=== PATIENT | female | born 1950 | race Two or more races ===

== ENCOUNTER → 2020-11-02 11:56 | Outpatient (BNVA) | payer MEDICARE, SELFPAY | PROVIDERS: PCP Internal Medicine; Referring Provider Internal Medicine; Visit Provider Internal Medicine Gastroenterology | DX: K59.09 Other constipation (principal); R10.12 Left upper quadrant pain; K57.90 Diverticulosis of intestine, part unspecified, without perforation or abscess without bleeding; Z86.010 Personal history of colon polyps | CPT/HCPCS: Q3014 ==

== ENCOUNTER 2021-03-12 09:57 | Outpatient (REF) | payer MEDICARE, SELFPAY ==
--- NOTE | ~2021-03-12 | MM_ITS ---
EXAMINATION: MM SCREENING DIGITAL BREAST TOMOSYNTHESIS, BILATERAL CLINICAL INFORMATION: Screening. Asymptomatic. The lifetime risk of breast cancer based on the Tyrer-Cuzick Model is 2%. COMPARISON: Mammography: 11/25/2019, 10/09/2018, 06/21/2016 TECHNIQUE: Digital breast tomosynthesis is performed in both the craniocaudal and mediolateral oblique views along with computer-aided detection (CAD). Synthesized 2D images are generated from the tomosynthesis. FINDINGS: There are scattered areas of fibroglandular density (ACR BI-RADS breast composition Category b). There are no significant masses, abnormal calcifications, or other abnormalities. There is an intramammary node again seen upper outer quadrant right breast similar to prior studies. Low left axillary tail nodes stable. Skin contours are smooth. No significant changes. MM/MM tomosynthesis screening BI IMPRESSION: No mammographic evidence of malignancy. ASSESSMENT: BI-RADS 2: Benign RECOMMENDATION: Routine annual mammography screening. This patient's information was entered into a reminder system with a target due date for their next mammogram.
== END 2021-03-12 09:58 | disposition home or self-care (01) ==
LOC: HO.MAMMO 09:57
PROVIDERS: Visit Provider Internal Medicine
DX: Z12.31 Encounter for screening mammogram for malignant neoplasm of breast (principal)
CPT/HCPCS: 77063; 77067

== ENCOUNTER 2021-04-04 11:33 | Outpatient (REF) | payer MEDICARE, SELFPAY ==
[2021-04-04 12:27] LABS: Estimated Average Glucose 117 mg/dL; Hemoglobin A1c % 5.7 %
[2021-04-04 12:45] LABS: Alanine Aminotransferase 27 U/L (0-31); Albumin Level 4.1 g/dL (3.5-5.0); Alkaline Phosphatase 135 U/L (39-117); Anion Gap 11 (12-20); Aspartate Amino Transferase 23 U/L (5-31); Bilirubin Total 0.4 mg/dL (0.0-1.0); Blood Urea Nitrogen 13 mg/dL (9-16); Calcium 9.8 mg/dL (8.4-10.2); Carbon Dioxide 30 mmol/L (22-29); Chloride 103 mmol/L (96-108); Estimated Glomerular Filt Rate > 60; Glucose Fasting 98 mg/dL (60-99); Potassium 4.4 mmol/L (3.3-5.1); Sodium 140 mmol/L (135-145); Total Protein 7.3 g/dL (6.5-8.0)
[2021-04-04 12:53] LABS: Free T4 (Free Thyroxine) 0.95 ng/dL (0.71-1.85); Thyroid Stimulating Hormone 1.19 uIU/mL (0.32-4.0)
[2021-04-08 11:12] LABS: Vitamin D 25-OH, D2 <4 ng/mL; Vitamin D 25-OH, D3 24 ng/mL; Vitamin D 25-OH, Total 24 ng/mL (30-100)
== END 2021-04-04 11:34 | disposition home or self-care (01) ==
LOC: HO.LAB 11:33
PROVIDERS: Internal Medicine; PCP Internal Medicine; Visit Provider Internal Medicine
DX: E78.00 Pure hypercholesterolemia, unspecified (principal); I10 Essential (primary) hypertension; E55.9 Vitamin D deficiency, unspecified
CPT/HCPCS: 36415; 80053; 82306; 83036; 84439; 84443

== ENCOUNTER → 2021-05-10 11:17 | Outpatient (BNVA) | payer MEDICARE, SELFPAY | PROVIDERS: PCP Internal Medicine; Visit Provider Internal Medicine Gastroenterology | DX: R10.12 Left upper quadrant pain (principal); K59.09 Other constipation; K57.90 Diverticulosis of intestine, part unspecified, without perforation or abscess without bleeding; Z86.010 Personal history of colon polyps | CPT/HCPCS: 99212 ==

== ENCOUNTER 2021-05-21 14:27 | Outpatient (REF) | payer MEDICARE, SELFPAY ==
[2021-05-21 15:28] LABS: MANUAL DIFF FLAG NO
[2021-05-21 15:35] LABS: Basophils Absolute Auto 0.1 X10*3/uL (0.0-0.2); Basophils Percent Auto 0.6 % (0-2); Eosinophils Absolute Auto 0.3 X10*3/uL (0.0-0.4); Eosinophils Percent Auto 3.3 % (0-4); Hematocrit 37.4 % (37-47); Hemoglobin 12.2 g/dl (12.0-16.0); Imm Gran Abs Auto 0.03 X10*3/uL (0.00-0.03); Imm Gran Pct Auto 0.4 % (0.0-0.4); Lymphocytes Absolute Auto 2.4 X10*3/uL (1.2-4.9); Lymphocytes Percent Auto 29.5 % (20-40); Mean Corpuscular HGB Conc 32.6 g/dl (31.0-35.0); Mean Corpuscular Hemoglobin 30.7 pg (27.0-33.0); Mean Corpuscular Volume 94.2 fL (80-98); Mean Platelet Volume 12.1 fL (9.4-12.3); Monocytes Absolute Auto 0.6 X10*3/uL (0.1-1.2); Monocytes Percent Auto 7.6 % (2-11); Neutrophils Absolute Auto 4.8 X10*3/uL (2.0-8.3); Neutrophils Percent Auto 58.6 % (45-73); Platelet Count 274 X10*3/uL (160-400); Red Blood Count 3.97 X10*6/uL (4.20-5.50); Red Cell Distribution Width 13.2 % (11.0-16.0); White Blood Count 8.1 X10*3/uL (4.8-10.8)
[2021-05-21 16:00] LABS: Alanine Aminotransferase 12 U/L (0-31); Albumin Level 4.1 g/dL (3.5-5.0); Alkaline Phosphatase 137 U/L (39-117); Aspartate Amino Transferase 15 U/L (5-31); Bilirubin Direct < 0.2 mg/dL (0.0-0.5); Bilirubin Total < 0.2 mg/dL (0.0-1.0); C Reactive Protein 1.24 mg/dL (< or = 0.50); Lipase 20 U/L (8-78); Total Protein 7.2 g/dL (6.5-8.0)
[2021-05-21 16:15] LABS: TSH reflex Free T4 0.78 uIU/mL (0.32-4.0)
[2021-05-21 16:22] LABS: Folate 9.6 ng/mL (> or = 4.0); Vitamin B12 266 pg/mL (200-900)
[2021-05-21 16:25] LABS: Erythrocyte Sedimentation Rate 33 MM/HR (0-20)
== END 2021-05-21 14:28 | disposition home or self-care (01) ==
LOC: HO.LAB 14:27
PROVIDERS: PCP Internal Medicine; Visit Provider Internal Medicine Gastroenterology
DX: R10.12 Left upper quadrant pain (principal)
CPT/HCPCS: 36415; 80076; 82607; 82746; 83690; 84443; 85025; 85652; 86140

== ENCOUNTER 2021-06-04 08:53 | Outpatient (REF) | payer MEDICARE, SELFPAY ==
--- NOTE | ~2021-06-04 | US_ITS ---
EXAMINATION: US ABDOMEN COMPLETE CLINICAL INFORMATION: Left upper quadrant pain. COMPARISON: CT abdomen and pelvis 04/28/2020. Ultrasound abdomen 11/20/2016. TECHNIQUE: Real-time imaging of the abdominal viscera. FINDINGS: PANCREAS: Head and body the pancreas are normal. The tail is not well visualized due to bowel gas. ABDOMINAL AORTA: The proximal, mid, and distal segments are normal in caliber. INFERIOR VENA CAVA: Visualized portions are normal. LIVER: Liver echotexture is increased probably representing fatty infiltration. There is a hypoechoic area adjacent to the gallbladder, characteristic location of focal fatty sparing.. The liver is normal in size. The liver contour is normal. No other focal hepatic lesion. There is no intrahepatic biliary duct dilatation seen. GALLBLADDER: Normal. The gallbladder is physiologically distended without evidence of stones, sludge, polyps, wall thickening or pericholecystic fluid. COMMON BILE DUCT: Normal in caliber measuring 0.7 cm in diameter. RIGHT KIDNEY: There is a 7 x 6 mm cyst in the lower pole. No hydronephrosis or renal calculi. The kidney measures 9.7 cm in maximum dimension. LEFT KIDNEY: There is a 3 x 4 mm cyst in the lower pole. No hydronephrosis or renal calculi. The kidney measures 9.1 cm in maximum dimension. SPLEEN: Normal. The spleen measures 8.2 cm in maximum dimension. FREE FLUID: None. US/US abdomen complete IMPRESSION: Echogenic liver probably representing fatty infiltration. Small bilateral renal cysts. Limited visualization of the tail the pancreas.
== END 2021-06-04 08:54 | disposition home or self-care (01) ==
LOC: HO.US 08:53
PROVIDERS: Visit Provider Internal Medicine Gastroenterology
DX: R10.12 Left upper quadrant pain (principal)
CPT/HCPCS: 76700

== ENCOUNTER 2021-07-01 13:11 | Emergency (ER) | payer MEDICARE, SELFPAY ==
[2021-07-01 14:37] VITALS: BP 150/62; PULSE 55; RESP 16; TEMP 36; O2SAT 98; BMI 32.8
--- NOTE | 2021-07-01 16:17 | ED_ITS ---
HPI - Ear Problem General Chief complaint: Ear Problems Stated complaint: ear pain Time Seen by Provider: 07/01/21 13:46 Source: patient Mode of arrival: ambulatory Limitations: no limitations History of Present Illness HPI Narrative: 71-year-old female presents with left-sided ear pain and pain swallowing. Stated that the pain on the left ear started 2 days ago. She does not describe any fevers but has had some subjective chills. She has had tonsillar problems since she was a child. She is allergic to penicillin and does not recall any of the antibiotics that she took prior. She did not describe any fevers, chest pain or pressure, palpitations, shortness of breath, abdominal pain, abdominal distention, dysuria, hematuria, nausea, vomiting, diarrhea, constipation, difficulty swallowing, change in voice, or edema. MD Complaint: ear pain Location: left ear Duration: constant Severity: moderate Relieving factors: nothing Exacerbating factors: chewing and palpation Discharge from ear: no Treatment prior to arrival: none Related Data Previous Rx's Medication Instructions Recorded irbesartan 300 mg tablet 300 mg PO DAILY 90 Days #90 tab 09/14/20 sennosides 8.6 mg-docusate sodium 1 tab-cap PO BID PRN 30 Days #60 11/02/20 50 mg capsule (Senna Plus) cap cholecalciferol (vitamin D3) 25 25 mcg PO DAILY #90 tab 12/07/20 mcg (1,000 unit) tablet CPAP 6 cm humidified AIR MASKAIR #1 ea 04/20/21 FIT N20 small amlodipine 5 mg tablet 5 mg PO BID #180 tab 05/26/21 cefuroxime axetil 500 mg tablet 500 mg PO Q12H 7 Days #14 tab 07/01/21 Allergies Allergy/AdvReac Type Severity Reaction Status Date / Time atorvastatin Allergy Unknown myalgia Verified 05/10/21 11:43 codeine Allergy Unknown SWELLING Verified 05/10/21 11:43 penicillin V Allergy Unknown rash Verified 05/10/21 11:43 Penicillins Allergy Unknown RASH Verified 05/10/21 11:43 metoprolol AdvReac leg Verified 05/10/21 11:43 swelling Review of Systems Review of Systems: Constitutional: No Fever, No Chills ENT/Mouth: Positive Ear Pain, No Hoarseness, positive sore throat Eyes: No Eye Pain, No Swelling, No Redness, No Foreign Body Cardiovascular: No Chest Pain, No SOB Respiratory: No Cough, No Dyspnea Gastrointestinal: No Nausea, No Vomiting, No Diarrhea, No abdominal Pain Genitourinary: No Dysuria, No Hematuria Musculoskeletal: No joint pain, No Myalgias, No Joint Swelling Skin: No Skin lacerations, No rash Neuro: No Weakness, No Numbness, No Paresthesias, No Loss of Consciousness, No Dizziness, No Headache Psych: No Anxiety/Panic, No Depression Heme/Lymph: no easy bruising, no Lymphadenopathy Endocrine: No Polyuria, No Polydipsia Yes all other systems are reviewed and are negative [facility] Past Medical History Attestation statement: The following information was validated with the patient. Source: old records reviewed Medical History Coreas's cyst of knee Diverticulosis Essential hypertension Hypovitaminosis D IgA nephropathy Obesity (BMI 30-39.9) Obstructive sleep apnea Pure hypercholesterolemia Venous (peripheral) insufficiency Vitamin D deficiency Surgical History H/O tubal ligation History of colonoscopy History of dilatation and curettage History of loop electrical excision procedure (LEEP) Family History Family History Father No problems noted. Mother No problems noted. Social History Social History Alcohol intake: never Patient Tobacco Use Status: Never used Tobacco Second Hand Smoke Exposure: No Use of substances other than those prescribed or required for medical reasons: No Advance Directives: No Advance Directives Information Provided: Yes Physical Exam Vital Signs: Vital Signs: Last Vital Signs Temp 98.3 F 07/01/21 16:24 Pulse 55 07/01/21 14:37 Resp 16 07/01/21 14:37 BP 136/62 07/01/21 16:24 Pulse Ox 98 07/01/21 14:37 Body Mass Index 32.8 Appearance: Alert. Oriented X3. No acute distress. Eyes: Pupils equal, round and reactive to light. ENT: Pharynx normal. Left tympanic membrane bulging and erythematous consistent with otitis media, left tonsil erythema with exudate, right tonsillar erythema. Centor scale 3. No mastoid tenderness noted Neck: Normal inspection. Neck supple. No cervical lymphadenopathy noted. CVS: Normal heart rate and rhythm. Pulses normal. No chest wall tenderness to palpation. Respiratory: No respiratory distress. Breath sounds normal. Abdomen: Soft and nontender. No paddle splenomegaly noted. Skin: Skin warm and dry. Normal skin color. Normal skin turgor. Extremities: No lower extremity edema. Neuro: No motor deficit. No sensory deficit. Cranial nerves 2-12 intact. Course Course Course Narrative: 71-year-old female presents with left-sided ear pain and pain swallowing. Stated that the pain on the left ear started 2 days ago. She does not describe any fevers but has had some subjective chills. She has had tonsillar problems since she was a child. She is allergic to penicillin and does not recall any of the antibiotics that she took prior. Physical exam indicative of otitis media with suspected tonsillitis. Will treat with cefuroxime. Patient verbalized understanding of and agrees to plan of care to discharge home. buckle coverer utilized for all correspondence. Google translate utilized for discharge instructions. MDM - Ear Differential Diagnosis Differential diagnosis: Likely otitis externa, otitis media, ruptured TM and cerumen impaction Medical Records Attestation: I reviewed the patient's medical records. Discharge Plan Discharge Clinical Impression: Otitis media Qualifiers: Otitis media type: suppurative Chronicity: acute Laterality: left Recurrence: recurrent Spontaneous tympanic membrane rupture: without spontaneous rupture Qualified Code(s): H66.005 - Acute suppurative otitis media without spontaneous rupture of ear drum, recurrent, left ear Acute tonsillitis Qualifiers: Pharyngitis/tonsillitis etiology: unspecified etiology Qualified Code(s): J03.90 - Acute tonsillitis, unspecified Patient Disposition: Home, Self-Care Instructions: Ear Infection (ED), Tonsillitis (ED) Additional Instructions: Fue evaluado por dolor de o?do sheeba. El examen indica otitis media, que es adry infecci?n del o?do interno. Byron un seguimiento con edwards m?dico de atenci?n primaria seg?n sea necesario. Use Tylenol y Motrin seg?n sea necesario para controlar el dolor. Anote la hora a la que cristal Tylenol y Motrin para evitar adry sobredosis accidental. [place] cefuroxima dos veces al d?a stephanie los pr?ximos 7 d?as. Asaf por elegir darek departamento de emergencias para edwards evaluaci?n. Byron un seguimiento con edwards m?dico de atenci?n primaria seg?n sea necesario. Regrese al departamento de emergencias por cualquier s?ntoma nuevo, preocupante o que empeore. You were evaluated for left-sided ear pain. Exam indicates otitis media, which is an inner ear infection. Please follow-up with primary care physician as needed. Use Tylenol and Motrin as needed for pain management. Please write d own what time you take Tylenol and Motrin to prevent accidental overdose. Take cefuroxime twice a day for next 7 days. Thank you for choosing this emergency department for evaluation. Please follo w-up with primary care physician as needed. Return to the emergency department for any new, concerning, or worsening symptoms. Prescriptions: New cefuroxime axetil 500 mg tablet 500 mg PO Q12H 7 Days Qty: 14 RF: 0 No Action irbesartan 300 mg tablet 300 mg PO DAILY 90 Days Qty: 90 RF: 3 cholecalciferol (vitamin D3) 25 mcg (1,000 unit) tablet 25 mcg PO DAILY Qty: 90 RF: 1 amlodipine 5 mg tablet 5 mg PO BID Qty: 180 RF: 2 (DME) CPAP 6 cm humidified AIR MASKAIR FIT N20 small See Rx Instructions .Route .MEDSUPPLY Qty: 1 RF: 0 Senna Plus 8.6-50 mg capsule 1 tab-cap PO BID PRN (Reason: constipation) 30 Days Qty: 60 RF: 3 Interventions: ED Discharge Assessment Last Done: 07/01/21 17:19 Discharge Date/Time: 07/01/21 17:20
[2021-07-01 16:24] VITALS: BP 136/62; TEMP 36.8
== END 2021-07-01 17:20 | disposition home or self-care (01) ==
PROVIDERS: Emergency Provider Internal Medicine; PCP Internal Medicine
DX: H66.005 Acute suppurative otitis media without spontaneous rupture of ear drum, recurrent, left ear (principal); J03.90 Acute tonsillitis, unspecified; I10 Essential (primary) hypertension
CPT/HCPCS: 99283; 99284

== ENCOUNTER 2021-11-13 12:18 | Outpatient (REF) | payer MEDICARE, SELFPAY ==
--- NOTE | ~2021-11-13 | XR_ITS ---
EXAMINATION: XR LUMBAR SPINE and sacrum CLINICAL INFORMATION: Low back pain COMPARISON: None TECHNIQUE: Frontal lateral and coned-down L5-S1 frontal lateral FINDINGS: Five [id number] lumbar vertebrae were identified maintaining normal height and alignments. Narrowing of intervertebral disc spaces suggest underlying degenerative disc disease. There are heavy vascular calcifications. There are degenerative osteoarthritic changes of SI joints. No radiographic evidence of sacral lesion or fracture, Paravertebral soft tissues are unremarkable. There are radiolucencies, most likely superimposed bowel gas.. No radiographic evidence of osteolytic or osteoblastic lesions. XR/XR sacrum coccyx min 2V IMPRESSION: No fracture. No radiographic evidence of pathologic lesion. Mild bilateral degenerative sacroiliitis. Narrowing of intervertebral disc spaces suggest underlying degenerative disc disease.
--- NOTE | ~2021-11-13 | XR_ITS ---
EXAMINATION: XR LUMBAR SPINE and sacrum CLINICAL INFORMATION: Low back pain COMPARISON: None TECHNIQUE: Frontal lateral and coned-down L5-S1 frontal lateral FINDINGS: Five [id number] lumbar vertebrae were identified maintaining normal height and alignments. Narrowing of intervertebral disc spaces suggest underlying degenerative disc disease. There are heavy vascular calcifications. There are degenerative osteoarthritic changes of SI joints. No radiographic evidence of sacral lesion or fracture, Paravertebral soft tissues are unremarkable. There are radiolucencies, most likely superimposed bowel gas.. No radiographic evidence of osteolytic or osteoblastic lesions. XR/XR lumbar spine 2-3V IMPRESSION: No fracture. No radiographic evidence of pathologic lesion. Mild bilateral degenerative sacroiliitis. Narrowing of intervertebral disc spaces suggest underlying degenerative disc disease.
== END 2021-11-13 12:19 | disposition home or self-care (01) ==
LOC: HO.XRAY 12:18
PROVIDERS: PCP Internal Medicine; Visit Provider Nurse Practitioner Acute Care
DX: M54.50 Low back pain, unspecified (principal); M54.10 Radiculopathy, site unspecified
CPT/HCPCS: 72100; 72220

== ENCOUNTER 2021-12-19 11:08 | Outpatient (REF) | payer MEDICARE, SELFPAY ==
[2021-12-19 11:21] LABS: MANUAL DIFF FLAG NO
[2021-12-19 11:39] LABS: Basophils Absolute Auto 0.1 X10*3/uL (0.0-0.2); Basophils Percent Auto 0.9 % (0-2); Eosinophils Absolute Auto 0.3 X10*3/uL (0.0-0.4); Eosinophils Percent Auto 4.6 % (0-4); Hematocrit 38.2 % (37.0-47.0); Hemoglobin 12.3 g/dl (12.0-16.0); Imm Gran Abs Auto 0.02 X10*3/uL (0.00-0.03); Imm Gran Pct Auto 0.3 % (0.0-0.4); Lymphocytes Absolute Auto 2.3 X10*3/uL (1.2-4.9); Lymphocytes Percent Auto 30.6 % (20-40); Mean Corpuscular HGB Conc 32.2 g/dl (31.0-35.0); Mean Corpuscular Hemoglobin 30.2 pg (27.0-33.0); Mean Corpuscular Volume 93.9 fL (80.0-98.0); Mean Platelet Volume 11.6 fL (9.4-12.3); Monocytes Absolute Auto 0.7 X10*3/uL (0.1-1.2); Monocytes Percent Auto 9.1 % (2-11); Neutrophils Percent Auto 54.5 % (45-73); Platelet Count 288 X10*3/uL (160-400); Red Blood Count 4.07 X10*6/uL (4.20-5.50); White Blood Count 7.4 X10*3/uL (4.8-10.8)
[2021-12-19 11:51] LABS: Estimated Average Glucose 120 mg/dL; Hemoglobin A1c % 5.8 %
[2021-12-19 12:25] LABS: Alanine Aminotransferase 14 U/L (0-31); Alkaline Phosphatase 141 U/L (39-117); Anion Gap 13 (12-20); Aspartate Amino Transferase 16 U/L (5-31); Bilirubin Total 0.4 mg/dL (0.0-1.0); Blood Urea Nitrogen 24 mg/dL (9-16); Calcium 10.1 mg/dL (8.4-10.2); Carbon Dioxide 28 mmol/L (22-29); Chloride 104 mmol/L (96-108); Cholesterol 211 mg/dL; Estimated Glomerular Filt Rate 54; Glucose Fasting 103 mg/dL (60-99); HDL Cholesterol 46 mg/dL; LDL Cholesterol Calculated 141 mg/dl; Potassium 5.2 mmol/L (3.3-5.1); Sodium 140 mmol/L (135-145); Total Protein 7.2 g/dL (6.5-8.0); Triglycerides 121 mg/dL
== END 2021-12-19 11:09 | disposition home or self-care (01) ==
LOC: HO.LAB 11:08
PROVIDERS: PCP Internal Medicine; Visit Provider Nurse Practitioner Acute Care
DX: E78.00 Pure hypercholesterolemia, unspecified (principal); R73.01 Impaired fasting glucose
CPT/HCPCS: 36415; 80053; 80061; 83036; 85025

== ENCOUNTER 2021-12-21 16:14 | Outpatient (REF) | payer MEDICARE, SELFPAY ==
--- NOTE | ~2021-12-21 | US_ITS ---
EXAMINATION: US VENOUS ULTRASOUND WITH DOPPLER LOWER EXTREMITY, LEFT CLINICAL INFORMATION: Left leg swelling. COMPARISON: Left lower extremity venous Doppler dated 05/10/2020. TECHNIQUE: Ultrasound of the deep veins is performed from the hip to the calf with compression sonography and color and pulse Doppler assessment. Spectral analysis with color-flow imaging is performed. FINDINGS: There is normal venous compression and respiratory variation and augmented flow. The visualized common femoral vein, superficial femoral vein, profunda femoral vein, popliteal vein, and the trifurcation region shows no evidence of deep venous thrombosis. No left popliteal cyst. The subcutaneous soft tissues are unremarkable. If the patient's symptoms persist, followup ultrasound in 5 days 7 days might be of value to exclude proximal propagation from a non-visualized calf vein. US/US venous duplex LE LT IMPRESSION: 1. No evidence for deep venous thrombosis in the visualized veins of the left lower extremity. 2. The previously seen left popliteal cyst is no longer visualized.
== END 2021-12-21 16:15 | disposition home or self-care (01) ==
LOC: HO.US 16:14
PROVIDERS: PCP Internal Medicine; Visit Provider Internal Medicine
DX: R60.0 Localized edema (principal); M79.89 Other specified soft tissue disorders
CPT/HCPCS: 93971

== ENCOUNTER 2022-03-28 08:56 | Outpatient (REF) | payer OTHER, SELFPAY ==
[2022-03-28 10:13] LABS: MANUAL DIFF FLAG NO
[2022-03-28 10:26] LABS: Basophils Absolute Auto 0.1 X10*3/uL (0.0-0.2); Basophils Percent Auto 0.9 % (0-2); Eosinophils Absolute Auto 0.2 X10*3/uL (0.0-0.4); Eosinophils Percent Auto 2.2 % (0-4); Hematocrit 39.2 % (37.0-47.0); Hemoglobin 12.6 g/dl (12.0-16.0); Imm Gran Abs Auto 0.03 X10*3/uL (0.00-0.03); Imm Gran Pct Auto 0.4 % (0.0-0.4); Lymphocytes Absolute Auto 1.8 X10*3/uL (1.2-4.9); Lymphocytes Percent Auto 24.4 % (20-40); Mean Corpuscular HGB Conc 32.1 g/dl (31.0-35.0); Mean Corpuscular Hemoglobin 29.8 pg (27.0-33.0); Mean Corpuscular Volume 92.7 fL (80.0-98.0); Mean Platelet Volume 11.3 fL (9.4-12.3); Monocytes Absolute Auto 0.7 X10*3/uL (0.1-1.2); Monocytes Percent Auto 9.2 % (2-11); Neutrophils Absolute Auto 4.6 x10*3/uL (2.0-8.3); Neutrophils Percent Auto 62.9 % (45-73); Platelet Count 282 X10*3/uL (160-400); Red Blood Count 4.23 X10*6/uL (4.20-5.50); Red Cell Distribution Width 13.4 % (11.0-16.0); White Blood Count 7.4 X10*3/uL (4.8-10.8)
[2022-03-28 11:03] LABS: Cholesterol 217 mg/dL; HDL Cholesterol 47 mg/dL; LDL Cholesterol Calculated 151 mg/dl; Triglycerides 95 mg/dL
[2022-03-30 17:31] LABS: Immunoglobulin A 361 mg/dL (70-320)
[2022-03-31 13:41] LABS: Anti Nuclear Antibody Screen NEGATIVE (NEGATIVE)
[2022-04-01 14:56] LABS: Immunoglobulin G Subclass 1 606 mg/dL (382-929); Immunoglobulin G Subclass 2 501 mg/dL (241-700); Immunoglobulin G Subclass 3 78 mg/dL (22-178); Immunoglobulin G Subclass 4 31.2 mg/dL (4-86); Immunoglobulin G Total 1279 mg/dL (600-1540)
[2022-04-01 22:07] LABS: Prot Elec - Albumin 3.8 g/dL (3.8-4.8); Prot Elec - Alpha1 0.3 g/dL (0.2-0.3); Prot Elec - Alpha2 0.8 g/dL (0.5-0.9); Prot Elec - Beta 1 0.5 g/dL (0.4-0.6); Prot Elec - Beta 2 0.5 g/dL (0.2-0.5); Prot Elec - Gamma 1.2 g/dL (0.8-1.7); Prot Elec - Total Protein 7.1 g/dL (6.1-8.1)
[2022-04-01 22:36] LABS: Transglutaminase IgA <1.0 U/mL
[2022-04-02 13:56] LABS: Mitochondrial Antibodies NEGATIVE (NEGATIVE)
[2022-04-03 22:51] LABS: Smooth Muscle Antibody <20 U (<20)
[2022-04-05 13:36] LABS: Alk.Phos Iso. Macrohepatic 0 % (<=0); Alk.Phos Isoenzymes Bone 38 % (28-66); Alk.Phos Isoenzymes Intest 0 % (1-24); Alk.Phos Isoenzymes Liver 62 % (25-69); Alk.Phos Isoenzymes Placental 0 % (<=0); Alk.Phos Isoenzymes Total 124 U/L (37-153)
== END 2022-03-28 08:57 | disposition home or self-care (01) ==
LOC: HO.LAB 08:56
PROVIDERS: PCP Internal Medicine; Referring Provider Internal Medicine; Visit Provider Internal Medicine Gastroenterology
DX: R74.8 Abnormal levels of other serum enzymes (principal); R19.5 Other fecal abnormalities; E78.00 Pure hypercholesterolemia, unspecified; K57.90 Diverticulosis of intestine, part unspecified, without perforation or abscess without bleeding; R10.12 Left upper quadrant pain; K59.09 Other constipation; Z86.010 Personal history of colon polyps; Z79.899 Other long term (current) drug therapy
CPT/HCPCS: 36415; 80061; 82784; 84080; 84165; 85025; 86015; 86038; 86039; 86255; 86256; 86364; 99212

== ENCOUNTER 2022-04-08 12:04 | Outpatient (REF) | payer OTHER, SELFPAY ==
[2022-04-13 13:41] LABS: Pancreatic Elastase-1 >500 mcg/g
== END 2022-04-08 12:05 | disposition home or self-care (01) ==
LOC: HO.LNP 12:04
PROVIDERS: Visit Provider Internal Medicine Gastroenterology
DX: R74.8 Abnormal levels of other serum enzymes (principal)
CPT/HCPCS: 82656

== ENCOUNTER 2022-05-23 14:14 | Outpatient (REF) | payer OTHER, SELFPAY ==
--- NOTE | ~2022-05-23 | MM_ITS ---
EXAMINATION: MM SCREENING DIGITAL BREAST TOMOSYNTHESIS, BILATERAL CLINICAL INFORMATION: Screening. Asymptomatic. The lifetime risk of breast cancer based on the Tyrer-Cuzick Model is 2%. COMPARISON: Mammography: 03/12/2021, 11/25/2019, 10/09/2018 TECHNIQUE: Digital breast tomosynthesis is performed in both the craniocaudal and mediolateral oblique views along with computer-aided detection (CAD). Synthesized 2D images are generated from the tomosynthesis. FINDINGS: There are scattered areas of fibroglandular density (ACR BI-RADS breast composition Category b). There are no significant masses, abnormal calcifications, or other abnormalities. Intramammary node mid upper outer right breast again noted. No developing density. The implant contours are smooth. No significant changes. MM/MM tomosynthesis screening BI IMPRESSION: No mammographic evidence of malignancy. ASSESSMENT: BI-RADS 2: Benign RECOMMENDATION: Routine annual mammography screening. This patient's information was entered into a reminder system with a target due date for their next mammogram.
--- NOTE | ~2022-05-23 | MM_ITS ---
EXAMINATION: BONE DENSITOMETRY CLINICAL INDICATION: Age-related osteoporosis without current pathological fracture. COMPARISON: None (current study represents initial baseline exam). TECHNIQUE: Using a [employer] DXA System (software version: 13.1) manufactured by [employer], dual-energy x-ray absorptiometry was performed of the lumbar spine and left hip. The images are of good technical quality. Summary results are attached. FINDINGS: AP SPINE L1-L4: BMD 0.949 g/cm2, Z-score -0.7, T-score -1.9, osteopenia. LEFT FEMUR, NECK: BMD 0.733 g/cm2, Z-score -0.7, T-score -2.2, osteopenia. LEFT FEMUR, TOTAL: BMD 0.883 g/cm2, Z-score 0.3, T-score -1.0, normal. IDENTIFIED RISK FACTORS: Early menopause, secondary osteoporosis, history of fracture (adult), renal. HISTORY OF FRACTURE: Other. No insufficiency fracture reported. MEDICATIONS: Vitamin D. MM/XR DEXA axial skeleton IMPRESSION: 1. DIAGNOSIS: Osteopenia based on the lowest T-score value of -2.2 in the femoral neck applying World Health Organization criteria. 2. 10-YEAR FRACTURE RISK PREDICTION, FRAX: Major osteoporotic fracture (clinical spine, forearm, hip or shoulder) 11.6%. Hip fracture 2.6%. 3. Treatment Recommendations: NOF guidelines recommend consideration for treatment in postmenopausal women and men age 50 and older presenting with the following: -A hip or vertebral (clinical or morphometric) fracture. -T-score less than or equal to -2.5 at the femoral neck or spine after appropriate evaluation to exclude secondary causes. -Low bone mass at the hip or spine and a 10-year fracture probability by FRAX of greater than or equal to 3% for hip fracture or greater than or equal to 20% for major osteoporotic fracture based on the [place] adapted WHO algorithm. 4. Other Recommendations: All treatment decisions require clinical judgment and consideration of individual patient factors, including patient preferences, comorbidities, previous drug use, risk factors not captured in the FRAX model (e.g. frailty, falls, vitamin D deficiency, increased bone turnover, interval significant decline in bone density) and possible under or overestimation of fracture risk by FRAX. Additional medical evaluation for secondary cause of low bone mineral density may be appropriate. FUTURE SCAN RECOMMENDATION: People with diagnosed cases of osteoporosis or at high risk for fracture should have regular bone mineral density tests. For patients eligible for Medicare, routine testing is allowed once every 2 years. The testing frequency can be increased to one year for patients who have rapidly progressing disease, those who are receiving or discontinuing medical therapy to restore bone mass, or have additional risk factors.
== END 2022-05-23 14:15 | disposition home or self-care (01) ==
LOC: HO.MAMMO 14:14
PROVIDERS: PCP Internal Medicine; Visit Provider Internal Medicine
DX: Z12.31 Encounter for screening mammogram for malignant neoplasm of breast (principal); Z13.820 Encounter for screening for osteoporosis; M81.0 Age-related osteoporosis without current pathological fracture; Z78.0 Asymptomatic menopausal state
CPT/HCPCS: 77063; 77067; 77080

== ENCOUNTER → 2022-06-11 09:00 | Outpatient (BNVA) | payer OTHER, SELFPAY | PROVIDERS: PCP Internal Medicine; Visit Provider Nurse Practitioner Family | DX: G47.33 Obstructive sleep apnea (adult) (pediatric) (principal); Z99.89 Dependence on other enabling machines and devices | CPT/HCPCS: 99202 ==

== ENCOUNTER → 2022-07-04 15:42 | Outpatient (REF) | payer OTHER, SELFPAY | LOC: HO.SL 15:42 | PROVIDERS: PCP Internal Medicine; Visit Provider Internal Medicine | DX: G47.33 Obstructive sleep apnea (adult) (pediatric) (principal) | CPT/HCPCS: 95806 ==

== ENCOUNTER 2022-07-15 11:23 | Day surgery (SDC) | payer OTHER, SELFPAY ==
[2022-07-10 10:09] VITALS: BMI 32.6
--- NOTE | 2022-07-12 10:08 | P.CONAN_ITS ---
Documented by User: Rachana Stephens NP 07/12/22 10:09 HPI - Anesthesia Eval Consult details Narrative: 72yo F for Upper Endoscopy PMFSH Active Problems Active Problems: All Active Problems (Updated 06/11/22 @ 10:15 by Coco Gil CNP) JANN on CPAP (Acute) Chalazion of right eye (Acute) Elevated alkaline phosphatase level (Acute) Guaiac positive stools (Acute) Breast cancer screening (Acute) Age-related osteoporosis without current pathological fracture (Acute) Annual physical exam (Acute) Left leg swelling (Acute) Conjunctivitis (Acute) Radicular pain (Acute) Low back pain (Acute) Benign essential hypertension (Acute) Otitis media of left ear (Acute) Diverticulosis (Acute) LUQ abdominal pain (Acute) Impaired fasting blood sugar (Acute) Obesity (BMI 30-39.9) (Acute) Obstructive sleep apnea (Acute) History of colon polyps (Acute) Chronic constipation (Acute) Venous (peripheral) insufficiency (Acute) Coreas's cyst of knee (Acute) Pure hypercholesterolemia (Acute) Hypovitaminosis D (Acute) Past Medical History Medical History Coreas's cyst of knee Benign essential hypertension Diverticulosis Hypovitaminosis D IgA nephropathy Obesity (BMI 30-39.9) Obstructive sleep apnea Pure hypercholesterolemia Venous (peripheral) insufficiency Vitamin D deficiency Family History Family History Father Alzheimers disease Mother Kidney failure Surgical History Surgical History H/O tubal ligation History of colonoscopy History of dilatation and curettage History of loop electrical excision procedure (LEEP) Social History Social History Housing: Apartment Alcohol intake: never Patient Tobacco Use Status: Never used Tobacco e-Cigarette/Vaping Use: Never Used Second Hand Smoke Exposure: No Advance Directives: No Advance Directives Information Provided: Yes service: No Current occupational status: disabled Cognitive needs: No Hearing needs: No Vision needs: No Meds Allergies Allergy/AdvReac Type Severity Reaction Status Date / Time atorvastatin Allergy Unknown myalgia Verified 06/11/22 09:08 codeine Allergy Unknown SWELLING Verified 06/11/22 09:08 penicillin V Allergy Unknown rash Verified 06/11/22 09:08 metoprolol AdvReac leg Verified 06/11/22 09:08 swelling Exam Exam Date and Time: July 12, 2022 1008 Height,Weight and Vital Signs: Height 5 ft 1 in Weight 78.471 kg Pertinent Lab Results Pertinent Lab Results: Laboratory Tests 12/19/21 03/28/22 11:19 10:06 WBC 7.4 Hgb 12.6 Hct 39.2 Plt Count 282 Sodium 140 Potassium 5.2 H Chloride 104 Carbon Dioxide 28 BUN 24 H Creatinine 1.01 Assessment and Plan Assessment Anesthesia Assessment: Chart Reviewed Documented by User: Olamide Parisi MD 07/15/22 12:32 [facility] Past Medical History Medical History Coreas's cyst of knee Benign essential hypertension Diverticulosis Hypovitaminosis D IgA nephropathy Obesity (BMI 30-39.9) Obstructive sleep apnea Pure hypercholesterolemia Venous (peripheral) insufficiency Vitamin D deficiency Family History Family History Father Alzheimers disease Mother Kidney failure Surgical History Surgical History H/O tubal ligation History of colonoscopy History of dilatation and curettage History of loop electrical excision procedure (LEEP) History of Problems with Anesthesia: No Social History Social History Housing: Apartment Alcohol intake: never Patient Tobacco Use Status: Never used Tobacco e-Cigarette/Vaping Use: Never Used Second Hand Smoke Exposure: No Advance Directives: No Advance Directives Information Provided: Yes service: No Current occupational status: disabled Cognitive needs: No Hearing needs: No Vision needs: No Meds Allergies Allergy/AdvReac Type Severity Reaction Status Date / Time atorvastatin Allergy Unknown myalgia Verified 06/11/22 09:08 codeine Allergy Unknown SWELLING Verified 06/11/22 09:08 penicillin V Allergy Unknown rash Verified 06/11/22 09:08 metoprolol AdvReac leg Verified 06/11/22 09:08 swelling Exam Airway Mallampati Class: II TM Dist: >3cm Neck ROM: Full Partial: Upper Loose/Missing/Broken Teeth: Yes and Upper Heart: RRR Lungs: CTA Assessment and Plan Assessment Anesthesia Assessment: Anesthesia Plan Discussed Final Anesthetic Review History of Problems with Anesthesia: No NPO: Yes ASA Class: III Final Preanesthetic Review: Meds/Allgs Chart Reviewed, Consent Obtained/Reviewed and Anes Risks/Benef Reviewed Patient Risk: Intermediate Procedure Risk: Intermediate Anesthetic Plan Anesthetic Plan: MAC: Disposition: Standard PACU
[2022-07-15 12:26] VITALS: BP 126/58; PULSE 48; RESP 18; O2SAT 99; BMI 32.6
--- NOTE | 2022-07-15 12:45 | P.HPSUR_ITS ---
Pre-Procedural Eval Section A Date of Service: 07/15/22 The patient is an INPATIENT: No The History & Physical has been completed within 30 days and I have reviewed it.: No Section B Chief Complaint: Left upper quadrant pain Details of Present Illness: nausea, bloating LUQ pain (with radiation to the back) and dizziness. Unintentional weight loss of 6 lbs in 2 weeks. Present Medications: see Short Stay Collaborative assessment Medical History: Significant History (Coreas's cyst of knee Benign essential hypertension Diverticulosis Hypovitaminosis D IgA nephropathy Obesity (BMI 30- 39.9) Obstructive sleep apnea Pure hypercholesterolemia Venous (peripheral) insufficiency Vitamin D deficiency) History of Previous Operations: Relevant previous surgery/procedure and date(s) (H/O tubal ligation History of colonoscopy History of dilatation and curettage History of loop electrical excision procedure (LEEP)) Allergies: Allergies Allergy/AdvReac Type Severity Reaction Status Date / Time atorvastatin Allergy Unknown myalgia Verified 07/15/22 12:35 codeine Allergy Unknown SWELLING Verified 07/15/22 12:35 penicillin V Allergy Unknown rash Verified 07/15/22 12:35 metoprolol AdvReac leg Verified 07/15/22 12:35 swelling Review of Systems Sugical H&P ROS: Negative: Constitution, Cardiovascular and Respiratory and Yes, Specify: Gastrointestinal (abd pain) Exam Surgical H&P Exam: Normal: Heart, Normal: Lungs, Normal: Extremities and Normal: Abdomen Plan Diagnosis/Plan: Unchanged I have reviewed the history and physical and performed a pertinent physical examination on my patient. No changes have occurred unless specified.
--- NOTE | 2022-07-15 12:48 | P.BOP_ITS ---
Brief Operative Note Date of Service: 07/15/22 Pre-op diagnosis: LUQ pain, wt loss Post-op diagnosis: other ( gastritis) Procedure: FLEXIBLE TRANSORAL UPPER GASTROINTESTINAL ENDOSCOPY WITH BIOPSIES Consent: Indications for the procedure and potential complications of bleeding, perforation, reaction to medications and missed diagnosis were discussed with the patient and informed consent was obtained. Instrument: Olympus GIF H 190 mid size upper endoscope Monitoring: Vital signs and clinical assessment, continuous EKG monitoring, Pulse oximetry, Carbon Dioxide monitoring and blood pressure monitoring were done throughout the procedure. Procedure: The patient was placed in the left lateral decubitis position and pre-procedure medications were administered and a bite block was placed. The endoscope was inserted into the mouth and advanced under direct vision to the third part of duodenum. A careful inspection was made as the upper endoscope was withdrawn including a retroflexed examination of the proximal stomach; Findings and interventions are described below. Findings: Larynx: Normal Esophagus: Tortuous esophagus with increased tertiary contractions without stricture or ring. GE junction at 36 cms. No esophagitis or Gore's. Stomach: Moderate patchy gastric erythema. Biopsies were obtained from the remberto rayo antrum and body. Grade 2 flap valve on retroflexed examination of the cardia. Duodenum: Normal bulb and descending duodenum. Biopsies were obtained from 3rd part of the duodenum to check for celiac sprue Intervention: Biopsies as noted above Impression and Post Procedure Diagnosis: Endoscopy Findings: ESOPHAGUS: Tortuous esophagus with increased tertiary contractions without stricture or ring. GE junction at 36 cms. No esophagitis or Gore's. STOMACH: gastritis DUODENUM: normal - biopsies were obtained to check for celiac sprue No etiology found for abdominal pain Plan: Await pathology results Patient has an appointment on 08/15/22 in the GI Clinic with Marlon Caballero M.D. Above findings were reviewed with the patient and Gastritis handout was given in the discharge area Surgeon: Marlon Caballero MD Anesthesia: MAC Was an Lead Sql Developer used for this Procedure?: Yes Lead Sql Developer: Rissa Cortes Estimated blood loss (mL): 0 Pathology: other ( A. small bowel bxs, R/O celiac B. gastric antrum bxs, R/O H. pylori C. gastric body bxs) Condition: stable Disposition: PACU
--- NOTE | 2022-07-15 12:49 | P.OP_ITS ---
Operative Note Operative Note Date of Service: 07/15/22 Narrative: Pre-op diagnosis: LUQ pain, wt loss Post-op diagnosis:?other ( gastritis) Procedure: FLEXIBLE TRANSORAL UPPER GASTROINTESTINAL ENDOSCOPY WITH BIOPSIES Consent:?Indications for the procedure and potential complications of bleeding, perforation, reaction to medications and missed diagnosis were discussed with the patient and informed consent was obtained. Instrument:?Olympus GIF H 190 mid size upper endoscope Monitoring: Vital signs and clinical assessment, continuous EKG monitoring, Pulse oximetry, Carbon Dioxide monitoring and blood pressure monitoring were done throughout the procedure. Procedure:?The patient was placed in the left lateral decubitis position and pre-procedure medications were administered and a bite block was placed. The endoscope was inserted into the mouth and advanced under direct vision to the third part of duodenum. A careful inspection was made as the upper endoscope was withdrawn including a retroflexed examination of the proximal stomach; Findings and interventions are described below. Findings: Larynx:? Normal Esophagus: Tortuous esophagus with increased tertiary contractions without? stricture or ring.? GE junction at 36 cms.? No esophagitis or Gore's. Stomach: Moderate patchy gastric erythema. Biopsies were obtained from the gastric antrum and body. Grade 2 flap valve on retroflexed examination of the cardia. Duodenum: Normal bulb and descending duodenum.? Biopsies were obtained from 3rd part of the duodenum to check for celiac sprue Intervention: Biopsies as noted above Impression and Post Procedure Diagnosis: Endoscopy Findings: ESOPHAGUS: Tortuous esophagus with increased tertiary contractions without? stricture or ring.? GE junction at 36 cms.? No esophagitis or Gore's. STOMACH:? gastritis DUODENUM:? normal - ? biopsies were obtained to check for celiac sprue No etiology found for abdominal pain Plan: Await pathology results Patient has an appointment on 08/15/22 in the GI Clinic with Marlon Caballero M.D. Above findings were reviewed with the patient and Gastritis handout was given in the discharge area Surgeon: Marlon Caballero MD Anesthesia:?MAC Was an Dynamics Ax Solution Architect used for this Procedure?:?Yes Dynamics Ax Solution Architect:?Rissa Cortes Estimated blood loss (mL):?0 Pathology:?other ( A. small bowel bxs, R/O celiac? B. gastric antrum bxs, R/O H. pylori? C. gastric body bxs) Condition:?stable Disposition:?PACU
[2022-07-15 13:17] VITALS: BP 112/60; PULSE 61; RESP 16; TEMP 36.6; O2SAT 97
[2022-07-15 13:32] VITALS: BP 131/73; PULSE 65; RESP 16; O2SAT 96
[2022-07-15 13:47] VITALS: BP 147/70; PULSE 58; RESP 16; TEMP 36.6; O2SAT 97
== END 2022-07-15 14:24 | disposition home or self-care (01) ==
PROVIDERS: PCP Internal Medicine; Visit Provider Internal Medicine Gastroenterology
PROC: 0DJ08ZZ Inspection of Upper Intestinal Tract, Via Natural or Artificial Opening Endoscopic (ICD-10-PCS; CPT 43235; principal; 2022-07-15 13:10)
DX: K29.50 Unspecified chronic gastritis without bleeding (principal); K21.9 Gastro-esophageal reflux disease without esophagitis; R63.4 Abnormal weight loss; K57.30 Diverticulosis of large intestine without perforation or abscess without bleeding; E55.9 Vitamin D deficiency, unspecified; E78.00 Pure hypercholesterolemia, unspecified; G47.33 Obstructive sleep apnea (adult) (pediatric); I10 Essential (primary) hypertension; I87.2 Venous insufficiency (chronic) (peripheral); Z79.899 Other long term (current) drug therapy; Z88.0 Allergy status to penicillin; Z88.8 Allergy status to other drugs, medicaments and biological substances
CPT/HCPCS: 43239; 88305; 88342

== ENCOUNTER → 2022-08-15 09:14 | Outpatient (BNVA) | payer OTHER, SELFPAY | PROVIDERS: PCP Internal Medicine; Visit Provider Internal Medicine Gastroenterology | DX: R74.8 Abnormal levels of other serum enzymes (principal); R19.5 Other fecal abnormalities; R10.12 Left upper quadrant pain; Z86.010 Personal history of colon polyps | CPT/HCPCS: 99212 ==

== ENCOUNTER 2022-08-15 10:00 | Outpatient (REF) | payer OTHER, SELFPAY ==
[2022-08-15 10:17] LABS: MANUAL DIFF FLAG NO
[2022-08-15 10:31] LABS: Basophils Absolute Auto 0.1 X10*3/uL (0.0-0.2); Basophils Percent Auto 1.1 % (0-2); Eosinophils Absolute Auto 0.2 X10*3/uL (0.0-0.4); Eosinophils Percent Auto 2.7 % (0-4); Hematocrit 38.4 % (37.0-47.0); Hemoglobin 12.4 g/dl (12.0-16.0); Imm Gran Abs Auto 0.01 X10*3/uL (0.00-0.03); Imm Gran Pct Auto 0.2 % (0.0-0.4); Lymphocytes Absolute Auto 2.1 X10*3/uL (1.2-4.9); Lymphocytes Percent Auto 37.1 % (20-40); Mean Corpuscular HGB Conc 32.3 g/dl (31.0-35.0); Mean Corpuscular Hemoglobin 29.8 pg (27.0-33.0); Mean Corpuscular Volume 92.3 fL (80.0-98.0); Mean Platelet Volume 10.7 fL (9.4-12.3); Monocytes Absolute Auto 0.6 X10*3/uL (0.1-1.2); Monocytes Percent Auto 11.2 % (2-11); Neutrophils Absolute Auto 2.7 x10*3/uL (2.0-8.3); Neutrophils Percent Auto 47.7 % (45-73); Platelet Count 356 X10*3/uL (160-400); Red Blood Count 4.16 X10*6/uL (4.20-5.50); White Blood Count 5.6 X10*3/uL (4.8-10.8)
[2022-08-15 10:59] LABS: Alanine Aminotransferase 16 U/L (0-31); Albumin Level 4.1 g/dL (3.5-5.0); Alkaline Phosphatase 125 U/L (39-117); Anion Gap 13 (12-20); Aspartate Amino Transferase 16 U/L (5-31); Bilirubin Total 0.5 mg/dL (0.0-1.0); Blood Urea Nitrogen 18 mg/dL (9-16); Calcium 9.8 mg/dL (8.4-10.2); Carbon Dioxide 28 mmol/L (22-29); Chloride 104 mmol/L (96-108); Cholesterol 165 mg/dL; Estimated Glomerular Filt Rate > 60; Glucose Random 99 mg/dL (60-115); HDL Cholesterol 40 mg/dL; LDL Cholesterol Calculated 99 mg/dl; Potassium 5.3 mmol/L (3.3-5.1); Sodium 140 mmol/L (135-145); Total Protein 7.3 g/dL (6.5-8.0); Triglycerides 131 mg/dL
[2022-08-15 11:01] LABS: Estimated Average Glucose 123 mg/dL; Hemoglobin A1c % 5.9 %
[2022-08-15 11:21] LABS: Thyroid Stimulating Hormone 1.22 uIU/mL (0.32-4.0); Vitamin D 25-OH Total 32.8 ng/mL (>30)
[2022-08-15 11:42] LABS: Appearance Urine Clear; Color Urine Yellow; Glucose Urine UA Negative (Negative); Leukocyte Esterase Urine Negative (Negative); Nitrite Urine Negative (Negative); PH 7.5 (5.0-9.0); Specific Gravity - Urine 1.015 (1.005-1.025); Urine Blood Negative (Negative); Urine Ketones Negative (Negative); Urine Protein Trace mg/dL (Neg-Trace)
[2022-08-15 11:54] LABS: Folate 7.2 ng/mL (> or = 4.0); Vitamin B12 284 pg/mL (200-900)
== END 2022-08-15 10:01 | disposition home or self-care (01) ==
LOC: HO.LAB 10:00
PROVIDERS: PCP Internal Medicine; Visit Provider Internal Medicine Gastroenterology
DX: R10.12 Left upper quadrant pain (principal); E78.00 Pure hypercholesterolemia, unspecified
CPT/HCPCS: 36415; 80053; 80061; 81003; 82306; 82607; 82746; 83036; 84439; 84443; 85025

== ENCOUNTER → 2022-09-11 11:08 | Outpatient (REF) | payer OTHER, SELFPAY ==
--- NOTE | 2022-09-11 11:11 | CA_ITS ---
Acquisition Time: 2022-09-11 11:30:25 Total Exercise Time: 00:07:51 Test Indications: CP Medications: SE CHART Protocol: EAGLE Max HR: 137 BPM 93% of Pred: 147 BPM Max BP: 158/076 mmHG Max Work Load: 8.2 METS Exercise stress test with exercise 7 min 51 sec of Eagle protocol ( stage 2 was held then incline increased to 14 % and for last 51 sec speed increased to 2.8 MPH), achieving 86% MPHR, with fatigue and request to stop, without anginal symptoms, with isolated PAC and one atrial cuplet, with normotensive response to exercise, with borderline EKG changes suggesting possible ischemia. Echo images obtained by tech at rest and immediately post peak exercise. Definity contrast used. Test reviewed with Dr العراقي Referred By: Spenser Romero Overread By: SAHRA VALLADARES
== END ==
LOC: HO.CARD 11:08
PROVIDERS: PCP Internal Medicine; Visit Provider Internal Medicine
DX: R07.9 Chest pain, unspecified (principal)
CPT/HCPCS: 93350; Q9957

== ENCOUNTER 2023-01-14 12:29 | Emergency (ER) | payer OTHER, SELFPAY ==
--- NOTE | ~2023-01-14 | XR_ITS ---
EXAMINATION: XR SOFT TISSUE NECK CLINICAL INDICATION: Rule out foreign body COMPARISON: None TECHNIQUE: 2 views of the soft tissue neck were obtained. FINDINGS: Soft tissue films of the neck demonstrate a normal larynx, pharynx and upper trachea. No soft tissue swelling or opaque foreign body is demonstrated. Calcifications of the aortic knob. Normal alignment of the visualized cervical spine. No subluxation or fracture. No prevertebral soft tissue swelling. Visualized lung apices grossly clear. XR/XR soft tissue neck IMPRESSION: No radiopaque foreign body identified.
--- NOTE | 2023-01-14 12:34 | ED.URI ---
HPI - URI/Sore Throat General Chief Complaint: General Medical Stated Complaint: Sore throat for many months/SOB Time Seen by Provider: 01/14/23 13:14 Related Data Previous Rx's Medication Instructions Recorded sennosides 8.6 mg-docusate sodium 1 tab-cap PO BID PRN constipation 11/02/20 50 mg capsule (Senna Plus) 30 days #60 caps cholecalciferol (vitamin D3) 25 25 mcg PO DAILY #90 tabs 12/07/20 mcg (1,000 unit) tablet CPAP 6 cm humidified AIR MASKAIR #1 ea 04/20/21 FIT N20 small hydrocortisone 2.5 % topical cream 1 appl SC BID-QID PRN hemorrhoids 03/26/22 with perineal applicator #30 grams (Proctosol HC) amlodipine 5 mg tablet 5 mg PO BID #180 tabs 05/30/22 rosuvastatin 5 mg tablet 5 mg PO DAILY #30 tabs 08/07/22 irbesartan 300 mg tablet 300 mg PO DAILY 90 days #90 tabs 01/20/23 Allergies Allergy/AdvReac Type Severity Reaction Status Date / Time atorvastatin Allergy Unknown myalgia Verified 01/24/23 14:33 codeine Allergy Unknown SWELLING Verified 01/24/23 14:33 penicillin V Allergy Unknown rash Verified 01/24/23 14:33 pravastatin AdvReac Intermediate joint pain Verified 01/24/23 14:33 metoprolol AdvReac leg Verified 01/24/23 14:33 swelling PMFSH Past Medical History Medical History Coreas's cyst of knee Benign essential hypertension Chronic constipation Diverticulosis Hypovitaminosis D IgA nephropathy Obesity (BMI 30-39.9) Obstructive sleep apnea JANN on CPAP Pure hypercholesterolemia Venous (peripheral) insufficiency Vitamin D deficiency Surgical History H/O tubal ligation History of colonoscopy History of dilatation and curettage History of esophagogastroduodenoscopy (EGD) History of loop electrical excision procedure (LEEP) Family History Family History Father Alzheimers disease Mother Kidney failure Social History Social History Housing: Apartment Are you a primary laboratory animal care veterinarian to a significant other at home: No Alcohol intake: never Patient Tobacco Use Status: Never used Tobacco e-Cigarette/Vaping Use: Never Used Second Hand Smoke Exposure: No service: No Current occupational status: disabled Cognitive needs: No Hearing needs: No Vision needs: Yes Physical Exam Vital Signs: Vital Signs: Last Vital Signs Temp 98.0 F 01/14/23 12:35 Pulse 67 01/14/23 12:35 Resp 18 01/14/23 12:35 BP 157/63 H 01/14/23 12:35 Pulse Ox 96 01/14/23 12:35 O2 Del Method 01/14/23 12:35 BMI result Body Mass Index 31.5 Course Course Course Narrative: RME--72yo female with a past medical history of diverticulosis, JANN, PVD, HLD, presenting to the ED complaining of acute on chronic sore throat, swelling, and SOB x months. Reports has seen PCP and been on antibiotics a few times for similar symptoms without relief. Has not followed up with specialist. Mild tonsillar swelling noted. COVID 19/influenza and rapid strep ordered Medical Decision Making Lab Data Labs: Lab Results 01/14/23 01/14/23 01/14/23 Range/Units 12:44 12:45 12:45 COVID-19 ([facility]) Negative (Negative) COVID-19 Clin Com See Note Influenza Type A ([facility]) Negative (Negative) Influenza Type B ([facility]) Negative (Negative) Influenza A & B Note See Note S. pyogenes GrpA [facility] Negative (Negative) Discharge Plan Discharge Clinical Impression: Chronic throat pain Patient Disposition: Home, Self-Care Additional Instructions: Strep test, COVID test both negative X-ray of the soft tissue of your neck was negative but x-ray is not a very good test As you have had these symptoms for many many months without relief you need to see an ENT specialist for more advanced examination of her throat to make sure there is no mass or growth that is causing this discomfort It is very important that you follow with primary doctor and make sure he knows that this is been going on for many months, you can show him this discharge paper is to understand my concern that this may need specialist evaluation Return to the ER any time any worse condition or any concerns Prescriptions: No Action cholecalciferol (vitamin D3) 25 mcg (1,000 unit) tablet 25 mcg PO DAILY Qty: 90 1RF hydrocortisone [Proctosol HC] 2.5 % cream with perineal applicator 1 appl SC BID-QID PRN (Reason: hemorrhoids) Qty: 30 0RF amlodipine 5 mg tablet 5 mg PO BID Qty: 180 2RF irbesartan 300 mg tablet 300 mg PO DAILY 90 Days Qty: 90 2RF (DME) CPAP 6 cm humidified AIR MASKAIR FIT N20 small See Rx Instructions .Route .MEDSUPPLY Qty: 1 0RF Rx Instructions: As directed rosuvastatin 5 mg tablet 5 mg PO DAILY Qty: 30 3RF Senna Plus 8.6-50 mg capsule 1 tab-cap PO BID PRN (Reason: constipation) 30 Days Qty: 60 3RF Interventions: ED Discharge Assessment Last Done: 01/14/23 16:37 Discharge Date/Time: 01/14/23 16:38
[2023-01-14 12:35] VITALS: BP 157/63; PULSE 67; RESP 18; TEMP 36.7; O2SAT 96; BMI 31.5
[2023-01-14 12:58] LABS: IDNOW Serial# 6674DD1D; Strep A Nucleic Acid Negative (Negative)
[2023-01-14 13:12] LABS: COVID-19 Test Negative (Negative); IDNOW Serial# 16C4AD1C; IDNOW Serial# BCCEAD1C; Influenza A Negative (Negative); Influenza B2 Negative (Negative)
--- NOTE | 2023-01-14 16:18 | ED_ITS ---
HPI - General Adult General Chief complaint: General Medical Stated complaint: Sore throat for many months/SOB Time Seen by Provider: 01/14/23 13:14 History of Present Illness HPI narrative: Patient complains of throat pain and irritation for many months, she has had multiple courses of antibiotics Use she denies any difficulty breathing or swallowing but it does hurt to swallow, pain has been continuous for several months, she does not feel like food is blocked on swallowing, denies any fever no shortness of breath no chest pain no cough, her voice is normal Related Data Previous Rx's Medication Instructions Recorded sennosides 8.6 mg-docusate sodium 1 tab-cap PO BID PRN constipation 11/02/20 50 mg capsule (Senna Plus) 30 days #60 caps cholecalciferol (vitamin D3) 25 25 mcg PO DAILY #90 tabs 12/07/20 mcg (1,000 unit) tablet CPAP 6 cm humidified AIR MASKAIR #1 ea 04/20/21 FIT N20 small hydrocortisone 2.5 % topical cream 1 appl SC BID-QID PRN hemorrhoids 03/26/22 with perineal applicator #30 grams (Proctosol HC) amlodipine 5 mg tablet 5 mg PO BID #180 tabs 05/30/22 rosuvastatin 5 mg tablet 5 mg PO DAILY #30 tabs 08/07/22 irbesartan 300 mg tablet 300 mg PO DAILY 90 days #90 tabs 01/20/23 Allergies Allergy/AdvReac Type Severity Reaction Status Date / Time atorvastatin Allergy Unknown myalgia Verified 01/24/23 14:33 codeine Allergy Unknown SWELLING Verified 01/24/23 14:33 penicillin V Allergy Unknown rash Verified 01/24/23 14:33 pravastatin AdvReac Intermediate joint pain Verified 01/24/23 14:33 metoprolol AdvReac leg Verified 01/24/23 14:33 swelling PMFSH Past Medical History Source: nursing notes reviewed Medical History Coreas's cyst of knee Benign essential hypertension Chronic constipation Diverticulosis Hypovitaminosis D IgA nephropathy Obesity (BMI 30-39.9) Obstructive sleep apnea JANN on CPAP Pure hypercholesterolemia Venous (peripheral) insufficiency Vitamin D deficiency Surgical History H/O tubal ligation History of colonoscopy History of dilatation and curettage History of esophagogastroduodenoscopy (EGD) History of loop electrical excision procedure (LEEP) Family History Family History Father Alzheimers disease Mother Kidney failure Social History Social History Housing: Apartment Are you a primary caregiver services home to a significant other at home: No Alcohol intake: never Patient Tobacco Use Status: Never used Tobacco e-Cigarette/Vaping Use: Never Used Second Hand Smoke Exposure: No service: No Current occupational status: disabled Cognitive needs: No Hearing needs: No Vision needs: Yes Physical Exam ED Vital Signs: Vital Signs - 24 hr 01/14/23 12:35 Temperature 98.0 F Pulse Rate 67 Respiratory Rate 18 Blood Pressure 157/63 H Pulse Oximetry 96 Oxygen Delivery Method Room Air BMI result Body Mass Index 31.5 General appearance no distress Eyes no redness or discharge The sinuses are not tender or congested Dental exam no swelling in the mouth no mass palpated The pharynx is clear without redness swelling or exudate, voice is normal there is no drooling, uvula is midline The neck is supple no stridor no mass palpated Chest is clear with full symmetrical equal breath sounds Heart no murmur Abdomen soft nontender Extremities range of motion x4 Course Course Course Narrative: COVID flu and strep tests were negative, soft tissue neck x-ray was negative Patient is swallowing easily, she is given a 1 time dose of steroid Decadron to see if it helps with throat discomfort Through interpreter for the deaf she is informed that because of her age and the fact that symptoms have gone on for many months she probably needs to see an ENT specialist and may need to be examined with a scope to make sure there are no growths or tumors in her throat that might be causing this long lasting throat pain She is advised to follow with primary doctor and seek a referral to ENT At this time she has not had any distress and patient is discharged Medical Decision Making Lab Data Labs: Lab Results 01/14/23 01/14/23 01/14/23 Range/Units 12:44 12:45 12:45 COVID-19 ([facility]) Negative (Negative) COVID-19 Clin Com See Note Influenza Type A ([facility]) Negative (Negative) Influenza Type B ([facility]) Negative (Negative) Influenza A & B Note See Note S. pyogenes GrpA [facility] Negative (Negative) Discharge Plan Discharge Clinical Impression: Chronic throat pain Patient Disposition: Home, Self-Care Additional Instructions: Strep test, COVID test both negative X-ray of the soft tissue of your neck was negative but x-ray is not a very good test As you have had these symptoms for many many months without relief you need to see an ENT specialist for more advanced examination of her throat to make sure there is no mass or growth that is causing this discomfort It is very important that you follow with primary doctor and make sure he knows that this is been going on for many months, you can show him this discharge paper is to understand my concern that this may need specialist evaluation Return to the ER any time any worse condition or any concerns Prescriptions: No Action cholecalciferol (vitamin D3) 25 mcg (1,000 unit) tablet 25 mcg PO DAILY Qty: 90 1RF hydrocortisone [Proctosol HC] 2.5 % cream with perineal applicator 1 appl SC BID-QID PRN (Reason: hemorrhoids) Qty: 30 0RF amlodipine 5 mg tablet 5 mg PO BID Qty: 180 2RF irbesartan 300 mg tablet 300 mg PO DAILY 90 Days Qty: 90 2RF (DME) CPAP 6 cm humidified AIR MASKAIR FIT N20 small See Rx Instructions .Route .MEDSUPPLY Qty: 1 0RF Rx Instructions: As directed rosuvastatin 5 mg tablet 5 mg PO DAILY Qty: 30 3RF Senna Plus 8.6-50 mg capsule 1 tab-cap PO BID PRN (Reason: constipation) 30 Days Qty: 60 3RF Interventions: ED Discharge Assessment Last Done: 01/14/23 16:37 Discharge Date/Time: 01/14/23 16:38
== END 2023-01-14 16:38 | disposition home or self-care (01) ==
PROVIDERS: Physician Assistant; Emergency Provider Emergency Medicine; PCP Internal Medicine
DX: J31.2 Chronic pharyngitis (principal); Z20.822 Contact with and (suspected) exposure to COVID-19; I10 Essential (primary) hypertension; E78.00 Pure hypercholesterolemia, unspecified; Z79.02 Long term (current) use of antithrombotics/antiplatelets; Z79.899 Other long term (current) drug therapy
CPT/HCPCS: 70360; 87502; 87635; 87651; 99282; 99283

== ENCOUNTER 2023-03-11 08:33 | Emergency (ER) | payer OTHER, SELFPAY ==
--- NOTE | ~2023-03-11 | XR_ITS ---
EXAMINATION: XR HIP, RIGHT CLINICAL INFORMATION: Right hip pain COMPARISON: None available. TECHNIQUE: Two views of the right hip and one view of the pelvis. FINDINGS: No fracture or dislocation. There is mild bilateral hip arthritis with joint space narrowing and small osteophytes. Bones of the pelvis are normal. Soft tissues are normal. There are degenerative changes of the visualized lower lumbar spine. XR/XR hip RT w PEL1V IMPRESSION: Mild right hip arthritis.
--- NOTE | ~2023-03-11 | XR_ITS ---
EXAMINATION: XR LUMBOSACRAL SPINE CLINICAL INFORMATION: Low back and buttock pain. COMPARISON: None available. TECHNIQUE: Three views of the lumbosacral spine. FINDINGS: There is normal lumbar lordosis. The vertebral heights and alignment is normal. There is loss of L5-S1 disc height. Rest of the disc heights are normal. No visible acute fracture, dislocation or lytic process seen. The paravertebral soft tissues are normal. SI joints are symmetric and normal. XR/XR lumbar spine 2-3V IMPRESSION: Mild degenerative disc changes L5-S1 disc level. No visible acute fracture, dislocation or lytic process seen.
[2023-03-11 08:48] VITALS: BP 136/62; BP 160/90; PULSE 69; PULSE 74; RESP 18; TEMP 36.5; O2SAT 97; O2SAT 98; BMI 33.0
--- NOTE | 2023-03-11 08:50 | ED.LOWEXIN ---
HPI - Extremity Injury (Lower) General Chief Complaint: General Medical Stated Complaint: R LEG PAIN SINCE YESTERDAY,NON TRAUMATIC PER EMS Time Seen by Provider: 03/11/23 08:41 Source: patient, EMS, RN notes reviewed and old records reviewed Mode of arrival: EMS History of Present Illness HPI Narrative: 72-year-old female with a past medical history of HTN, diverticulosis, obesity, JANN on CPAP, HLD, PVD, presenting to the ED complaining of right-sided low back/buttock pain radiating down RLE since yesterday. Denies known injury/trauma or fall. Denies numbness, tingling, weakness, urinary incontinence/retention, fever. Tried Tylenol without relief MD complaint: leg injury Onset (ago): day(s) Related Data Previous Rx's Medication Instructions Recorded sennosides 8.6 mg-docusate sodium 1 tab-cap PO BID PRN constipation 11/02/20 50 mg capsule (Senna Plus) 30 days #60 caps cholecalciferol (vitamin D3) 25 25 mcg PO DAILY #90 tabs 12/07/20 mcg (1,000 unit) tablet CPAP 6 cm humidified AIR MASKAIR #1 ea 04/20/21 FIT N20 small hydrocortisone 2.5 % topical cream 1 appl NE BID-QID PRN hemorrhoids 03/26/22 with perineal applicator #30 grams (Proctosol HC) rosuvastatin 5 mg tablet 5 mg PO DAILY #30 tabs 08/07/22 irbesartan 300 mg tablet 300 mg PO DAILY 90 days #90 tabs 01/20/23 amlodipine 5 mg tablet 5 mg PO BID #180 tabs 03/05/23 acetaminophen 500 mg tablet 500 mg PO Q6H PRN fever or pain 03/11/23 (Tylenol Extra Strength) #14 tabs cyclobenzaprine 5 mg tablet 5 mg PO Q8H PRN pain (scale score 03/11/23 7-10) 5 days #14 tabs lidocaine 5 % topical patch 1 patch topical DAILY PRN pain #30 03/11/23 (Lidoderm) ea naproxen 500 mg tablet 500 mg PO BID PRN pain 10 days #20 03/11/23 tabs Allergies Allergy/AdvReac Type Severity Reaction Status Date / Time atorvastatin Allergy Unknown myalgia Verified 01/24/23 14:33 codeine Allergy Unknown SWELLING Verified 01/24/23 14:33 penicillin V Allergy Unknown rash Verified 01/24/23 14:33 pravastatin AdvReac Intermediate joint pain Verified 01/24/23 14:33 metoprolol AdvReac leg Verified 01/24/23 14:33 swelling Review of Systems Review of Systems: Constitutional: No Fever, No Chills ENT/Mouth: No Ear Pain, No Nasal Congestion, No Sinus Pain, No Hoarseness, No sore throat, No Rhinorrhea, No Swallowing Difficulty Cardiovascular: No Chest Pain, No SOB Respiratory: No Cough, No Sputum, No Wheezing Gastrointestinal: No Nausea, No Vomiting, No Diarrhea, No Constipation, No Abdominal pain Genitourinary: No Dysuria, No Urinary Frequency, No Hematuria, No Urinary Incontinence/retention, No Urgency, No Flank Pain Musculoskeletal: + joint pain, No Myalgias, No Joint Swelling Skin: No Skin Lesions, No rash Neuro: No Weakness, No Numbness, No Paresthesias Yes all other systems are reviewed and are negative Constitutional: Constitutional: Reports as per [facility] Past Medical History Attestation statement: The following information was validated with the patient. Medical History Coreas's cyst of knee Benign essential hypertension Chronic constipation Diverticulosis Hypovitaminosis D IgA nephropathy Obesity (BMI 30-39.9) Obstructive sleep apnea JANN on CPAP Pure hypercholesterolemia Venous (peripheral) insufficiency Vitamin D deficiency Surgical History H/O tubal ligation History of colonoscopy History of dilatation and curettage History of esophagogastroduodenoscopy (EGD) History of loop electrical excision procedure (LEEP) Family History Family History Father Alzheimers disease Mother Kidney failure Social History Social History Housing: Apartment Are you a primary ambulatory care coordinator to a significant other at home: No Alcohol intake: never Patient Tobacco Use Status: Never used Tobacco e-Cigarette/Vaping Use: Never Used Second Hand Smoke Exposure: No service: No Current occupational status: disabled Cognitive needs: No Hearing needs: No Vision needs: Yes Physical Exam Vital Signs: Vital Signs: Last Vital Signs Temp 97.5 F 03/11/23 12:00 Pulse 52 03/11/23 14:00 Resp 18 03/11/23 14:00 BP 119/45 L 03/11/23 14:00 Pulse Ox 98 03/11/23 14:00 O2 Del Method Room Air 03/11/23 14:00 BMI result Body Mass Index 33.0 Const: General: cooperative, healthy appearing and no acute distress Orientation/consciousness: patient oriented x3 Limitations: no limitations HEENT: Head: Yes normal to inspection and Yes atraumatic Ears: hearing grossly normal bilaterally General nose exam: Normal external nose present Face and sinus: Yes normal facial exam Eyes: General: appearance normal, both eyes and all related structures EOM: EOMs intact bilaterally Neck: Neck: Yes normal visual inspection and Yes no meningeal signs Resp: Effort & Inspection: normal respiratory effort and no respiratory distress Cardio: Rate: regular rate Heart sounds: S1 normal heart sound present and S2 normal heart sound present GI: Inspection: Yes normal to inspection Palpation (GI): Soft to palpation, nontender, no guarding and not rigid : General: Yes no CVA tenderness Back/Spine/Pelvis: Other: No midline cervical/thoracic/lumbar spinous tenderness/step-off or deformity. + right buttock tenderness to palpation. No rash chest erythema or ecchymosis. Mild right groin tenderness. Active hip ROM with discomfort, passive ROM intact. NV intact distally Back: no CVA tenderness Skin: Rashes: no rashes Wounds: no wounds Neuro: Other: Strength intact throughout. No saddle anesthesia. Sensation intact to light touch. Neurovascular intact distally General: patient oriented x3, tone normal, moves all extremities, no meningeal signs and no focal motor deficits Gait exam (Neuro): Normal gait present Extrem: General: Yes normal to inspection Course Course Course Narrative: -1400--have called Radiology multiple times to get x-rays read, this is the delay. -On re-evaluation patient reports mild symptomatic improvement, ambulated in the ED steady with walker. Does not typically use walker at home will try additional pain control, pending x-rays -1502--still no read on x-ray's, no answer at Rad organizational effectiveness director line. Calling [place] directly [phone]--XR lumbar spine 2-3V IMPRESSION: Mild degenerative disc changes L5-S1 disc level. No visible acute fracture, dislocation or lytic process seen.? > official read of hip/pelvic x-ray still not read. On wet read appears unremarkable. 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 Reports symptomatic improvement, ambulated in the ED with steady gait without assistive devices. Feels safe for discharge home at this time Results discussed with patient including worrisome signs and symptoms and strict return precautions, and when to return to the emergency department. They verbalized understanding and feel safe for discharge at this time. Medications Administered Discontinued Medications Generic Name Dose Route Start Last Admin Trade Name Jose PRN Reason Stop Dose Admin Cyclobenzaprine HCl 10 mg 03/11/23 09:06 03/11/23 09:58 Cyclobenzaprine Hcl 10 Mg Tablet PO 03/11/23 09:07 10 mg ONCE ONE Administration Ketorolac Tromethamine 30 mg 03/11/23 09:06 03/11/23 10:00 Ketorolac Tromethamine 30 Mg/Ml Vial IM 03/11/23 09:07 30 mg ONCE ONE Administration Tramadol HCl 50 mg 03/11/23 14:08 03/11/23 14:22 Tramadol Hcl 50 Mg Tablet PO 03/11/23 14:09 50 mg ONCE ONE Administration Medical Decision Making Medical Decision Making MDM Narrative: 72-year-old female with a past medical history of HTN, diverticulosis, obesity, JANN on CPAP, HLD, PVD, presenting to the ED complaining of right-sided low back/buttock pain radiating down RLE since yesterday. On exam vital signs stable, NAD, nontoxic appearing, no midline spinous tenderness throughout. Right buttock pain reproducible. Passive ROM of right hip intact with mild discomfort, active ROM induces pain with external rotation. Abdomen soft/nontender. No red flag symptoms. Concern for sciatica/radiculopathy vs MSK pain/spasming. Lower suspicion for hernia, renal stone/pyelo or inguinal hernia. Unlikely appendicitis/diverticulitis or UTI. A suspicion for cauda equina/cord compression Plan: X-rays, pain control, ambulation trial Please refer to course for remaining clinical decision making, interpretation of labs/imaging results, and discussions with consultants and/or family members. Differential Diagnosis Differential Diagnoses: The differential diagnosis associated with the presentation includes As above Admission/Observation Consideration of admission/observation: Escalation of care including admission/observation considered Lab Data MDM Lab Attestation statement: I reviewed the patient's lab results. Radiology Impression Discussion of test interpretation with radiology: I have reviewed the radiologist's reading. External Record Review External record reviewed: Inpatient record, Office record, Outpatient record, Prior outpatient labs, Prior outpatient radiology, Primary care record and Outside ED record Discharge Plan Discharge Clinical Impression: Sciatica, Degenerative arthritis Patient Disposition: Home, Self-Care Instructions: Osteoarthritis (DC), Sciatica (ED) Additional Instructions: Your x-ray shows some arthritic changes. Your pain is likely related to sciatica Flexeril is a muscle relaxer, take at night as it makes you drowsy, do not drive, drink alcohol, or operate machinery while taking it Naproxen as an anti-inflammatory / pain medication, take with food Lidoderm patches are numbing patches, apply to painful area In addition take Tylenol at home If symptoms persist or worsen, pain becomes unbearable, you developed urinary retention or incontinence, or weakness return to the ED Davis radiograf?a muestra algunos cambios artr?ticos. Es probable que davis dolor est? relacionado con la ci?marion Flexeril es un relajante muscular, t?rene por la noche ya que te adormece, no conduzcas, bebas alcohol ni operes maquinaria mientras lo roselyn. Naproxeno willie medicamento antiinflamatorio/analg?sico, t?blevins con alimentos Los parches de Lidoderm son parches anest?sicos, se aplican en el ?tobias dolorida Adem?s cristal Tylenol en casa Si los s?ntomas persisten o empeoran, el dolor se vuelve insoportable, desarroll? retenci?n urinaria o incontinencia, o debilidad, regrese al servicio de urgencias. Prescriptions: New acetaminophen [Tylenol Extra Strength] 500 mg tablet 500 mg PO Q6H PRN (Reason: fever or pain) Qty: 14 0RF lidocaine [Lidoderm] 5 % adhesive patch,medicated 1 patch topical DAILY MDD remove after 12 hours PRN (Reason: pain) Qty: 30 0RF Rx Instructions: leave on most painful area for up to 12 hrs naproxen 500 mg tablet 500 mg PO BID PRN (Reason: pain) 10 Days Qty: 20 0RF cyclobenzaprine 5 mg tablet 5 mg PO Q8H PRN (Reason: pain (scale score 7-10)) 5 Days Qty: 14 0RF No Action cholecalciferol (vitamin D3) 25 mcg (1,000 unit) tablet 25 mcg PO DAILY Qty: 90 1RF hydrocortisone [Proctosol HC] 2.5 % cream with perineal applicator 1 appl NE BID-QID PRN (Reason: hemorrhoids) Qty: 30 0RF irbesartan 300 mg tablet 300 mg PO DAILY 90 Days Qty: 90 2RF amlodipine 5 mg tablet 5 mg PO BID Qty: 180 2RF (DME) CPAP 6 cm humidified AIR MASKAIR FIT N20 small See Rx Instructions .Route .MEDSUPPLY Qty: 1 0RF Rx Instructions: As directed rosuvastatin 5 mg tablet 5 mg PO DAILY Qty: 30 3RF Senna Plus 8.6-50 mg capsule 1 tab-cap PO BID PRN (Reason: constipation) 30 Days Qty: 60 3RF Referrals: Po,Spenser Hoang MD [Primary Care Provider] - 3 days Interventions: ED Discharge Assessment Last Done: 03/11/23 15:56 Discharge Date/Time: 03/11/23 15:57 Print Language: Maltese
[2023-03-11] MEDS: Cyclobenzaprine HCl 10 MG TABLET PO (09:58)
[2023-03-11] MEDS: Ketorolac Tromethamine 30 MG/ML VIAL IM (10:00)
[2023-03-11 12:00] VITALS: BP 112/49; PULSE 59; RESP 18; TEMP 36.4; O2SAT 95
[2023-03-11 14:00] VITALS: BP 119/45; PULSE 52; RESP 18; O2SAT 98
[2023-03-11] MEDS: traMADoL HCL 50 MG TABLET PO (14:22)
--- NOTE | 2023-03-11 14:25 | PC.NURSE ---
pt medicated for pain per MAr. vitals stable. call rodarte within reach
== END 2023-03-11 15:57 | disposition home or self-care (01) ==
PROVIDERS: Emergency Provider Emergency Medicine; PCP Internal Medicine
DX: M54.41 Lumbago with sciatica, right side (principal); M47.896 Other spondylosis, lumbar region; I10 Essential (primary) hypertension; E78.5 Hyperlipidemia, unspecified; Z79.02 Long term (current) use of antithrombotics/antiplatelets
CPT/HCPCS: 72100; 73502; 96372; 99284; J1885

== ENCOUNTER 2023-03-12 08:23 | Outpatient (REF) | payer OTHER, SELFPAY ==
--- NOTE | ~2023-03-12 | FL_ITS ---
EXAMINATION: FLUOROSCOPIC ESOPHAGRAM, BARIUM SWALLOW FLUOROSCOPY UPPER GI WITH AIR CLINICAL INFORMATION: Dysphagia COMPARISON: None. TECHNIQUE: An upper GI examination is performed under fluoroscopic observation with digital image acquisition. The patient drank effervescent granules, thick and thin barium consistencies without difficulty. The patient was observed during swallowing in the lateral projection using a cine loop sequence. The patient also swallowed a 13 mm barium tablet with water under fluoroscopic observation. FINDINGS: Normal control of the liquid bolus with normal inversion of the epiglottis. No laryngeal penetration or aspiration. Small sliding-type hiatal hernia with mild spontaneous gastroesophageal reflux. There is esophageal dysmotility with delayed emptying and tertiary contractions distally. The stomach demonstrates normal motility with normal rugal folds. The duodenal bulb and proximal duodenum demonstrate no evidence of ulcer, mass lesion, or displacement. Prompt transit of the barium tablet into the stomach. No stricture. Total dose 63.143 mGy DAP 12.716 Gycm/2 Time 1.2 min FL/FL upper GI w Ba Swallow IMPRESSION: Small sliding-type hiatal hernia with mild spontaneous gastroesophageal reflux. Esophageal dysmotility with delayed emptying and tertiary contractions distally.
== END 2023-03-12 08:24 | disposition home or self-care (01) ==
LOC: HO.XRAY 08:23
PROVIDERS: PCP Internal Medicine; Visit Provider Nurse Practitioner Family
DX: R13.10 Dysphagia, unspecified (principal)
CPT/HCPCS: 74240

== ENCOUNTER 2023-03-21 11:12 | Outpatient (REF) | payer OTHER, SELFPAY ==
[2023-03-21 13:00] LABS: Blood Urea Nitrogen 22 mg/dL (9-16); Estimated Glomerular Filt Rate 58
== END 2023-03-21 11:13 | disposition home or self-care (01) ==
LOC: HO.LAB 11:12
PROVIDERS: Visit Provider Otolaryngology
DX: J35.9 Chronic disease of tonsils and adenoids, unspecified (principal)
CPT/HCPCS: 36415; 82565; 84520

== ENCOUNTER 2023-04-09 09:15 | Outpatient (REF) | payer OTHER, SELFPAY ==
--- NOTE | ~2023-04-09 | CT_ITS ---
CT SOFT TISSUE NECK WITH CONTRAST CLINICAL INFORMATION: Left tonsillar lesion. COMPARISON: Neck radiographs 11/13/2023. TECHNIQUE: Following the intravenous administration of 100 mL of Omnipaque 350 intravenous contrast, helical imaging was performed in the axial plane with generation of coronal and sagittal reformatted images. This CT examination was performed using dose optimization techniques as appropriate, variously including the following: *Automated exposure control *Adjustment of mA and/or kV according to patient size (this includes techniques or standardized protocols for targeted exams where dose is matched to indication/reason for exam; i.e. extremities or head) *Use of iterative reconstruction technique FINDINGS: There is a possible ulcerative lesion along the anterior margin of the left palatine tonsil measuring up to 1 cm in size that can be further assessed with PET as clinically indicated. There are nonpathologic size criteria lymph nodes throughout the suprahyoid and infrahyoid neck bilaterally without pathologic size criteria lymphadenopathy that can also be further assessed with PET. No additional superficial mucosal space lesions. The laryngeal structures are symmetric and unremarkable. There is atherosclerotic calcification involving the carotid bifurcations bilaterally without significant stenosis. The parotid glands, the submandibular glands, and the thyroid gland are unremarkable. There is accessory parotid tissue superficial to the masseter muscles bilaterally. The imaged upper lungs are clear. Imaged upper mediastinum is unremarkable with the exception of atherosclerotic calcification involving the thoracic aorta. There is multilevel cervical spondylosis. Mild mucosal thickening within the maxillary sinuses and ethmoid air cells bilaterally. Mastoid air cells and middle ear cavities are clear. CT/CT soft tissue neck w IV con IMPRESSION: There is a possible ulcerative lesion along the anterior margin of the left palatine tonsil measuring up to 1 cm in size that can be further assessed with PET as clinically indicated. An underlying squamous cell carcinoma is not excluded. There are nonpathologic size criteria lymph nodes throughout the suprahyoid and infrahyoid neck bilaterally without pathologic size criteria lymphadenopathy that can also be further assessed with PET.
[2023-04-09] MEDS: iohexoL 350 MG/ML 100 ML INFUS..BTL 60 ML IV (10:30)
== END 2023-04-09 09:16 | disposition home or self-care (01) ==
LOC: HO.CT 09:15
PROVIDERS: Visit Provider Otolaryngology
DX: D10.5 Benign neoplasm of other parts of oropharynx (principal)
CPT/HCPCS: 70491; Q9967

== ENCOUNTER 2023-07-08 13:15 | Outpatient (AMB) | payer OTHER, SELFPAY ==
[2023-07-08 13:22] VITALS: BP 142/82; PULSE 78; O2SAT 98; BMI 31.0
--- NOTE | 2023-07-08 13:22 | MHC.PC.OV ---
Vital Signs 07/08/23 13:22 Height 5 ft 1 in Weight 164 lb BMI 31.0 BP 142/82 H Blood Pressure Location Lt brachial Position Sitting Pulse 78 Pulse Source Pulse Oximeter Pulse Oximetry (%) 98 Oxygen Delivery Method Room Air Intake Visit Reasons: 3 month f/u, left heel pain, Sciatic pain Allergies atorvastatin Allergy (Unknown, Verified 07/08/23 13:24) myalgia codeine Allergy (Unknown, Verified 07/08/23 13:24) SWELLING penicillin V Allergy (Unknown, Verified 07/08/23 13:24) rash amlodipine Adverse Reaction (Intermediate, Unverified 07/08/23 14:16) stomach pain pravastatin Adverse Reaction (Intermediate, Verified 07/08/23 13:24) joint pain metoprolol Adverse Reaction (Verified 07/08/23 13:24) leg swelling Tobacco use date assessed: 01/24/23 Fall risk assessment: No Falls in past year Last assessed Fall Risk: 07/08/23 Dental Screening Dental Screen Date: 07/08/23 Did you have a dental visit in the last 12 months?: No Did you have a dental problem in the last 6 months where you did not have access to dental care?: No Was dental information given to patient?: No HPI 3 month f/u HPI Details 73-year-old obese female with hypertension impaired glucose tolerance hypercholesterolemia GERD obstructive sleep apnea coming in for follow-up. Way patient was last seen in March 2023 for physical. Blood work was requested. Patient was started also on omeprazole. Colonoscopy is up-to-date, mammogram is due. Review of the notes was seen by the ear nose and throat for a left tonsillar lesion 1 cm was advised PET scan. Patient has followed up with the ENT. Daughter Chrissy rosario patient was referred to ENT in [facility] and was told irritation only and was prescribe omeprazole. reminded about blood work. wants amlodipine change due to abd. pain [facility] Medical History (Updated 07/08/23 @ 14:24 by Spenser Romero MD) Coreas's cyst of knee Benign essential hypertension Chronic constipation Conjunctivitis Diverticulosis History of colon polyps Hypovitaminosis D IgA nephropathy Left leg swelling Low back pain LUQ abdominal pain Obesity (BMI 30-39.9) Obstructive sleep apnea JANN on CPAP Otitis media of left ear Pure hypercholesterolemia Radicular pain Venous (peripheral) insufficiency Vitamin D deficiency Surgical History H/O tubal ligation History of colonoscopy History of dilatation and curettage History of esophagogastroduodenoscopy (EGD) History of loop electrical excision procedure (LEEP) Family History Father Alzheimers disease Mother Kidney failure Social History Housing: Apartment Are you a primary field care advocate to a significant other at home: No Alcohol intake: never Patient Tobacco Use Status: Never used Tobacco e-Cigarette/Vaping Use: Never Used Second Hand Smoke Exposure: No service: No Current occupational status: disabled Cognitive needs: No Hearing needs: No Vision needs: Yes Questionnaire PHQ-9 Over the last 2 weeks, how often have you been bothered by any of the following problems? 1. Little interest or pleasure in doing things: not at all 2. Feeling down, depressed, or hopeless: not at all 3. Trouble falling or staying asleep, or sleeping too much: not at all 4. Feeling tired or having little energy: not at all 5. Poor appetite or overeating: not at all 6. Feeling bad about yourself - or that you are a failure or have let yourself or your family down: not at all 7. Trouble concentrating on things, such as reading the newspaper or watching television: not at all 8. Moving or speaking so slowly that other people could have noticed. Or the opposite - being so fidgety or restless that you have been moving around a lot more than usual: not at all 9. Thoughts that you would be better off or of hurting yourself in some way: not at all Total score: 0 Depression Screening Interpretation: Negative 54344 - PHQ-9 Billing: Yes Source: Developed by Drs. Bon Garcia, Mimi Nicholson, Rick Bruno and colleagues, with an educational abbey from [email or web address]. Thrive Questionnaire Date Thrive assessed: 01/24/23 AUDIT C Alcohol Use Questionnaire (AUDIT-C) 1. How often do you have a drink containing alcohol?: Never 3. How often do you have six or more drinks on one occasion?: Never Total Score: 0 Score Reviewed/Action Taken: No SANDRA-7 AMB Questionnaire SANDRA-7 Date SANDRA - 7 assessed: 01/24/23 Source: Developed by Drs. Bon Garcia, Mimi Nicholson, Rick Bruno and colleagues, with an educational abbey from [email or web address]. Physical exam (Primary Care) Vital Signs: Last Vital Signs Pulse 78 07/08/23 13:22 BP 142/82 H 07/08/23 13:22 Pulse Ox 98 07/08/23 13:22 Oxygen Delivery Method Room Air 07/08/23 13:22 BMI result Body Mass Index 31.0 Tobacco/Smoking Status: Tobacco use Status Tobacco use date assessed 01/24/23 07/08/23 13:30 Patient Tobacco Use Status Never used Tobacco 07/08/23 13:30 e-Cigarette/Vaping Use Never Used 07/08/23 13:30 PHQ-9: PHQ-9 Score PHQ-9: Total score 0 07/08/23 19:18 Depression Screening Interpretation: Negative Thrive Assessment: Date of Thrive Assessment Date Thrive assessed 01/24/23 07/08/23 13:30 Const General: alert; No acute distress Eyes Conjunctivae: conjunctivae normal Resp Auscultation: clear to auscultation bilaterally Cardio Rate: regular rate Rhythm: regular rhythm GI Inspection: Yes normal to inspection Extrem General: Yes normal to inspection and No edema Assessment and Plan Assessment & Plan (1) Sciatic nerve pain: Code(s): M54.30 - Sciatica, unspecified side (2) Lesion of tonsil: Comment: March 2023There is a possible ulcerative lesion along the anterior margin of the left palatine tonsil measuring up to 1 cm in size that can be further assessed with PET as clinically indicated. An underlying squamous cell carcinoma is not excluded. There are nonpathologic size criteria lymph nodes throughout the suprahyoid and infrahyoid neck bilaterally without pathologic size criteria lymphadenopathy that can also be further assessed with PET. Code(s): J35.9 - Chronic disease of tonsils and adenoids, unspecified Plan: Patient had a CT scan under ear nose and throat and results advising PET scan. seen ENT in [place] and was rx omeprazole. not better and advised to ff up with ENT- notes will be obtained (3) Benign essential hypertension: Code(s): I10 - Essential (primary) hypertension Plan: Continue with blood pressure medication. Decrease salt intake and exercise patient is taking amlodipine 5 mg twice a day irbesartan 300 mg once a day (4) Impaired fasting blood sugar: Code(s): R73.01 - Impaired fasting glucose Plan: Decrease the amount of carbohydrate intake, pasta, bread, rice and potatoes are all sugar and that is aside from all the sweet stuff, remember that fruits are good but they are Sweet also. (5) Obesity (BMI 30-39.9): Code(s): E66.9 - Obesity, unspecified Plan: Diet and exercise (6) Obstructive sleep apnea: Comment: cannot tolerate CPAP Code(s): G47.33 - Obstructive sleep apnea (adult) (pediatric) Plan: Advised to use the CPAP regularly more than 4 hours a night (7) Pure hypercholesterolemia: Code(s): E78.00 - Pure hypercholesterolemia, unspecified Plan: Avoid fried foods, chicken skin, eggs, butter margarine, pastries and meat. Be it pork or beef they have a lot of cholesterol patient takes rosuvastatin 5 mg once a day (8) Low back pain with sciatica: Code(s): M54.40 - Lumbago with sciatica, unspecified side (9) Achilles tendinitis of left lower extremity: Code(s): M76.62 - Achilles tendinitis, left leg Orders: Orders PT Evaluation and Treatment Today M54.40 - Lumbago with sciatica, unspecified side Referrals Podiatry Referral M76.62 - Achilles tendinitis, left leg Medications: New hydrochlorothiazide 25 mg PO DAILY 30 tabs 4RF I10 - Essential (primary) hypertension meloxicam 15 mg PO DAILY 30 tabs 0RF M54.40 - Lumbago with sciatica, unspecified side Discontinued amlodipine Discontinued Reason: Patient Refused 5 mg PO BID 180 tabs 2RF I10 - Essential (primary) hypertension Coding Level of Care Code Est Pt Level 4 (19495) Diagnoses Sciatic nerve pain M54.30 Lesion of tonsil J35.9 Benign essential hypertension I10 Impaired fasting blood sugar R73.01 Obesity (BMI 30-39.9) E66.9 Obstructive sleep apnea G47.33 Pure hypercholesterolemia E78.00 Low back pain with sciatica M54.40 Achilles tendinitis of left lower extremity M76.62
== END 2023-07-08 14:30 | disposition home or self-care (01) ==
PROVIDERS: PCP Internal Medicine; Visit Provider Internal Medicine
DX: I10 Essential (primary) hypertension (principal); M54.30 Sciatica, unspecified side; J35.9 Chronic disease of tonsils and adenoids, unspecified; Z68.31 Body mass index [BMI] 31.0-31.9, adult; R73.01 Impaired fasting glucose; E66.9 Obesity, unspecified; G47.33 Obstructive sleep apnea (adult) (pediatric); E78.00 Pure hypercholesterolemia, unspecified; M54.40 Lumbago with sciatica, unspecified side; M76.62 Achilles tendinitis, left leg
CPT/HCPCS: 99214

== ENCOUNTER 2023-07-10 09:14 | Outpatient (AMB) | payer OTHER, SELFPAY ==
--- NOTE | 2023-07-10 09:24 | A.OFFVIS_ITS ---
Intake Vital Signs 07/10/23 09:44 Height 5 ft 1 in Weight 164 lb BMI 31.0 BP 134/69 Blood Pressure Location Lt brachial Position Sitting Pulse 57 Intake Visit Reasons: gerd Intake Note: Patient follow up for GERD. Patient cc: GERD with throat burning sensation and pain with some difficulty to swallow. Also she said that her throat feeling irritated it, also some constipation. Molded Goods Operator Required: Yes Molded Goods Operator Name: Jadyn [facility] [place]peter Accompanied by: Self / Same As Patient Allergies atorvastatin Allergy (Unknown, Verified 07/10/23 09:24) myalgia codeine Allergy (Unknown, Verified 07/10/23 09:24) SWELLING penicillin V Allergy (Unknown, Verified 07/10/23 09:24) rash amlodipine Adverse Reaction (Intermediate, Verified 07/10/23 09:24) stomach pain pravastatin Adverse Reaction (Intermediate, Verified 07/10/23 09:24) joint pain metoprolol Adverse Reaction (Verified 07/10/23 09:24) leg swelling Medication List - Last Reconciled 07/10/23 by Marlon Caballero MD acetaminophen (Tylenol Extra Strength) 500 mg PO Q6H PRN cholecalciferol (vitamin D3) 25 mcg PO DAILY [CPAP 6 cm humidified AIR MASKAIR FIT N20 small As directed] hydrochlorothiazide 25 mg PO DAILY hydrocortisone 2.5% (Proctosol HC) 1 appl NE BID-QID PRN irbesartan 300 mg PO DAILY 90 days lidocaine 5% (Lidoderm) 1 patch topical DAILY PRN MDD remove after 12 hours meloxicam 15 mg PO DAILY omeprazole 20 mg PO DAILY rosuvastatin 5 mg PO DAILY sennosides-docusate sodium 8.6-50 mg (Senna Plus) 1 tab-cap PO BID PRN 30 days [SHOWER CHAIR As directed] [WALKER WITH SEAT As directed] HPI gerd HPI Details GI CLINIC VISIT FOR THIS 73-YEAR-OLD GREEK-SPEAKING FEMALE FOR FU OF LEFT UPPER QUADRANT PAIN IMAGING STUDIES: 05/20/[address] [place] [facility] [place]; Moderate FDG uptake at bilateral palatine tonsils with slightly asymmetric left- sided hypertrophy. No focal concerning lesion no cervical lymphadenopathy. No definite evidence of malignancy. 02/2023 UGI SHOWED: Small sliding-type hiatal hernia with mild spontaneous gastroesophageal reflux. Esophageal dysmotility with delayed emptying and tertiary contractions distally. 05/2021 ABD US SHOWED: Echogenic liver probably representing fatty infiltration. Small bilateral renal cysts. Limited visualization of the tail the pancreas. 04/28/[address] SCAN SHOWED: ? Diverticulosis of the colon. No evidence of diverticulitis. ? Fatty infiltration of the head of the pancreas. ? Probable small right renal cysts. Question small uterine fibroid. ?ENDOSCOPIC STUDIES: 06/2022 EGD SHOWED: ESOPHAGUS: Tortuous esophagus with increased tertiary contractions without? stricture or ring.? GE junction at 36 cms.? No esophagitis or Gore's. STOMACH:? gastritis DUODENUM:? normal - ? biopsies were obtained to check for celiac sprue No etiology found for abdominal pain BIOPSIES SHOWED: A.? Small bowel, biopsy:? Small bowel mucosa within normal limits; preserved villous architecture no increased intraepithelial lymphocytes seen. B.? Stomach, antrum, biopsy:? Gastric antral mucosa with mild chronic inactive gastritis; negative for Helicobacter pylori, intestinal metaplasia and dysplasia. C.? Stomach, body, biopsy:? Gastric body mucosa within normal limits; negative for Helicobacter pylori, intestinal metaplasia and dysplasia. 06/20/20 COLONOSCOPY SHOWED: ? One 7-8 mm adenomatous polyp was removed, two diminutive hyperplastic rectal polyps were biopsied. ? Moderate diverticulosis seen in the entire colon ? Moderate hemorrhoids on retroflexed exam. ? Plan: Patient has an appointment on 07/03/20 in the GI Clinic with Marlon Caballero M.D.-. ? Repeat Colonoscopy interval based on path results in 5 years if ? polyps are adenomatous - needs GA with intubation and an adult colonoscope for future colonoscopies. ?BIOPSIES SHOWED: ? A. Colon, transverse polyp, polypectomy: Fragments of tubular adenoma. ? B. Rectum, polyp, polypectomy: Fragments of hyperplastic polyp. ? 12/07/09 SCREENING COLONOSCOPY WAS PERFORMED BY DR. VERAS AND SHOWED EXTERNAL HEMORRHOIDS AND NO POLYPS. TODAY'S VISIT: Continues to have intermittent upper abd pain - two times a week Feels like pressure and not related to eating. Abdominal pain improves if she has a BM. Has a BM 2-3 times a day - rarely has hard stools or straining. Noted abd pain after taking the amlodipine and was changed yesterday Tonsils are enlarged and has seen [address] scan and examination of the throat. Dose of Omeprazole was increased to 40 mg daily for the past 3 weeks. Has a FU appt in 2 weeks with ENT in [place]. [place] [facility] [place] of the test - found something in the throat PAST VISITS: EGD and bx results were reviewed. Got over a COVID infection 3 weeks ago Continues to have intermittent pain in her side and none today. Constipation is way better. Denies urinary symptoms ? PAST VISIT: Pt's Hannah FREIRE translated for the patient. Continues to have LUQ pain. Has 3-4 soft BMs a day. Has noted foul smelling stools since the past few weeks. Her PCP called to let her know she had blood in stool on stool tests (Of note - pt had a colonoscopy 2 yrs ago). ?? ? Complains of nausea, bloating LUQ pain (with radiation to the back) and dizziness. ?? ? Unintentional weight loss of 6 lbs in 2 weeks. ? ? Denies any change in her diet. ? ? Abdominal pain is constant and no change in pain after eating. ?? Has a BM 1-2 times a day with intermittent straining without blood in the stools. ?? Stools are sometimes stinky ? ? Denies change in pain with BM. ? ? Takes Senna prn 2-3 times a week ? ? Has been taking more fruits and fibre. Patient denies symptoms of dysphagia, nausea, vomiting, change in appetite or weight. ? Patient denies major cardiac or pulmonary problems, loud snoring or sleep apnea ? Pt has sleep apnea and has not started using the CPAP machine yet since it has not been delivered yet. ? Denies problems with anesthesia in the past. ? Denies being on chronic anticoagulation, aspirin or NSAIDs. ? Patient denies known family history of colon polyps, colon cancer or other GI malignancies.? Abd pain is better - gets it occasionally - rare. ? Constipation is better - has a BM twice a day. ? Colonoscopy results were reviewed with the patient - repeat colon advised in 5 yrs. ? Denies any problems after the procedure. ? Abd CT scan results were discussed - showed diverticulosis. ? Sometimes the pain paralyzes me and I do not have it today. ? Abd pain comes and goes - can last for a few days. ? Notes intermittent constipation. ? Intermittent LUQ pain for the past few months ? It just hurts - sometimes hurts to touch ? Feels worse after taking medications for her kidneys. ? Denies radiation of pain to the back. ? Denies recent change in bowel habits, constipation, diarrhea, black stools or rectal bleeding. ? Denies association of fever, chills or sweating with the?pain [facility] Medical History (Updated 07/10/23 @ 09:33 by Marlon Caballero MD) Coreas's cyst of knee Benign essential hypertension Chronic constipation Conjunctivitis Diverticulosis History of colon polyps Hypovitaminosis D IgA nephropathy Left leg swelling Low back pain LUQ abdominal pain Obesity (BMI 30-39.9) Obstructive sleep apnea JANN on CPAP Otitis media of left ear Pure hypercholesterolemia Radicular pain Venous (peripheral) insufficiency Vitamin D deficiency Surgical History H/O tubal ligation History of colonoscopy History of dilatation and curettage History of esophagogastroduodenoscopy (EGD) History of loop electrical excision procedure (LEEP) Family History Father Alzheimers disease Mother Kidney failure Social History Housing: Apartment Are you a primary child adolescent care to a significant other at home: No Alcohol intake: never Patient Tobacco Use Status: Never used Tobacco e-Cigarette/Vaping Use: Never Used Second Hand Smoke Exposure: No service: No Current occupational status: disabled Cognitive needs: No Hearing needs: No Vision needs: Yes Review of Systems Const All systems reviewed & are unremarkable except as noted in HPI and below Physical Exam Vital Signs: Last Vital Signs Pulse 57 07/10/23 09:44 BP 134/69 07/10/23 09:44 BMI result Body Mass Index 31.0 Const General: healthy appearing and no acute distress Nutritional Appearance: obese Orientation/consciousness: patient oriented x3 Limitations: language barrier HEENT Head: Yes normal to inspection Ears: hearing grossly normal bilaterally Mouth: Normal oral and palatal mucosa present Throat: Yes abnormal tonsil (both tonsils appeared enlarged without obvious mass) Eyes Sclerae: sclerae normal Pupils: Equal, round and reactive pupils present Neck Neck: Yes normal visual inspection Chest Chest palpation & inspection: normal inspection of the chest Resp Effort & Inspection: normal respiratory effort Auscultation: clear to auscultation bilaterally Cardio Palpation: normal PMI Rate: regular rate Rhythm: regular rhythm Heart sounds: S1 normal heart sound present, S2 normal heart sound present and no murmurs GI Palpation (GI): Soft to palpation, Tenderness to palpation present (GI) (mild epigastric tenderness) and No hepatosplenomegaly present Auscultation: normal bowel sounds Rectal Exam - Female: deferred Skin General skin exam: no rashes or lesions noted Neuro General: patient oriented x3, gait normal and moves all extremities Cranial nerves: Yes Equal, round and reactive pupils present Psych Appearance: grossly normal Mental Status: mental status grossly normal Assessment & Plan Assessment & Plan (1) Esophageal dysmotility: Code(s): K22.4 - Dyskinesia of esophagus (2) GERD (gastroesophageal reflux disease): Code(s): K21.9 - Gastro-esophageal reflux disease without esophagitis (3) Dysphagia: Code(s): R13.10 - Dysphagia, unspecified (4) Elevated alkaline phosphatase level: Comment: BLAYNE, antimitochondrial antibody, anti smooth muscle antibody, TTG(Ig A), protein electrophoresis and IgG 4 levels were normal Code(s): R74.8 - Abnormal levels of other serum enzymes (5) Guaiac positive stools: Comment: schedule an EGD. Labs showed normal CBC without anemia Code(s): R19.5 - Other fecal abnormalities Plan 73 year old [place]er-speaking female followed in GI for left-sided abdominal pain. Abdominal CT scan showed fatty infiltration of the head of the pancreas and diverticulosis of the colon. No evidence of diverticulitis. 06/20/20 A 7-8 mm tubular adenoma was removed during colonoscopy - repeat colon advised in 5 years. Patient was advised to continue senna with docusate for constipation. Stool pancreatic elastase to rule out pancreatic insufficiency. Complains of nausea, bloating LUQ pain (with radiation to the back) and dizziness. Unintentional weight loss of 6 lbs in 2 weeks - wt has been stable over the past 4 months. 06/2022 EGD was performed and results as noted above 07/2022 Pt complained of pain in the left lumbar area - ?? Musculoskeletal versus renal. Patient was advised to have a urine test which was negative 07/10/23 Pt advised to take Miralax once a day to see if abdominal pain is related to constipation and improves with Miralax FU in 4 months Medications: New polyethylene glycol 3350 (Miralax) 17 grams PO DAILY 30 days 510 grams 3RF K59.09 - Other constipation Coding Level of Care Code Est Pt Level 4 (40519) Diagnoses Esophageal dysmotility K22.4 GERD (gastroesophageal reflux disease) K21.9 Dysphagia R13.10 Elevated alkaline phosphatase level R74.8 Guaiac positive stools R19.5 Time Spent (min) 25
[2023-07-10 09:44] VITALS: BP 134/69; PULSE 57; BMI 31.0
== END 2023-07-10 09:57 | disposition home or self-care (01) ==
PROVIDERS: PCP Internal Medicine; Visit Provider Internal Medicine Gastroenterology
DX: K22.4 Dyskinesia of esophagus (principal); K21.9 Gastro-esophageal reflux disease without esophagitis; R13.10 Dysphagia, unspecified; R74.8 Abnormal levels of other serum enzymes; R19.5 Other fecal abnormalities
CPT/HCPCS: 99214

== ENCOUNTER → 2023-07-10 09:14 | Outpatient (BNVA) | payer OTHER, SELFPAY | PROVIDERS: PCP Internal Medicine; Visit Provider Internal Medicine Gastroenterology | DX: K21.9 Gastro-esophageal reflux disease without esophagitis (principal); K22.4 Dyskinesia of esophagus; R13.10 Dysphagia, unspecified; R74.8 Abnormal levels of other serum enzymes; R19.5 Other fecal abnormalities | CPT/HCPCS: 99212 ==

== ENCOUNTER 2023-09-16 10:23 | Outpatient (REF) | payer OTHER, SELFPAY ==
[2023-09-16 10:41] LABS: MANUAL DIFF FLAG NO
[2023-09-16 11:12] LABS: Basophils Absolute Auto 0.1 X10*3/uL (0.0-0.2); Basophils Percent Auto 1.1 % (0-2); Eosinophils Absolute Auto 0.3 X10*3/uL (0.0-0.4); Eosinophils Percent Auto 4.9 % (0-4); Hematocrit 38.5 % (37.0-47.0); Hemoglobin 12.7 g/dl (12.0-16.0); Imm Gran Abs Auto 0.01 X10*3/uL (0.00-0.03); Imm Gran Pct Auto 0.2 % (0.0-0.4); Lymphocytes Absolute Auto 1.6 X10*3/uL (1.2-4.9); Lymphocytes Percent Auto 25.1 % (20-40); Mean Corpuscular Hemoglobin 30.1 pg (27.0-33.0); Mean Corpuscular Volume 91.2 fL (80.0-98.0); Mean Platelet Volume 11.8 fL (9.4-12.3); Monocytes Absolute Auto 0.6 X10*3/uL (0.1-1.2); Neutrophils Absolute Auto 3.7 x10*3/uL (2.0-8.3); Neutrophils Percent Auto 58.7 % (45-73); Platelet Count 261 X10*3/uL (160-400); Red Blood Count 4.22 X10*6/uL (4.20-5.50); Red Cell Distribution Width 13.3 % (11.0-16.0); White Blood Count 6.4 X10*3/uL (4.8-10.8)
[2023-09-16 11:27] LABS: Estimated Average Glucose 117 mg/dL; Hemoglobin A1c % 5.7 % (<6.0)
[2023-09-16 12:47] LABS: Alanine Aminotransferase 19 U/L (0-31); Albumin Level 4.1 g/dL (3.5-5.0); Alkaline Phosphatase 134 U/L (39-117); Anion Gap 14 (12-20); Aspartate Amino Transferase 20 U/L (5-31); Bilirubin Total 0.5 mg/dL (0.0-1.0); Blood Urea Nitrogen 26 mg/dL (9-16); Calcium 10.3 mg/dL (8.4-10.2); Carbon Dioxide 25 mmol/L (22-29); Chloride 105 mmol/L (96-108); Cholesterol 172 mg/dL (<200); Estimated Glomerular Filt Rate 57; Glucose Random 108 mg/dL (60-115); HDL Cholesterol 49 mg/dL (>40); LDL Cholesterol Calculated 105 mg/dL (<100); Potassium 4.2 mmol/L (3.3-5.1); Sodium 140 mmol/L (135-145); Total Protein 7.9 g/dL (6.5-8.0); Triglycerides 91 mg/dL (<150)
[2023-09-16 12:49] LABS: Free T4 (Free Thyroxine) 0.91 ng/dL (0.71-1.85); Thyroid Stimulating Hormone 1.37 uIU/mL (0.32-4.0); Vitamin D 25-OH Total 31.6 ng/mL (>30)
[2023-09-16 13:03] LABS: Vitamin B12 407 pg/mL (200-900)
== END 2023-09-16 10:24 | disposition home or self-care (01) ==
LOC: HO.LAB 10:23
PROVIDERS: PCP Internal Medicine; Visit Provider Internal Medicine
DX: E78.00 Pure hypercholesterolemia, unspecified (principal); R73.01 Impaired fasting glucose; M81.0 Age-related osteoporosis without current pathological fracture
CPT/HCPCS: 36415; 80053; 80061; 82306; 82607; 82746; 83036; 84439; 84443; 85025

== ENCOUNTER 2023-09-17 12:58 | Outpatient (AMB) | payer OTHER, SELFPAY ==
--- NOTE | 2023-09-17 12:59 | A.OFFPC_ITS ---
Vital Signs 09/17/23 13:00 Height 5 ft 1 in Weight 162 lb BMI 30.6 BP 128/78 Blood Pressure Location Lt brachial Position Sitting Pulse 72 Pulse Source Pulse Oximeter Pulse Oximetry (%) 98 Oxygen Delivery Method Room Air Intake Visit Reasons: HTN , hip pain , back pain, L achilles tendintis Intake Note: Patient here for a follow up HTN, hip and back pain, L achilles teninitis Stained Glass Artist Required: Yes Stained Glass Artist Language: Sinhala Accompanied by: Self / Same As Patient Allergies atorvastatin Allergy (Unknown, Verified 09/17/23 13:03) myalgia codeine Allergy (Unknown, Verified 09/17/23 13:03) SWELLING penicillin V Allergy (Unknown, Verified 09/17/23 13:03) rash amlodipine Adverse Reaction (Intermediate, Verified 09/17/23 13:03) stomach pain pravastatin Adverse Reaction (Intermediate, Verified 09/17/23 13:03) joint pain metoprolol Adverse Reaction (Verified 09/17/23 13:03) leg swelling Medication List - Last Reconciled 09/17/23 by Spenser Romero MD acetaminophen (Tylenol Extra Strength) 500 mg PO Q6H PRN cholecalciferol (vitamin D3) 25 mcg PO DAILY [CPAP 6 cm humidified AIR MASKAIR FIT N20 small As directed] cyclobenzaprine 5 mg PO TID PRN hydrochlorothiazide 25 mg PO DAILY hydrocortisone 2.5% (Proctosol HC) 1 appl [place] BID-QID PRN irbesartan 300 mg PO DAILY 90 days lidocaine 5% (Lidoderm) 1 patch topical DAILY PRN MDD remove after 12 hours meloxicam 15 mg PO DAILY nifedipine ER 30 mg PO DAILY omeprazole 20 mg PO DAILY polyethylene glycol 3350 (Miralax) 17 grams PO DAILY 30 days rosuvastatin 5 mg PO DAILY sennosides-docusate sodium 8.6-50 mg (Senna Plus) 1 tab-cap PO BID PRN 30 days [SHOWER CHAIR As directed] [WALKER WITH SEAT As directed] Tobacco use date assessed: 01/24/23 Fall risk assessment: No Falls in past year Last assessed Fall Risk: 09/17/23 Dental Screening Dental Screen Date: 09/17/23 Did you have a dental visit in the last 12 months?: No Did you have a dental problem in the last 6 months where you did not have access to dental care?: No Was dental information given to patient?: Patient has dentist HPI HTN , hip pain , back pain, L achilles tendintis HPI Details 73 year old obese female with HTN, IGTOS A, hypercholesterolemia last seen 06/2023 with the lesion on the tonsil - advised to ff up with ent review of the notes from the ear nose and throat shows a hypertrophied left tonsil with each is a question neoplasm patient was advise CT scan of the neck and tonsil. Patient was given prednisone to gargle. CT scan March 2023 showing ulcerative lesion along the anterior margin of the left palatine tonsil 1 cm advised PET scan incidental atherosclerosis carotid bifurcations without stenosis patient followed up with ENT 04/24/2023 in the neck letting gauze copy is normal patient was referred to [facility] and PET scan requested. PET scan did show uptake bilateral palatine tonsils with a symmetric left-sided hypertrophy no focal co ncerning lesion or cervical adenopathy no definite evidence of malignancy. Review of the notes in June 2023 was seen by hematology oncology and referred to Gastroenterology colonoscopy advised 5 years from May 2020 patient has been advised to have the EGD done Mio rosario. has seen ENT in [place]- - advised PET scan again- [facility] Medical History (Updated 07/10/23 @ 09:33 by Marlon Caballero MD) JANN on CPAP Left leg swelling Conjunctivitis Radicular pain Low back pain Benign essential hypertension Otitis media of left ear LUQ abdominal pain Vitamin D deficiency Obesity (BMI 30-39.9) Obstructive sleep apnea IgA nephropathy History of colon polyps Diverticulosis Chronic constipation Venous (peripheral) insufficiency Coreas's cyst of knee Pure hypercholesterolemia Hypovitaminosis D Surgical History History of esophagogastroduodenoscopy (EGD) History of dilatation and curettage H/O tubal ligation History of loop electrical excision procedure (LEEP) History of colonoscopy Family History Father Alzheimers disease Mother Kidney failure Social History Housing: Apartment Are you a primary patient care technician to a significant other at home: No Alcohol intake: never Patient Tobacco Use Status: Never used Tobacco e-Cigarette/Vaping Use: Never Used Second Hand Smoke Exposure: No service: No Current occupational status: disabled Cognitive needs: No Hearing needs: No Vision needs: Yes Questionnaire Thrive Questionnaire Date Thrive assessed: 01/24/23 SANDRA-7 AMB Questionnaire SANDRA-7 Date SANDRA - 7 assessed: 01/24/23 Source: Developed by Drs. Bon Garcia, Mimi Nicholson, Rick Bruno and colleagues, with an educational abbey from [employer]. Physical exam (Primary Care) Vital Signs: Last Vital Signs Pulse 72 09/17/23 13:00 BP 128/78 09/17/23 13:00 Pulse Ox 98 09/17/23 13:00 Oxygen Delivery Method Room Air 09/17/23 13:00 BMI result Body Mass Index 30.6 Tobacco/Smoking Status: Tobacco use Status Tobacco use date assessed 01/24/23 09/17/23 13:06 Patient Tobacco Use Status Never used Tobacco 09/17/23 13:06 e-Cigarette/Vaping Use Never Used 09/17/23 13:06 Thrive Assessment: Date of Thrive Assessment Date Thrive assessed 01/24/23 09/17/23 13:06 Const General: alert; No acute distress Eyes Conjunctivae: conjunctivae normal Resp Auscultation: clear to auscultation bilaterally Cardio Rate: regular rate Rhythm: regular rhythm GI Inspection: Yes normal to inspection Extrem General: Yes normal to inspection and No edema Office Procedures Flu Questionnaire Does the patient have a severe egg allergy?: No Has the patient ever had any past reaction to a flu shot?: Yes Immunizations flu vacc [id number] 6mos up(PF) 60 mcg(15 mcgx4)/0.5 mL IM syringe Performing Provider: Spenser Romero MD [facility] Documented (not given) by: DEB Stallings on 09/17/23 13:07 Reason Not Given: Patient Refused Assessment and Plan Assessment & Plan (1) Lesion of tonsil: Comment: March 2023There is a possible ulcerative lesion along the anterior margin of the left palatine tonsil measuring up to 1 cm in size that can be further assessed with PET as clinically indicated. An underlying squamous cell carcinoma is not excluded. There are nonpathologic size criteria lymph nodes throughout the suprahyoid and infrahyoid neck bilaterally without pathologic size criteria lymphadenopathy that can also be further assessed with PET. Code(s): J35.9 - Chronic disease of tonsils and adenoids, unspecified Plan: Patient was advised to follow-up with the [facility] ear nose and throat for the left tonsillar enlargement did see the [facility] and recommended PET scan again. (2) GERD (gastroesophageal reflux disease): Code(s): K21.9 - Gastro-esophageal reflux disease without esophagitis Plan: Avoid the foods that causes that usually spicy foods, tomato products, juices, coffee, soda and foods that your sensitive to. After eating do not lie down, allow 3-4 hours before in lie down. And keep the head of bed above 30 degrees to avoid the acid from going up. (3) Benign essential hypertension: Code(s): I10 - Essential (primary) hypertension Plan: Continue with blood pressure medication. Decrease salt intake and exercise patient takes hydrochlorothiazide her and irbesartan (4) Impaired fasting blood sugar: Code(s): R73.01 - Impaired fasting glucose Plan: Decrease the amount of carbohydrate intake, pasta, bread, rice and potatoes are all sugar and that is aside from all the sweet stuff, remember that fruits are good but they are Sweet also. August 2023 last blood work (5) Obesity (BMI 30-39.9): Code(s): E66.9 - Obesity, unspecified Plan: Diet and exercise (6) Pure hypercholesterolemia: Code(s): E78.00 - Pure hypercholesterolemia, unspecified Plan: Avoid fried foods, chicken skin, eggs, butter margarine, pastries and meat. Be it pork or beef they have a lot of cholesterol patient on rosuvastatin 5 mg once a day LDL goal of less than 130. August 2023 last blood (7) Low back pain with sciatica: Code(s): M54.40 - Lumbago with sciatica, unspecified side Plan: advised PT and muscle relaxant sent in Orders: Orders Influenza [id number] Immunization Today Z23 - Encounter for immunization Medications: New nifedipine ER 30 mg PO DAILY 30 tabs 4RF I10 - Essential (primary) hypertension cyclobenzaprine 5 mg PO TID PRN 60 tabs 0RF muscle spasm M54.40 - Lumbago with sciatica, unspecified side Coding Level of Care Code Est Pt Level 4 (67640) Diagnoses Lesion of tonsil J35.9 GERD (gastroesophageal reflux disease) K21.9 Benign essential hypertension I10 Impaired fasting blood sugar R73.01 Obesity (BMI 30-39.9) E66.9 Pure hypercholesterolemia E78.00 Low back pain with sciatica M54.40
[2023-09-17 13:00] VITALS: BP 128/78; PULSE 72; O2SAT 98; BMI 30.6
== END 2023-09-17 15:12 | disposition home or self-care (01) ==
PROVIDERS: PCP Internal Medicine; Visit Provider Internal Medicine
DX: J35.9 Chronic disease of tonsils and adenoids, unspecified (principal); K21.9 Gastro-esophageal reflux disease without esophagitis; I10 Essential (primary) hypertension; R73.01 Impaired fasting glucose; E66.9 Obesity, unspecified; E78.00 Pure hypercholesterolemia, unspecified; M54.40 Lumbago with sciatica, unspecified side; Z23 Encounter for immunization
CPT/HCPCS: 90471; 90714; 99214

== ENCOUNTER 2023-09-30 11:00 | Outpatient (RCR) | payer OTHER, MEDICAID, SELFPAY | END 2023-10-21 08:59 | disposition home or self-care (01) | LOC: HO.PT 11:00 | PROVIDERS: PCP Internal Medicine; Visit Provider Internal Medicine | DX: M54.50 Low back pain, unspecified (principal) | CPT/HCPCS: 97110; 97161 ==

== ENCOUNTER 2023-10-30 10:00 | Outpatient (AMB) | payer OTHER, MEDICAID, SELFPAY ==
--- NOTE | 2023-10-30 10:28 | A.OFFVIS_ITS ---
Intake Vital Signs 10/30/23 10:35 Height 5 ft 1 in Weight 161 lb BMI 30.4 BP 154/74 H Blood Pressure Location Lt brachial Position Sitting Intake Visit Reasons: 4 month follow up Intake Note: Patient follow up for dysphagia Patient cc: LLQ pain on and off, burning sensation on her throat and tongue. Deniesa ny other GI issues. Electrician Helper Required: No Accompanied by: Grand Child Allergies atorvastatin Allergy (Unknown, Verified 10/30/23 10:27) myalgia codeine Allergy (Unknown, Verified 10/30/23 10:27) SWELLING penicillin V Allergy (Unknown, Verified 10/30/23 10:27) rash amlodipine Adverse Reaction (Intermediate, Verified 10/30/23 10:) stomach pain pravastatin Adverse Reaction (Intermediate, Verified 10/30/23 10:) joint pain metoprolol Adverse Reaction (Verified 10/30/23 10:) leg swelling Medication List - Last Reconciled 10/30/23 by Marlon Caballero MD acetaminophen (Tylenol Extra Strength) 500 mg PO Q6H PRN cholecalciferol (vitamin D3) 25 mcg PO DAILY [CPAP 6 cm humidified AIR MASKAIR FIT N20 small As directed] cyclobenzaprine 5 mg PO TID PRN hydrochlorothiazide 25 mg PO DAILY hydrocortisone 2.5% (Proctosol HC) 1 appl [place] BID-QID PRN irbesartan 300 mg PO DAILY 90 days lidocaine 5% (Lidoderm) 1 patch topical DAILY PRN MDD remove after 12 hours meloxicam 15 mg PO DAILY nifedipine ER 30 mg PO DAILY omeprazole 20 mg PO DAILY polyethylene glycol 3350 (Miralax) 17 grams PO DAILY 30 days rosuvastatin 5 mg PO DAILY sennosides-docusate sodium 8.6-50 mg (Senna Plus) 1 tab-cap PO BID PRN 30 days [SHOWER CHAIR As directed] [WALKER WITH SEAT As directed] HPI 4 month follow up HPI Details GI CLINIC VISIT FOR THIS 73-YEAR-OLD UPPER SORBIAN-SPEAKING FEMALE FOR FU OF LEFT UPPER QUADRANT PAIN IMAGING STUDIES: 05/20/[address] [place] [facility] [place]; Moderate FDG uptake at bilateral palatine tonsils with slightly asymmetric left- sided hypertrophy. No focal concerning lesion no cervical lymphadenopathy. No definite evidence of malignancy. 02/2023 UGI SHOWED: Small sliding-type hiatal hernia with mild spontaneous gastroesophageal reflux. Esophageal dysmotility with delayed emptying and tertiary contractions distally. 05/2021 ABD US SHOWED: Echogenic liver probably representing fatty infiltration. Small bilateral renal cysts. Limited visualization of the tail the pancreas. 04/28/[address] SCAN SHOWED: ? Diverticulosis of the colon. No evidence of diverticulitis. ? Fatty infiltration of the head of the pancreas. ? Probable small right renal cysts. Question small uterine fibroid. ?ENDOSCOPIC STUDIES: 06/2022 EGD SHOWED: ESOPHAGUS: Tortuous esophagus with increased tertiary contractions without? stricture or ring.? GE junction at 36 cms.? No esophagitis or Gore's. STOMACH:? gastritis DUODENUM:? normal - ? biopsies were obtained to check for celiac sprue No etiology found for abdominal pain BIOPSIES SHOWED: A.? Small bowel, biopsy:? Small bowel mucosa within normal limits; preserved villous architecture no increased intraepithelial lymphocytes seen. B.? Stomach, antrum, biopsy:? Gastric antral mucosa with mild chronic inactive gastritis; negative for Helicobacter pylori, intestinal metaplasia and dysplasia. C.? Stomach, body, biopsy:? Gastric body mucosa within normal limits; negative for Helicobacter pylori, intestinal metaplasia and dysplasia. 06/20/20 COLONOSCOPY SHOWED: ? One 7-8 mm adenomatous polyp was removed, two diminutive hyperplastic rectal polyps were biopsied. ? Moderate diverticulosis seen in the entire colon ? Moderate hemorrhoids on retroflexed exam. ? Plan: Patient has an appointment on 07/03/20 in the GI Clinic with Marlon Caballero M.D.-. ? Repeat Colonoscopy interval based on path results in 5 years if ? polyps are adenomatous - needs GA with intubation and an adult colonoscope for future colonoscopies. ?BIOPSIES SHOWED: ? A. Colon, transverse polyp, polypectomy: Fragments of tubular adenoma. ? B. Rectum, polyp, polypectomy: Fragments of hyperplastic polyp. ? 12/07/09 SCREENING COLONOSCOPY WAS PERFORMED BY DR. VERAS AND SHOWED EXTERNAL HEMORRHOIDS AND NO POLYPS. TODAY'S VISIT: Accompained by her GD who interpreted for her. Patient cc: LLQ pain on and off, burning sensation on her throat and tongue. Denies ny other GI issues. Intremittent LLQ pain - 5-6/10 in intensity and lasts 1/2 hour or a little longer. Dies not feel pain is related to gas or from not having a BM Has a BM 2-3 times a day. Can get constipated when she eats bread. PAST VISITS: Feels like pressure and not related to eating. Abdominal pain improves if she has a BM. Continues to have intermittent upper abd pain - two times a week Has a BM 2-3 times a day - rarely has hard stools or straining. Noted abd pain after taking the amlodipine and was changed yesterday Tonsils are enlarged and has seen [address] scan and examination of the throat. Dose of Omeprazole was increased to 40 mg daily for the past 3 weeks. Has a FU appt in 2 weeks with ENT in [place]. Pt [place] [facility] [place] name of the test - found something in the throat EGD and bx results were reviewed. Got over a COVID infection 3 weeks ago Continues to have intermittent pain in her side and none today. Constipation is way better. Denies urinary symptoms ? PAST VISIT: Pt's Hannah FREIRE translated for the patient. Continues to have LUQ pain. Has 3-4 soft BMs a day. Has noted foul smelling stools since the past few weeks. Her PCP called to let her know she had blood in stool on stool tests (Of note - pt had a colonoscopy 2 yrs ag o). ?? ? Complains of nausea, bloating LUQ pain (with radiation to the back) and dizziness. ?? ? Unintentional weight loss of 6 lbs in 2 weeks. ? ? Denies any change in her diet. ? ? Abdominal pain is constant and no change in pain after eating. ?? Has a BM 1-2 times a day with intermittent straining without blood in the stools. ?? Stools are sometimes stinky ? ? Denies change in pain with BM. ? ? Takes Senna prn 2-3 times a week ? ? Has been taking more fruits and fibre. Patient denies symptoms of dysphagia, nausea, vomiting, change in appetite or weight. ? Patient denies major cardiac or pulmonary problems, loud snoring or sleep apnea ? Pt has sleep apnea and has not started using the CPAP machine yet since it has not been delivered yet. ? Denies problems with anesthesia in the past. ? Denies being on chronic anticoagulation, aspirin or NSAIDs. ? Patient denies known family history of colon polyps, colon cancer or other GI malignancies.? Abd pain is better - gets it occasionally - rare. ? Constipation is better - has a BM twice a day. ? Colonoscopy results were reviewed with the patient - repeat colon advised in 5 yrs. ? Denies any problems after the procedure. ? Abd CT scan results were discussed - showed diverticulosis. ? Sometimes the pain paralyzes me and I do not have it today. ? Abd pain comes and goes - can last for a few days. ? Notes intermittent constipation. ? Intermittent LUQ pain for the past few months ? It just hurts - sometimes hurts to touch ? Feels worse after taking medications for her kidneys. ? Denies radiation of pain to the back. ? Denies recent change in bowel habits, constipation, diarrhea, black stools or rectal bleeding. ? Denies association of fever, chills or sweating with the?pain [facility] Medical History (Updated 07/10/23 @ 09:33 by Marlon Caballero MD) JANN on CPAP Left leg swelling Conjunctivitis Radicular pain Low back pain Benign essential hypertension Otitis media of left ear LUQ abdominal pain Vitamin D deficiency Obesity (BMI 30-39.9) Obstructive sleep apnea IgA nephropathy History of colon polyps Diverticulosis Chronic constipation Venous (peripheral) insufficiency Coreas's cyst of knee Pure hypercholesterolemia Hypovitaminosis D Surgical History History of esophagogastroduodenoscopy (EGD) History of dilatation and curettage H/O tubal ligation History of loop electrical excision procedure (LEEP) History of colonoscopy Family History Father Alzheimers disease Mother Kidney failure Social History Housing: Apartment Are you a primary care coordination manager to a significant other at home: No Alcohol intake: never Patient Tobacco Use Status: Never used Tobacco e-Cigarette/Vaping Use: Never Used Second Hand Smoke Exposure: No service: No Current occupational status: disabled Cognitive needs: No Hearing needs: No Vision needs: Yes Review of Systems Const All systems reviewed & are unremarkable except as noted in HPI and below Physical Exam Vital Signs: Last Vital Signs BP 154/74 H 10/30/23 10:35 BMI result Body Mass Index 30.4 Const General: healthy appearing and no acute distress Nutritional Appearance: average body habitus Orientation/consciousness: patient oriented x3 Limitations: language barrier HEENT Head: Yes normal to inspection Ears: hearing grossly normal bilaterally Mouth: Normal oral and palatal mucosa present Eyes Sclerae: sclerae normal Pupils: Equal, round and reactive pupils present Neck Neck: Yes normal visual inspection Chest Chest palpation & inspection: normal inspection of the chest Resp Effort & Inspection: normal respiratory effort Auscultation: clear to auscultation bilaterally Cardio Palpation: normal PMI Rate: regular rate Rhythm: regular rhythm Heart sounds: S1 normal heart sound present, S2 normal heart sound present and no murmurs GI Palpation (GI): Soft to palpation, nontender and No hepatosplenomegaly present Auscultation: normal bowel sounds Rectal Exam - Female: deferred Skin General skin exam: no rashes or lesions noted Neuro General: patient oriented x3, gait normal and moves all extremities Cranial nerves: Yes Equal, round and reactive pupils present Psych Appearance: grossly normal Mental Status: mental status grossly normal Assessment & Plan Assessment & Plan (1) Esophageal dysmotility: Code(s): K22.4 - Dyskinesia of esophagus (2) GERD (gastroesophageal reflux disease): Code(s): K21.9 - Gastro-esophageal reflux disease without esophagitis (3) Dysphagia: Code(s): R13.10 - Dysphagia, unspecified (4) Elevated alkaline phosphatase level: Comment: BLAYNE, antimitochondrial antibody, anti smooth muscle antibody, TTG(Ig A), protein electrophoresis and IgG 4 levels were normal Code(s): R74.8 - Abnormal levels of other serum enzymes Plan 73 year old Yi-speaking female followed in GI for left-sided abdominal pain. Abdominal CT scan showed fatty infiltration of the head of the pancreas and diverticulosis of the colon. No evidence of diverticulitis. 06/20/20 A 7-8 mm tubular adenoma was removed during colonoscopy - repeat colon advised in 5 years. Patient was advised to continue senna with docusate for constipation. Stool pancreatic elastase to rule out pancreatic insufficiency. Complains of nausea, bloating LUQ pain (with radiation to the back) and dizziness. Unintentional weight loss of 6 lbs in 2 weeks - wt has been stable over the past 4 months. 06/2022 EGD was performed and results as noted above 07/2022 Pt complained of pain in the left lumbar area - ?? Musculoskeletal versus renal. Patient was advised to have a urine test which was negative 07/10/23 Pt advised to take Miralax once a day to see if abdominal pain is related to constipation and improves with Miralax FU in 6 months Medications: Changed From polyethylene glycol 3350 (Miralax) 17 grams PO DAILY 30 days 510 grams 3RF K59.09 - Other constipation To polyethylene glycol 3350 (Miralax) 17 grams PO DAILY PRN 510 grams 3RF constipation 30 days K59.09 - Other constipation From omeprazole 20 mg PO DAILY 90 caps 3RF K21.9 - Gastro-esophageal reflux disease without esophagitis To omeprazole 20 mg PO DAILY 90 caps 2RF 90 days K21.9 - Gastro-esophageal reflux disease without esophagitis Coding Level of Care Code Est Pt Level 4 (60021) Diagnoses Esophageal dysmotility K22.4 GERD (gastroesophageal reflux disease) K21.9 Dysphagia R13.10 Elevated alkaline phosphatase level R74.8 Time Spent (min) 20
[2023-10-30 10:35] VITALS: BP 154/74; BMI 30.4
== END 2023-10-30 12:57 | disposition home or self-care (01) ==
PROVIDERS: PCP Internal Medicine; Visit Provider Internal Medicine Gastroenterology
DX: K22.4 Dyskinesia of esophagus (principal); K21.9 Gastro-esophageal reflux disease without esophagitis; R13.10 Dysphagia, unspecified; R74.8 Abnormal levels of other serum enzymes
CPT/HCPCS: 99214

== ENCOUNTER → 2023-10-30 10:00 | Outpatient (BNVA) | payer OTHER, SELFPAY | PROVIDERS: PCP Internal Medicine; Visit Provider Internal Medicine Gastroenterology | DX: R13.10 Dysphagia, unspecified (principal); K22.4 Dyskinesia of esophagus; K21.9 Gastro-esophageal reflux disease without esophagitis; R74.8 Abnormal levels of other serum enzymes | CPT/HCPCS: 99212 ==

== ENCOUNTER 2024-03-10 14:34 | Outpatient (AMB) | payer OTHER, MEDICAID, SELFPAY ==
[2024-03-10 15:03] VITALS: BP 138/60; PULSE 52; O2SAT 97; BMI 29.9
--- NOTE | 2024-03-10 15:03 | MHC.PC.OV ---
Vital Signs 03/10/24 15:03 Height 5 ft 1 in Weight 158 lb BMI 29.9 BP 138/60 Blood Pressure Location Lt brachial Position Sitting Pulse 52 Pulse Source Pulse Oximeter Pulse Oximetry (%) 97 Oxygen Delivery Method Room Air Intake Visit Reasons: Depression Intake Note: The patient is currently experiencing depression following the of her lifelong partner over the past two months. During this time, she has been unable to sleep without assistance. The patient reports that melatonin has been somewhat helpful, although she still experiences significant anxiety at night. Additionally, about a week ago, the patient noticed drooping on the left side of her face and difficulty speaking clearly. Dixonac Operator Required: Yes Dixonac Operator Language: Pashto Accompanied by: Self / Same As Patient Allergies atorvastatin Allergy (Unknown, Verified 03/10/24 15:39) myalgia codeine Allergy (Unknown, Verified 03/10/24 15:39) SWELLING penicillin V Allergy (Unknown, Verified 03/10/24 15:39) rash amlodipine Adverse Reaction (Intermediate, Verified 03/10/24 15:39) stomach pain pravastatin Adverse Reaction (Intermediate, Verified 03/10/24 15:39) joint pain metoprolol Adverse Reaction (Verified 03/10/24 15:39) leg swelling Medication List - Last Reconciled 03/10/24 by Roberto Cuevas PA-C acetaminophen (Tylenol Extra Strength) 500 mg PO Q6H PRN cholecalciferol (vitamin D3) 25 mcg PO DAILY [CPAP 6 cm humidified AIR MASKAIR FIT N20 small As directed] cyclobenzaprine 5 mg PO TID PRN hydrochlorothiazide 25 mg PO DAILY hydrocortisone 2.5% (Proctosol HC) 1 appl DE BID-QID PRN irbesartan 300 mg PO DAILY 90 days lidocaine 5% (Lidoderm) 1 patch topical DAILY PRN MDD remove after 12 hours meloxicam 15 mg PO DAILY nifedipine ER 30 mg PO DAILY omeprazole 20 mg PO DAILY 90 days polyethylene glycol 3350 (Miralax) 17 grams PO DAILY PRN 30 days rosuvastatin 5 mg PO DAILY sennosides-docusate sodium 8.6-50 mg (Senna Plus) 1 tab-cap PO BID PRN 30 days [SHOWER CHAIR As directed] [WALKER WITH SEAT As directed] Tobacco use date assessed: 03/10/24 Dental Screening Dental Screen Date: 09/17/23 HPI Depression HPI Details Patient is a 73-year-old female here today for problem visit. This is the 1st time I am meeting this 73-year-old female with a past medical history significant for hyperlipidemia, impaired glucose metabolism hypertension, GERD and obstructive sleep apnea. . She reports she has been experiencing a lot of anxiety and depression since the passing of her partner 2 months ago. She has been using melatonin at night which has been effective for sleep. She also has been having a lot of trouble with pharmacy getting medications. Her blood pressures have been elevated and she has not been able to get refills on her hydrochlorothiazide 25 mg. She seemingly has been taken off of calcium channel blockers due to a issue with her throat. She does report a few days episode of left-sided facial numbness and some dysarthria. 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 PLAN: Due to some of her uncontrolled blood pressure and reports of dysarthria and left-sided facial paresthesias will send for CT head to evaluate for evidence of CVA. [facility], [facility] Medical History (Updated 03/10/24 @ 15:50 by Roberto Cuevas PA-C) JANN on CPAP Left leg swelling Conjunctivitis Radicular pain Low back pain Benign essential hypertension Otitis media of left ear LUQ abdominal pain Vitamin D deficiency Obesity (BMI 30-39.9) Obstructive sleep apnea IgA nephropathy History of colon polyps Diverticulosis Chronic constipation Venous (peripheral) insufficiency Coreas's cyst of knee Pure hypercholesterolemia Hypovitaminosis D Surgical History History of esophagogastroduodenoscopy (EGD) History of dilatation and curettage H/O tubal ligation History of loop electrical excision procedure (LEEP) History of colonoscopy Family History Father Alzheimers disease Mother Kidney failure Social History Housing: Apartment Are you a primary assurance services manager health care to a significant other at home: No Alcohol intake: never Patient Tobacco Use Status: Never used Tobacco e-Cigarette/Vaping Use: Never Used Second Hand Smoke Exposure: No service: No Current occupational status: disabled Cognitive needs: No Hearing needs: No Vision needs: Yes Questionnaire PHQ-9 Over the last 2 weeks, how often have you been bothered by any of the following problems? 1. Little interest or pleasure in doing things: more than half the days 2. Feeling down, depressed, or hopeless: several days 3. Trouble falling or staying asleep, or sleeping too much: nearly every day 4. Feeling tired or having little energy: more than half the days 5. Poor appetite or overeating: more than half the days 6. Feeling bad about yourself - or that you are a failure or have let yourself or your family down: not at all 7. Trouble concentrating on things, such as reading the newspaper or watching television: not at all 8. Moving or speaking so slowly that other people could have noticed. Or the opposite - being so fidgety or restless that you have been moving around a lot more than usual: nearly every day 9. Thoughts that you would be better off or of hurting yourself in some way: not at all Total score: 13 Depression Screening Interpretation: Positive Depression Screening Follow-up: Existing condition Depression Screening Done: Yes 31857 - PHQ-9 Billing: Yes Source: Developed by Drs. Bon Garcia, Mimi Nicholson, Rick Bruno and colleagues, with an educational abbey from [employer]. Thrive Questionnaire Date Thrive assessed: 03/10/24 I am a: Patient What is your living situation today?: I have a steady place to live Within the past 12 months, did the food you bought not last and you didn't have the money to get more?: Never true Within the past 12 months, did you worry whether your food would run out before you got money to buy more?: Never true Do you have trouble paying for medicines?: No Do you have trouble getting transportation to medical appointments?: No Do you have trouble paying your heating and electricity bill?: No Do you have trouble taking care of your child, family member or friend?: No Do you have trouble with day-to-day activities such as bathing, preparing meals, shopping, managing finances, etc.?: No Are you currently unemployed and looking for a job?: No Are you interested in more education?: No Please select the resources that you would like help with: None Currently or been in a relationship where the following occur: no concerns reported THRIVE Score: 0 AUDIT C Alcohol Use Questionnaire (AUDIT-C) 1. How often do you have a drink containing alcohol?: Never 3. How often do you have six or more drinks on one occasion?: Never Total Score: 0 SANDRA-7 AMB Questionnaire SANDRA-7 Date SANDRA - 7 assessed: 03/10/24 Feeling nervous, anxious, or on edge: 3 = Nearly every day Not being able to stop or control worryin = Not at all Worrying too much about different things: 0 = Not at all Trouble relaxin = More than half the days Being so restless that it is hard to sit still: 2 = More than half the days Becoming easily annoyed or irritable: 0 = Not at all Feeling afraid as if something awful might happen: 0 = Not at all Total SANDRA-7 score (0-4 normal; 5-9 mild; 10-14 moderate; 15-21 severe): 7 Source: Developed by Drs. Bon Garcia, Mimi Nicholson, Rick Bruno and colleagues, with an educational abbey from [employer]. SANDRA-7 Assessment Billing SANDRA-7 Assessment Tool: SANDRA-7 Assessment 68665 Review of Systems Const Denies headache(s) Eyes Denies loss of vision ENT Denies vertigo, Denies dizziness, Denies headache(s) and Denies sore throat Card Denies chest pain, Denies leg edema and Denies lightheadedness Resp Denies cough, Denies hemoptysis and Denies wheezing GI Denies abdominal pain, Denies melena, Denies constipation, Denies diarrhea and Denies vomiting Denies urinary frequency, Denies dysuria and Denies urinary urgency Musc Denies arthralgias, Denies joint swelling, Denies numbness and Denies tingling Neuro Denies Abnormal speech present, Denies behavioral changes, Denies vertigo, Denies dizziness, Denies headache(s), Denies loss of vision, Denies memory loss, Denies numbness and Denies tingling Psych Denies anxiety, Denies behavioral changes, Denies depression, Denies memory loss and Denies panic attacks Jose/Lymph Denies easy bleeding and Denies easy bruising Aller/Immun Denies wheezing Physical exam (Primary Care) Vital Signs: Last Vital Signs Pulse 52 03/10/24 15:03 BP 138/60 03/10/24 15:03 Pulse Ox 97 03/10/24 15:03 Oxygen Delivery Method Room Air 03/10/24 15:03 BMI result Body Mass Index 29.9 Tobacco/Smoking Status: Tobacco use Status Tobacco use date assessed 03/10/24 03/10/24 15:24 Patient Tobacco Use Status Never used Tobacco 03/10/24 15:05 e-Cigarette/Vaping Use Never Used 03/10/24 15:05 PHQ-9: PHQ-9 Score PHQ-9: Total score 13 03/10/24 15:41 Depression Screening Interpretation: Positive Depression Screening Follow-up: Existing condition Thrive Assessment: Date of Thrive Assessment Date Thrive assessed 03/10/24 03/10/24 15:24 Currently or been in a relationship where the following occur: no concerns reported Const General: healthy appearing, no acute distress, alert and awake Nutritional Appearance: well nourished Orientation/consciousness: oriented to person, oriented to place and oriented to time HENMT Ears: TM's normal bilaterally General nose exam: Normal nasal mucous membranes and turbinates present Eyes Conjunctivae: conjunctivae normal Sclerae: sclerae normal Pupils: Equal, round and reactive pupils present Neck Neck: Yes no lymphadenopathy and Yes no JVD Thyroid: Thyroid normal Carotids: no bruits Resp Effort & Inspection: normal respiratory effort and not tachypneic Auscultation: no crackles, no rales, no rhonchi and no wheezes Cardio Rate: regular rate Rhythm: regular rhythm Heart sounds: no murmurs and normal S1 and S2 GI Palpation (GI): Soft to palpation, nontender, no hepatomegaly and no splenomegaly Auscultation: normal bowel sounds Skin General skin exam: no rashes or lesions noted and dry skin Neuro General: oriented to person, oriented to place and oriented to time Cranial nerves: Yes Equal, round and reactive pupils present Speech: No Abnormal speech present Gait exam (Neuro): Normal gait present Motor exam (neuro): no tremor noted Extrem Right upper extremity: full ROM Left upper extremity: full ROM Right lower extremity: full ROM; no edema Left lower extremity: full ROM; no edema Psych Mental Status: mental status grossly normal Speech and movement: Normal speech and movement present Affect: normal affect Attitude: cooperative Thought process: Normal thought process present Assessment and Plan Assessment & Plan (1) HTN (hypertension): Code(s): I10 - Essential (primary) hypertension Qualifiers: Hypertension type: primary hypertension Qualified Code(s): I10 - Essential (primary) hypertension Plan: Patient's blood pressure acceptable today in office. She continues on irbesartan and hydrochlorothiazide 25. She had side effects to calcium channel blockers. Will continue her hydrochlorothiazide 25 and advised to continue monitoring blood pressure with goal blood pressure to be below 140/90 (2) Dysarthria: Code(s): R47.1 - Dysarthria and anarthria Plan: reports a distant history of left-sided facial paralysis ? [place] palsy while living in [place] many years ago. Report over the last 4- 5 days having knumbess over the left side of her face. Physical exam today without any evidence facial droop or focal neurological deficit acutely.. Will send for CT brain to evaluate for evidence previous stroke. (3) MDD (major depressive disorder), recurrent episode, moderate: Code(s): F33.1 - Major depressive disorder, recurrent, moderate Plan: Patient's PHQ-9 score positive for depression, she has not interested in mental health therapy at this time.. Patient reports having little more depression as of late due to the passing of 2 months ago. She reports she is able to manage on her own without additional mental health medication. (4) Grief reaction: Code(s): F43.21 - Adjustment disorder with depressed mood Plan: As above- patient's SANDRA-7 score positive for generalized anxiety. Again mostly related to a grief reaction from the passing of her 2 months ago. Has been using melatonin for sleep with good effect. (5) Pure hypercholesterolemia: Code(s): E78.00 - Pure hypercholesterolemia, unspecified Plan: Advised to restart statin therapy , seems she was on rosuvastatin 5 mg though has not been taking this medication. She does seem to be having some left-sided facial paresthesias and some dysarthria not clear if related to a CVA. Advised to check fasting lipid panel before next upcoming visit. 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 Panel Fast 03/10/24 I10 - Essential (primary) hypertension Microalbumin, Random (w Creat) 03/10/24 I10 - Essential (primary) hypertension Medications: New rosuvastatin 10 mg PO DAILY 30 tabs 3RF 30 days E78.00 - Pure hypercholesterolemia, unspecified Refilled hydrochlorothiazide 25 mg PO DAILY 30 tabs 0RF I10 - Essential (primary) hypertension Discontinued rosuvastatin Discontinued Reason: Doctor's Order 5 mg PO DAILY 30 tabs 3RF E78.00 - Pure hypercholesterolemia, unspecified nifedipine ER Discontinued Reason: Doctor's Order 30 mg PO DAILY 30 tabs 4RF I10 - Essential (primary) hypertension Coding Level of Care Code Est Pt Level 4 (71967) Diagnoses Primary hypertension I10 Hypertension type: primary hypertension Dysarthria R47.1 MDD (major depressive disorder), recurrent episode, moderate F33.1 Grief reaction F43.21 Pure hypercholesterolemia E78.00 Additional Codes SANDRA-7 Assessment Billing - SANDRA-7 Assessment Tool: SANDRA-7 Assessment 88625 ([id number])
== END 2024-03-10 15:58 | disposition home or self-care (01) ==
PROVIDERS: PCP Internal Medicine; Visit Provider Physician Assistant
DX: I10 Essential (primary) hypertension (principal); R47.1 Dysarthria and anarthria; F33.1 Major depressive disorder, recurrent, moderate; F43.21 Adjustment disorder with depressed mood
CPT/HCPCS: 99214

== ENCOUNTER 2024-04-14 11:00 | Outpatient (RCR) | payer OTHER, MEDICAID, SELFPAY | END 2024-05-20 10:17 | disposition home or self-care (01) | LOC: HO.PT 11:00 | PROVIDERS: PCP Internal Medicine; Visit Provider Podiatrist | DX: M76.62 Achilles tendinitis, left leg (principal) | CPT/HCPCS: 97035; 97110; 97112; 97140; 97161; 97530 ==

== ENCOUNTER 2024-04-20 16:20 | Outpatient (REF) | payer OTHER, MEDICAID, SELFPAY ==
--- NOTE | ~2024-04-20 | CT_ITS ---
EXAMINATION: CT head/brain wo IV con CLINICAL INFORMATION: Reason for Exam R47.1 - Dysarthria and anarthria COMPARISON: None. TECHNIQUE: Contiguous axial imaging was performed from the skull base to vertex without intravenous contrast. Sagittal and coronal reformatted images were obtained. This CT examination was performed using dose optimization techniques as appropriate, variously including the following: * Automated exposure control * Adjustment of mA and/or kV according to patient size (this includes techniques or standardized protocols for targeted exams where dose is matched to indication/reason for exam; i.e. extremities or head) Use of iterative reconstruction technique DLP: 738 mGy-cm FINDINGS: No acute osseous or soft tissue abnormality. The mastoid air cells and visualized portions of the paranasal sinuses are well aerated. There is no evidence of acute intracranial hemorrhage or territorial infarction. No abnormal mass effect or midline shift is seen. Hamm to white matter differentiation is well preserved. No extra-axial fluid collections are identified. No hydrocephalus. No significant volume loss. There is no abnormal attenuation within the brain parenchyma. CT/CT head/brain wo IV con IMPRESSION: No acute intracranial abnormality including hemorrhage, mass effect, hydrocephalus, or acute territorial edematous infarction.
== END 2024-04-20 16:21 | disposition home or self-care (01) ==
LOC: HO.CT 16:20
PROVIDERS: PCP Internal Medicine; Visit Provider Physician Assistant
DX: R47.1 Dysarthria and anarthria (principal); G51.0 Bell's palsy
CPT/HCPCS: 70450

== ENCOUNTER 2024-05-04 11:00 | Emergency (ER) | payer OTHER, SELFPAY ==
--- NOTE | ~2024-05-04 | XR_ITS ---
EXAMINATION: XR KNEE, RIGHT CLINICAL INFORMATION: Right knee pain COMPARISON: 06/01/2018 TECHNIQUE: Four views of the right knee. FINDINGS: Bones are osteopenic. No fracture or joint effusion. Alignment is anatomic. Mild degenerative changes seen in the patellofemoral joint. Early osteophyte formation is seen in the femoral-tibial joint. No abnormal soft tissue calcification. XR/XR knee RT 4V IMPRESSION: Mild degenerative changes, stable
--- NOTE | 2024-05-04 11:13 | ED.GENADULT ---
HPI - General Adult General Chief complaint: Extremity Injury, Lower Stated complaint: knee pain for 1 week Time Seen by Provider: 05/04/24 12:50 Source: patient, RN notes reviewed, old records reviewed and program assistant (british) Mode of arrival: ambulatory Limitations: language barrier (british) History of Present Illness ED Provider: MAHENDRA FERRARA PA-C HPI narrative: 74-year-old [place] speaking female with pmhx significant for hypertension, hypercholesterolemi, JANN, IgA nephropathy, diverticulosis, PVD, osteoarthritis presents to the ED today for evaluation of atraumatic right knee pain x2 weeks. Admits that the right knee feels hot at times. Denies injury or trauma. Denies pain radiation. She has not been taking anything at home for the pain. Denies history of gout. Denies recent tick or insect bites. Denies fever, chills, rashes, numbness/tingling/weakness of the lower extremity, calf pain/swelling. Denies recent travel or long car rides. Denies any other concerns at this time. director of neighborhood service center utilized throughout visit to communicate with patient. Related Data Previous Rx's ?Medication ?Instructions ?Recorded cholecalciferol (vitamin D3) 25 25 mcg PO DAILY #90 tabs 12/07/20 mcg (1,000 unit) tablet CPAP 6 cm humidified AIR MASKAIR #1 ea 04/20/21 FIT N20 small hydrocortisone 2.5 % topical cream 1 appl MT BID-QID PRN hemorrhoids 03/26/22 with perineal applicator #30 grams (Proctosol HC) acetaminophen 500 mg tablet 500 mg PO Q6H PRN fever or pain 03/11/23 (Tylenol Extra Strength) #14 tabs lidocaine 5 % topical patch 1 patch topical DAILY PRN pain #30 03/11/23 (Lidoderm) ea SHOWER CHAIR #1 ea 03/24/23 WALKER WITH SEAT #1 ea 03/24/23 sennosides 8.6 mg-docusate sodium 1 tab-cap PO BID PRN constipation 03/24/23 50 mg capsule (Senna Plus) 30 days #60 caps meloxicam 15 mg tablet 15 mg PO DAILY #30 tabs 07/08/23 cyclobenzaprine 5 mg tablet 5 mg PO TID PRN muscle spasm #60 09/17/23 tabs irbesartan 300 mg tablet 300 mg PO DAILY 90 days #90 tabs 10/18/23 omeprazole 20 mg capsule,delayed 20 mg PO DAILY 90 days #90 caps 10/30/23 release polyethylene glycol 3350 17 17 g PO DAILY PRN constipation 30 10/30/23 gram/dose oral powder (Miralax) days #510 grams rosuvastatin 10 mg tablet 10 mg PO DAILY 30 days #30 tabs 03/10/24 BP Cuff #1 ea 03/17/24 hydrochlorothiazide 25 mg tablet 25 mg PO DAILY #90 tabs 04/21/24 naproxen 500 mg tablet 500 mg PO Q8-12H PRN pain (scale 05/04/24 score 4-6) #20 tabs prednisone 20 mg tablet 40 mg (2 x 20 mg) PO DAILY 5 days 05/04/24 #10 tabs Allergies Allergy/AdvReac Type Severity Reaction Status Date / Time atorvastatin Allergy Unknown myalgia Verified 05/04/24 11:15 codeine Allergy Unknown SWELLING Verified 05/04/24 11:15 penicillin V Allergy Unknown rash Verified 05/04/24 11:15 amlodipine AdvReac Intermediate stomach Verified 05/04/24 11:15 pain pravastatin AdvReac Intermediate joint pain Verified 05/04/24 11:15 metoprolol AdvReac leg Verified 05/04/24 11:15 swelling Review of Systems Review of Systems: Constitutional: No fever, chills, fatigue, night sweats, weight changes ENT/Mouth: No ear pain, hearing loss, nasal congestion, sinus pain, rhinorrhea, sore throat Eyes: No eye pain, swelling, redness, vision changes, discharge Cardio: No chest pain, palpitations, CORONA, orthopnea, peripheral edema Pulm: No SOB, cough, sputum, wheezing, dyspnea, hemoptysis GI: No nausea, vomiting, hematemesis, abdominal pain, diarrhea, constipation, hematochezia, melena : No irregular bleeding, dysuria, frequency, urgency, hesitancy, hematuria, flank pain, urinary flow changes, urinary incontinence or retention MSK: No back pain, neck pain, joint pain, myalgias, +right knee pain Skin: No lesions, rashes Neuro: No weakness, numbness, paresthesias, LOC, dizziness, headache Psych: No anxiety/panic, depression, SI/HI, AH/VH All other systems reviewed and are negative. PMFSH Past Medical History Attestation statement: The following information was validated with the patient. Source: old records reviewed and nursing notes reviewed Medical History JANN on CPAP Left leg swelling Conjunctivitis Radicular pain Low back pain Benign essential hypertension Otitis media of left ear LUQ abdominal pain Vitamin D deficiency Obesity (BMI 30-39.9) Obstructive sleep apnea IgA nephropathy History of colon polyps Diverticulosis Chronic constipation Venous (peripheral) insufficiency Coreas's cyst of knee Pure hypercholesterolemia Hypovitaminosis D Surgical History History of esophagogastroduodenoscopy (EGD) History of dilatation and curettage H/O tubal ligation History of loop electrical excision procedure (LEEP) History of colonoscopy Family History Family History Father Alzheimers disease Mother Kidney failure Social History Social History Housing: Apartment Are you a primary care information associate to a significant other at home: No Alcohol intake: never Patient Tobacco Use Status: Never used Tobacco e-Cigarette/Vaping Use: Never Used Second Hand Smoke Exposure: No Advance Directives: No service: No Current occupational status: disabled Cognitive needs: No Hearing needs: No Vision needs: Yes Physical Exam ED Vital Signs: Vital Signs - 24 hr 05/04/24 11:14 05/04/24 15:21 Temperature 98.3 F 98.3 F Pulse Rate 57 57 Respiratory Rate 18 18 Blood Pressure 134/62 134/62 Pulse Oximetry 98 98 Oxygen Delivery Method Room Air Room Air BMI result Body Mass Index 30.1 Vital signs stable, afebrile Const General: cooperative, healthy appearing, comfortable and no acute distress Orientation/consciousness: patient oriented x3 Limitations: no limitations HENMT Head: Yes normal to inspection, Yes No palpable skull fracture present, Yes normocephalic and Yes atraumatic Eyes General: appearance normal, both eyes and all related structures Conjunctivae: conjunctivae normal Sclerae: sclerae normal Pupils: Equal, round and reactive pupils present Neck Neck: Yes normal visual inspection, Yes full ROM, Yes no lymphadenopathy and Yes no meningeal signs Resp Effort & Inspection: normal respiratory effort and able to speak in complete sentences Auscultation: clear to auscultation bilaterally Cardio Rate: regular rate Rhythm: regular rhythm GI Inspection: Yes normal to inspection Palpation (GI): Soft to palpation and nontender Skin General skin exam: no rashes or lesions noted Neuro General: patient oriented x3, gait normal, moves all extremities and no meningeal signs Cranial nerves: Yes Equal, round and reactive pupils present Extrem Other: + right knee with minimal amount of swelling. Warm. No overlying skin changes. No palpable deformity, crepitus, fluctuance. Full ROM intact to right knee with some discomfort. No swelling noted to right ankle or hip joint. No peripheral edema noted. No calf tenderness. 2+ PT/DP and popliteal pulse intact. slight antalgic gait. Course Course Course Narrative: This is a Rapid Medical Examination (RME) performed by Williams Ferrara PA-C in triage. Full HPI, ROS, assessment and treatment plan per primary provider in the Main ED. 74 yo british speaking female hx of JANN on cpap, HTN, HDL, IgA nephropathy, PVD venous insufficiency here for eval of right knee pain x2 weeks. reports right knee occasionally will get hot . No interventions at home. No hx of gout. No recent tick or insect bites. well appearing in triage. ambulating w/ antalgic gait. FROM intact to R knee w/o overlying skin changes or deformity. not ttp. 2+ dp/pt and popliteal pulse. no calf tenderness. Plan: xr, basic labs, uric acid ordered Reevaluation(s) Reevaluation #1: 1442-- CBC without leukocytosis or left shift. H and H 12.1/35.6. Chemistry without acute electrolyte abnormality requiring intervention. BUN chronically elevated, creatinine WNL. Her uric acid levels are noted to be elevated to 8.1. This may be indicative of an acute gout flare. I suspect secondary to hydrochlorothiazide use. She does not have a known history of gout however her physical exam findings are consistent with this. There is currently a 7-12 hour wait for imaging reads. I am unable to visualize the film at this time. As patient's knee pain is atraumatic, I have extremely low suspicion for fracture. She is neurovascularly intact distally and I do not have concern for threat to limb at this time. I discussed this with patient and she does not wish to wait in the ED for x-rays to result. She is aware that she has a patient portal and can view these results on there. I also offered to contact patient when imaging results if there are any concerning findings. She verbalizes understanding and wishes to be discharged. Will send home with Roger wrap, prednisone and naproxen for suspected gout flare. Patient has remained stable throughout ED visit today. Discussed worrisome signs and symptoms and when to return to the ED. All questions answered at this time. Patient is agreeable with disposition and stable for discharge. Medical Decision Making Medical Decision Making MDM Narrative: 74-year-old [place] speaking female with pmhx significant for hypertension, hypercholesterolemi, JANN, IgA nephropathy, diverticulosis, PVD, osteoarthritis presents to the ED today for evaluation of atraumatic right knee pain x2 weeks. Vital signs stable, afebrile. She is nontoxic-appearing and in no acute distress. On exam, right knee with minimal amount of swelling. Warm. No overlying skin changes. No palpable deformity, crepitus, fluctuance. Full ROM intact to right knee with some discomfort. No swelling noted to right ankle or hip joint. No peripheral edema noted. No calf tenderness. 2+ PT/DP and popliteal pulse intact. slight antalgic gait. No rashes. Skin warm, dry, intact. Differential diagnosis includes MSK sprain, MSK strain, gout, pseudogout. Unlikely contusion, fracture, dislocation. Unlikely Lyme arthritis or tick-borne illness, Coreas cyst, DVT, neurovascular compromise, compartment syndrome, threat to limb. Plan for labs, uric acid level, x-ray, re-evaluation. Differential Diagnosis Differential Diagnoses: The differential diagnosis associated with the presentation includes As above Admission/Observation Not indicated Lab Data [facility] Lab Attestation statement: I reviewed the patient's lab results. As above 05/04/24 11:29 05/04/24 11:29 Labs: Lab Results 05/04/24 Range/Units 11:29 WBC 8.2 (4.8-10.8) X10*3/uL RBC 3.80 L (4.20-5.50) X10*6/uL Hgb 12.1 (12.0-16.0) g/dl Hct 35.6 L (37.0-47.0) % MCV 93.7 (80.0-98.0) fL MCH 31.8 (27.0-33.0) pg MCHC 34.0 (31.0-35.0) g/dl RDW 13.0 (11.0-16.0) % Plt Count 269 (160-400) X10*3/uL MPV 11.1 (9.4-12.3) fL Immature Gran % (Auto) 0.4 (0.0-0.4) % Neut % (Auto) 60.8 (45-73) % Lymph % (Auto) 25.3 (20-40) % [place] % (Auto) 9.7 (2-11) % Eos % (Auto) 2.9 (0-4) % Baso % (Auto) 0.9 (0-2) % Lymph # (Auto) 2.1 (1.2-4.9) X10*3/uL [place] # (Auto) 0.8 (0.1-1.2) X10*3/uL Eos # (Auto) 0.2 (0.0-0.4) X10*3/uL Baso # (Auto) 0.1 (0.0-0.2) X10*3/uL Abs Immat Gran (auto) 0.03 (0.00-0.03) X10*3/uL Absolute Neuts (auto) 5.0 (2.0-8.3) x10*3/uL Absolute Nucleated RBC 0.000 (0.0-0.012) X10*3/uL Nucleated RBC % (auto) 0.0 (0.0-0.2) /100WBC Sodium 139 (135-145) mmol/L Potassium 4.6 (3.3-5.1) mmol/L Chloride 104 (96-108) mmol/L Carbon Dioxide 29 (22-29) mmol/L Anion Gap 11 L (12-20) BUN 42 H (9-16) mg/dL Creatinine 1.11 (0.5-1.4) mg/dL Estim Creat Clear Calc 39.8 Estimated GFR 48 Random Glucose 105 (60-115) mg/dL Uric Acid 8.1 H (2.4-5.7) mg/dL Calcium 10.0 (8.4-10.2) mg/dL Magnesium 2.0 (1.6-2.6) mg/dL Total Bilirubin 0.2 (0.0-1.0) mg/dL AST 17 (5-31) U/L ALT 15 (0-31) U/L Alkaline Phosphatase 110 (39-117) U/L Total Protein 7.5 (6.5-8.0) g/dL Albumin 4.0 (3.5-5.0) g/dL External Record Review External record reviewed: Inpatient record, Office record, Outpatient record, Prior outpatient labs, Prior outpatient radiology, Primary care record and Outside ED record Prescription Management I considered prescription management with: Other (Prednisone, naproxen) Chronic Conditions Patient?s care impacted by: Hypertension and Other (Osteoarthritis) Social Determinants Patient?s care significantly limited by Social Determinants of Health including: Other Social Determinant of Health Critical Care Time Critical Care Time Critical Care Time: No Discharge Plan Discharge Clinical Impression: Gout Qualifiers: Gout site: knee Gout etiology: drug-induced Chronicity: acute Patient Disposition: Home, Self-Care Instructions: Low Purine Diet (ED), Gout (ED) Additional Instructions: Your labs today show an increase in uric acid which can indiate acute gout flare. As discussed, you are leaving before your x-rays results. You will be called with any concerning findings. You may also be the results on your patient portal. This may be caused by your blood pressure medication, hydrochlorothiazide. Prednisone is a steroid that has been sent to your pharmacy for treatment. Take this for 5 days. If you have diabetes, make sure to monitor blood sugars while taking this medication as this may increase your blood sugar. Naproxen as an anti-inflammatory that has been sent to your pharmacy. Take this as needed for pain/discomfort Please follow-up with your PCP as your medications may need to be adjusted. Return with new or worsening symptoms. In the case of an emergency call 911. Prescriptions: New prednisone 20 mg tablet 40 mg PO DAILY 5 Days Qty: 10 0RF naproxen 500 mg tablet 500 mg PO Q8-12H PRN (Reason: pain (scale score 4-6)) Qty: 20 0RF No Action cholecalciferol (vitamin D3) 25 mcg (1,000 unit) tablet 25 mcg PO DAILY Qty: 90 1RF hydrocortisone [Proctosol HC] 2.5 % cream with perineal applicator 1 appl MT BID-QID PRN (Reason: hemorrhoids) Qty: 30 0RF irbesartan 300 mg tablet 300 mg PO DAILY 90 Days Qty: 90 2RF (DME) BP Cuff See Rx Instructions .Route .MEDSUPPLY Qty: 1 0RF Rx Instructions: As directed hydrochlorothiazide 25 mg tablet 25 mg PO DAILY Qty: 90 0RF acetaminophen [Tylenol Extra Strength] 500 mg tablet 500 mg PO Q6H PRN (Reason: fever or pain) Qty: 14 0RF lidocaine [Lidoderm] 5 % adhesive patch,medicated 1 patch topical DAILY MDD remove after 12 hours PRN (Reason: pain) Qty: 30 0RF Rx Instructions: leave on most painful area for up to 12 hrs (DME) CPAP 6 cm humidified AIR MASKAIR FIT N20 small See Rx Instructions .Route .MEDSUPPLY Qty: 1 0RF Rx Instructions: As directed Senna Plus 8.6-50 mg capsule 1 tab-cap PO BID PRN (Reason: constipation) 30 Days Qty: 60 3RF (DME) WALKER WITH SEAT See Rx Instructions .Route .MEDSUPPLY Qty: 1 0RF Rx Instructions: As directed (DME) SHOWER CHAIR See Rx Instructions .Route .MEDSUPPLY Qty: 1 0RF Rx Instructions: As directed meloxicam 15 mg tablet 15 mg PO DAILY Qty: 30 0RF cyclobenzaprine 5 mg tablet 5 mg PO TID PRN (Reason: muscle spasm) Qty: 60 0RF rosuvastatin 10 mg tablet 10 mg PO DAILY 30 Days Qty: 30 3RF omeprazole 20 mg capsule,delayed release(DR/EC) 20 mg PO DAILY 90 Days Qty: 90 2RF polyethylene glycol 3350 [Miralax] 17 gram/dose powder 17 g PO DAILY PRN (Reason: constipation) 30 Days Qty: 510 3RF Referrals: Po,Spenser Hoang MD [Primary Care Provider] - Interventions: ED Discharge Assessment Last Done: 05/04/24 15:21 Discharge Date/Time: 05/04/24 15:21 Print Language: [place]
[2024-05-04 11:14] VITALS: BP 134/62; PULSE 57; RESP 18; TEMP 36.8; O2SAT 98; BMI 30.1
[2024-05-04 11:34] LABS: MANUAL DIFF FLAG NO
[2024-05-04 11:35] LABS: Basophils Absolute Auto 0.1 X10*3/uL (0.0-0.2); Basophils Percent Auto 0.9 % (0-2); Eosinophils Absolute Auto 0.2 X10*3/uL (0.0-0.4); Eosinophils Percent Auto 2.9 % (0-4); Hematocrit 35.6 % (37.0-47.0); Hemoglobin 12.1 g/dl (12.0-16.0); Imm Gran Abs Auto 0.03 X10*3/uL (0.00-0.03); Imm Gran Pct Auto 0.4 % (0.0-0.4); Lymphocytes Absolute Auto 2.1 X10*3/uL (1.2-4.9); Lymphocytes Percent Auto 25.3 % (20-40); Mean Corpuscular Hemoglobin 31.8 pg (27.0-33.0); Mean Corpuscular Volume 93.7 fL (80.0-98.0); Mean Platelet Volume 11.1 fL (9.4-12.3); Monocytes Absolute Auto 0.8 X10*3/uL (0.1-1.2); Monocytes Percent Auto 9.7 % (2-11); Neutrophils Percent Auto 60.8 % (45-73); Platelet Count 269 X10*3/uL (160-400); White Blood Count 8.2 X10*3/uL (4.8-10.8)
[2024-05-04 11:53] LABS: Alanine Aminotransferase 15 U/L (0-31); Alkaline Phosphatase 110 U/L (39-117); Anion Gap 11 (12-20); Aspartate Amino Transferase 17 U/L (5-31); Bilirubin Total 0.2 mg/dL (0.0-1.0); Blood Urea Nitrogen 42 mg/dL (9-16); Carbon Dioxide 29 mmol/L (22-29); Chloride 104 mmol/L (96-108); Creatinine Clr Calc Pharmacy 39.8; Estimated Glomerular Filt Rate 48; Glucose Random 105 mg/dL (60-115); Potassium 4.6 mmol/L (3.3-5.1); Sodium 139 mmol/L (135-145); Total Protein 7.5 g/dL (6.5-8.0); Uric Acid 8.1 mg/dL (2.4-5.7)
[2024-05-04 15:21] VITALS: BP 134/62; PULSE 57; RESP 18; TEMP 36.8; O2SAT 98
== END 2024-05-04 15:21 | disposition home or self-care (01) ==
PROVIDERS: Physician Assistant Medical; Emergency Provider Emergency Medicine Emergency Medical Services; PCP Internal Medicine
DX: M10.061 Idiopathic gout, right knee (principal); Z79.899 Other long term (current) drug therapy
CPT/HCPCS: 36415; 73564; 80053; 83735; 84550; 85025; 99282; 99283

== ENCOUNTER 2024-05-06 10:07 | Outpatient (AMB) | payer OTHER, MEDICAID, SELFPAY ==
--- NOTE | 2024-05-06 10:20 | A.OFFVIS_ITS ---
Vital Signs 05/06/24 10:21 Height 5 ft 1 in Weight 159 lb BMI 30.0 BP 121/67 Blood Pressure Location Lt brachial Position Sitting Pulse 52 Intake Visit Reasons: 6 month follow up Intake Note: Patient follow up for dysphagia. Complains of feeling gassy Roving Marker Required: Yes Roving Marker Name: [facility] Interpeter Accompanied by: Self / Same As Patient Allergies atorvastatin Allergy (Unknown, Verified 06/24/24 11:22) myalgia codeine Allergy (Unknown, Verified 06/24/24 11:22) SWELLING penicillin V Allergy (Unknown, Verified 06/24/24 11:22) rash nifedipine Adverse Reaction (Intermediate, Verified 06/24/24 11:22) palpitations pravastatin Adverse Reaction (Intermediate, Verified 06/24/24 11:22) joint pain metoprolol Adverse Reaction (Verified 06/24/24 11:22) leg swelling Medication List - Last Reconciled 05/06/24 by Marlon Caballero MD acetaminophen (Tylenol Extra Strength) 500 mg PO Q6H PRN [BP Cuff As directed] cholecalciferol (vitamin D3) 25 mcg PO DAILY [CPAP 6 cm humidified AIR MASKAIR FIT N20 small As directed] cyclobenzaprine 5 mg PO TID PRN hydrochlorothiazide 25 mg PO DAILY hydrocortisone 2.5% (Proctosol HC) [address] BID-QID PRN irbesartan 300 mg PO DAILY 90 days lidocaine 5% (Lidoderm) 1 patch topical DAILY PRN MDD remove after 12 hours meloxicam 15 mg PO DAILY naproxen 500 mg PO Q8-12H PRN omeprazole 20 mg PO DAILY 90 days polyethylene glycol 3350 (Miralax) 17 grams PO DAILY PRN 30 days prednisone 40 mg (2 x 20 mg) PO DAILY 5 days rosuvastatin 10 mg PO DAILY 30 days sennosides-docusate sodium 8.6-50 mg (Senna Plus) 1 tab-cap PO BID PRN 30 days [SHOWER CHAIR As directed] [WALKER WITH SEAT As directed] HPI HPI 6 month follow up: Details: GI CLINIC VISIT FOR THIS 74-YEAR-OLD MALTESE-SPEAKING FEMALE FOR FU OF LEFT UPPER QUADRANT PAIN IMAGING STUDIES: 05/20/[address] SCAN [address] [facility] [place] SHOWED; Moderate FDG uptake at bilateral palatine tonsils with slightly asymmetric left- sided hypertrophy. No focal concerning lesion no cervical lymphadenopathy. No definite evidence of malignancy. 02/2023 UGI SHOWED:Small sliding-type hiatal hernia with mild spontaneous gastroesophageal reflux. Esophageal dysmotility with delayed emptying and tertiary contractions distally. 05/2021 ABD US SHOWED:Echogenic liver probably representing fatty infiltration. Small bilateral renal cysts. Limited visualization of the tail the pancreas. 04/28/[address] SCAN SHOWED:? Diverticulosis of the colon. No evidence of diverticulitis. ? Fatty infiltration of the head of the pancreas. ? Probable small right renal cysts. Question small uterine fibroid. ENDOSCOPIC STUDIES: 06/2022 EGD SHOWED: ESOPHAGUS: Tortuous esophagus with increased tertiary contractions without? stricture or ring.? GE junction at 36 cms.? No esophagitis or Gore's. STOMACH:? gastritis DUODENUM:? normal - ? biopsies were obtained to check for celiac sprue No etiology found for abdominal pain BIOPSIES SHOWED: A.? Small bowel, biopsy:? Small bowel mucosa within normal limits; preserved villous architecture no increased intraepithelial lymphocytes seen. B.? Stomach, antrum, biopsy:? Gastric antral mucosa with mild chronic inactive gastritis; negative for Helicobacter pylori, intestinal metaplasia and dysplasia. C.? Stomach, body, biopsy:? Gastric body mucosa within normal limits; negative for Helicobacter pylori, intestinal metaplasia and dysplasia. 06/20/20 COLONOSCOPY SHOWED:? One 7-8 mm adenomatous polyp was removed, two diminutive hyperplastic rectal polyps were biopsied. ? Moderate diverticulosis seen in the entire colon ? Moderate hemorrhoids on retroflexed exam. ? Plan: Patient has an appointment on 07/03/20 in the GI Clinic with Marlon Caballero M.D.-. ? Repeat Colonoscopy interval based on path results in 5 years if ? polyps are adenomatous - needs GA with intubation and an adult colonoscope for future colonoscopies. ?BIOPSIES SHOWED: ? A. Colon, transverse polyp, polypectomy: Fragments of tubular adenoma. ? B. Rectum, polyp, polypectomy: Fragments of hyperplastic polyp. ? 12/07/09 SCREENING COLONOSCOPY WAS PERFORMED BY DR. VERAS AND SHOWED EXTERNAL HEMORRHOIDS AND NO POLYPS. TODAY'S VISIT: [facility] Radiosonde OperatorMildred Patient follow up for dysphagia. Complains of feeling gassy all the time Has a BM 1- 3 times a day and denies abdominal pain PAST VISITS: Intermittent LLQ pain - 5-6/10 in intensity and lasts 1/2 hour or a little ermelinda leela. Does not feel pain is related to gas or from not having a BM Has a BM 2-3 times a day. Can get constipated when she eats bread. Feels like pressure and not related to eating. Abdominal pain improves if she has a BM. Continues to have intermittent upper abd pain - two times a week Has a BM 2-3 times a day - rarely has hard stools or straining. Noted abd pain after taking the amlodipine and was changed yesterday Tonsils are enlarged and has seen [address] scan and examination of the throat. Dose of Omeprazole was increased to 40 mg daily for the past 3 weeks. Has a FU appt in 2 weeks with ENT in [place]. Pt had additional imaging studies at [facility] [place] - unsure of the name of the test - found something in the throat EGD and bx results were reviewed. Got over a COVID infection 3 weeks ago Continues to have intermittent pain in her side and none today. Constipation is way better. Denies urinary symptoms ? PAST VISIT: Pt's GD, Hannah translated for the patient. Continues to have LUQ pain. Has 3-4 soft BMs a day. Has noted foul smelling stools since the past few weeks. Her PCP called to let her know she had blood in stool on stool tests (Of note - pt had a colonoscopy 2 yrs ago). ?? ? Complains of nausea, bloating LUQ pain (with radiation to the back) and dizziness. ?? ? Unintentional weight loss of 6 lbs in 2 weeks. ? ? Denies any change in her diet. ? ? Abdominal pain is constant and no change in pain after eating. ?? Has a BM 1-2 times a day with intermittent straining without blood in the stools. ?? Stools are sometimes stinky ? ? Denies change in pain with BM. ? ? Takes Senna prn 2-3 times a week ? ? Has been taking more fruits and fibre. Patient denies symptoms of dysphagia, nausea, vomiting, change in appetite or weight. ? Patient denies major cardiac or pulmonary problems, loud snoring or sleep apnea ? Pt has sleep apnea and has not started using the CPAP machine yet since it has not been delivered yet. ? Denies problems with anesthesia in the past. ? Denies being on chronic anticoagulation, aspirin or NSAIDs. ? Patient denies known family history of colon polyps, colon cancer or other GI malignancies.? Abd pain is better - gets it occasionally - rare. ? Constipation is better - has a BM twice a day. ? Colonoscopy results were reviewed with the patient - repeat colon advised in 5 yrs. ? Denies any problems after the procedure. ? Abd CT scan results were discussed - showed diverticulosis. ? Sometimes the pain paralyzes me and I do not have it today. ? Abd pain comes and goes - can last for a few days. ? Notes intermittent constipation. ? Intermittent LUQ pain for the past few months ? It just hurts - sometimes hurts to touch ? Feels worse after taking medications for her kidneys. ? Denies radiation of pain to the back. ? Denies recent change in bowel habits, constipation, diarrhea, black stools or rectal bleeding. ? Denies association of fever, chills or sweating with the?pain [facility] History (Updated 06/24/24 @ 11:40 by Rissa Cheng) Benign essential hypertension JANN on CPAP Left leg swelling Conjunctivitis Radicular pain Low back pain Otitis media of left ear LUQ abdominal pain Vitamin D deficiency Obesity (BMI 30-39.9) Obstructive sleep apnea IgA nephropathy History of colon polyps Diverticulosis Chronic constipation Venous (peripheral) insufficiency Coreas's cyst of knee Pure hypercholesterolemia Hypovitaminosis D Surgical History History of esophagogastroduodenoscopy (EGD) History of dilatation and curettage H/O tubal ligation History of loop electrical excision procedure (LEEP) History of colonoscopy Family History Father Alzheimers disease Mother Kidney failure Social History Housing: Apartment Are you a primary hospice care sales consultant to a significant other at home: No Alcohol intake: never Patient Tobacco Use Status: Never used Tobacco e-Cigarette/Vaping Use: Never Used Second Hand Smoke Exposure: No service: No Current occupational status: disabled Cognitive needs: No Hearing needs: No Vision needs: Yes Review of Systems Const All systems reviewed & are unremarkable except as noted in HPI and below Physical Exam Vital Signs: Last Vital Signs Pulse 52 05/06/24 10:21 BP 121/67 05/06/24 10:21 BMI result Body Mass Index 30.0 Const General: healthy appearing and no acute distress Nutritional Appearance: obese Orientation/consciousness: patient oriented x3 Limitations: no limitations and language barrier HEENT Head: Yes normal to inspection Ears: hearing grossly normal bilaterally Eyes Sclerae: sclerae normal Pupils: Equal, round and reactive pupils present Neck Neck: Yes normal visual inspection Chest Chest palpation & inspection: normal inspection of the chest Resp Effort & Inspection: normal respiratory effort Auscultation: clear to auscultation bilaterally Cardio Palpation: normal PMI Rate: regular rate Rhythm: regular rhythm Heart sounds: S1 normal heart sound present, S2 normal heart sound present and no murmurs GI Palpation (GI): Soft to palpation, nontender and No hepatosplenomegaly present Auscultation: normal bowel sounds Rectal Exam - Female: deferred Skin General skin exam: no rashes or lesions noted Neuro General: patient oriented x3, gait normal and moves all extremities Cranial nerves: Yes Equal, round and reactive pupils present Psych Appearance: grossly normal Mental Status: mental status grossly normal Assessment & Plan Assessment & Plan (1) Guaiac positive stools: Comment: schedule an EGD. Labs showed normal CBC without anemia Code(s): R19.5 - Other fecal abnormalities Category: Medical (2) Elevated alkaline phosphatase level: Comment: BLAYNE, antimitochondrial antibody, anti smooth muscle antibody, TTG(Ig A), protein electrophoresis and IgG 4 levels were normal Code(s): R74.8 - Abnormal levels of other serum enzymes Category: Medical (3) Dysphagia: Code(s): R13.10 - Dysphagia, unspecified Category: Medical (4) GERD (gastroesophageal reflux disease): Code(s): K21.9 - Gastro-esophageal reflux disease without esophagitis Category: Medical (5) Esophageal dysmotility: Code(s): K22.4 - Dyskinesia of esophagus Category: Medical (6) Bloating symptom: Code(s): R14.0 - Abdominal distension (gaseous) Category: Medical Plan 74 year old Greek-speaking female followed in GI for left-sided abdominal pain. Abdominal CT scan showed fatty infiltration of the head of the pancreas and diverticulosis of the colon. No evidence of diverticulitis. 06/20/20 A 7-8 mm tubular adenoma was removed during colonoscopy - repeat colon advised in 5 years. Patient was advised to continue senna with docusate for constipation. Stool pancreatic elastase to rule out pancreatic insufficiency. Complains of nausea, bloating LUQ pain (with radiation to the back) and dizziness. Unintentional weight loss of 6 lbs in 2 weeks - wt has been stable over the past 4 months. 06/2022 EGD was performed and results as noted above 07/2022 Pt complained of pain in the left lumbar area - ?? Musculoskeletal versus renal. Patient was advised to have a urine test which was negative 07/10/23 Pt advised to take Miralax once a day to see if abdominal pain is related to constipation and improves with Miralax 05/06/24 Complains of feeling gassy all the time Has a BM 1- 3 times a day and denies abdominal pain Pt advised to take Simethicone for gas FU in 4 month Medications: New simethicone (Gas Relief (simethicone)) 125 mg PO TID PRN 90 tabs 1RF abdominal distention 30 days R14.0 - Abdominal distension (gaseous) Coding Level of Care Code Est Pt Level 4 (73448) Diagnoses Guaiac positive stools R19.5 Elevated alkaline phosphatase level R74.8 Dysphagia R13.10 GERD (gastroesophageal reflux disease) K21.9 Esophageal dysmotility K22.4 Bloating symptom R14.0 Time Spent (min) 21
[2024-05-06 10:21] VITALS: BP 121/67; PULSE 52
== END 2024-05-06 10:53 | disposition home or self-care (01) ==
PROVIDERS: PCP Internal Medicine; Visit Provider Internal Medicine Gastroenterology
DX: R19.5 Other fecal abnormalities (principal); R74.8 Abnormal levels of other serum enzymes; R13.10 Dysphagia, unspecified; K21.9 Gastro-esophageal reflux disease without esophagitis; K22.4 Dyskinesia of esophagus; R14.0 Abdominal distension (gaseous)
CPT/HCPCS: 99499

== ENCOUNTER → 2024-05-06 10:07 | Outpatient (BNVA) | payer OTHER, MEDICAID, SELFPAY | PROVIDERS: PCP Internal Medicine; Visit Provider Internal Medicine Gastroenterology ==

== ENCOUNTER 2024-05-07 14:53 | Outpatient (AMB) | payer OTHER, SELFPAY ==
[2024-05-07 14:54] VITALS: BP 140/74; PULSE 68; O2SAT 98; BMI 29.7
--- NOTE | 2024-05-07 14:54 | MHC.PC.OV ---
Vital Signs 05/07/24 14:54 Height 5 ft 1 in Weight 157 lb 0.8 oz BMI 29.7 BP 140/74 H Blood Pressure Location Lt brachial Position Sitting Pulse 68 Pulse Source Pulse Oximeter Pulse Oximetry (%) 98 Oxygen Delivery Method Room Air Intake Visit Reasons: [facility] Intake Note: Patient is here for hospital discharge follow up. Patient was discharged from [facility] on 05/04/2024 Group Fitness Instructor Required: No Allergies atorvastatin Allergy (Unknown, Verified 05/07/24 14:55) myalgia codeine Allergy (Unknown, Verified 05/07/24 14:55) SWELLING penicillin V Allergy (Unknown, Verified 05/07/24 14:55) rash amlodipine Adverse Reaction (Intermediate, Verified 05/07/24 14:55) stomach pain pravastatin Adverse Reaction (Intermediate, Verified 05/07/24 14:55) joint pain metoprolol Adverse Reaction (Verified 05/07/24 14:55) leg swelling Medication List - Last Reconciled 05/07/24 by Spenser Hoang Po, acetaminophen (Tylenol Extra Strength) 500 mg PO Q6H PRN [BP Cuff As directed] cholecalciferol (vitamin D3) 25 mcg PO DAILY [CPAP 6 cm humidified AIR MASKAIR FIT N20 small As directed] hydrocortisone 2.5% (Proctosol HC) 1 appl [place] BID-QID PRN irbesartan 300 mg PO DAILY 90 days lidocaine 5% (Lidoderm) 1 patch topical DAILY PRN MDD remove after 12 hours naproxen 500 mg PO Q8-12H PRN omeprazole 20 mg PO DAILY 90 days polyethylene glycol 3350 (Miralax) 17 grams PO DAILY PRN 30 days prednisone 40 mg (2 x 20 mg) PO DAILY 5 days rosuvastatin 10 mg PO DAILY 30 days sennosides-docusate sodium 8.6-50 mg (Senna Plus) 1 tab-cap PO BID PRN 30 days [SHOWER CHAIR As directed] simethicone (Gas Relief (simethicone)) 125 mg PO TID PRN 30 days [WALKER WITH SEAT As directed] Tobacco use date assessed: 03/10/24 Fall risk assessment: No Falls in past year Last assessed Fall Risk: 05/07/24 Dental Screening Dental Screen Date: 05/07/24 [facility] HPI Details 74-year-old overweight female with GERD hypertension hypercholesterolemia impaired glucose tolerance last seen in 09/12/2023. Had a lesion of the tonsil and was seen by ear nose and throat. Patient also complained of low back pain at that time and was sent for physical therapy. Patient had right knee pain and went to the emergency room. Patient was also seen gastroenterology recently May 06 had PET scan May 20 showing asymmetric left-sided hypertrophy but no focal concerning lesion no cervical adenopathy. Patient had an upper GI series in 03/13/2023 showing hiatal hernia, patient had an ultrasound before showing fatty infiltration. Noted ER visit in 05/13/2024 with right knee pain for 2 weeks diagnosis of gout patient was given prednisone and naproxen. welsh interpretCArlos [id number] PAtient states has not taken med- advised to monitor . tonsil ulcer last year - followed by ENT- better. [facility] Medical History (Updated 05/07/24 @ 15:06 by Spenser Romero MD) Benign essential hypertension JANN on CPAP Left leg swelling Conjunctivitis Radicular pain Low back pain Otitis media of left ear LUQ abdominal pain Vitamin D deficiency Obesity (BMI 30-39.9) Obstructive sleep apnea IgA nephropathy History of colon polyps Diverticulosis Chronic constipation Venous (peripheral) insufficiency Coreas's cyst of knee Pure hypercholesterolemia Hypovitaminosis D Surgical History History of esophagogastroduodenoscopy (EGD) History of dilatation and curettage H/O tubal ligation History of loop electrical excision procedure (LEEP) History of colonoscopy Family History Father Alzheimers disease Mother Kidney failure Social History Housing: Apartment Are you a primary healthcare corporate account director to a significant other at home: No Alcohol intake: never Patient Tobacco Use Status: Never used Tobacco e-Cigarette/Vaping Use: Never Used Second Hand Smoke Exposure: No service: No Current occupational status: disabled Cognitive needs: No Hearing needs: No Vision needs: Yes Questionnaire Thrive Questionnaire Date Thrive assessed: 03/10/24 AUDIT C Alcohol Use Questionnaire (AUDIT-C) 1. How often do you have a drink containing alcohol?: Never 3. How often do you have six or more drinks on one occasion?: Never Total Score: 0 SANDRA-7 AMB Questionnaire SANDRA-7 Date SANDRA - 7 assessed: 03/10/24 Source: Developed by Drs. Bon Garcia, Mimi Nicholson, Rick Bruno and colleagues, with an educational abbey from [employer]. Physical exam (Primary Care) Vital Signs: Last Vital Signs Pulse 68 05/07/24 14:54 BP 140/74 H 05/07/24 14:54 Pulse Ox 98 05/07/24 14:54 Oxygen Delivery Method Room Air 05/07/24 14:54 BMI result Body Mass Index 29.7 Tobacco/Smoking Status: Tobacco use Status Tobacco use date assessed 03/10/24 05/07/24 14:56 Patient Tobacco Use Status Never used Tobacco 05/07/24 14:56 e-Cigarette/Vaping Use Never Used 05/07/24 14:56 Thrive Assessment: Date of Thrive Assessment Date Thrive assessed 03/10/24 05/07/24 14:56 Const General: alert; No acute distress Eyes Conjunctivae: conjunctivae normal Resp Auscultation: clear to auscultation bilaterally Cardio Rate: regular rate Rhythm: regular rhythm GI Inspection: Yes normal to inspection Extrem General: Yes normal to inspection and No edema Assessment and Plan Assessment & Plan (1) HTN (hypertension): Code(s): I10 - Essential (primary) hypertension Qualifiers: Hypertension type: primary hypertension Qualified Code(s): I10 - Essential (primary) hypertension Plan: Presently patient on hydrochlorothiazide and irbesartan- will add nifedipine for the BP (2) Right knee pain: Code(s): M25.561 - Pain in right knee Plan: Patient was in the emergency room and treated using prednisone. discussed about gout and prevention. (3) Pure hypercholesterolemia: Code(s): E78.00 - Pure hypercholesterolemia, unspecified Plan: Avoid fried foods, chicken skin, eggs, butter margarine, pastries and meat. Be it pork or beef they have a lot of cholesterol on rosuvastatin (4) Obstructive sleep apnea: Comment: cannot tolerate CPAP Code(s): G47.33 - Obstructive sleep apnea (adult) (pediatric) Plan: usseds the CPAP > 4 hours a night and benefits from this Medications: New nifedipine ER 30 mg PO DAILY 30 tabs 2RF I10 - Essential (primary) hypertension Coding Level of Care Code Est Pt Level 4 (15302) Complex EM visit Add On G2211 Diagnoses Primary hypertension I10 Hypertension type: primary hypertension Right knee pain M25.561 Pure hypercholesterolemia E78.00 Obstructive sleep apnea G47.33
== END 2024-05-07 16:14 | disposition home or self-care (01) ==
PROVIDERS: PCP Internal Medicine; Visit Provider Internal Medicine
DX: I10 Essential (primary) hypertension (principal); M25.561 Pain in right knee; E78.00 Pure hypercholesterolemia, unspecified; G47.33 Obstructive sleep apnea (adult) (pediatric)
CPT/HCPCS: 99214; G2211

== ENCOUNTER 2024-05-28 10:58 | Outpatient (AMB) | payer OTHER, MEDICAID, SELFPAY ==
[2024-05-28 11:12] VITALS: BP 136/70; PULSE 54; RESP 17; O2SAT 98; BMI 31.9
--- NOTE | 2024-05-28 11:12 | MHC.PC.OV ---
Vital Signs 05/28/24 11:12 Height 4 ft 11.06 in Weight 158 lb 6 oz BMI 31.9 BP 136/70 Blood Pressure Location Lt brachial Position Sitting Respiration 17 Pulse 54 Pulse Source Pulse Oximeter Pulse Oximetry (%) 98 Oxygen Delivery Method Room Air Intake Visit Reasons: f/u HTN/ HLD - see comment Program Development Specialist Required: Yes Program Development Specialist Language: Guamanian Accompanied by: Self / Same As Patient Allergies atorvastatin Allergy (Unknown, Verified 05/28/24 11:17) myalgia codeine Allergy (Unknown, Verified 05/28/24 11:17) SWELLING penicillin V Allergy (Unknown, Verified 05/28/24 11:17) rash nifedipine Adverse Reaction (Intermediate, Unverified 05/28/24 11:57) palpitations pravastatin Adverse Reaction (Intermediate, Verified 05/28/24 11:17) joint pain metoprolol Adverse Reaction (Verified 05/28/24 11:17) leg swelling Tobacco use date assessed: 03/10/24 Fall risk assessment: No Falls in past year Last assessed Fall Risk: 05/28/24 Dental Screening Dental Screen Date: 05/07/24 HPI f/u HTN/ HLD - see comment HPI Details 74-year-old obese female with hypertension, hypercholesterolemia, obstructive sleep apnea and right knee pain last seen in 04/2024. Patient's colonoscopy is up-to-date 06/12/2020, mammogram is due bone density is due. marva Cook interpret grandaughter R knee pain [facility] Medical History (Updated 05/28/24 @ 12:02 by Spenser Romero MD) Benign essential hypertension JANN on CPAP Left leg swelling Conjunctivitis Radicular pain Low back pain Otitis media of left ear LUQ abdominal pain Vitamin D deficiency Obesity (BMI 30-39.9) Obstructive sleep apnea IgA nephropathy History of colon polyps Diverticulosis Chronic constipation Venous (peripheral) insufficiency Coreas's cyst of knee Pure hypercholesterolemia Hypovitaminosis D Surgical History History of esophagogastroduodenoscopy (EGD) History of dilatation and curettage H/O tubal ligation History of loop electrical excision procedure (LEEP) History of colonoscopy Family History Father Alzheimers disease Mother Kidney failure Social History Housing: Apartment Are you a primary personal care home administrator to a significant other at home: No Alcohol intake: never Patient Tobacco Use Status: Never used Tobacco e-Cigarette/Vaping Use: Never Used Second Hand Smoke Exposure: No service: No Current occupational status: disabled Cognitive needs: No Hearing needs: No Vision needs: Yes Questionnaire Thrive Questionnaire Date Thrive assessed: 03/10/24 SANDRA-7 AMB Questionnaire SANDRA-7 Date SANDRA - 7 assessed: 03/10/24 Source: Developed by Drs. Bon Garcia, Mimi Nicholson, Rick Bruno and colleagues, with an educational abbey from [employer]. Physical exam (Primary Care) Vital Signs: Last Vital Signs Pulse 54 05/28/24 11:12 Resp 17 05/28/24 11:12 BP 136/70 05/28/24 11:12 Pulse Ox 98 05/28/24 11:12 Oxygen Delivery Method Room Air 05/28/24 11:12 BMI result Body Mass Index 31.9 Tobacco/Smoking Status: Tobacco use Status Tobacco use date assessed 03/10/24 05/28/24 11:18 Patient Tobacco Use Status Never used Tobacco 05/28/24 11:18 e-Cigarette/Vaping Use Never Used 05/28/24 11:18 Thrive Assessment: Date of Thrive Assessment Date Thrive assessed 03/10/24 05/28/24 11:18 Const General: alert; No acute distress Eyes Conjunctivae: conjunctivae normal Resp Auscultation: clear to auscultation bilaterally Cardio Rate: regular rate Rhythm: regular rhythm GI Inspection: Yes normal to inspection Extrem General: Yes normal to inspection and No edema Assessment and Plan Assessment & Plan (1) HTN (hypertension): Code(s): I10 - Essential (primary) hypertension Qualifiers: Hypertension type: primary hypertension Qualified Code(s): I10 - Essential (primary) hypertension Plan: Continue with blood pressure medication. Decrease salt intake and exercise patient on irbesartan 300 mg once a day, nifedipine 30 mg once a day (2) GERD (gastroesophageal reflux disease): Code(s): K21.9 - Gastro-esophageal reflux disease without esophagitis Plan: Avoid the foods that causes that usually spicy foods, tomato products, juices, coffee, soda and foods that your sensitive to. After eating do not lie down, allow 3-4 hours before in lie down. And keep the head of bed above 30 degrees to avoid the acid from going up. (3) Pure hypercholesterolemia: Code(s): E78.00 - Pure hypercholesterolemia, unspecified Plan: Avoid fried foods, chicken skin, eggs, butter margarine, pastries and meat. Be it pork or beef they have a lot of cholesterol LDL goal of less than 130 and triglyceride of less than 150 on rosuvastatin 10 mg (4) Obesity (BMI 30.0-34.9): Code(s): E66.9 - Obesity, unspecified Plan: Diet and exercise (5) Obstructive sleep apnea: Comment: CPAP Code(s): G47.33 - Obstructive sleep apnea (adult) (pediatric) (6) Pes anserine bursitis: Code(s): M70.50 - Other bursitis of knee, unspecified knee Orders: Referrals Orthopedics Referral M70.50 - Other bursitis of knee, unspecified knee Medications: Refilled amlodipine 5 mg PO DAILY 90 tabs 2RF Discontinued prednisone Discontinued Reason: Ancillary Entered New Order 40 mg (2 x 20 mg) PO DAILY 5 days 10 tabs 0RF acetaminophen (Tylenol Extra Strength) Discontinued Reason: Doctor's Order 500 mg PO Q6H PRN 14 tabs 0RF fever or pain nifedipine ER Discontinued Reason: Doctor's Order 30 mg PO DAILY 30 tabs 2RF I10 - Essential (primary) hypertension Coding Level of Care Code Est Pt Level 4 (49693) Diagnoses Primary hypertension I10 Hypertension type: primary hypertension GERD (gastroesophageal reflux disease) K21.9 Pure hypercholesterolemia E78.00 Obesity (BMI 30.0-34.9) E66.9 Obstructive sleep apnea G47.33 Pes anserine bursitis M70.50
== END 2024-05-28 12:08 | disposition home or self-care (01) ==
PROVIDERS: PCP Internal Medicine; Visit Provider Internal Medicine
DX: I10 Essential (primary) hypertension (principal); K21.9 Gastro-esophageal reflux disease without esophagitis; E78.00 Pure hypercholesterolemia, unspecified; G47.33 Obstructive sleep apnea (adult) (pediatric); M70.50 Other bursitis of knee, unspecified knee
CPT/HCPCS: 99214

== ENCOUNTER 2024-06-23 10:01 | Emergency (ER) | payer OTHER, SELFPAY ==
--- NOTE | ~2024-06-23 | XR_ITS ---
Examination: Bilateral knees CLINICAL INFORMATION: bilateral knee pain COMPARISON: 05/04/2024 on the right in 05/10/2020 on the left. FINDINGS: Left knee revealed no joint effusion and mild degenerative changes more prominent in patellofemoral compartment with spurring and mild joint effusion. There is no fracture or subluxation. Right knee: There are mild degenerative changes with marginal spurring but no joint effusion or joint space narrowing seen. XR/XR knee LT 3V IMPRESSION: Bilateral degenerative changes more prominent in patellofemoral compartment on the left and mild joint effusion on the left. Mild degenerative changes bilaterally, more prominent in patellofemoral compartment on the left with small joint effusion.
--- NOTE | ~2024-06-23 | XR_ITS ---
Examination: Bilateral knees CLINICAL INFORMATION: bilateral knee pain COMPARISON: 05/04/2024 on the right in 05/10/2020 on the left. FINDINGS: Left knee revealed no joint effusion and mild degenerative changes more prominent in patellofemoral compartment with spurring and mild joint effusion. There is no fracture or subluxation. Right knee: There are mild degenerative changes with marginal spurring but no joint effusion or joint space narrowing seen. XR/XR knee RT 3V IMPRESSION: Bilateral degenerative changes more prominent in patellofemoral compartment on the left and mild joint effusion on the left. Mild degenerative changes bilaterally, more prominent in patellofemoral compartment on the left with small joint effusion.
[2024-06-23 10:17] VITALS: BP 168/70; PULSE 57; RESP 16; TEMP 36.1; O2SAT 98; BMI 29.9
--- NOTE | 2024-06-23 10:53 | ED.GENADULT ---
HPI - General Adult General Chief complaint: Extremity Problem Stated complaint: leg pain Time Seen by Provider: 06/23/24 10:42 Source: patient and billing coordinator Mode of arrival: ambulatory Limitations: language barrier History of Present Illness ED Provider: hayley NORIEGA narrative: Patient is a 74-year-old Swiss speaking female with history of HTN, obesity, JANN on CPAP presenting to the emergency department with 2 months of bilateral knee pain. She was seen here in April for right knee pain, states she was treated for gout at that time. Pain did not improve with medications prescribed. States pain has now moved to left knee as well. Saw PCP who advised patient she had mild arthritis but that this would not explain her severe knee pain. Patient was referred to Orthopedics and has appointment there tomorrow but states the pain is currently unbearable. Denies any fall or other trauma. Denies any redness, warmth. Denies fevers. Has used OTC pain medications as well as her daughter's oxycodone without relief. complaint: bilateral knee pain Onset (ago): month(s) Location: lower extremity Radiation: non-radiation Severity: severe Quality: aching Pain Consistency: constant Exacerbating factors: movement Associated symptoms: denies other symptoms Treatments prior to arrival: other Related Data Previous Rx's ?Medication ?Instructions ?Recorded cholecalciferol (vitamin D3) 25 25 mcg PO DAILY #90 tabs 12/07/20 mcg (1,000 unit) tablet CPAP 6 cm humidified AIR MASKAIR #1 ea 04/20/21 FIT N20 small hydrocortisone 2.5 % topical cream 1 appl [place] BID-QID PRN hemorrhoids 03/26/22 with perineal applicator #30 grams (Proctosol HC) lidocaine 5 % topical patch 1 patch topical DAILY PRN pain #30 03/11/23 (Lidoderm) ea SHOWER CHAIR #1 ea 03/24/23 WALKER WITH SEAT #1 ea 03/24/23 sennosides 8.6 mg-docusate sodium 1 tab-cap PO BID PRN constipation 03/24/23 50 mg capsule (Senna Plus) 30 days #60 caps irbesartan 300 mg tablet 300 mg PO DAILY 90 days #90 tabs 10/18/23 omeprazole 20 mg capsule,delayed 20 mg PO DAILY 90 days #90 caps 10/30/23 release polyethylene glycol 3350 17 17 g PO DAILY PRN constipation 30 10/30/23 gram/dose oral powder (Miralax) days #510 grams rosuvastatin 10 mg tablet 10 mg PO DAILY 30 days #30 tabs 03/10/24 BP Cuff #1 ea 03/17/24 naproxen 500 mg tablet 500 mg PO Q8-12H PRN pain (scale 05/04/24 score 4-6) #20 tabs simethicone 125 mg chewable tablet 125 mg PO TID PRN abdominal 05/06/24 (Gas Relief (simethicone)) distention 30 days #90 tabs amlodipine 5 mg tablet 5 mg PO DAILY #90 tabs 05/28/24 tramadol 25 mg tablet 25 mg PO Q6H PRN pain #6 tabs 06/23/24 Allergies Allergy/AdvReac Type Severity Reaction Status Date / Time atorvastatin Allergy Unknown myalgia Verified 06/23/24 10:21 codeine Allergy Unknown SWELLING Verified 06/23/24 10:21 penicillin V Allergy Unknown rash Verified 06/23/24 10:21 nifedipine AdvReac Intermediate palpitation Verified 06/23/24 10:21 s pravastatin AdvReac Intermediate joint pain Verified 06/23/24 10:21 metoprolol AdvReac leg Verified 06/23/24 10:21 swelling Review of Systems Review of Systems: As per HPI. Yes all other systems are reviewed and are negative Constitutional: Constitutional: Reports as per HPI [facility] Past Medical History Medical History (Updated 06/23/24 @ 14:43 by Abeba Prince NP) Benign essential hypertension JANN on CPAP Left leg swelling Conjunctivitis Radicular pain Low back pain Otitis media of left ear LUQ abdominal pain Vitamin D deficiency Obesity (BMI 30-39.9) Obstructive sleep apnea IgA nephropathy History of colon polyps Diverticulosis Chronic constipation Venous (peripheral) insufficiency Coreas's cyst of knee Pure hypercholesterolemia Hypovitaminosis D Surgical History History of esophagogastroduodenoscopy (EGD) History of dilatation and curettage H/O tubal ligation History of loop electrical excision procedure (LEEP) History of colonoscopy Family History Family History Father Alzheimers disease Mother Kidney failure Social History Social History Housing: Apartment Are you a primary primary care coordinator to a significant other at home: No Alcohol intake: never Patient Tobacco Use Status: Never used Tobacco Smoked in Last 30 Days: No e-Cigarette/Vaping Use: Never Used Second Hand Smoke Exposure: No Use of substances other than those prescribed or required for medical reasons: No Advance Directives: No Advance Directives Information Provided: Yes service: No Current occupational status: disabled Cognitive needs: No Hearing needs: No Vision needs: Yes Physical Exam ED Vital Signs: Vital Signs - 24 hr 06/23/24 10:17 Temperature 97 F Pulse Rate 57 Respiratory Rate 16 Blood Pressure 168/70 H Pulse Oximetry 98 Oxygen Delivery Method Room Air BMI result Body Mass Index 29.9 Vital signs have been reviewed and appear to be correct. Blood pressure elevated. Heart rate normal. Respiratory rate normal. Temperature normal. Oxygen saturation normal. Const General: cooperative, healthy appearing and no acute distress Orientation/consciousness: oriented to person, oriented to place, oriented to time and patient oriented x3 Limitations: no limitations HENND Head: Yes normocephalic and Yes atraumatic Ears: external ears normal General nose exam: Normal external nose present Face and sinus: Yes face symmetric Mouth: oropharynx normal and moist mucous membranes Throat: Yes uvula midline Eyes Pupils: Equal, round and reactive pupils present Neck Neck: Yes normal visual inspection and Yes supple Resp Effort & Inspection: normal respiratory effort and able to speak in complete sentences Auscultation: clear to auscultation bilaterally Cardio Rate: regular rate Rhythm: regular rhythm Heart sounds: S1 normal heart sound present and S2 normal heart sound present GI Palpation (GI): Soft to palpation and nontender Auscultation: normoactive bowel sounds General: Yes no CVA tenderness Back/Spine/Pelvis Back: no CVA tenderness Skin General skin exam: elasticity normal and turgor normal Neuro General: oriented to person, oriented to place, oriented to time, patient oriented x3, moves all extremities, no focal motor deficits and CN's II-XI intact bilaterally Cranial nerves: Yes Equal, round and reactive pupils present Cognition (Neuro): normal cognition Extrem General: Yes full ROM, Yes no pedal edema and Yes no calf tenderness Right lower extremity: knee Details: normal to inspection, normal ROM and knee ligament exam normal; no ecchymosis, no crepitus and no unusual warmth and foot Details: normal capillary refill and vascular exam Details: dorsalis pedis pulse present and posterior tibial pulse present Left lower extremity: knee Details: normal to inspection, normal ROM and knee ligament exam normal; no ecchymosis, no crepitus and no unusual warmth and foot Details: normal capillary refill and vascular exam Details: dorsalis pedis pulse present and posterior tibial pulse present Psych Mental Status: mental status grossly normal Affect: normal affect Thought process: Normal thought process present Medications Administered Discontinued Medications Generic Name Dose Route Start Last Admin Trade Name Jose PRN Reason Stop Dose Admin Oxycodone HCl 5 mg 06/23/24 11:11 06/23/24 11:41 Oxycodone Hcl Immed Release 5 Mg Tablet PO 06/23/24 11:12 5 mg ONCE ONE Administration Medical Decision Making Medical Decision Making [facility] Narrative: Patient is a 74-year-old Swiss speaking female with history of HTN, obesity, JANN on CPAP presenting to the emergency department with 2 months of bilateral knee pain. On exam patient is awake, A+Ox3, VS WNL, afebrile, normal neurological exam without focal deficits, physical exam findings as above. Given reported symptoms and physical exam findings, initial differential includes effusion, osteoarthritis, less likely gout. Do not suspect ligamentous injury. Labs notable for slight elevation of uric acid, decreased from prior, no leukocytosis, chronically elevated BUN also improved from prior. X-ray bilateral knees notable for bilateral degenerative changes to knees, no acute fractures, mild left effusion. My interpretation is in agreement with the radiologist's interpretation. Results discussed with patient via billing coordinator. Will discharge patient with a few tramadol until she sees orthopedics tomorrow. Advised she follow up with PCP as well. Patient verbalized understanding of and agreement with plan. Differential Diagnosis Differential Diagnoses: The differential diagnosis associated with the presentation includes As per [facility] Lab Data [facility] Lab Attestation statement: I reviewed the patient's lab results. As per [facility] 06/23/24 11:33 06/23/24 11:33 Labs: Lab Results 06/23/24 Range/Units 11:33 WBC 9.9 (4.8-10.8) X10*3/uL RBC 3.94 L (4.20-5.50) X10*6/uL Hgb 12.3 (12.0-16.0) g/dl Hct 37.5 (37.0-47.0) % MCV 95.2 (80.0-98.0) fL MCH 31.2 (27.0-33.0) pg MCHC 32.8 (31.0-35.0) g/dl RDW 13.3 (11.0-16.0) % Plt Count 275 (160-400) X10*3/uL MPV 11.0 (9.4-12.3) fL Immature Gran % (Auto) 0.4 (0.0-0.4) % Neut % (Auto) 59.4 (45-73) % Lymph % (Auto) 25.1 (20-40) % [place] % (Auto) 10.3 (2-11) % Eos % (Auto) 4.1 H (0-4) % Baso % (Auto) 0.7 (0-2) % Lymph # (Auto) 2.5 (1.2-4.9) X10*3/uL [place] # (Auto) 1.0 (0.1-1.2) X10*3/uL Eos # (Auto) 0.4 (0.0-0.4) X10*3/uL Baso # (Auto) 0.1 (0.0-0.2) X10*3/uL Abs Immat Gran (auto) 0.04 H (0.00-0.03) X10*3/uL Absolute Neuts (auto) 5.9 (2.0-8.3) x10*3/uL Absolute Nucleated RBC 0.000 (0.0-0.012) X10*3/uL Nucleated RBC % (auto) 0.0 (0.0-0.2) /100WBC Sodium 139 (135-145) mmol/L Potassium 4.6 (3.3-5.1) mmol/L Chloride 106 (96-108) mmol/L Carbon Dioxide 26 (22-29) mmol/L Anion Gap 12 (12-20) BUN 30 H (9-16) mg/dL Creatinine 1.09 (0.5-1.4) mg/dL Estim Creat Clear Calc 40.3 Estimated GFR 49 Random Glucose 101 (60-115) mg/dL Uric Acid 6.8 H (2.4-5.7) mg/dL Calcium 10.0 (8.4-10.2) mg/dL Total Bilirubin 0.3 (0.0-1.0) mg/dL AST 15 (5-31) U/L ALT 23 (0-31) U/L Alkaline Phosphatase 110 (39-117) U/L Total Protein 7.1 (6.5-8.0) g/dL Albumin 3.8 (3.5-5.0) g/dL Independent Interpretation I performed an independent interpretation of an: Plain X-Ray Interpretation: bilateral degenerative changes to knees, no acute fractures, mild left effusion Radiology Impression Discussion of test interpretation with radiology: I have reviewed the radiologist's reading. Radiologist Impression: XR/XR knee RT 3V IMPRESSION: Bilateral degenerative changes more prominent in patellofemoral compartment on the left and mild joint effusion on the left. Mild degenerative changes bilaterally, more prominent in patellofemoral compartment on the left with small joint effusion. External Record Review External record reviewed: Inpatient record, Office record and Outpatient record Prescription Management I considered prescription management with: Pain Medication Discharge Plan Discharge Clinical Impression: Arthritis of both knees Patient Disposition: Home, Self-Care Instructions: Knee Pain (ED), Arthritis (ED) Additional Instructions: You were evaluated in the emergency department today for knee pain. Your x-rays shows mild arthritis and a small amount of fluid in your left knee. You are being prescribed a small amount of pain medication until you follow up with orthopedics tomorrow. Your should follow up with your primary care provider as well. Return to the emergency department with new or worsening symptoms. Prescriptions: New tramadol 25 mg tablet 25 mg PO Q6H PRN (Reason: pain) Qty: 6 0RF No Action cholecalciferol (vitamin D3) 25 mcg (1,000 unit) tablet 25 mcg PO DAILY Qty: 90 1RF hydrocortisone [Proctosol HC] 2.5 % cream with perineal applicator 1 appl NH BID-QID PRN (Reason: hemorrhoids) Qty: 30 0RF irbesartan 300 mg tablet 300 mg PO DAILY 90 Days Qty: 90 2RF (DME) BP Cuff See Rx Instructions .Route .MEDSUPPLY Qty: 1 0RF Rx Instructions: As directed lidocaine [Lidoderm] 5 % adhesive patch,medicated 1 patch topical DAILY MDD remove after 12 hours PRN (Reason: pain) Qty: 30 0RF Rx Instructions: leave on most painful area for up to 12 hrs naproxen 500 mg tablet 500 mg PO Q8-12H PRN (Reason: pain (scale score 4-6)) Qty: 20 0RF (DME) CPAP 6 cm humidified AIR MASKAIR FIT N20 small See Rx Instructions .Route .MEDSUPPLY Qty: 1 0RF Rx Instructions: As directed Senna Plus 8.6-50 mg capsule 1 tab-cap PO BID PRN (Reason: constipation) 30 Days Qty: 60 3RF (DME) WALKER WITH SEAT See Rx Instructions .Route .MEDSUPPLY Qty: 1 0RF Rx Instructions: As directed (DME) SHOWER CHAIR See Rx Instructions .Route .MEDSUPPLY Qty: 1 0RF Rx Instructions: As directed rosuvastatin 10 mg tablet 10 mg PO DAILY 30 Days Qty: 30 3RF amlodipine 5 mg tablet 5 mg PO DAILY Qty: 90 2RF omeprazole 20 mg capsule,delayed release(DR/EC) 20 mg PO DAILY 90 Days Qty: 90 2RF polyethylene glycol 3350 [Miralax] 17 gram/dose powder 17 g PO DAILY PRN (Reason: constipation) 30 Days Qty: 510 3RF simethicone [Gas Relief (simethicone)] 125 mg tablet,chewable 125 mg PO TID PRN (Reason: abdominal distention) 30 Days Qty: 90 1RF Referrals: [facility] [place] Orthopedic Surgeons [Provider Group] Print Language: Swiss
[2024-06-23 11:38] LABS: MANUAL DIFF FLAG NO
[2024-06-23] MEDS: oxyCODONE HCl Immed Release 5 MG TABLET PO (11:41)
[2024-06-23 11:48] LABS: Basophils Absolute Auto 0.1 X10*3/uL (0.0-0.2); Basophils Percent Auto 0.7 % (0-2); Eosinophils Absolute Auto 0.4 X10*3/uL (0.0-0.4); Eosinophils Percent Auto 4.1 % (0-4); Hematocrit 37.5 % (37.0-47.0); Hemoglobin 12.3 g/dl (12.0-16.0); Imm Gran Abs Auto 0.04 X10*3/uL (0.00-0.03); Imm Gran Pct Auto 0.4 % (0.0-0.4); Lymphocytes Absolute Auto 2.5 X10*3/uL (1.2-4.9); Lymphocytes Percent Auto 25.1 % (20-40); Mean Corpuscular HGB Conc 32.8 g/dl (31.0-35.0); Mean Corpuscular Hemoglobin 31.2 pg (27.0-33.0); Mean Corpuscular Volume 95.2 fL (80.0-98.0); Monocytes Percent Auto 10.3 % (2-11); Neutrophils Absolute Auto 5.9 x10*3/uL (2.0-8.3); Neutrophils Percent Auto 59.4 % (45-73); Platelet Count 275 X10*3/uL (160-400); Red Blood Count 3.94 X10*6/uL (4.20-5.50); Red Cell Distribution Width 13.3 % (11.0-16.0); White Blood Count 9.9 X10*3/uL (4.8-10.8)
[2024-06-23 11:56] LABS: Alanine Aminotransferase 23 U/L (0-31); Albumin Level 3.8 g/dL (3.5-5.0); Alkaline Phosphatase 110 U/L (39-117); Anion Gap 12 (12-20); Aspartate Amino Transferase 15 U/L (5-31); Bilirubin Total 0.3 mg/dL (0.0-1.0); Blood Urea Nitrogen 30 mg/dL (9-16); Carbon Dioxide 26 mmol/L (22-29); Chloride 106 mmol/L (96-108); Creatinine Clr Calc Pharmacy 40.3; Estimated Glomerular Filt Rate 49; Glucose Random 101 mg/dL (60-115); Potassium 4.6 mmol/L (3.3-5.1); Sodium 139 mmol/L (135-145); Total Protein 7.1 g/dL (6.5-8.0); Uric Acid 6.8 mg/dL (2.4-5.7)
[2024-06-23 14:58] VITALS: BP 140/63; PULSE 55; RESP 18; TEMP 35.5; O2SAT 96
== END 2024-06-23 14:59 | disposition home or self-care (01) ==
PROVIDERS: Registered Nurse Emergency; Emergency Provider Emergency Medicine; PCP Internal Medicine
DX: M17.0 Bilateral primary osteoarthritis of knee (principal); G47.33 Obstructive sleep apnea (adult) (pediatric); Z79.899 Other long term (current) drug therapy
CPT/HCPCS: 36415; 73562; 80053; 84550; 85025; 99283

== ENCOUNTER 2024-06-24 10:57 | Outpatient (AMB) | payer OTHER, SELFPAY ==
--- NOTE | 2024-06-24 11:14 | MHC.OFFVIS ---
Vital Signs 06/24/24 11:23 Height 5 ft 1 in Weight 158 lb BMI 29.9 Intake Visit Reasons: New Pt - B/L knee pain Intake Note: Zayra is a 74 year old female who presents today with her daughter and granddaughter as a new patient for a evaluation of her bilateral knee pain. Patient reports ongoing pain for 2 months, she states that her pain started in her right knee but after 2 weeks her pain started in her left. No hx of injury. Patient reports that her pain is worse on the right knee than her left. She mentioned that she went to the ED yesterday due having a lot of pain in both of knee and they think she might have fluid in her right knee. Pain is worse when walking, sitting and using the stairs. Patient has tried and failed 3 Patient would like her granddaughter to translate. Counter Stitcher Required: Yes Counter Stitcher Language: Indoor Landscaper/Gardener Services: Counter Stitcher Present Counter Stitcher Name: DEB Lanza/SACHIN Information Interpreted: clinical only Allergies atorvastatin Allergy (Unknown, Verified 06/24/24 11:22) myalgia codeine Allergy (Unknown, Verified 06/24/24 11:22) SWELLING penicillin V Allergy (Unknown, Verified 06/24/24 11:22) rash nifedipine Adverse Reaction (Intermediate, Verified 06/24/24 11:22) palpitations pravastatin Adverse Reaction (Intermediate, Verified 06/24/24 11:22) joint pain metoprolol Adverse Reaction (Verified 06/24/24 11:22) leg swelling HPI HPI New Pt - B/L knee pain: Details: 74-year-old female, who is Czech speaking, presents in the office today for an evaluation of right knee pain. ? ? The patient was seen in the ED on 05/04/24 with a complaint of right knee warmth. X-rays were obtained. She was treated for gout and prescribed prednisone 40 mg PO daily and naproxen 500 mg PO Q8-12H PRN. The patient was seen by her PCP on 05/07/24 when she stated she had not taken the medication prescribed in the ED.? ? The patient presented to the ED on 06/23/24 with a complaint of bilateral knee pain that had been present for two months. She reports in 04/2024 she had right knee pain and was treated for gout. She reported her pain as unbearable and is now in the left knee. She confirmed the use of OTC pain medication and the use of her daughter?s oxycodone. X-rays were obtained. She was prescribed tramadol 25 mg PO Q6H PRN with 6 tablets for pain. ? ? While in the office today, the patient expressed pain in her bilateral knees. She states the pain has been present for the past two months with the pain starting in the right knee and then two weeks later in the left. She states the pain is worse in the right knee than the left knee. She states the pain increases with ambulating, sitting, and with the use of stairs. ? ? Patient confirms presenting to the ED yesterday, 06/23/24 due to pain. She was told she has fluid in her right knee. ? ? Patient denies any known injury.? ? Patient denies a medical history of diabetes mellitus. ? ? Patient presents in the office today with her daughter and granddaughter. The patient is using her granddaughter to translate. ? [facility] Medical History (Updated 06/24/24 @ 11:40 by Rissa Cheng) Benign essential hypertension JANN on CPAP Left leg swelling Conjunctivitis Radicular pain Low back pain Otitis media of left ear LUQ abdominal pain Vitamin D deficiency Obesity (BMI 30-39.9) Obstructive sleep apnea IgA nephropathy History of colon polyps Diverticulosis Chronic constipation Venous (peripheral) insufficiency Coreas's cyst of knee Pure hypercholesterolemia Hypovitaminosis D Surgical History History of esophagogastroduodenoscopy (EGD) History of dilatation and curettage H/O tubal ligation History of loop electrical excision procedure (LEEP) History of colonoscopy Family History Father Alzheimers disease Mother Kidney failure Social History Housing: Apartment Are you a primary career portals teacher to a significant other at home: No Alcohol intake: never Patient Tobacco Use Status: Never used Tobacco e-Cigarette/Vaping Use: Never Used Second Hand Smoke Exposure: No service: No Current occupational status: disabled Cognitive needs: No Hearing needs: No Vision needs: Yes Review of Systems Const All systems reviewed & are unremarkable except as noted in HPI and below Physical Exam Vital Signs: BMI result Body Mass Index 29.9 Const General: cooperative and no acute distress Orientation/consciousness: patient oriented x3 Resp Effort & Inspection: normal respiratory effort and able to speak in complete sentences Cardio Peripheral pulses: Peripheral pulses 2+ throughout Skin General skin exam: no rashes or lesions noted Neuro General: patient oriented x3 Extrem Other: Bilateral knees: Normal to inspection. No ecchymosis, erythema, or joint effusion. No tenderness to palpation along the medial or lateral joint lines. Full knee extension and flexion. Crepitus felt with ROM. NVI.? Office Procedures Joint Injection/Aspiration Joint Injection/Aspiration Primary Site: right knee Secondary Site: left knee Prep: site was prepped using aseptic technique, ethochloride spray was applied and injection warnings given Injected: 40 mg of, DepoMedrol, with 8 mL of (2% plain lido ) and in the joint Approach Used: anterolateral Procedure: The patient tolerated the procedure well, but had some pain with the injection and there was some relief with the local anesthesia Coding 06361 - Large joint Procedure code (CPT) selection complete Assessment & Plan Assessment & Plan (1) Osteoarthritis of right knee: Code(s): M17.11 - Unilateral primary osteoarthritis, right knee Category: Medical (2) Osteoarthritis of left knee: Code(s): M17.12 - Unilateral primary osteoarthritis, left knee Category: Medical Plan Ms. Londono is a 74-year-old female, who is Czech speaking, presents in the office today for an evaluation of right knee pain. ? ? The patient was seen in the ED on 05/04/24 with a complaint of right knee warmth. X-rays were obtained. She was treated for gout and prescribed prednisone 40 mg PO daily and naproxen 500 mg PO Q8-12H PRN. The patient was seen by her PCP on 05/07/24 when she stated she had not taken the medication prescribed in the ED.? ? The patient presented to the ED on 06/23/24 with a complaint of bilateral knee pain that had been present for two months. She reports in 04/2024 she had right knee pain and was treated for gout. She reported her pain as unbearable and is now in the left knee. She confirmed the use of OTC pain medication and the use of her daughter?s oxycodone. X-rays were obtained. She was prescribed tramadol 25 mg PO Q6H PRN with 6 tablets for pain. ? ? While in the office today, the patient expressed pain in her bilateral knees. She states the pain has been present for the past two months with the pain starting in the right knee and then two weeks later in the left. She states the pain is worse in the right knee than the left knee. She states the pain increases with ambulating, sitting, and with the use of stairs. ? ? Patient confirms presenting to the ED yesterday, 06/23/24 due to pain. She was told she has fluid in her right knee. ? ? Patient denies any known injury.? ? Patient denies a medical history of diabetes mellitus. ? ? Patient presents in the office today with her daughter and granddaughter. The patient is using her granddaughter to translate.? ? The patient was offered a cortisone injection in the bilateral knees with 40?mg of Depo-Medrol. The patient was explained the risks, benefits, and alternatives to receiving this injection. After receiving consent for the injection, the patient had the procedure done while in the office today. The patient tolerated the procedure well with no complications.? ? We discussed the role of physical therapy; however, due to the patient?s amount of pain we have agreed to defer at this time. Follow-up will be PRN, or sooner if needed. ? ? X-rays of the bilateral knee which were obtained while in the office today and were reviewed by me, Hannah Bhardwaj PA-C, revealed osteoarthritis with the left knee being worse then the right knee. ? ? X-rays of the bilateral knees, obtained on 06/23/24, revealed: Bilateral degenerative changes more prominent in patellofemoral? compartment on the left and mild joint effusion on the left. Mild? degenerative changes bilaterally, more prominent in patellofemoral compartment on the left with small joint effusion.? Orders: Orders XR knee LT 2V Today M25.569 - Pain in unspecified knee XR knee RT 1V Today M25.569 - Pain in unspecified knee Patient Instructions: Scribed by Rissa Cheng, medical consultant, for Hannah Bhardwaj PA-C on 06/24/2024 at 11:04 am, EST.? Coding Level of Care Code New Pt Level 4 (75658) Diagnoses Osteoarthritis of right knee M17.11 Osteoarthritis of left knee M17.12 CPT Codes Coding - 06140 Large joint: 00332 - Large joint ([id number])
[2024-06-24 11:23] VITALS: BMI 29.9
== END 2024-06-24 11:47 | disposition home or self-care (01) ==
PROVIDERS: PCP Internal Medicine; Visit Provider Physician Assistant
DX: M17.0 Bilateral primary osteoarthritis of knee (principal)
CPT/HCPCS: 20610; 99204

== ENCOUNTER 2024-06-24 13:03 | Outpatient (REF) | payer OTHER, SELFPAY ==
--- NOTE | ~2024-06-24 | XR_ITS ---
EXAMINATION: XR KNEE, LEFT CLINICAL INFORMATION: Pain. COMPARISON: 06/23/2024. TECHNIQUE: AP standing view of bilateral knees and sunrise view of the left knee. FINDINGS: LEFT KNEE: Diffuse demineralization. Mild narrowing of the lateral compartment. Small medial and lateral marginal spurs with degenerative changes. RIGHT KNEE: Diffuse demineralization. Mild narrowing of the medial compartment. Small medial and lateral marginal spurs with degenerative changes. Narrowing of the patellofemoral compartment with degenerative changes. XR/XR knee RT 1V IMPRESSION: Mild degenerative changes in the bilateral knees.
--- NOTE | ~2024-06-24 | XR_ITS ---
EXAMINATION: XR KNEE, LEFT CLINICAL INFORMATION: Pain. COMPARISON: 06/23/2024. TECHNIQUE: AP standing view of bilateral knees and sunrise view of the left knee. FINDINGS: LEFT KNEE: Diffuse demineralization. Mild narrowing of the lateral compartment. Small medial and lateral marginal spurs with degenerative changes. RIGHT KNEE: Diffuse demineralization. Mild narrowing of the medial compartment. Small medial and lateral marginal spurs with degenerative changes. Narrowing of the patellofemoral compartment with degenerative changes. XR/XR knee LT 2V IMPRESSION: Mild degenerative changes in the bilateral knees.
== END 2024-06-24 13:04 | disposition home or self-care (01) ==
LOC: HO.HOSX 13:03
PROVIDERS: Visit Provider Physician Assistant
DX: M25.562 Pain in left knee (principal); M25.561 Pain in right knee; M17.11 Unilateral primary osteoarthritis, right knee; M17.12 Unilateral primary osteoarthritis, left knee
CPT/HCPCS: 20610; 73560; 99202; J1010

== ENCOUNTER 2024-09-09 15:11 | Outpatient (AMB) | payer OTHER, SELFPAY ==
[2024-09-09 15:14] VITALS: BP 132/60; PULSE 69; O2SAT 98; BMI 30.4
--- NOTE | 2024-09-09 15:14 | A.OFFPC_ITS ---
Vital Signs 3 09/09/24 15:14 Height 5 ft 1 in Weight 161 lb BMI 30.4 BP 132/60 Blood Pressure Location Lt brachial Position Sitting Pulse 69 Pulse Source Pulse Oximeter Pulse Oximetry (%) 98 Oxygen Delivery Method Room Air Intake Visit Reasons: Annual Intake Note: Patient is here today for a physical. Senior Risk Manager Required: Yes Senior Risk Manager Language: Danish Allergies atorvastatin Allergy (Unknown, Verified 09/09/24 15:41) myalgia codeine Allergy (Unknown, Verified 09/09/24 15:41) SWELLING penicillin V Allergy (Unknown, Verified 09/09/24 15:41) rash nifedipine Adverse Reaction (Intermediate, Verified 09/09/24 15:41) palpitations pravastatin Adverse Reaction (Intermediate, Verified 09/09/24 15:41) joint pain hydrochlorothiazide Adverse Reaction (Mild, Verified 09/09/24 15:41) Swelling metoprolol Adverse Reaction (Verified 09/09/24 15:41) leg swelling Medication List - Last Reconciled 09/09/24 by Sejal Sams PA-C amlodipine 5 mg PO DAILY [BP Cuff As directed] cholecalciferol (vitamin D3) 25 mcg PO DAILY [CPAP 6 cm humidified AIR MASKAIR FIT N20 small As directed] hydrocortisone 2.5% (Proctosol HC) 1 appl OK BID-QID PRN irbesartan 300 mg PO DAILY 90 days lidocaine 5% (Lidoderm) 1 patch topical DAILY PRN MDD remove after 12 hours naproxen 500 mg PO Q8-12H PRN omeprazole 20 mg PO DAILY 90 days polyethylene glycol 3350 (Miralax) 17 grams PO DAILY PRN 30 days rosuvastatin 10 mg PO DAILY 30 days sennosides-docusate sodium 8.6-50 mg (Senna Plus) 1 tab-cap PO BID PRN 30 days [SHOWER CHAIR As directed] simethicone (Gas Relief Extra Strength) 125 mg PO TID PRN [WALKER WITH SEAT As directed] Tobacco use date assessed: 03/10/24 Fall risk assessment: No Falls in past year Last assessed Fall Risk: 09/09/24 Dental Screening Dental Screen Date: 09/09/24 Did you have a dental visit in the last 12 months?: Yes Did you have a dental problem in the last 6 months where you did not have access to dental care?: No Was dental information given to patient?: Patient has dentist HPI Annual 2 HPI0 Details 74-year-old obese female with hypertensi on, hypercholesterolemia, obstructive sleep apnea and right knee pain last seen May 2024 coming in for annual exam. In review of the notes, patient was seen in the ER May 2024 for bilateral knee OA and referred to orthopedics. Seen by ortho June 2024 and given bilateral knee injections. She continues to have bilateral knee pain and returns to orthopedics in September for re-evaluation and possible injections. The knee pain is worse in the back of the knee and does occasionally have stiffness and cracking. She also mentions she was seen by ear nose and throat yesterday for painful tonsils and evaluated for this concern and was not given antibiotics and advised to follow up in 5 months. She also mentioned she has a small lump on her back which has been present for over a year. Colonoscopy is up-to-date and will be due 2024, mammogram and DEXA scan due. [facility] Medical History Benign essential hypertension JANN on CPAP Left leg swelling Conjunctivitis Radicular pain Low back pain Otitis media of left ear LUQ abdominal pain Vitamin D deficiency Obesity (BMI 30-39.9) Obstructive sleep apnea IgA nephropathy History of colon polyps Diverticulosis Chronic constipation Venous (peripheral) insufficiency Coreas's cyst of knee Pure hypercholesterolemia Hypovitaminosis D Surgical History History of esophagogastroduodenoscopy (EGD) History of dilatation and curettage H/O tubal ligation History of loop electrical excision procedure (LEEP) History of colonoscopy Family History Father Alzheimers disease Mother Kidney failure Social History Housing: Apartment Are you a primary nursing care attendant to a significant other at home: No Alcohol intake: never Patient Tobacco Use Status: Never used Tobacco e-Cigarette/Vaping Use: Never Used Second Hand Smoke Exposure: No service: No Current occupational status: disabled Cognitive needs: No Hearing needs: No Vision needs: Yes Questionnaire PHQ-9 Over the last 2 weeks, how often have you been bothered by any of the following problems? 1. Little interest or pleasure in doing things: not at all 2. Feeling down, depressed, or hopeless: not at all 3. Trouble falling or staying asleep, or sleeping too much: not at all 4. Feeling tired or having little energy: not at all 5. Poor appetite or overeating: not at all 6. Feeling bad about yourself - or that you are a failure or have let yourself or your family down: not at all 7. Trouble concentrating on things, such as reading the newspaper or watching television: not at all 8. Moving or speaking so slowly that other people could have noticed. Or the opposite - being so fidgety or restless that you have been moving around a lot more than usual: not at all 9. Thoughts that you would be better off or of hurting yourself in some way: not at all Total score: 0 Depression Screening Interpretation: Negative Depression Screening Done: Yes 27244 - PHQ-9 Billing: Yes Source: Developed by Drs. Bon Garcia, Mimi Nicholson, Rick Bruno and colleagues, with an educational abbey from [employer]. Thrive Questionnaire Date Thrive assessed: 03/10/24 I am a: Patient What is your living situation today?: I have a steady place to live Within the past 12 months, did the food you bought not last and you didn't have the money to get more?: Never true Within the past 12 months, did you worry whether your food would run out before you got money to buy more?: Never true Do you have trouble paying for medicines?: No Do you have trouble getting transportation to medical appointments?: No Do you have trouble paying your heating and electricity bill?: No Do you have trouble taking care of your child, family member or friend?: No Do you have trouble with day-to-day activities such as bathing, preparing meals, shopping, managing finances, etc.?: No Are you currently unemployed and looking for a job?: No Are you interested in more education?: No Please select the resources that you would like help with: None Currently or been in a relationship where the following occur: No concerns reported THRIVE Score: 0 AUDIT C Alcohol Use Questionnaire (AUDIT-C) 1. How often do you have a drink containing alcohol?: Never 3. How often do you have six or more drinks on one occasion?: Never Total Score: 0 SANDRA-7 AMB Questionnaire SANDRA-7 Date SANDRA - 7 assessed: 03/10/24 Feeling nervous, anxious, or on edge: 0 = Not at all Not being able to stop or control worryin = Not at all Worrying too much about different things: 0 = Not at all Trouble relaxin = Not at all Being so restless that it is hard to sit still: 0 = Not at all Becoming easily annoyed or irritable: 0 = Not at all Feeling afraid as if something awful might happen: 0 = Not at all Total SANDRA-7 score (0-4 normal; 5-9 mild; 10-14 moderate; 15-21 severe): 0 Source: Developed by Drs. Bon Garcia, Mimi Nicholson, Rick Bruno and colleagues, with an educational abbey from [employer]. Review of Systems Const Denies body aches, Denies fatigue, Denies fever(s), Denies frequent falls, Denies headache(s) and Denies weakness Eyes Reports no additional complaints and Denies change in vision ENT Denies dysphagia, Denies dizziness, Denies facial pain, Denies headache(s), Denies nasal congestion, Denies odynophagia, Reports sore throat (followed by ENT ) and Reports throat swelling Card Denies chest pain, Denies syncope, Denies irregular heart rhythm, Denies leg edema, Denies lightheadedness and Denies dyspnea Resp Denies cough and Denies dyspnea GI Denies abdominal pain, Denies constipation, Denies dysphagia, Denies dyspepsia, Denies diarrhea, Denies nausea, Denies odynophagia and Denies vomiting Denies urinary frequency, Denies dysuria, Denies urinary hesitancy and Denies urinary urgency Musc Denies back pain, Denies myalgias and Reports arthralgias (bilateral knee pain ) Skin/Breast Details: Small lesion on center upper back Neuro Denies dizziness, Denies syncope, Denies frequent falls, Denies headache(s) and Denies weakness Psych Reports no additional complaints Endo Denies fatigue Aller/Immun Reports throat swelling Physical exam (Primary Care) Vital Signs: Last Vital Signs Pulse 69 10/17/24 15:14 BP 132/60 09/09/24 15:14 Pulse Ox 98 09/09/24 15:14 Oxygen Delivery Method Room Air 09/09/24 15:14 BMI result Body Mass Index 30.4 Tobacco/Smoking Status: Tobacco use Status Tobacco use date assessed 03/10/24 09/09/24 15:15 Patient Tobacco Use Status Never used Tobacco 09/09/24 15:15 e-Cigarette/Vaping Use Never Used 09/09/24 15:15 PHQ-9: PHQ-9 Score PHQ-9: Total score 0 09/09/24 15:35 Depression Screening Interpretation: Negative Thrive Assessment: Date of Thrive Assessment Date Thrive assessed 03/10/24 09/09/24 15:15 Currently or been in a relationship where the following occur: No concerns reported Const General: cooperative, healthy appearing, comfortable and no acute distress Orientation/consciousness: patient oriented x3 HENMT Head: Yes normocephalic Ears: hearing grossly normal bilaterally, external ears normal, TM's normal bilaterally and EAC's normal General nose exam: Normal external nose present Face and sinus: Yes normal facial exam and Yes sinuses nontender Mouth: Normal oral and palatal mucosa present, tongue normal and oropharynx normal Throat: Yes posterior oropharynx normal, Yes tonsils normal, Yes uvula midline and No peritonsillar mass Eyes General: appearance normal, both eyes and all related structures Conjunctivae: conjunctivae normal Pupils: Equal, round and reactive pupils present EOM: EOMs intact bilaterally and No Nystagmus present Neck Neck: Yes normal visual inspection, Yes full ROM and Yes no lymphadenopathy Chest Chest palpation & inspection: normal inspection of the chest Resp Effort & Inspection: normal respiratory effort Auscultation: clear to auscultation bilaterally, no crackles, no rales, no rhonchi, no wheezes and breath sounds present Cardio Rate: regular rate Rhythm: regular rhythm Peripheral pulses: radial pulses present and dorsalis pedis present GI Inspection: Yes normal to inspection and No Abdominal wall edema Palpation (GI): Soft to palpation, not firm and nontender Auscultation: normal bowel sounds Rectal Exam - Female: deferred General: Yes no CVA tenderness Back/Spine/Pelvis Back: no CVA tenderness Skin Other: Less than 1 cm atypical nevi midline upper spine not painful to the touch no crusting or drainage Full body images: 2 1. atypical nevi Neuro General: patient oriented x3 Cranial nerves: Yes Equal, round and reactive pupils present, Yes Midline tongue present, Yes Ability to bilaterally elevate shoulders present and No Nystagmus present Gait exam (Neuro): Normal gait present Extrem General: Yes normal to inspection, Yes full ROM, No no pedal edema and No edema Psych Speech and movement: Normal speech and movement present Affect: normal affect Insight: Good insight present (Psych) Judgement: Good judgement present (Psych) Coding Level of Care Code Est Pt Level 3 (32724) Est Pt Prev Care >65y(38719) Diagnoses Osteoarthritis of right knee M17.11 Osteoarthritis of left knee M17.12 Primary hypertension I10 Hypertension type: primary hypertension MDD (major depressive disorder), recurrent episode, moderate F33.1 Lesion of tonsil J35.9 GERD (gastroesophageal reflux disease) K21.9 Impaired fasting blood sugar R73.01 Obstructive sleep apnea G47.33 Pure hypercholesterolemia E78.00 Atypical nevi D22.9 Annual physical exam Z00.00 Assessment & Plan Assessment & Plan (1) Osteoarthritis of right knee: Code(s): M17.11 - Unilateral primary osteoarthritis, right knee Category: Medical Plan: Continue to follow up with Orthopedics. (2) Osteoarthritis of left knee: Code(s): M17.12 - Unilateral primary osteoarthritis, left knee Category: Medical Plan: Continue to follow up with Orthopedics (3) HTN (hypertension): Code(s): I10 - Essential (primary) hypertension Category: Medical Qualifiers: Hypertension type: primary hypertension Qualified Code(s): I10 - Essential (primary) hypertension Plan: Blood pressure at goal today continue to avoid salt. Encouraged healthy diet and regular exercise and continue on current drug regimen. (4) MDD (major depressive disorder), recurrent episode, moderate: Code(s): F33.1 - Major depressive disorder, recurrent, moderate Category: Medical Plan: Not currently on medical management and declines treatment at this time. (5) Lesion of tonsil: Comment: March 2023 There is a possible ulcerative lesion along the anterior margin of the left palatine tonsil measuring up to 1 cm in size that can be further assessed with PET as clinically indicated. An underlying squamous cell carcinoma is not excluded. There are nonpathologic size criteria lymph nodes throughout the suprahyoid and infrahyoid neck bilaterally without pathologic size criteria lymphadenopathy that can also be further assessed with PET. Code(s): J35.9 - Chronic disease of tonsils and adenoids, unspecified Category: Medical Plan: Complaining of sore throat today without erythema or tonsillar exudates. Advised patient to continue to monitor symptoms and if she develops a fever or sore throat does not resolve to reach out to the office. Continue to follow with ear nose and throat. (6) GERD (gastroesophageal reflux disease): Code(s): K21.9 - Gastro-esophageal reflux disease without esophagitis Category: Medical Plan: Avoid trigger foods such as citrus, tomato products, soda, caffeine, spicy foods and other foods that may be irritating to your stomach. Avoid laying flat 3-4 hours after eating and elevate the head of the bed 30 degrees to prevent acid from moving into the esophagus. (7) Impaired fasting blood sugar: Code(s): R73.01 - Impaired fasting glucose Category: Medical Plan: Decrease the amount of carbohydrates such as pasta, bread, rice, and potatoes and limit the amount of sweets. Although fruits are generally healthy they should be eaten in moderation as they are still high in sugar. Hemoglobin A1c goal of less than 7%. (8) Obstructive sleep apnea: Comment: CPAP Code(s): G47.33 - Obstructive sleep apnea (adult) (pediatric) Category: Medical Plan: Uses CPAP faithfully at least 4 hours a night and benefits from this therapy. (9) Pure hypercholesterolemia: Code(s): E78.00 - Pure hypercholesterolemia, unspecified Category: Medical Plan: Avoid foods that are high in cholesterol such as red meat, fried foods, eggs and baked goods. Triglyceride goal of less than 150 and LDL goal of less than 100. Continue on rosuvastatin 10 mg. Ordered for updated blood work. (10) Atypical nevi: Code(s): D22.9 - Melanocytic nevi, unspecified Category: Medical Plan: Atypical nevi on center of upper back. Referral placed for Dermatology. (11) Annual physical exam: Code(s): Z00.00 - Encounter for general adult medical examination without abnormal findings Category: Medical Plan: Patient is up-to-date on colonoscopy and will be due in 2024. Referral placed for mammogram and bone density scan today. Up-to-date on all recommended vaccinations for her age. Updated blood work ordered and follow up at next visit. Plan This note was constructed using voice recognition software. While every effort has been made to ensure accuracy and test hole driller, still areas may have been included sometimes these areas may affect the content or meeting of the given symptoms. Total time spent caring for the patient today was 30 minutes. This includes time spent before the visit reviewing the chart, time spent during the visit, and time spent after the visit and documentation. Orders: Orders 2 Uric Acid Today M25.561 - Pain in right knee Lipid Panel Today Z00.00 - Encounter for general adult medical examination without abnormal findings Vitamin B12 and Folate Today Z00.00 - Encounter for general adult medical examination without abnormal findings Vitamin D 25-OH (D2 and D3) Today Z00.00 - Encounter for general adult medical examination without abnormal findings Free T4 (Free Thyroxine) Today Z00.00 - Encounter for general adult medical examination without abnormal findings Hemoglobin A1c Today Z00.00 - Encounter for general adult medical examination without abnormal findings MM tomosynthesis screening BI Today Z12.31 - Encounter for screening mammogram for malignant neoplasm of breast XR DEXA axial skeleton Today Z78.0 - Asymptomatic menopausal state TSH reflex Free T4 Today Z00.00 - Encounter for general adult medical examination without abnormal findings Comprehensive Met. Panel Today Z00.00 - Encounter for general adult medical examination without abnormal findings Referrals 2 Dermatology Referral D22.9 - Melanocytic nevi, unspecified
== END 2024-09-09 16:07 | disposition home or self-care (01) ==
PROVIDERS: PCP Internal Medicine
DX: Z00.00 Encounter for general adult medical examination without abnormal findings (principal); M17.0 Bilateral primary osteoarthritis of knee; F33.1 Major depressive disorder, recurrent, moderate; I10 Essential (primary) hypertension; J35.9 Chronic disease of tonsils and adenoids, unspecified; K21.9 Gastro-esophageal reflux disease without esophagitis; R73.01 Impaired fasting glucose; G47.33 Obstructive sleep apnea (adult) (pediatric); E78.00 Pure hypercholesterolemia, unspecified; D22.9 Melanocytic nevi, unspecified

== ENCOUNTER → 2024-09-09 15:11 | Outpatient (BNVA) | payer OTHER, SELFPAY | PROVIDERS: PCP Internal Medicine | DX: Z00.00 Encounter for general adult medical examination without abnormal findings (principal); M17.0 Bilateral primary osteoarthritis of knee; I10 Essential (primary) hypertension; F33.1 Major depressive disorder, recurrent, moderate; J35.9 Chronic disease of tonsils and adenoids, unspecified; K21.9 Gastro-esophageal reflux disease without esophagitis; R73.01 Impaired fasting glucose; G47.33 Obstructive sleep apnea (adult) (pediatric); E78.00 Pure hypercholesterolemia, unspecified; D22.5 Melanocytic nevi of trunk; Z99.89 Dependence on other enabling machines and devices | CPT/HCPCS: 96127; 99397 ==

== ENCOUNTER 2024-09-30 12:55 | Outpatient (AMB) | payer OTHER, SELFPAY ==
--- NOTE | 2024-09-30 13:09 | A.OFFVIS_ITS ---
Intake Visit Reasons: OV - B/L knee OA, last inj 06/24/24 Intake Note: Zayra is a 74 year old female who presents today for a follow up of her bilateral knee OA, last injection 06/24/24. Patient reports her last injections gave her relief and is continuing giving her relief. Allergies atorvastatin Allergy (Unknown, Verified 09/30/24 13:09) myalgia codeine Allergy (Unknown, Verified 09/30/24 13:09) SWELLING penicillin V Allergy (Unknown, Verified 09/30/24 13:09) rash nifedipine Adverse Reaction (Intermediate, Verified 09/30/24 13:09) palpitations pravastatin Adverse Reaction (Intermediate, Verified 09/30/24 13:09) joint pain hydrochlorothiazide Adverse Reaction (Mild, Verified 09/30/24 13:09) Swelling metoprolol Adverse Reaction (Verified 09/30/24 13:09) leg swelling HPI HPI OV - B/L knee OA, last inj 06/24/24: Details: 74-year-old female, who is Uzbek speaking, presents in the office today for a follow-up of bilateral knee osteoarthritis. I last saw the patient in the office on 06/24/24 when she was given a cortisone injection in the bilateral knees. We also discussed physical therapy; however, the patient deferred it at that time. While in the office today, the patient reports her last cortisone injection in the bilateral knees has been providing her with relief. [facility] Medical History Benign essential hypertension JANN on CPAP Left leg swelling Conjunctivitis Radicular pain Low back pain Otitis media of left ear LUQ abdominal pain Vitamin D deficiency Obesity (BMI 30-39.9) Obstructive sleep apnea IgA nephropathy History of colon polyps Diverticulosis Chronic constipation Venous (peripheral) insufficiency Coreas's cyst of knee Pure hypercholesterolemia Hypovitaminosis D Surgical History History of esophagogastroduodenoscopy (EGD) History of dilatation and curettage H/O tubal ligation History of loop electrical excision procedure (LEEP) History of colonoscopy Family History Father Alzheimers disease Mother Kidney failure Social History Housing: Apartment Are you a primary healthcare science specialist to a significant other at home: No Alcohol intake: never Patient Tobacco Use Status: Never used Tobacco e-Cigarette/Vaping Use: Never Used Second Hand Smoke Exposure: No service: No Current occupational status: disabled Cognitive needs: No Hearing needs: No Vision needs: Yes Review of Systems Const All systems reviewed & are unremarkable except as noted in HPI and below Physical Exam Const General: cooperative, healthy appearing and no acute distress Orientation/consciousness: patient oriented x3 Resp Effort & Inspection: normal respiratory effort and able to speak in complete sentences Cardio Rate: regular rate Peripheral pulses: Peripheral pulses 2+ throughout GI Palpation (GI): Soft to palpation Skin General skin exam: no rashes or lesions noted Lesions: no lesions Rashes: no rashes Neuro General: patient oriented x3 Extrem Other: Bilateral knees: Normal to inspection. No ecchymosis, erythema, or joint effusion. No tenderness to palpation along the medial or lateral joint lines. Full knee extension and flexion. Crepitus felt with ROM. NVI.? Assessment & Plan Assessment & Plan (1) Osteoarthritis of right knee: Code(s): M17.11 - Unilateral primary osteoarthritis, right knee Category: Medical (2) Osteoarthritis of left knee: Code(s): M17.12 - Unilateral primary osteoarthritis, left knee Category: Medical Plan Ms. Clark Londono is a 74-year-old female, who is Uzbek speaking, present in the office today for a follow-up of bilateral knee osteoarthritis. I last saw the patient in the office on 06/24/24 when she was given a cortisone injection in the bilateral knees. We also discussed physical therapy; however, the patient deferred it at that time. While in the office today, the patient reports her last cortisone injection in the bilateral knees has been providing her with relief. The patient mentions her last cortisone injection in the bilateral knees is still effective. The patient is currently experiencing minimal discomfort. Therefore, we decided to decline repeat injection at this time. I supplied her with my business card and informed to contact the office should her pain return and need a repeat injection. Follow up will be PRN, or sooner if needed. Patient Instructions: Scribed by Genna Martinez, medical transcription editor, for Hannah Bhardwaj PA-C on 09/30/24 at 2:01 pm EST. Coding Level of Care Code Est Pt Level 3 (69927) Diagnoses Osteoarthritis of right knee M17.11 Osteoarthritis of left knee M17.12
== END 2024-09-30 13:18 | disposition home or self-care (01) ==
LOC: HO.HOS 12:56
PROVIDERS: PCP Internal Medicine; Visit Provider Physician Assistant
DX: M17.0 Bilateral primary osteoarthritis of knee (principal)
CPT/HCPCS: 99213

== ENCOUNTER → 2024-09-30 12:55 | Outpatient (BNVA) | payer OTHER, SELFPAY | PROVIDERS: PCP Internal Medicine; Visit Provider Physician Assistant | DX: M17.0 Bilateral primary osteoarthritis of knee (principal) | CPT/HCPCS: 99212 ==

== ENCOUNTER 2024-10-27 10:19 | Outpatient (REF) | payer OTHER, SELFPAY ==
--- NOTE | ~2024-10-27 | MM_ITS ---
EXAMINATION: BONE DENSITOMETRY CLINICAL INDICATION: Menopause. COMPARISON: Previous BD dated 04/26/2022 and baseline BD dated 08/24/2010. TECHNIQUE: Using a Myntra DXA System (software version: 13.1) manufactured by [employer], dual-energy x-ray absorptiometry was performed of the lumbar spine and left hip. The images are of good technical quality. Summary results are attached. FINDINGS: LEFT FEMUR, NECK: Current: BMD 0.733 g/cm2, Z-score -0.4, T-score -2.2, osteopenia. Prior: BMD 0.733 g/cm2. Baseline: BMD 0.815 g/cm2. LEFT FEMUR, TOTAL: Current: BMD 0.814 g/cm2, Z-score 0.1, T-score -1.5, osteopenia, 7.8% decrease from previous, 13.8% decrease from baseline (<5% change is not significant). Prior: BMD 0.883 g/cm2. Baseline: BMD 0.944 g/cm2. AP SPINE L1-L4: Current: BMD 1.013 g/cm2, Z-score 0.2, T-score -1.4, osteopenia, 6.7% increase from previous, 8.2% increase from baseline (<5% change is not significant). Prior: BMD 0.949 g/cm2. Baseline: BMD 0.937 g/cm2. IDENTIFIED RISK FACTORS: Early menopause, height loss, renal, secondary osteoporosis. HISTORY OF FRACTURE: None listed. MEDICATIONS: Vitamin D. MM/XR DEXA axial skeleton IMPRESSION: 1. DIAGNOSIS: Osteopenia based on the lowest T-score value of -2.2 in the femoral neck applying World Health Organization criteria. 2. 10-YEAR FRACTURE RISK PREDICTION, FRAX: Major osteoporotic fracture (clinical spine, forearm, hip or shoulder) 8.4%. Hip fracture 2.3%. 3. Treatment Recommendations: NOF guidelines recommend consideration for treatment in postmenopausal women and men age 50 and older presenting with the following: -A hip or vertebral (clinical or morphometric) fracture. -T-score less than or equal to -2.5 at the femoral neck or spine after appropriate evaluation to exclude secondary causes. -Low bone mass at the hip or spine and a 10-year fracture probability by FRAX of greater than or equal to 3% for hip fracture or greater than or equal to 20% for major osteoporotic fracture based on the [place] adapted WHO algorithm. 4. Other Recommendations: All treatment decisions require clinical judgment and consideration of individual patient factors, including patient preferences, comorbidities, previous drug use, risk factors not captured in the FRAX model (e.g. frailty, falls, vitamin D deficiency, increased bone turnover, interval significant decline in bone density) and possible under or overestimation of fracture risk by FRAX. Additional medical evaluation for secondary cause of low bone mineral density may be appropriate. FUTURE SCAN RECOMMENDATION: People with diagnosed cases of osteoporosis or at high risk for fracture should have regular bone mineral density tests. For patients eligible for Medicare, routine testing is allowed once every 2 years. The testing frequency can be increased to one year for patients who have rapidly progressing disease, those who are receiving or discontinuing medical therapy to restore bone mass, or have additional risk factors. Electronically signed by: Leonard Torres MD 10/27/2024 05:42 PM J LUIS ANDERS
--- NOTE | ~2024-10-27 | MM_ITS ---
EXAMINATION: MM SCREENING DIGITAL BREAST TOMOSYNTHESIS, BILATERAL CLINICAL INFORMATION: Screening. Asymptomatic. COMPARISON: Mammography: Comparison is made with available priors TECHNIQUE: Digital breast mammography with tomosynthesis is performed in both the craniocaudal and mediolateral oblique views along with computer-aided detection (CAD). FINDINGS: There are scattered areas of fibroglandular density (ACR BI-RADS breast composition Category b). There are no significant masses, abnormal calcifications, or other abnormalities. MM/MM tomosynthesis screening BI IMPRESSION: No mammographic evidence of malignancy. ASSESSMENT: BI-RADS BI-RADS 1 - Negative RECOMMENDATION: Routine annual mammography screening. 1 year F/U This examination should not preclude the clinical evaluation of a suspicious palpable abnormality. This patient's information was entered into a reminder system with a target due date for their next mammogram. Electronically signed by: Kayleigh Joiner DO 11/02/2024 11:53 AM J LUIS
== END 2024-10-27 10:20 | disposition home or self-care (01) ==
LOC: HO.MAMMO 10:19
PROVIDERS: PCP Internal Medicine
DX: Z12.31 Encounter for screening mammogram for malignant neoplasm of breast (principal); Z13.820 Encounter for screening for osteoporosis; Z78.0 Asymptomatic menopausal state
CPT/HCPCS: 77063; 77067; 77080

== ENCOUNTER → 2024-10-27 10:45 | Outpatient (BNV) | payer OTHER, SELFPAY | PROVIDERS: PCP Internal Medicine; Visit Provider Internal Medicine | DX: Z12.31 Encounter for screening mammogram for malignant neoplasm of breast (principal) | CPT/HCPCS: 77063; 77067 ==

== ENCOUNTER 2024-12-10 09:52 | Outpatient (REF) | payer OTHER, SELFPAY ==
[2024-12-10 11:06] LABS: Estimated Average Glucose 111 mg/dL; Hemoglobin A1C 116.6522 umol/L; Hemoglobin A1c % 5.5 % (<6.0); Total Hemoglobin (HGBA1C) 3169.7563 umol/L
[2024-12-10 11:39] LABS: Uric Acid 6.3 mg/dL (2.4-5.7)
[2024-12-10 11:45] LABS: Alanine Aminotransferase 14 U/L (0-31); Albumin Level 3.9 g/dL (3.5-5.0); Alkaline Phosphatase 141 U/L (39-117); Anion Gap 10 (12-20); Aspartate Amino Transferase 25 U/L (5-31); Bilirubin Total 0.2 mg/dL (0.0-1.0); Blood Urea Nitrogen 21 mg/dL (9-16); Calcium 9.5 mg/dL (8.4-10.2); Carbon Dioxide 25 mmol/L (22-29); Chloride 106 mmol/L (96-108); Cholesterol 195 mg/dL (<200); Estimated Glomerular Filt Rate 47; Glucose Fasting 96 mg/dL (60-99); Glucose Random 96 mg/dL (60-115); HDL Cholesterol 44 mg/dL (>40); Potassium 4.2 mmol/L (3.3-5.1); Sodium 137 mmol/L (135-145); Total Protein 8.2 g/dL (6.5-8.0)
[2024-12-10 11:57] LABS: Free T4 (Free Thyroxine) 1.07 ng/dL (0.71-1.85)
[2024-12-10 12:08] LABS: Vitamin B12 355 pg/mL (200-900)
[2024-12-10 12:17] LABS: LDL Cholesterol Calculated 122 mg/dL (<100); Triglycerides 145 mg/dL (<150)
[2024-12-10 13:23] LABS: Creatinine Urine 229.56 mg/dL; Microalbum/Creatinine Ratio Ur 33.5 ug/mg cr (<30)
[2024-12-15 17:44] LABS: Vitamin D 25-OH, D2 <4 ng/mL; Vitamin D 25-OH, D3 27 ng/mL; Vitamin D 25-OH, Total 27 ng/mL (30-100)
== END 2024-12-10 09:53 | disposition home or self-care (01) ==
LOC: HO.LAB 09:52
PROVIDERS: Physician Assistant; PCP Internal Medicine
DX: Z00.00 Encounter for general adult medical examination without abnormal findings (principal); E78.00 Pure hypercholesterolemia, unspecified; I10 Essential (primary) hypertension; M25.561 Pain in right knee; Z13.1 Encounter for screening for diabetes mellitus; E66.9 Obesity, unspecified; K21.9 Gastro-esophageal reflux disease without esophagitis; R73.01 Impaired fasting glucose
CPT/HCPCS: 36415; 80053; 80061; 82043; 82306; 82570; 82607; 82746; 83036; 84439; 84443; 84550; 99212

== ENCOUNTER 2024-12-10 11:12 | Outpatient (AMB) | payer OTHER, SELFPAY ==
--- NOTE | 2024-12-10 11:32 | MHC.PC.OV ---
Vital Signs 12/10/24 11:35 Height 5 ft 1 in Weight 160 lb BMI 30.2 BP 102/62 Blood Pressure Location Lt brachial Position Sitting Pulse 61 Pulse Source Pulse Oximeter Temp 96.9 F Temp Source Skin Pulse Oximetry (%) 99 Oxygen Delivery Method Room Air Intake Visit Reasons: f/u HLD and HTN Intake Note: Patient is here to follow up on HLD, HTN. Pt decline flu shot today. 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 Name: Tip ([id number]) Information Interpreted: non-clinical & clinical Fur Scraper: Not Required per policy Accompanied by: Self / Same As Patient Allergies atorvastatin Allergy (Unknown, Verified 12/10/24 11:35) myalgia codeine Allergy (Unknown, Verified 12/10/24 11:35) SWELLING penicillin V Allergy (Unknown, Verified 12/10/24 11:35) rash nifedipine Adverse Reaction (Intermediate, Verified 12/10/24 11:35) palpitations pravastatin Adverse Reaction (Intermediate, Verified 12/10/24 11:35) joint pain hydrochlorothiazide Adverse Reaction (Mild, Verified 12/10/24 11:35) Swelling metoprolol Adverse Reaction (Verified 12/10/24 11:35) leg swelling Medication List - Last Reconciled 12/10/24 by Sejal Sams PA-C amlodipine 5 mg PO DAILY [BP Cuff As directed] cholecalciferol (vitamin D3) 25 mcg PO DAILY [CPAP 6 cm humidified AIR MASKAIR FIT N20 small As directed] hydrocortisone 2.5% (Proctosol HC) 1 appl NC BID-QID PRN irbesartan 300 mg PO DAILY 90 days lidocaine 5% (Lidoderm) 1 patch topical DAILY PRN MDD remove after 12 hours naproxen 500 mg PO Q8-12H PRN omeprazole 20 mg PO DAILY 90 days polyethylene glycol 3350 (Miralax) 17 grams PO DAILY PRN 30 days rosuvastatin 10 mg PO DAILY 30 days sennosides-docusate sodium 8.6-50 mg (Senna Plus) 1 tab-cap PO BID PRN 30 days [SHOWER CHAIR As directed] simethicone (Gas Relief Extra Strength) 125 mg PO TID PRN 30 days [WALKER WITH SEAT As directed] Tobacco use date assessed: 12/10/24 Fall risk assessment: No Falls in past year Last assessed Fall Risk: 12/10/24 Dental Screening Dental Screen Date: 12/10/24 Did you have a dental visit in the last 12 months?: Yes Did you have a dental problem in the last 6 months where you did not have access to dental care?: No Was dental information given to patient?: Patient has dentist HPI f/u HLD and HTN HPI Details 74-year-old obese female with hypertension, hypercholesterolemia, obstructive sleep apnea and right knee pain last seen 08/2024 coming in for follow up.? In review of the notes, patient was seen by Orthopedics 09/2024 for bilateral knee osteoarthritis advised to continue monitoring symptoms she has had good improvement with cortisone injections and follow up as needed. 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 Patient states last week she was having upper respiratory symptoms which have resolved and is no longer having symptoms at this time. She continues to have bilateral knee pain which is very mild but does not want the injection from Orthopedics. ON LICENSE OF [facility] Medical History Benign essential hypertension JANN on CPAP Left leg swelling Conjunctivitis Radicular pain Low back pain Otitis media of left ear LUQ abdominal pain Vitamin D deficiency Obesity (BMI 30-39.9) Obstructive sleep apnea IgA nephropathy History of colon polyps Diverticulosis Chronic constipation Venous (peripheral) insufficiency Coreas's cyst of knee Pure hypercholesterolemia Hypovitaminosis D Surgical History History of esophagogastroduodenoscopy (EGD) History of dilatation and curettage H/O tubal ligation History of loop electrical excision procedure (LEEP) History of colonoscopy Family History Father Alzheimers disease Mother Kidney failure Social History Housing: Apartment Are you a primary healthcare marketer to a significant other at home: No Alcohol intake: never Patient Tobacco Use Status: Never used Tobacco e-Cigarette/Vaping Use: Never Used Second Hand Smoke Exposure: No service: No Current occupational status: disabled Cognitive needs: No Hearing needs: No Vision needs: Yes Questionnaire PHQ-9 Over the last 2 weeks, how often have you been bothered by any of the following problems? 1. Little interest or pleasure in doing things: not at all 2. Feeling down, depressed, or hopeless: not at all 3. Trouble falling or staying asleep, or sleeping too much: not at all 4. Feeling tired or having little energy: not at all 5. Poor appetite or overeating: not at all 6. Feeling bad about yourself - or that you are a failure or have let yourself or your family down: not at all 7. Trouble concentrating on things, such as reading the newspaper or watching television: not at all 8. Moving or speaking so slowly that other people could have noticed. Or the opposite - being so fidgety or restless that you have been moving around a lot more than usual: not at all 9. Thoughts that you would be better off or of hurting yourself in some way: not at all Total score: 0 Depression Screening Interpretation: Negative Depression Screening Done: Yes Source: Developed by Drs. Bon Garcia, Mimi Nicholson, Rick Bruno and colleagues, with an educational abbey from [employer] Thrive Questionnaire Date Thrive assessed: 12/10/24 AUDIT C Alcohol Use Questionnaire (AUDIT-C) 1. How often do you have a drink containing alcohol?: Never Total Score: 0 SANDRA-7 AMB Questionnaire SANDRA-7 Date SANDRA - 7 assessed: 12/10/24 Feeling nervous, anxious, or on edge: 0 = Not at all Not being able to stop or control worryin = Not at all Worrying too much about different things: 0 = Not at all Trouble relaxin = Not at all Being so restless that it is hard to sit still: 0 = Not at all Becoming easily annoyed or irritable: 0 = Not at all Feeling afraid as if something awful might happen: 0 = Not at all Total SANDRA-7 score (0-4 normal; 5-9 mild; 10-14 moderate; 15-21 severe): 0 Source: Developed by Drs. Bon Garcia, Mimi Nicholson, Rick Bruno and colleagues, with an educational abbey from [employer] Review of Systems Const Denies body aches, Denies chills, Denies fever(s), Denies headache(s) and Denies poor appetite Eyes Reports no additional complaints ENT Denies dysphagia, Denies dizziness, Denies headache(s) and Denies odynophagia Card Denies chest pain, Denies syncope, Denies edema, Denies irregular heart rhythm, Denies lightheadedness and Denies dyspnea Resp Denies cough and Denies dyspnea GI Denies abdominal pain, Denies constipation, Denies dysphagia, Denies diarrhea, Denies nausea, Denies odynophagia and Denies vomiting Reports no additional complaints Musc Reports no additional complaints and Denies abnormal gait Skin/Breast Reports system reviewed and no additional complaints, except as documented Neuro Denies abnormal gait, Denies dizziness, Denies syncope and Denies headache(s) Psych Reports no additional complaints Physical exam (Primary Care) Vital Signs: Last Vital Signs Temp 96.9 F 12/10/24 11:35 Pulse 61 12/10/24 11:35 BP 102/62 12/10/24 11:35 Pulse Ox 99 12/10/24 11:35 Oxygen Delivery Method Room Air 12/10/24 11:35 BMI result Body Mass Index 30.2 Tobacco/Smoking Status: Tobacco use Status Tobacco use date assessed 12/10/24 12/10/24 11:42 Patient Tobacco Use Status Never used Tobacco 12/10/24 11:33 e-Cigarette/Vaping Use Never Used 12/10/24 11:33 PHQ-9: PHQ-9 Score PHQ-9: Total score 0 12/10/24 12:01 Depression Screening Interpretation: Negative Thrive Assessment: Date of Thrive Assessment Date Thrive assessed 12/10/24 12/10/24 11:33 Const General: cooperative, healthy appearing, comfortable and no acute distress Orientation/consciousness: patient oriented x3 HENMT Head: Yes normocephalic Ears: hearing grossly normal bilaterally General nose exam: Normal external nose present Eyes General: appearance normal, both eyes and all related structures Conjunctivae: conjunctivae normal Neck Neck: Yes full ROM and Yes no lymphadenopathy Resp Effort & Inspection: normal respiratory effort Auscultation: clear to auscultation bilaterally, no crackles, no rales, no rhonchi and no wheezes Cardio Rate: regular rate Rhythm: regular rhythm Skin General skin exam: no rashes or lesions noted Neuro General: patient oriented x3 Gait exam (Neuro): Normal gait present Extrem General: Yes normal to inspection, Yes full ROM and No edema Psych Affect: normal affect Attitude: cooperative Insight: Good insight present (Psych) Judgement: Good judgement present (Psych) Coding Level of Care Code Est Pt Level 4 (85551) Diagnoses Obesity (BMI 30.0-34.9) E66.9 Primary hypertension I10 Hypertension type: primary hypertension GERD (gastroesophageal reflux disease) K21.9 Impaired fasting blood sugar R73.01 Pure hypercholesterolemia E78.00 Assessment & Plan Assessment & Plan (1) Obesity (BMI 30.0-34.9): Code(s): E66.9 - Obesity, unspecified Category: Medical Plan: Healthy diet and regular exercise is encouraged. (2) HTN (hypertension): Code(s): I10 - Essential (primary) hypertension Category: Medical Qualifiers: Hypertension type: primary hypertension Qualified Code(s): I10 - Essential (primary) hypertension Plan: Continue on current blood pressure medication. Avoid salt intake and encourage healthy diet and regular exercise. (3) GERD (gastroesophageal reflux disease): Code(s): K21.9 - Gastro-esophageal reflux disease without esophagitis Category: Medical Plan: Avoid trigger foods such as citrus, tomato products, soda, caffeine, spicy foods and other foods that may be irritating to your stomach. Avoid laying flat 3-4 hours after eating and elevate the head of the bed 30 degrees to prevent acid from moving into the esophagus. (4) Impaired fasting blood sugar: Code(s): R73.01 - Impaired fasting glucose Category: Medical Plan: Decrease the amount of carbohydrates such as pasta, bread, rice, and potatoes and limit the amount of sweets. Although fruits are generally healthy they should be eaten in moderation as they are still high in sugar. A1c 5.5% on last labs. (5) Pure hypercholesterolemia: Code(s): E78.00 - Pure hypercholesterolemia, unspecified Category: Medical Plan: Avoid foods that are high in cholesterol such as red meat, fried foods, eggs and baked goods. Triglyceride goal of less than 150 and LDL goal of less than 130. Patient was previously on rosuvastatin 10 mg without side effects but ran out of this medication last year and never restarted. Cholesterol is elevated on last labs recommend restarting rosuvastatin at 5 mg and repeat cholesterol in 3 months. Advised patient to reach out if she begins having side effects of this medication. Follow up in 3 months Plan This note was constructed using voice recognition software. While every effort has been made to ensure accuracy and wire spiral binder, still areas may have been included sometimes these areas may affect the content or meeting of the given symptoms. Total time spent caring for the patient today was 20 minutes. This includes time spent before the visit reviewing the chart, time spent during the visit, and time spent after the visit and documentation. Orders: Orders Lipid Panel 3 Months E78.00 - Pure hypercholesterolemia, unspecified Medications: New rosuvastatin 5 mg PO DAILY 90 tabs 3RF Discontinued rosuvastatin Discontinued Reason: Patient no longer taking 10 mg PO DAILY 30 days 30 tabs 3RF E78.00 - Pure hypercholesterolemia, unspecified
[2024-12-10 11:35] VITALS: BP 102/62; PULSE 61; TEMP 36.1; O2SAT 99; BMI 30.2
== END 2024-12-10 12:25 | disposition home or self-care (01) ==
PROVIDERS: PCP Internal Medicine
DX: I10 Essential (primary) hypertension (principal); K21.9 Gastro-esophageal reflux disease without esophagitis; E66.9 Obesity, unspecified; Z68.30 Body mass index [BMI] 30.0-30.9, adult; R73.01 Impaired fasting glucose; E78.00 Pure hypercholesterolemia, unspecified

== ENCOUNTER 2024-12-23 11:00 | Emergency (ER) | payer OTHER, SELFPAY ==
--- NOTE | ~2024-12-23 | XR_ITS ---
EXAMINATION: XR LUMBOSACRAL SPINE CLINICAL INFORMATION: low back pain x2 weeks COMPARISON: March 11, 2023. TECHNIQUE: Three views of the lumbosacral spine. FINDINGS: Multilevel marginal osteophyte formation, endplate sclerosis and decreased intervertebral disc height involving the lower thoracic and lower lumbar spine. No acute cortical disruption or gross malalignment. Facet joint hypertrophy at L5-S1. No lytic or blastic lesions. Vascular calcifications likely involving the abdominal aorta. XR/XR lumbar spine 2-3V IMPRESSION: Multilevel thoracolumbar spondylosis without acute fracture or trauma-related listhesis. Atherosclerosis disease, aorta. Electronically signed by: Cal Trujillo MD 12/23/2024 03:20 PM J LUIS
[2024-12-23 11:39] VITALS: BP 139/66; PULSE 72; RESP 16; O2SAT 96; BMI 30.2
--- NOTE | 2024-12-23 13:37 | ED.BACK ---
HPI - Back Pain/Injury General Chief Complaint: Back Pain/Injury Stated Complaint: Lower back pain 2 weeks Time Seen by Provider: 12/23/24 13:24 Source: patient and computer designer (chilean) Mode of arrival: ambulatory Limitations: language barrier (chilean) History of Present Illness ED Provider: MAHENDRA SAGE PA-C HPI Narrative: 74 year old female with pmhx significant for hypertension, hypercholesterolemia, JANN, IgA nephropathy, diverticulosis, PVD, and osteoarthritis presents to the ED today for evaluation of lower back pain x2 weeks. Pain began while seated at home. Pain is localized to bilateral lumbar region without radiation. No hx of similar. annot recall any strenuous lifting. Denies injruy/ trauma/ falls. She has been taking Tylenol 500mg q8 hours with minimal relief. Denies IV drug use. Denies fever, chills, neck pain, bowel or bladder incontinence or retention, numbness/tingling/weakness in the lower extremities, saddle anesthesia, dysuria, hematuria. director of recruiting utilized throughout visit to communicate with patient. Related Data Previous Rx's ?Medication ?Instructions ?Recorded cholecalciferol (vitamin D3) 25 25 mcg PO DAILY #90 tabs 12/07/20 mcg (1,000 unit) tablet CPAP 6 cm humidified AIR MASKAIR #1 ea 04/20/21 FIT N20 small hydrocortisone 2.5 % topical cream 1 appl IN BID-QID PRN hemorrhoids 03/26/22 with perineal applicator #30 grams (Proctosol HC) lidocaine 5 % topical patch 1 patch topical DAILY PRN pain #30 03/11/23 (Lidoderm) ea SHOWER CHAIR #1 ea 03/24/23 WALKER WITH SEAT #1 ea 03/24/23 sennosides 8.6 mg-docusate sodium 1 tab-cap PO BID PRN constipation 03/24/23 50 mg capsule (Senna Plus) 30 days #60 caps polyethylene glycol 3350 17 17 g PO DAILY PRN constipation 30 10/30/23 gram/dose oral powder (Miralax) days #510 grams BP Cuff #1 ea 03/17/24 naproxen 500 mg tablet 500 mg PO Q8-12H PRN pain (scale 05/04/24 score 4-6) #20 tabs omeprazole 20 mg capsule,delayed 20 mg PO DAILY 90 days #90 caps 09/24/24 release simethicone 125 mg chewable tablet 125 mg PO TID PRN for abdominal 09/25/24 (Gas Relief Extra Strength) pain 30 days #90 tabs irbesartan 300 mg tablet 300 mg PO DAILY 90 days #90 tabs 11/11/24 amlodipine 5 mg tablet 5 mg PO DAILY #90 tabs 11/25/24 rosuvastatin 5 mg tablet 5 mg PO DAILY #90 tabs 12/10/24 baclofen 5 mg tablet 5 mg PO TID PRN muscle pain #10 12/23/24 tabs lidocaine 5 % topical patch 1 patch topical DAILY #15 ea 12/23/24 (Lidoderm) Allergies Allergy/AdvReac Type Severity Reaction Status Date / Time atorvastatin Allergy Unknown myalgia Verified 12/23/24 11:39 codeine Allergy Unknown SWELLING Verified 12/23/24 11:39 penicillin V Allergy Unknown rash Verified 12/23/24 11:39 nifedipine AdvReac Intermediate palpitation Verified 12/23/24 11:39 s pravastatin AdvReac Intermediate joint pain Verified 12/23/24 11:39 hydrochlorothiazide AdvReac Mild Swelling Verified 12/23/24 11:39 metoprolol AdvReac leg Verified 12/23/24 11:39 swelling Review of Systems Review of Systems: Constitutional: No fever, chills, fatigue, night sweats, weight changes ENT/Mouth: No ear pain, hearing loss, nasal congestion, sinus pain, rhinorrhea, sore throat Eyes: No eye pain, swelling, redness, vision changes, discharge Cardio: No chest pain, palpitations, CORONA, orthopnea, peripheral edema Pulm: No SOB, cough, sputum, wheezing, dyspnea, hemoptysis GI: No nausea, vomiting, hematemesis, abdominal pain, diarrhea, constipation, hematochezia, melena : No irregular bleeding, dysuria, frequency, urgency, hesitancy, hematuria, flank pain, urinary flow changes, urinary incontinence or retention MSK: +back pain, No neck pain, joint pain, myalgias Skin: No lesions, rashes Neuro: No weakness, numbness, paresthesias, LOC, dizziness, headache All other systems reviewed and are negative. [facility]LY [facility] Past Medical History Attestation statement: The following information was validated with the patient. Source: old records reviewed and nursing notes reviewed Medical History Benign essential hypertension JANN on CPAP Left leg swelling Conjunctivitis Radicular pain Low back pain Otitis media of left ear LUQ abdominal pain Vitamin D deficiency Obesity (BMI 30-39.9) Obstructive sleep apnea IgA nephropathy History of colon polyps Diverticulosis Chronic constipation Venous (peripheral) insufficiency Coreas's cyst of knee Pure hypercholesterolemia Hypovitaminosis D Surgical History History of esophagogastroduodenoscopy (EGD) History of dilatation and curettage H/O tubal ligation History of loop electrical excision procedure (LEEP) History of colonoscopy Family History Family History Father Alzheimers disease Mother Kidney failure Social History Social History Housing: Apartment Are you a primary direct care professional to a significant other at home: No Alcohol intake: never Patient Tobacco Use Status: Never used Tobacco e-Cigarette/Vaping Use: Never Used Second Hand Smoke Exposure: No Advance Directives: No Advance Directives Information Provided: No Do you have a plan to hurt others: No Plan service: No Current occupational status: disabled Cognitive needs: No Hearing needs: No Vision needs: Yes Physical Exam Vital Signs: Vital Signs: Last Vital Signs Temp 97.3 F 12/23/24 14:41 Pulse 63 12/23/24 14:41 Resp 18 12/23/24 14:41 BP 131/65 12/23/24 14:41 Pulse Ox 97 12/23/24 14:41 O2 Del Method Room Air 12/23/24 14:41 BMI result Body Mass Index 30.2 Vital signs stable, afebrile General: Well appearing, in no acute distress. Skin: Warm, dry, intact. No rashes or lesions. Head: Normocephalic, atraumatic. EENT: Hearing is intact b/l. Conjunctiva clear. PERRLA. EOM intact. Moist mucous membranes.? Neck: Supple without LAD? Cardiac: Chest wall symmetric. RRR. Lungs: Normal respiratory effort without accessory muscle use. CTA bilaterally. No rales, rhonchi, or wheezes.? Abdomen: Soft, non-tender, non-distended Back: No midline spinous tenderness or step-off deformity. There is bilateral lumbar paraspinal muscle tenderness with palpable spasm, primarily on right. Negative straight leg raise bilaterally. Ext: Upper and lower extremities atraumatic, without tenderness, deformity, swelling or erythema. Full ROM throughout. Neuro: AOx3. Normal speech. Strength 5/5 intact throughout. No saddle anesthesia. Sensation intact to light touch. NV intact distally. Reflexes 2+ bilaterally. Ambulating with steady gait. Course Course Course Narrative: Urine without infection or blood. Lumbar x-ray showing multilevel thoracolumbar spondylosis without acute fracture or trauma. exam concerning for muscle spasm. treated with baclofen and lido patch in ED with improvement. Patient has remained stable throughout ED visit today. Discussed worrisome signs and symptoms and when to return to the ED. All questions answered at this time. Patient is agreeable with disposition and stable for discharge. Medications Administered Discontinued Medications Generic Name Dose Route Start Last Admin Trade Name Freq PRN Reason Stop Dose Admin Baclofen 10 mg 12/23/24 14:23 12/23/24 15:03 Baclofen 10 Mg Tablet PO 12/23/24 14:24 10 mg ONCE ONE Administration Lidocaine 1 patch 12/23/24 14:23 12/23/24 15:03 Lidocaine 4 % Patch Adh..Patch TRANSDERMA 12/23/24 14:24 1 patch ONCE ONE Administration Protocol Medical Decision Making Medical Decision Making [facility] Narrative: 74 year old female with pmhx significant for hypertension, hypercholesterolemia, JANN, IgA nephropathy, diverticulosis, PVD, and osteoarthritis presents to the ED today for evaluation of lower back pain x2 weeks. vital signs stable, afebrile. she is nontoxic appearing and in NAD. on exam, there is no midline spinous tenderness or step-off deformity. There is bilateral lumbar paraspinal muscle tenderness with palpable spasm, primarily on right. Negative straight leg raise bilaterally. Neurovascularly intact distally. Sensation intact throughout. Strength intact throughout. 2+ patellar DTRs intact. Concern for MSK sprain/strain, muscle spasm, fracture, subluxation, disc herniation, sciatica, UTI, renal colic, nephrolithiasis. Unlikely cord compression, cauda equina, Guillain-Frederic, epidural abscess. Plan for imaging and pain control. Differential Diagnosis Differential Diagnoses: The differential diagnosis associated with the presentation includes as above Admission/Observation Not indicated. Lab Data MDM Lab Attestation statement: I reviewed the patient's lab results. as above. Labs: Lab Results 12/23/24 Range/Units 15:06 Urine Color Yellow Urine Appearance Clear Urine pH 5.5 (5.0-9.0) Ur Specific [place] 1.020 (1.005-1.025) Urine Protein Trace (Neg-Trace) mg/dL Urine Glucose (UA) Negative (Negative) mg/dL Urine Ketones Negative (Negative) mg/dL Urine Blood Negative (Negative) Urine Nitrite Negative (Negative) Ur Leukocyte Esterase Negative (Negative) Independent Interpretation I performed an independent interpretation of an: Plain X-Ray Interpretation: xr lumbar spine without fracture Radiology Impression Discussion of test interpretation with radiology: I have reviewed the radiologist's reading. Radiologist Impression: EXAMINATION: XR LUMBOSACRAL SPINE CLINICAL INFORMATION: low back pain x2 weeks COMPARISON: March 11, 2023. TECHNIQUE: Three views of the lumbosacral spine. FINDINGS: Multilevel marginal osteophyte formation, endplate sclerosis and decreased intervertebral disc height involving the lower thoracic and lower lumbar spine. No acute cortical disruption or gross malalignment. Facet joint hypertrophy at L5-S1. No lytic or blastic lesions. Vascular calcifications likely involving the abdominal aorta. XR/XR lumbar spine 2-3V IMPRESSION: Multilevel thoracolumbar spondylosis without acute fracture or trauma-related listhesis. Atherosclerosis disease, aorta. Electronically signed by: Cal Trujillo MD 12/23/2024 03:20 PM [facility] External Record Review External record reviewed: Inpatient record Prescription Management I considered prescription management with: Pain Medication and Other (Muscle relaxer) Social Determinants Patient?s care significantly limited by Social Determinants of Health including: Other Social Determinant of Health Critical Care Time Critical Care Time Critical Care Time: No Discharge Plan Discharge Clinical Impression: Lumbar strain Patient Disposition: Home, Self-Care Instructions: Muscle Strain (ED), Lower Back Exercises (ED) Additional Instructions: You were evaluated in the Emergency Department today for your back pain.? Your evaluation did not show signs of medical conditions requiring emergent intervention at this time. Avoid bending, lifting, or twisting. Use ice several times per day for 20 minutes at a time for the next 48 hours and then change to heat. We recommend you take 600mg ibuprofen every 6 hours or tylenol 650mg every 6 hours as needed for pain. If needed, you can alternate these medications so that you take one medication every 3 hours. For example, at noon take ibuprofen, then at 3pm take tylenol, then at 6pm take ibuprofen. Baclofen is a muscle relaxer. Take this at night as it makes you drowsy. Do not drive, drink alcohol, or operate machinery while taking it. Lidoderm patches are numbing patches. Apply to painful areas. Please schedule an appointment for follow-up with your primary care provider this week for further evaluation of your symptoms. Return to the Emergency Department if you experience worsening back pain, difficulty walking, fevers, numbness, tingling, incontinence, or any other concerning symptoms. In the case of an emergency call 911. Prescriptions: New lidocaine [Lidoderm] 5 % adhesive patch,medicated 1 patch topical DAILY Qty: 15 0RF Rx Instructions: leave on most painful area for up to 12 hrs baclofen 5 mg tablet 5 mg PO TID PRN (Reason: muscle pain) Qty: 10 0RF No Action cholecalciferol (vitamin D3) 25 mcg (1,000 unit) tablet 25 mcg PO DAILY Qty: 90 1RF hydrocortisone [Proctosol HC] 2.5 % cream with perineal applicator 1 appl IN BID-QID PRN (Reason: hemorrhoids) Qty: 30 0RF (DME) BP Cuff See Rx Instructions .Route .MEDSUPPLY Qty: 1 0RF Rx Instructions: As directed omeprazole 20 mg capsule,delayed release(DR/EC) 20 mg PO DAILY 90 Days Qty: 90 0RF simethicone [Gas Relief Extra Strength] 125 mg tablet,chewable 125 mg PO TID PRN (Reason: for abdominal pain) 30 Days Qty: 90 3RF irbesartan 300 mg tablet 300 mg PO DAILY 90 Days Qty: 90 2RF amlodipine 5 mg tablet 5 mg PO DAILY Qty: 90 2RF lidocaine [Lidoderm] 5 % adhesive patch,medicated 1 patch topical DAILY MDD remove after 12 hours PRN (Reason: pain) Qty: 30 0RF Rx Instructions: leave on most painful area for up to 12 hrs naproxen 500 mg tablet 500 mg PO Q8-12H PRN (Reason: pain (scale score 4-6)) Qty: 20 0RF (DME) CPAP 6 cm humidified AIR MASKAIR FIT N20 small See Rx Instructions .Route .MEDSUPPLY Qty: 1 0RF Rx Instructions: As directed Senna Plus 8.6-50 mg capsule 1 tab-cap PO BID PRN (Reason: constipation) 30 Days Qty: 60 3RF (DME) WALKER WITH SEAT See Rx Instructions .Route .MEDSUPPLY Qty: 1 0RF Rx Instructions: As directed (DME) SHOWER CHAIR See Rx Instructions .Route .MEDSUPPLY Qty: 1 0RF Rx Instructions: As directed polyethylene glycol 3350 [Miralax] 17 gram/dose powder 17 g PO DAILY PRN (Reason: constipation) 30 Days Qty: 510 3RF rosuvastatin 5 mg tablet 5 mg PO DAILY Qty: 90 3RF Interventions: ED Discharge Assessment Last Done: 12/23/24 15:47 Discharge Date/Time: 12/23/24 15:48 Print Language: Kinyarwanda
[2024-12-23 14:41] VITALS: BP 131/65; PULSE 63; RESP 18; TEMP 36.3; O2SAT 97
[2024-12-23] MEDS: Lidocaine 4 % Patch ADH..PATCH 1 PATCH TRANSDERMA (15:03)
[2024-12-23] MEDS: Baclofen 10 MG TABLET PO (15:03)
[2024-12-23 15:22] LABS: Appearance Urine Clear; Color Urine Yellow; Glucose Urine UA Negative (Negative); Leukocyte Esterase Urine Negative (Negative); Nitrite Urine Negative (Negative); PH 5.5 (5.0-9.0); Urine Blood Negative (Negative); Urine Ketones Negative (Negative); Urine Protein Trace mg/dL (Neg-Trace)
[2024-12-23 15:47] VITALS: BP 131/65; PULSE 63; RESP 18; TEMP 36.3; O2SAT 97
--- OUTSIDE RECORDS SUMMARY | 2024-12-23 17:35 | XMS_ITS ---
Author Name Christensenshelley GHOSHHenrietta Sveta Selina Ramos Address [address] [place] [address] Phone [phone] [facility] Care Team Providers Care Pattern Checker Name Role Phone Harriett Christensen Unavailable [phone] Unavailable Unavailable Unavailable Po, Lorenver Unavailable [phone] [facility] Unavailable Reason for Referral Not Available Allergies, adverse reactions, alerts Allergen Type Reaction Severity Status Onset Date Atorvastatin Allergy to substance (disorder) myalgia Unknown Active N/A Metoprolol Succinate Allergy to substanc e (disorder) leg swelling Unknown Active N/A Pravastatin Allergy to substance (disorder) joint pain Unknown Active N/A Codeine Allergy to substance (disorder) swelling Unknown Active N/A Penicillin Allergy to substance (disorder) rash Unknown Active N/A History of medication use Medication Class Instructions Start Date End Date Omeprazole 20 mg Cap delayed rel TAKE 1 CAPSULE BY MOUTH DAILY 2023-04-16 No Data Available amLODIPine Besylate 5 mg Tab TAKE 1 TABL ET BY MOUTH TWICE DAILY 2023-03-05 2023-11-28 hydroCHLOROthiazide 25 mg Tab TAKE 1 TAB LET BY MOUTH DAILY 2023-07-08 No Data Available Meloxicam 15 mg Tab TAKE 1 TABLET BY MOLINA TH DAILY 2023-07-08 No Data Available Irbesartan 300 mg Tab TAKE 1 TABLET BY M OUTH DAILY 2023-01-20 No Data Available NIFEdipine ER Osmotic Releas e 30 mg Tab ER 24hr TAKE 1 TABLET BY MOUTH DAILY 2023-09-17 No Data Available Cyclobenzaprine 5 mg Tab TAKE 1 TABLET B Y MOUTH THREE TIMES DAILY NEEDED FOR MUSCLE SPASM 2023-09-17 No Data Available Polyethylene Glycol 3350 17 GM/SCOOP Powder DISSOLVE 17 GRAMS IN LIQUID AND DRINK BY MOUTH DAILY NEEDED FOR CONSTIPATION FOR 30 DAYS 2023-10-30 No Data Available Vitamin D3 50 MCG (1999) Cap 1 capsules PO QD 11-28 No Data Available methylPREDNISolone 4 mg Tab Therapy Pack FOLLOW PACKAGE DIRECTIONS 2023-12-12 No Data Available amLODIPine Besylate 5 mg Tab TAKE 1 TABL ET BY MOUTH TWICE DAILY 2023-03-05 No Data Available Rosuvastatin Calcium 10 mg Tab TAKE 1 TA BLET BY MOUTH DAILY 2024-03-10 No Data Available Naproxen 500 mg Tab TAKE 1 TABLET BY MOLINA TH EVERY 8 TO 12 HOURS NEEDED FOR PAIN 2024-05-04 No Data Available predniSONE 20 mg Tab TAKE 2 TABLETS BY M OUT DAILY FOR 5 DAYS 2024-05-04 No Data Available Problem List Problem Status Onset Date Resolved Date Sacroiliitis; Sciatica Active 2023-11-03 N/A Obesity due to excess calories Active 2023-11-03 N/A Essential hypertension Active 2023-11-03 N/A GERD (gastroesophageal reflux disease) Active 15-11-11 N/A Encounters Encounters Type Facility Date of Service Diagnosis/Co mplaint No Data Available [facility]2023 Sacroiliitis, not elsewhere classifiedSciatica, unspecified sideOther obesity due to excess caloriesBody mass index (bmi) 30.0-30.9, adultEssential (primary) hypertensionGastro-esophageal reflux disease without esophagitis No Data Available [facility] 11/28/2023 No Data Available [facility]2023 No Data Available [facility]2023 No Data Available [facility]/2023 No Data Available [facility]2023 No Data Available [facility]/2023 No Data Available [facility] 11[place]/2023 No Data Available [facility]2023 No Data Available [facility]/2023 Vital Signs Date of Collection Vitals 2023-11-28 08:14:09 Height - 154.94 cmWe ight - 73.03 kgBody Mass Index (BMI) - 30.42 kg/m2BP Diastolic - 84.0 mm[Hg]BP Systolic - 138.0 mm[Hg]Pain Scale - 0.0 {score} Social History Social History Social History Observation Description Effec tive Time Current Smoking Status Never smoker 2024-11-26 0 Sex Female History of Procedures Procedures Service Procedure code Service date Servicing provider Phone# No Data Available [id number] 2023-11-28 No Data Available No Data Available Pain Assessment - NO pain present (1126F) 1126F 2023-11-28 No Data Available No Data A vailable Medication List Documented (1159F) 1159F 2023-11-28 No Data Available No Data Kalani ilable Medication Review by prescribing provider or pharmacist documented (1160F) 1160F 2023-11-28 No Data Available No Data Kalani ilable Advance Care Directive Advance care planning discussion documented in the medical record (1158F) 1158F 2023-11-28 No Data Available No Data Availa ble BMI obtained (3008F) 3008F 2023-11-28 No Data Availab le No Data Available Advance care planning discussed and documented ? advance care plan or surrogate decision-maker was documented in the medical record. 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 Pt reports using assistive device of: shower chair 2023-11-28 Denies use of cane or walker 2023-11-28 Mental Status Status Date AOx3 2023-11-28 Denies forgetfulness and confusion 11-28 Assessments Date of Service Assessments 2023-11-28 08:14:09 Sacroiliitis; Sciati caObesity due to excess caloriesEssential hypertensionGERD (gastroesophageal reflux disease) Plan of Care Date of Service Plans 2023-11-28 08:14:09 Pain Assessment - NO pain documented (1126F)Medication Review by prescribing provider or pharmacist documented (1160F)Medication List Documented (1159F)Functional Status Assessed (1170F)Advance Care Directive Advance care planning discussion documented in the medical record (1158F)BMI obtained (3008F)SBP 130-139 (3075F)DBP 80-89 (3079F)Televideo new patient,40-59min; chronic exacerbation, 2 stable chronic or 1 acute illness add modifier 95Advance care planning discussed and documented ? advance care plan or surrogate decision-maker was documented in the medical record. (1123F)Advance care planning discussed and documented in the medical record ? beneficiary/patient did not wish to or was unable to provide an advance care plan or name a surrogate decision-maker. (1124F)Continue to see PCP. Follow-up with Anusha as needed for any acute or disease education needs that may arise.Takes Tylenol PRN Encouraged use of heating pad and ice packs as well as positioning for comfort. Continue f/u care and monitoring with PCP.BMI: 30.42Lifestyle interventions and continue f/u care with PCP.HCTZ, Irbesartan, Nifedipine Monitors BP at home daily - usually on higher side of normal per patient. 138*84 - (11/28/23)Continue taking medication, low salt diet, exercise as tolerable, monitor BP routinely, and continue f/u care with PCP.OmeprazoleLifestyle interventions and continue f/u care with PCP. Goals Date Goal 2023-11-28 Remember to1. Contin ue seeing provider as recommended2. Take all medication as prescribedCall me if1. You feel sick or ill2. You notice a change in behavior3. You have questions or concernsKeep it up1. Continue allowing family and caregivers to assist with meeting needs2. Remain positive about health. 2023-11-28 At least 50% of time spent counseling patient, discussing diagnosis, treatment plan, complicance, and coordinating follow up care. Health Concerns Date Concern 2023-11-28 Visit completed by a udio and video. Patient/Guardian agreed to visit via telehealth. Introductory visit with Anusha to establish care. Today, patient has chief complaint of: establishing care. 2023-11-28 Visit completed by a udio only. Tablet did not arrive. Scheduled VGB for 12/03/23. Patient/Guardian agreed to visit via telehealth. Introductory visit with Anusha to establish care. Today, patient has chief complaint of: establishing care.Reviewed Allergies, Medications, Active Medical conditions, past medical/surgical history, Social history. 2023-11-28 Most recent hospital stay(s) or ER visit(s) and precipitating factors: 2023-11-28 Advance Care Plan an d Serious Illness ConversationDate of Conversation: 11/28/2023Life Limiting Diagnosis: Diagnosis: HTNCurrently on Hospice NoCode Status: YES CPR: Attempt ResuscitationGoals of Care: Unknown or Did not DiscussNutrition goals: No decision made about nutrition today; not discussedDo you have a Durable Power of Bed Machine Operator for Healthcare, or Healthcare Proxy Or Guardianship? Yes, POAIf so, Who? DPOA daughter Zayra and Suzy you have a written Advance Directive? Has no formal documentationOther details of discussion: (Who was present, patients description of wishes/goals)Today's plan: 1123F : AD or surrogate was documented in the medical record. 2023-11-28 Open HEDIS Measure r alexander: yes 2023-11-28 Diallo ramos 2023-11-28 Tendinitis of heel - takes Tylenol -Recommended ibuprofen to help decreased inflammation.
--- OUTSIDE RECORDS SUMMARY | 2024-12-23 17:35 | XMS_ITS | Encounter Summary ---
Author Organization [employer] [facility] Address [address] [place] [address] Care Team Providers Care Snout Puller Name Role Phone Jeanne Sandhu OD Primary Care Provider [phone] Encounter Details Date Type Department Care Team (Latest Contact Info) Description 03/01/2019 Abstract [facility] CONVERSIONS Dental, Provider, DDS Social History Tobacco Use Types Packs/Day Years Used Date Smoking Tobacco: Never Assessed Comments Unknown Sex and Gender Information Value Date Recorded Sex Assigned at Female 09/23/2022 10:15 AM EDT Legal Sex Female 10:15 AM EDT Gender Identity Female 04/17/2023 12:06 PM EDT Sexual Orientation Straight 04/17/2023 12 :06 PM EDT documented as of this encounter Plan of Treatment Upcoming Encounters Date Type Department Care Team (Late st Contact Info) Description 12/30/2024 9:00 AM EST Office Visit [facility] ADULT DENTAL [address] [place] [address] Jake Iverson DDS [address] [place] [address] 06/03/2025 1:00 PM EDT Office Visit [facility] ADULT [facility] [address] [place] [address] Jaci Kwan [address] [place] [address] documented as of this encounter Visit Diagnoses Not on filedocumented in this encounter Care Teams Snout Puller Relationship Specialty Start Date End Date Jeanne Sandhu OD [address] [place] [id number] PCP - General Optometry 08/15/17 11/30/23 documented as of this encounter
--- OUTSIDE RECORDS SUMMARY | 2024-12-23 17:35 | XMS_ITS | Patient Health Record ---
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 Role Phone Spenser Romero Primary Care Provider Sil Rios Unavailable [phone] Allergies Allergen (clinical drug ingredient) Drug/Non Drug Allergy documented on EMR Reaction Allergy Type Onset Date Status amlodipine amLODIPine Besylate stomach pain Drug Allergy Active atorvastatin Atorvastatin Calcium myalgia Drug Allergy Active Metoprolol Succinate leg swelling Drug Allergy Active pravastatin Pravastatin Sodium joint pain Drug Allergy Active codeine Codeine swelling Drug Allergy Active Penicillin rash Drug Allergy Active Reason For Referral No Information Medications Medication SIG (Take, Route, Frequency, Duration) Notes Start Date End Date Status Medrol nikolai 4mg as directed orally a s directed for 6 days 12/12/2023 Active Medrol nikolai 4mg as directed orally a s directed for 6 days 06/15/2024 Active amLODIPine Besylate 5 MG TAKE 1 TABLET B Y MOUTH TWICE DAILY Oral for 90 Days Active Irbesartan 300 MG TAKE 1 TABLET BY MOLINA TH DAILY Oral for 90 Days Active Pain Reliever Extra Strength 500 MG TAKE 1 TABLET EVERY 6 HRS NEEDED FOR PAIN OR FEVER Oral for 3 Days Active Senna 8.6 MG TAKE 1 TABLET BY MOLINA TH 2 TIMES A DAY NEEDED FOR CONSTIPATION FOR 30 DAYS Oral for 30 Days Active Physical Therapy . . . 2-3x/week for 3- 4 weeks Active Cyclobenzaprine HCl 5 MG Oral for 5 Days Active hydroCHLOROthiazide 25 MG TAKE 1 TABLET BY MOUTH DAILY Oral for 90 Days Active Meloxicam 15 MG TAKE 1 TABLET BY MOLINA TH DAILY Oral for 30 Days Active Omeprazole 20 MG TAKE 1 CAPSULE BY MOUTH DAILY Oral for 90 Days Active Social History Tobacco Use: Social History Observation Description Date Details (start date - stop date) Never Smoker NA - NA Tobacco Use/Smoking Question Answer Notes Are you a: nonsmoker Additional Findings: Tobacco Non-User Current no n-smoker Alcohol Screen Question Answer Notes Did you have a drink containing alcohol in the p ast year? No Points 0 Interpretation Negative Tobacco use other than smoking: Question Answer Notes Are you an other tobacco user? No Vital Signs Blood pressure diastolic 60 mm Hg 06/15/2024 Height 5ft1in in 06/15/2024 Blood pressure systolic 134 mm Hg 06/15/2024 Weight 157 lbs 06/15/2024 BMI 29.66 kg/m2 06/15/2024 Encounters Encounter Location Date Provider Diagnosis [facility] [address] [address] 02/25/2024 Sil Perica Achilles tendinitis of left lower extremity M76.62 ; Pain of left heel M79.672 and Calcaneal spur of left foot M77.32 [facility] [address] [address] 06/15/2024 Sil Perica Achilles tendinitis of left lower extremity M76.62 ; Pain of left heel M79.672 and Calcaneal spur of left foot M77.32 Assessments Encounter Date Diagnosis (ICD Code) Assessment Notes Treatment Notes Treatment Clinical Notes Section Notes 02/25/2024 Pain of left heel (ICD-10 - M79.672) 02/25/2024 Achilles tendinitis of left lower extremity (ICD-10 - M76.62) 06/15/2024 Pain of left heel (ICD-10 - M79.672) 06/15/2024 Achilles tendinitis of left lower extremity (ICD-10 - M76.62) 06/15/2024 Calcaneal spur of left foot (ICD-10 - M77.32) 02/25/2024 Calcaneal spur of left foot (ICD-10 - M77.32) Plan Of Treatment Pending Test Test Name Order Date X ray : Foot, left 3V 09/09/2023 Insurance Providers Payer Name Payer Address Payer Phone Subscriber Number Group Number Insured Name Patient Relationship to Insured Coverage Start Date Coverage End Date [facility] [address] [address] [place] [id number] [id number] Zayra Londono Self - patient is the insured Medical (General) History Medical History History ICD Code Arthritis Broken bones High blood pressure Kidney disease Coreas's cyst of knee Diverticulosis Colonic polyps Chronic constipation Hypovitaminosis D Sleep apnea Lower back pain JANN on CPAP Hypercholesterolemia Otitis media of left ear Venous insufficiency Vitamin D deficiency Radicular pain IgA nephropathy Sciatica Surgical History Surgery Date(Month/Year) tubal ligation colonoscopy dilatation and curettage esophagogastroduodenoscopy loop electrosurgical excision procedure (LEEP) R ankle surgery
--- OUTSIDE RECORDS SUMMARY | 2024-12-23 17:35 | XMS_ITS ---
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 Role Phone Spenser Romero Primary Care Provider Sil Rios Unavailable [phone] Allergies Allergen (clinical drug ingredient) Drug/Non Drug Allergy documented on EMR Reaction Allergy Type Onset Date Status amlodipine amLODIPine Besylate stomach pain Drug Allergy Active atorvastatin Atorvastatin Calcium myalgia Drug Allergy Active Metoprolol Succinate leg swelling Drug Allergy Active pravastatin Pravastatin Sodium joint pain Drug Allergy Active codeine Codeine swelling Drug Allergy Active Penicillin rash Drug Allergy Active REASON FOR VISIT Pcp- 10/16, PCP 06/2023, Heel pain Medications Medication SIG (Take, Route, Frequency, Duration) Notes Start Date End Date Status Irbesartan 300 MG TAKE 1 TABLET BY MOLINA TH DAILY Oral for 90 Days Active Omeprazole 20 MG TAKE 1 CAPSULE BY MOUTH DAILY Oral for 90 Days Active Meloxicam 15 MG TAKE 1 TABLET BY MOLNIA TH DAILY Oral for 30 Days Active Senna 8.6 MG TAKE 1 TABLET BY MOLINA TH 2 TIMES A DAY NEEDED FOR CONSTIPATION FOR 30 DAYS Oral for 30 Days Active Pain Reliever Extra Strength 500 MG TAKE 1 TABLET EVERY 6 HRS NEEDED FOR PAIN OR FEVER Oral for 3 Days Active Physical Therapy . . . 2-3x/week for 3- 4 weeks Active Cyclobenzaprine HCl 5 MG Oral for 5 Days Active amLODIPine Besylate 5 MG TAKE 1 TABLET B Y MOUTH TWICE DAILY Oral for 90 Days Active Medrol nikolai 4mg as directed orally a s directed for 6 days 12/12/2023 Active hydroCHLOROthiazide 25 MG TAKE 1 TABLET [...] an other tobacco user? No Vital Signs Height 5 ft 1in in 12/12/2023 Weight 161 lbs 12/12/2023 BMI 30.42 kg/m2 12/12/2023 Blood pressure systolic 178 mm Hg 12/12/19 24 Blood pressure diastolic 84 mm Hg 024 Encounters Encounter Location Date Provider Diagnosis [facility] [address] [address] 12/12/2023 Sil Perez Achilles tendinitis of left lower extremity M76.62 ; Pain of left heel M79.672 and Calcaneal spur of left foot M77.32 Assessments Encounter Date Diagnosis (ICD Code) Assessment Notes Treatment Notes Treatment Clinical Notes Section Notes 12/12/2023 Achilles tendinitis of left lower extremity (ICD-10 - M76.62) Patient Educated with: HEEL CORD STRETCHES.pdf (HEEL CORD STRETCHES.pdf) Patient Educated with: RICE THERAPY.pdf (RICE THERAPY.pdf) 12/12/2023 Pain of left heel (ICD-10 - M79.672) 12/12/2023 Calcaneal spur of left foot (ICD-10 - M77.32) Plan Of Treatment Medication Medication Name Sig Start Date Stop Date Notes Physical Therapy . . . 2-3x/week for 3-4 weeks Medrol nikolai 4mg as directed orally a s directed for 6 days 12/12/2023 Treatment Notes Assessment Notes Achilles tendinitis of left lower extrem ity Patient Educated with: HEEL CORD STRETCHES.pdf (HEEL CORD STRETCHES.pdf) Patient Educated with: RICE THERAPY.pdf (RICE THERAPY.pdf) Next Appt Details Follow Up: 6 Weeks, Reason: Progress Notes * Angel GERONIMO:1950 (73 yo F)Acc No.[id number]:12/12/2023 Progress Note Patient:?Zayra Geronimo Provider:?Sil Perez DPM :1950???Age:73 Y???Sex:Female D ate:12/12/2023 Address:[address] [place] [address] [address] [phone] Pcp:Spenser Romero Subjective: * Chief Complaints: * ???Pcp- 10/16 PCP 06/2023Heel pain * HPI: ???Heel pain:?Nature:?aching stiffness swelling tenderness throbbing.?Location:?Back of heel, LEFT.?Duration:?a year or more.?Onset/Cause:?gradual.?Course:?unchanged.?Aggrevated:?standing, walking, walking first thing in the morning/after rest.?Treatments:?rest change in shoes stretching.?Misc:?Translation provided by friend in room.? * ROS:?General/Constitutional:?Nausea?denies, denies.?Vomiting?denies, denies.?Hunger Thirst?denies, denies.?Loss appetite?denies, denies.?Chills?denies, denies.?Fatigue?denies, denies.?Fever?denies, denies.?Night Sweats denies, denies.?Unexplained weight loss?denies, denies.?Unexplained weight gain?denies, denies.?HEENTM:?Dentures?denies, denies.?Dizziness?denies, denies.?Glasses/contacts?admits, admits.?Retinopathy?denies, denies.?Blurred/double vision?denies, denies.?TMJ?denies, denies.?Discharge/drainage?denies, denies.?Implants?denies, denies.?Sore throat?denies, denies.?Dental implants?denies, denies.?Hard of hearing ?denies, denies.?Difficulty chewing/swallowing/speaking?denies, denies.?Nose bleeds?denies, denies.?Sore mouth?denies, denies.?Respiratory:?On Oxygen?denies, denies.?Pneumonia/pleurisy?denies, denies.?Bronchitis?denies, denies.?Emphysema?denies, denies.?Coughing?denies, denies.?Cough blood?denies, denies.?Shortness of breath?denies, denies.?Wheezing?denies, denies.?Cardiovascular:?Pacemaker?denies, denies.?MVP?denies, denies.?WPW?denies, denies.?CHF?denies, denies.?Heart attack?denies, denies.?Septal defect?denies, denies.?Rapid beat?denies, denies.?Chest pain ?denies, denies.?Atrial Fib.?denies, denies.?Murmur/Palpitations?denies, denies.?Gastrointestinal:?Hemorrhoids?denies, denies.?Stomach/Abdominal pain?denies, denies.?Dark blood stool?denies, denies.?Irritable bowel ?denies, denies.?Constipation?denies, denies.?Diarrhea?denies, denies.?Hematology:?Swelling?admits, denies.?Clots?denies, denies.?Varicose Veins?denies, denies.?Bruising?denies, denies.?Bleeding problem?denies, denies.?Genitourinary:?Blood urine?denies, denies.?Frequent/Painfu/urination/bladder control?denies, denies.?Kidney stones?denies, denies.?Infection (UTI)?denies, denies.?Nephropathy?denies, denies.?sex trans dis (STD)?denies, denies.?Prostate?denies, denies.?Musculoskeletal:?Hammertoes?denies, denies.?Bunions?denies, denies.?Back Pain?denies, denies.?Muscle Cramps/ Resting?denies, denies.?Muscle cramps / walking?denies, denies.?Generalized aches and pains?denies, denies.?Weakness?denies, denies.?Integ.:?Goodwin?denies, denies.?Scars?denies, denies.?Corns/calluses?denies, denies.?Ingrown nails?denies, denies.?Painful nails?denies, denies.?Open Sores?denies, denies.?Rashes?denies, denies.?Neurologic:?Difficulty sleeping?denies, denies.?Brain disorder?denies, denies.?Numbness?denies, denies.?Balance trouble?denies, denies.?Confusion?denies, denies.?Fainting/blackouts?denies, denies.?Tingling?denies, denies.?Tremors?denies, denies.? * Medical History:? * Surgical History:?tubal liga tion colonoscopy dilatation and curettage esophagogastroduodenoscopy loop electrosurgical excision procedure (LEEP) R ankle surgery * Hospitalization/Major Diagno stic Procedure:?Denies Past Hospitalization * Family History:?Mother: dece ased, kidney/liver disease, diagnosed with Unspecified essential hypertension.?Father: , alzheimer's disease.? * Social History:?Tobacco Use:?Tobacco Use/Smoking?Are you a:?nonsmoker ?Additional Findings: Tobacco Non-User?Current non-smoker ?Tobacco use other than smoking?Are you an other tobacco user??No ???Drugs/Alcohol:?Drugs?Have you used drugs other than those for medical reasons in the past 12 months??No ?Alcohol Screen?Did you have a drink containing alcohol in the past year??No ?Points?0 ?Interpretation?Negative ???Miscellaneous:?Caffeine: yes, frequency: , 1 cups per day. ?Children: yes, 3. ?Exercise: yes, Daily walking, housework , Cooking. ?Marital status: . 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 * Medications:?TakingamLODIPin e Besylate 5 MG Tablet TAKE 1 TABLET BY MOUTH TWICE DAILY Oral Cyclobenzaprine HCl 5 MG Tablet Oral hydroCHLOROthiazide 25 MG Tablet TAKE 1 TABLET BY MOUTH DAILY Oral Meloxicam 15 MG Tablet TAKE 1 TABLET BY MOUTH DAILY Oral Omeprazole 20 MG Capsule Delayed Release TAKE 1 CAPSULE BY MOUTH DAILY Oral Irbesartan 300 MG Tablet TAKE 1 TABLET BY MOUTH DAILY Oral Pain Reliever Extra Strength 500 MG Tablet TAKE 1 TABLET EVERY 6 HRS NEEDED FOR PAIN OR FEVER Oral Senna 8.6 MG Tablet TAKE 1 TABLET BY MOUTH 2 TIMES A DAY NEEDED FOR CONSTIPATION FOR 30 DAYS Oral Physical Therapy . . . . 2-3x/weekMedication List reviewed and reconciled with the patientTaking amLODIPine Besylate 5 MG Tablet TAKE 1 TABLET BY MOUTH TWICE DAILY Oral Taking Cyclobenzaprine HCl 5 MG Tablet Oral Taking hydroCHLOROthiazide 25 MG Tablet TAKE 1 TABLET BY MOUTH DAILY Oral Taking Meloxicam 15 MG Tablet TAKE 1 TABLET BY MOUTH DAILY Oral Taking Omeprazole 20 MG Capsule Delayed Release TAKE 1 CAPSULE BY MOUTH DAILY Oral Taking Irbesartan 300 MG Tablet TAKE 1 TABLET BY MOUTH DAILY Oral Taking Pain Reliever Extra Strength 500 MG Tablet TAKE 1 TABLET EVERY 6 HRS NEEDED FOR PAIN OR FEVER Oral Taking Senna 8.6 MG Tablet TAKE 1 TABLET BY MOUTH 2 TIMES A DAY NEEDED FOR CONSTIPATION FOR 30 DAYS Oral Taking Physical Therapy . . . . 2-3x/weekMedication List reviewed and reconciled with the patient * Allergies:?Penicillin: rash - AllergyCodeine: swelling - AllergyAtorvastatin Calcium: myalgiaamLODIPine Besylate: stomach painPravastatin Sodium: joint painMetoprolol Succinate: leg swellingyes[Allergies Verified] Objective: * Vitals:?Ht: 5 ft 1in, Wt:161 , BMI:30.42, Shoe size:9, BP:178/84 mm Hg. 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.?ORIENTED:?person, place, and time.?Neurological: ?SENSORY:?Neurological exam reveals intact sensorium, pain sensation normal, vibration sensation intact, pinprick sensation is normal in the lower extremities, Pt denies, anesthesia, burning, paresthesia, tingling, B/L.?DEEP TENDON REFLEXES:?Achilles, 2/4, B/L , Deferred on symptomatic extremity due to discomfort.?Vascular: ?DP PULSES:?3/4, B/L.?PT PULSES:?3/4, B/L.?CAPILLARY FILL TIME:?immediate, all digits, B/L.?SKIN TEMPERTURE GRADIENT OF THE LOWER EXTERMITIES:?warm to cool, proximal to distal, B/L.?HAIR GROWTH/TEXTURE/ELASTICITY/TURGOR:?normal, B/L.?PIGMENTATION:?normal, B/L.?EDEMA:?absent, B/L.?Dermatologic: ?SKIN FINDINGS:?Skin exam reveals normal texture, elasticity, and turgor. There are no masses. The interspaces are clear.?Orthopedic: ?MUSCLE STRENGTH:?5/5 all groups in a symmetrical fashion , B/L.?GAIT ABNORMALITY:?antalgic.?FOOT MORPHOLOGY:? Decreased Ankle joint dorsiflexion ROM, knee extended.?Heel Pain: ?INSPECTION:? Pain on palpation to Posterior Superior Aspect Calcaneus,Pain on palpation to Achilles tendon/bursa with inflammation and swelling present,Prominent posterior and posterior/superior heel present, LEFT foot,Neg [place]ingham.? Assessment: * Assessment: 1.?Pain of left heel - M79.6 72?2.?Achilles tendinitis of left lower extremity - M76.62 (Primary), Acute problem, Complicated w/ Multiple Tx Options(4)?3.?Calcaneal spur of left foot - M77.32? Plan: * Treatment: * Procedure Codes:? * Preventive Medicine:? ??Counseling:?Discussion:?-14: Office or other outpatient visit for the evaluation and management of an established patient, which required a medically appropriate history and/or examination and MODERATE level of DECISION MAKING for: 1 OR MORE CHRONIC PROBLEM(S) THATS WORSENING, 2 STABLE CHRONIC PROBLEMS, A NEWLY DIAGNOSED PROBLEM WITH UNCERTAIN PROGNOSIS, AN ACUTE COMPLICATED INJURY WITH MULTIPLE TREATMENT OPTIONS, OR AN ACUTE PROBLEM WITH ACCOMPANYING SYSTEMIC SYMPTOMS, THAT POSE(S) A MODERATE RISK OF MORBIDITY. THIS CONDITION MAY ALSO INCLUDE RX DRUG MANAGEMENT, OR A DECISON FOR MINOR SURGERY. The visit on the day of the encounter encompassed interpreting the data and educating the patient as to the nature of their condition, treatment options available according to their individual PMH, meds, allergies, and overall health/living conditions, as well as any potential risks or complications that may occur from a failure to adhere to, and participate in, the recommended course of therapy. The discussion included a complete verbal, and/or written explanation of the examination results, any x-rays taken, the proposed diagnosis, and outline of the treatment plan. A schedule for future care needs was also explained. The patient verbalized an understanding of the instructions at this time and agreed to be an active participant in their treatment. If the patient should think of any questions or concerns after the visit, I have encouraged the patient to call the office.?Heel pain:?ACHILLES: I explained to the patient the possible etiologies of Achilles Tendonitis including foot type/shoegear/activity level/exercise routine and the risks/benefits of all the different treatment options for pain including: No treatment at all, Rest, Ice, NSAIDs(only if well tolerated after meals), New/supportive Shoegear, Strappings and Tapings, Stretching exercises, Deep Tissue Massage, Heel cups/cushions, Arch support/shoe inserts, Custom orthoses, Topical analgesics including Aspercream/Voltaren gel, Night splint/AFO Bracing for stiffness, Cast boot with crutches/cane/or walker for assisted ambulation, Physical Therapy, EPAT/ESWT, Interfil injection therapy, as well as surgical Ewing/Calcanectomy- tendon debridement surgical procedures if needed. Recommendations were made to limit barefoot walking, eliminate wearing nonsupportive shoegear (i.e. flip-flops or sandals, or a shoe with an easily bendable, foldable, or twistable sole) and wear shoegear with a good solid sole, a supportive arch, and plenty of room for an insert/orthotic if necessary. If wearing sandals was required by the patient, we recommended orthopedic sandals such as Orthoheel or Birkenstock even while in the home. If the patient wore heels in the past, we recommended they continue, but eliminate the use of flats. The advantages and disadvantages of each option were discussed and the patients' questions re: shoegear, custom vs prefabricated inserts, activity level, PO vs Topical medications (and their respective potential complications/drug interactions/side effects), and consistency in home treatment regimens for optimal success were answered to their verbally confirmed satisfaction. Literature detailing Achilles Tendonitis and the various treatment options were dispensed and reviewed.?P.R.I.C.E.:?The patient was counseled on the use of P.R.I.C.E. and NSAIDS (if well tolerated) to aid in the recovery from their painful condition.?Physical Therapy:?Discussed the potential short and custodial benefits of physical therapy including pain relief, improved function for activity of daily life, return to exercise, increased quality of life. We discussed the usual/customary PT treatment schedule of 2-3 times per week for 4 weeks to as much as 12 weeks depending on insurance approval/coverage. We discussed various PT treatment modalities including, but not limited to, gate training, muscular stabilization, stretching, deep tissue therapeutic massage, ultrasound, TENS, iontophoresis, fluidotherapy, laser therapy, hydrotherapy, contrast ice/heat bath, and passive as well as active ROM exercises. Questions re: PT including visit amounts, rates of success, and goals were answered to the patient's satisfaction. The patient verbally confirmed the medical necessity and use of PT therapy treatment for their MSK condition.?Stretching Exercises:?Stretching and deep tissue massage exercises for the patients injury/diagnosis were discussed and demonstrated, Handouts were also given.? * Follow Up:?6 Weeks * Images: * Sign off status: Completed true * Provider:?Sil Perez, DPM Date:? Generated for Brandi canas/Joel/Edita on:?12/23/2024 05:35 PM EST History and Physical Notes * HPI (History of Present Illness) Category Sub-Category Detail Notes Category Not es Heel pain Duration: a year or more Nature: aching stiffness swe lling tenderness throbbing Location: Back of heel, LEFT Onset/Cause: gradual Aggravated: standing, walking, w alking first thing in the morning/after rest Course: unchanged Treatments: rest change in shoes stretching Misc: Translation provided by friend in room Examination Category Sub-Category Detail Notes Category Not es Neurological SENSORY: Neurological exa m reveals intact sensorium, pain sensation normal, vibration sensation intact, pinprick sensation is normal in the lower extremities, Pt denies, anesthesia, burning, paresthesia, tingling, B/L DEEP TENDON REFLEXES: Achilles, 2/4, B/L , Deferred on symptomatic extremity due to discomfort Dermatologic SKIN FINDINGS: Skin exam reveal s normal texture, elasticity, and turgor. There are no masses. 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 as own historian for office visit today ORIENTED: person, place, and t tita Vascular DP PULSES (B): 3/4, B/L PT PULSES (B): 3/4, B/L CAPILLARY FILL TIME: immediate, all digi ts, B/L TEMPERTURE GRADIENT (C): warm to cool, p roximal to distal, B/L TROPHIC CONDITION-TEXTURE/ELASTICITY/TURGOR/HAIR GROWTH (B): normal, B/L EDEMA (C): absent, B/L PIGMENTATION: normal, B/L Heel Pain INSPECTION: Pain on palpatio n to Posterior Superior Aspect Calcaneus, Pain on palpation to Achilles tendon/bursa with inflammation and swelling present, Prominent posterior and posterior/superior heel present, LEFT foot, Neg [place]
--- OUTSIDE RECORDS SUMMARY | 2024-12-23 17:35 | XMS_ITS | Encounter Summary ---
Author Organization [facility] Address [address] [place] [address] Care Team Providers Care Business Objects Consultant Name Role Phone Unavailable Primary Care Provider Unavailabl e Reason for Visit * Reason Comments Routine Cleaning Dental Exam x-rays Encounter Details Date Type Department Care Team ([facility] st Contact Info) Description 12/03/2024 10:00 AM EST Office Visit [facility] ADULT DENTAL [address] [place] [address] Jaci Kwan [address] [place] [address] Localized gingival recession (Primary Dx); Dental calculus; Abfraction; Periodontal disease; Missing teeth, acquired; Sensitivity of root structure of tooth Social History Tobacco Use Types Packs/Day Years Used Date Smoking Tobacco: Never Smokeless Tobacco: Never Alcohol Use Standard Drinks/Week Comments Never 0 (1 standard drink = 0.6 oz pur e alcohol) Comments Unknown Sex and Gender Information Value Date Recorded Sex Assigned at Female 09/23/2022 10:15 AM EDT Legal Sex Female 10:15 AM EDT Gender Identity Female 04/17/2023 12:06 PM EDT Sexual Orientation Straight 04/17/2023 12 :06 PM EDT documented as of this encounter Last Filed Vital Signs Vital Sign Reading Time Taken Comments Blood Pressure 132/76 12/03/2024 10:01 AM EST Pulse - - Temperature - - Respiratory Rate - - Oxygen Saturation - - Inhaled Oxygen Concentration - - Weight - - Height - - Body Mass Index - - documented in this encounter Progress Notes * Jaci Kwan - 12/03/2024 10:00 AM EST Patient ID: Zayra Londono is a 74 y.o. female. Time Out: Timeout Date: 12/03/24, Timeout Time: 1001 (X-rays , ProphPedro deutsch exam, Perio chart) Location: [facility] Tooth: Maxilla and Mandible Procedure: Exam, X-rays, Prophylaxis, and Perio chart Verified the above with patient, dietetic assistant, and provider. Confirmed via patient's chart, intraorally and by radiographs. Information Director: not applicable Medical Hx: Vitals: Blood pressure 132/76. Medications, Med Hx reviewed with patient and updated in chart. Treatment Provided Dental procedures in this visit D0274 - BITEWINGS - 4 RADIOGRAPHIC IMAGES (Completed) Service provider: Jaci Kwan [place] provider: Jake Iverson DDS D0220 - INTRAORAL - PERIAPICAL FIRST RADIOGRAPHIC IMAGE (Completed) Service provider: Jaci Kwan Billing provider: Jake Iverson DDS D0230 - INTRAORAL - PERIAPICAL EACH ADDITIONAL RADIOGRAPHIC IMAGE (Completed) Service provider: Jaci Kwan Billing provider: Jake Iverson DDS D1110 - PROPHYLAXIS - ADULT (Completed) Service provider: Jaci Kwan Billing provider: Jake Iverson DDS D1330 - ORAL HYGIENE INSTRUCTIONS (Completed) Service provider: Jaci Kwan Billing provider: Jake Iverson DDS D0230 - INTRAORAL - PERIAPICAL EACH ADDITIONAL RADIOGRAPHIC IMAGE (Completed) Service provider: Jaci Kwan Billing provider: Jake Iverson DDS Instruments Used: Ultrasonic Scalers, Hand Scalers, and Prophy angle Fluoride: N/A Oral Cancer Screening: No lesions Head/Neck Exam: raised moles on face Calculus: Light, Moderate, and Subgingival mandibular anterior teeth and UL molars Plaque: Light, Moderate, and Generalized Stain: Light Bleeding: Light Gingiva: Recession- localized and pink OH: Fair Perio Chart: Completed Oral hygiene instructions provided to patient including brushing technique and flossing. Recommendations: Huslia two times daily, modified perla technique, Floss daily, Electric toothbrush, Soft bristle toothbrush, Huslia Tongue, Anti-sensitivity toothpaste Recall Frequency: 6 mo for prophy NV: Dr. Iverson for jain and add tooth to mandbular partial. Hygienist: Jaci Kwan RDH * Jake Iverson DDS - 12/03/2024 10:00 AM EST Dental procedures in this visit D0274 - BITEWINGS - 4 RADIOGRAPHIC IMAGES (Completed) Service provider: Jaci Kwan Billing provider: Jake Iverson DDS D0220 - INTRAORAL - PERIAPICAL FIRST RADIOGRAPHIC IMAGE (Completed) Service provider: Jaci Kwan [place] provider: Jake Iverson DDS D0230 - INTRAORAL - PERIAPICAL EACH ADDITIONAL RADIOGRAPHIC IMAGE (Completed) Service provider: Jaci Kwan [place] provider: Jake Iverson DDS D1110 - PROPHYLAXIS - ADULT (Completed) Service provider: Jaci Kwan [place] provider: Jake Iverson DDS D1330 - ORAL HYGIENE INSTRUCTIONS (Completed) Service provider: Jaci Kwan [place] provider: Jake Iverson DDS D0230 - INTRAORAL - PERIAPICAL EACH ADDITIONAL RADIOGRAPHIC IMAGE (Completed) Service provider: Jaci Kwan [place] provider: Jake Iverson DDS D0120 - PERIODIC ORAL EVALUATION - ESTABLISHED PATIENT (Completed) Service provider: Jake Iverson DDS [place] provider: Jake Iverson DDS Patient ID: Zayra Londono is a 74 y.o. female. Time Out: Timeout Date: 12/03/24, Timeout Time: 1001 (X-rays , Prophy, P. exam, Perio chart) Location: [facility] Tooth: Maxilla and Mandible Procedure: Exam, X-rays, and Prophylaxis Verified the above with patient, dietetic assistant, and provider. Confirmed via patient's chart, intraorally and by radiographs. Information Director: not applicable Chief Complaint Patient presents with Routine Cleaning Dental Exam x-rays Medical Hx: Vitals: Blood pressure 132/76. Past Medical History: Diagnosis Date Arthritis GERD (gastroesophageal reflux disease) Hypertension Kidney disease Periodontal disease Medications: Outpatient Encounter Medications as of 12/03/2024 Medication Sig Dispense Refill amLODIPine (Norvasc) 5 MG tablet Take 1 tablet by mouth Once per day. irbesartan (Avapro) 300 MG tablet TAKE 1 TABLET BY MOUTH DAILY Oral for 90 Days naproxen (Naprosyn) 500 MG tablet TAKE 1 TABLET BY MOUTH EVERY 8 TO 12 HOURS NEEDED FOR PAIN (Patient not taking: Reported on 10/08/2024) omeprazole (PriLOSEC) [address] capsule TAKE 1 CAPSULE BY MOUTH EVERY DAY 30 MINUTES BEFORE MEALS (Patient not taking: Reported on 10/08/2024) polyethylene glycol, PEG, 3350 (Glycolax) 17 GM/SCOOP powder DISSOLVE 17 GRAMS IN LIQUID AND DRINK BY MOUTH DAILY NEEDED FOR CONSTIPATION FOR 30 DAYS No facility-administered encounter medications on file as of 12/03/2024. Objective HPI Slight sensitive on max. Left molar temp. changes Head and Neck Exam: Lymph Nodes, Lips, Palate, Buccal Mucosa, Floor of Mouth, Tongue, Tonsils, Alveolar Ridges, Oropharynx, Salivary Ducts, and Vestibules Details: Skin WNL OCS: negative Dental Exam As charted T # 14 abfraction Missing teeth acquired Reference tooth chart for additional findings. Oral Cancer Risk: Moderate Risk Oral Hygiene Instructions: Huslia two times daily, modified perla technique, Floss daily, Electric toothbrush, Soft bristle toothbrush, Huslia Tongue Caries Risk Assessment: Medium- one risk factor Assessment/Plan NAVEEN X Ray Prophy Patient tolerated procedure well, all questions answered and expressed understanding. Dismissed in good condition. NV: Osman Census Taker: Jaci Kwan RDH Dentist: Jake Iverson DDS documented in this encounter Plan of Treatment Upcoming Encounters Date Type Department Care Team (Late st Contact Info) Description 12/30/2024 9:00 AM EST Office Visit [facility] ADULT DENTAL [address] [place] [address] Jake Iverson DDS [address] [place] [address] 06/03/2025 1:00 PM EDT Office Visit [facility] ADULT DENTAL [address] [place] [address] Jaci Kwan [address] [place] [address] Scheduled Orders Name Type Priority Associated Diagnoses Orde r Schedule 14 B(V) 14 B(V) RESIN-BASED COMPOSITE - 1 SURFACE, POSTERIOR Dental Routine 1 Occurrences starting 12/03/2024 PROPHYLAXIS - ADULT Dental Routine 1 Occ urrences starting 12/03/2024 ORAL HYGIENE INSTRUCTIONS Dental Routine 1 Occurrences starting 12/03/2024 documented as of this encounter Procedures Procedure Name Priority Date/Time Associated Diagnosis Comments PROPHYLAXIS - ADULT Routine 12/03/2024 1 0:00 AM EST PERIODIC ORAL EVALUATION - ESTABLISHED PATIENT Routine 12/03/2024 10:00 AM EST ORAL HYGIENE INSTRUCTIONS Routine 2024 10:00 AM EST INTRAORAL - PERIAPICAL FIRST RADIOGRAPHIC IMAGE Routine 12/03/2024 10:00 AM EST INTRAORAL - PERIAPICAL EACH ADDITIONAL RADIOGRAPHIC IMAGE Routine 12/03/2024 10:00 AM EST INTRAORAL - PERIAPICAL EACH ADDITIONAL RADIOGRAPHIC IMAGE Routine 12/03/2024 10:00 AM EST BITEWINGS - 4 RADIOGRAPHIC IMAGES Routine 12/03/2024 10:00 AM EST documented in this encounter Visit Diagnoses Diagnosis Localized gingival recession- Primary Gingival recession, localized Dental calculus Accretions on teeth Abfraction Periodontal disease Unspecified gingival and periodontal disease Missing teeth, acquired Sensitivity of root structure of tooth documented in this encounter
--- OUTSIDE RECORDS SUMMARY | 2024-12-23 17:36 | XMS_ITS ---
[facility] Address [address] [place] [address] Care Team Providers Care Cartoon Designer Name Role Phone Spenser Romero Primary Care Provider Sil Rios Unavailable [phone] Allergies Allergen (clinical drug ingredient) Drug/Non Drug Allergy documented on EMR Reaction Allergy Type Onset Date Status amlodipine amLODIPine Besylate stomach pain Drug Allergy Active atorvastatin Atorvastatin Calcium myalgia Drug Allergy Active Metoprolol Succinate leg swelling Drug Allergy Active pravastatin Pravastatin Sodium joint pain Drug Allergy Active codeine Codeine swelling Drug Allergy Active Penicillin rash Drug Allergy Active REASON FOR VISIT Pcp-06/07/24, Heel pain Medications Medication SIG (Take, Route, Frequency, Duration) Notes Start Date End Date Status Irbesartan 300 MG TAKE 1 TABLET BY MOLINA TH DAILY Oral for 90 Days Active Cyclobenzaprine HCl 5 MG Oral for 5 Days Active hydroCHLOROthiazide 25 MG TAKE 1 TABLET BY MOUTH DAILY Oral for 90 Days Active Meloxicam 15 MG TAKE 1 TABLET BY MOLINA TH DAILY Oral for 30 Days Active Omeprazole 20 MG TAKE 1 CAPSULE BY MOUTH DAILY Oral for 90 Days Active Medrol nikolai 4mg as directed orally a s directed for 6 days 12/12/2023 Active Medrol nikolai 4mg as directed orally a s directed for 6 days 06/15/2024 Active amLODIPine Besylate 5 MG TAKE 1 TABLET B Y MOUTH TWICE DAILY Oral for 90 Days Active Senna 8.6 MG TAKE 1 TABLET BY MOLINA TH 2 TIMES A DAY NEEDED FOR CONSTIPATION FOR 30 DAYS Oral for 30 Days Active Physical Therapy . . . 2-3x/week for 3- 4 weeks Active Pain Reliever Extra Strength 500 MG TAKE 1 TABLET EVERY 6 HRS NEEDED FOR PAIN OR FEVER Oral for 3 Days Active Social History Tobacco Use: Social History Observation Description Date Details (start date - stop date) Never Smoker NA - NA Tobacco Use/Smoking Question Answer Notes Are you a: nonsmoker Additional Findings: Tobacco Non-User Current no n-smoker Tobacco use other than smoking: Question Answer Notes Are you an other tobacco user? No Vital Signs Height 5ft1in in 06/15/2024 Weight 157 lbs 06/15/2024 BMI 29.66 kg/m2 06/15/2024 Blood pressure systolic 134 mm Hg 06/15/20 Blood pressure diastolic 60 mm Hg 024 Encounters Encounter Location Date Provider Diagnosis [facility] [address] [place] [address] 06/15/2024 Sil Perez Achilles tendinitis of left lower extremity M76.62 ; Pain of left heel M79.672 and Calcaneal spur of left foot M77.32 Assessments Encounter Date Diagnosis (ICD Code) Assessment Notes Treatment Notes Treatment Clinical Notes Section Notes 06/15/2024 Achilles tendinitis of left lower extremity (ICD-10 - M76.62) 06/15/2024 Pain of left heel (ICD-10 - M79.672) 06/15/2024 Calcaneal spur of left foot (ICD-10 - M77.32) Plan Of Treatment Medication Medication Name Sig Start Date Stop Date Notes Medrol nikolai 4mg as directed orally as directed for 6 days 0 06/15/2024 Next Appt Details Follow Up: prn, Reason: Progress Notes * Zayra GERONIMODOB:1950 (74 yo F)Acc No.[id number]:06/15/2024 Progress Note Patient:?Geronimo, Zayra Provider:?Sil Perez DPM :1950???Age:74 Y???Sex:Female D ate:06/15/2024 Address:[address] [place], [place] [id number] Pcp:Spenser Romero Subjective: * Chief Complaints: * ???Pcp-06/07/24Heel pain * HPI: ???Heel pain:?Nature:?aching stiffness swelling tenderness throbbing.?Location:?Back of heel, LEFT.?Duration:?a year or more.?Onset/Cause:?gradual.?Course:?improved?with physical therapy.?Aggravated:?standing, walking, walking first thing in the morning/after rest.?Treatments:?rest change in shoes, stretching, medication ( Medrol- prescribed in November 2023),?physical therapy-(completed last month).?Misc:?Translation provided by friend in room.? * ROS:?General/Constitutional:?Nausea?denies, denies, denies, denies.?Vomiting?denies, denies, denies, denies.?Hunger Thirst?denies, denies, denies, denies.?Loss appetite?denies, denies, denies, denies.?Chills?denies, denies, denies, denies.?Fatigue?denies, denies, denies, denies.?Fever?denies, denies, denies, denies.?Night Sweats?denies, denies, denies, denies.?Unexplained weight loss?denies, denies, denies, denies.?Unexplained weight gain?denies, denies, denies, denies.?HEENTM:?Dentures?denies, denies, denies, denies.?Dizziness?denies, denies, denies, denies.?Glasses/contacts?admits, admits, admits, admits.?Retinopathy?denies, denies, denies, denies.?Blurred/double vision?denies, denies, denies, denies.?TMJ?denies, denies, denies, denies.?Discharge/drainage?denies, denies, denies, denies.?Implants?denies, denies, denies, denies.?Sore throat?denies, denies, denies, denies.?Dental implants?denies, denies, denies, denies.?Hard of hearing ?denies, denies, denies, denies.?Difficulty chewing/swallowing/speaking?denies, denies, denies, denies.?Nose bleeds?denies, denies, denies, denies.?Sore mouth?denies, denies, denies, denies.?Respiratory:?On Oxygen?denies, denies, denies, denies.?Pneumonia/pleurisy?denies, denies, denies, denies.?Bronchitis?denies, denies, denies, denies.?Emphysema?denies, denies, denies, denies.?Coughing?denies, denies, denies, denies. Cough blood?denies, denies, denies, denies.?Shortness of breath?denies, denies, denies, denies.?Wheezing?denies, denies, denies, denies.?Cardiovascular:?Pacemaker?denies, denies, denies, denies.?MVP?denies, denies, denies, denies.?WPW?denies, denies, denies, denies.?CHF?denies, denies, denies, denies.?Heart attack?denies, denies, denies, denies.?Septal defect?denies, denies, denies, denies.?Rapid beat?denies, denies, denies, denies.?Chest pain ?denies, denies, denies, denies.?Atrial Fib.?denies, denies, denies, denies.?Murmur/Palpitations?denies, denies, denies, denies.?Gastrointestinal:?Hemorrhoids?denies, denies, denies, denies.?Stomach/Abdominal pain?denies, denies, denies, denies.?Dark blood stool?denies, denies, denies, denies.?Irritable bowel ?denies, denies, denies, denies.?Constipation?denies, denies, denies, denies.?Diarrhea?denies, denies, denies, denies.?Hematology:?Swelling?denies, denies, admits, denies.?Clots?denies, denies, denies, denies.?Varicose Veins?denies, denies, denies, denies.?Bruising?denies, denies, denies, denies.?Bleeding problem?denies, denies, denies, denies.?Genitourinary:?Blood urine?denies, denies, denies, denies.?Frequent/Painfu/urination/bladder control?denies, denies, denies, denies.?Kidney stones?denies, denies, denies, denies.?Infection (UTI)?denies, denies, denies, denies.?Nephropathy denies, denies, denies, denies.?sex trans dis (STD)?denies, denies, denies, denies.?Prostate?denies, denies, denies, denies.?Musculoskeletal:?Hammertoes?denies, denies, denies, denies.?Bunions?denies, denies, denies, denies.?Back Pain?denies, denies, denies, denies.?Muscle Cramps/ Resting?denies, denies, denies, denies.?Muscle cramps / walking?denies, denies, denies, denies.?Generalized aches and pains?admits, denies, denies, denies.?Weakness?denies, denies, denies, denies.?Integ.:?[place]?denies, denies, denies, denies.?Scars?denies, denies, denies, denies.?Corns/calluses?denies, denies, denies, denies.?Ingrown nails?denies, denies, denies, denies.?Painful nails?denies, denies, denies, denies. Open Sores?denies, denies, denies, denies.?Rashes?denies, denies, denies, denies.?Neurologic:?Difficulty sleeping?denies, denies, denies, denies.?Brain disorder?denies, denies, denies, denies.?Numbness?denies, denies, denies, denies.?Balance trouble?denies, denies, denies, denies.?Confusion?denies, denies, denies, denies.?Fainting/blackouts?denies, denies, denies, denies.?Tingling?denies, denies, denies, denies.?Tremors?denies, denies, denies, denies.? * Medical History:? * Surgical History:?tubal [...] than smoking?Are you an other tobacco user??No ???Miscellaneous:?Caffeine: yes, frequency: , 1 cups per [...] Oral Physical Therapy . . . . 2-3x/weekMedrol nikolai 4mg Tablet Therapy Pack as directed orally as directedMedication List reviewed and reconciled with the patientTaking [...] Taking Physical Therapy . . . . 2-3x/weekTaking Medrol nikolai 4mg Tablet Therapy Pack as directed orally as directedMedication List reviewed and reconciled with the patient * Allergies:?Penicillin: rash - AllergyCodeine: swelling - AllergyAtorvastatin Calcium: myalgiaamLODIPine Besylate: stomach painPravastatin Sodium: joint painMetoprolol Succinate: leg swellingyes[Allergies Verified] Objective: * Vitals:?Ht: 5ft1in, Wt:157, BMI:29.66, Shoe size: 9, BP:134/60 mm Hg, Ht-cm: 154.94 cm, Wt-k.21 kg. * Examination: ???General Examination: ?GENERAL APPEARANCE:?Reveals a [...] proximal to distal, B/L.?HAIR GROWTH/TEXTURE/ELASTICITY/TURGOR:?normal, B/L.?PIGMENTATION:?normal, B/L.?EDEMA:?absent, B/L.?Orthopedic: ?MUSCLE STRENGTH:?5/5 all groups in a symmetrical fashion , B/L.?GAIT ABNORMALITY:?antalgic.?FOOT MORPHOLOGY:? Decreased Ankle joint dorsiflexion ROM, knee extended.?Heel Pain: ?INSPECTION:?Pain on palpation to Posterior Superior Aspect Calcaneus,Pain on palpation to Achilles tendon/bursa with decreased inflammation and swelling present,Prominent posterior and posterior/superior heel present, LEFT foot,Neg [place].? Assessment: * Assessment: 1.?Pain of left heel - M79.6 72?2.?Achilles tendinitis of left lower extremity - M76.62 (Primary), Acute problem, Complicated w/ Multiple Tx Options(4)?3.?Calcaneal spur of left foot - M77.32? Plan: * Treatment: * Procedure Codes:? * Preventive Medicine:? ??Counseling:?Discussion:?-13: Office or other outpatient visit for the evaluation and management of an established patient, which required a medically appropriate history and/or examination and LOW level of DECISION MAKING for: 1 STABLE ACUTE UNCOMPLICATED PROBLEM, 2 OR MORE MINOR PROBLEMS, OR 1 STABLE CHRONIC PROBLEM, THAT POSE(S) A LOW RISK FOR MORBIDITY/MORTALITY. The visit on the day of the [...] encouraged the patient to call the office.?Heel pain:?Discussed other tx options for the patients condition, patient feels significantly better following course of physical therapy. Discussed a final course of oral steroids to reduce inflammation and aid in patient's ability to continue at home stretching. Patient is in agreement with plan. Given recent successful results to treatment, the patient wishes to continue with the present plan for their condition.?P.R.I.C.E.:?The patient was counseled on the use of P.R.I.C.E. and NSAIDS (if well tolerated) to aid in the recovery from their painful condition.?Physical Therapy:?Continue Physical therapy.?Stretching Exercises:?Stretching and deep tissue massage exercises for the patients injury/diagnosis were discussed and demonstrated, Handouts were also given.? * Follow Up:?prn * Images: * Sign off status: Completed true * Provider:?Sil Perez DPM Date:? Generated for Brandi canas/Joel/Edita on:?12/23/2024 05:36 PM EST History and Physical Notes * HPI (History of Present Illness) Category Sub-Category Detail Notes Category Not es Heel pain Duration: a year or more Nature: aching stiffness swe lling tenderness throbbing Location: Back of heel, LEFT Onset/Cause: gradual Aggravated: standing, walking, w alking first thing in the morning/after rest Course: improved with physic al therapy Treatments: rest change in shoes , stretching, medication ( Medrol- prescribed in November 2023), physical therapy-(completed last month) Misc: Translation provided by friend in room Examination Category Sub-Category Detail Notes Category Not es Neurological SENSORY: Neurological exa m reveals intact sensorium, pain sensation normal, vibration sensation intact, pinprick sensation is normal in the lower extremities, Pt denies, anesthesia, burning, paresthesia, tingling, B/L DEEP TENDON REFLEXES: Achilles, 2/4, B/L , Deferred on symptomatic extremity due to discomfort Orthopedic GAIT ABNORMALITY: antalgic FOOT MORPHOLOGY: Decreased [...] Pain on palpation to Achilles tendon/bursa with decreased inflammation and swelling present, Prominent posterior and posterior/superior heel present, LEFT foot, Neg [place]
--- OUTSIDE RECORDS SUMMARY | 2024-12-23 17:36 | XMS_ITS ---
[facility] Organization [facility] Address [address] [place] [address] Care Team Providers Care Remote Sensing Program Manager Name Role Phone Spenser Romero Primary Care Provider Sil Rios Unavailable [phone] Allergies Allergen (clinical drug ingredient) Drug/Non Drug Allergy documented on EMR Reaction Allergy Type Onset Date Status amlodipine amLODIPine Besylate stomach pain Drug Allergy Active atorvastatin Atorvastatin Calcium myalgia Drug Allergy Active Metoprolol Succinate leg swelling Drug Allergy Active pravastatin Pravastatin Sodium joint pain Drug Allergy Active codeine Codeine swelling Drug Allergy Active Penicillin rash Drug Allergy Active REASON FOR VISIT Pcp- 11/15, Heel pain Medications Medication SIG (Take, Route, Frequency, Duration) Notes Start Date End Date Status hydroCHLOROthiazide 25 MG TAKE 1 TABLET BY MOUTH DAILY Oral for 90 Days Active Cyclobenzaprine HCl 5 MG Oral for 5 Days Active Meloxicam 15 MG TAKE 1 TABLET BY MOLINA TH DAILY Oral for 30 Days Active Medrol nikolai 4mg as directed orally a s directed for 6 days 12/12/2023 Active amLODIPine Besylate 5 MG TAKE 1 TABLET B Y MOUTH TWICE DAILY Oral for 90 Days Active Irbesartan 300 MG TAKE 1 TABLET BY MOLINA TH DAILY Oral for 90 Days Active Omeprazole 20 MG TAKE 1 CAPSULE BY MOUTH DAILY Oral for 90 Days Active Senna 8.6 MG TAKE 1 TABLET BY MOLINA TH 2 TIMES A DAY NEEDED FOR CONSTIPATION FOR 30 DAYS Oral for 30 Days Active Pain Reliever Extra Strength 500 MG TAKE 1 TABLET EVERY 6 HRS NEEDED FOR PAIN OR FEVER Oral for 3 Days Active Physical Therapy . . . 2-3x/week for 3- 4 weeks Active Social History Tobacco Use: Social History [...] Vital Signs Height 5 ft 1in in 02/25/2024 Weight 155 lbs 02/25/2024 BMI 29.28 kg/m2 02/25/2024 Blood pressure systolic 145 mm Hg 02/25/20 24 Blood pressure diastolic 70 mm Hg 024 Encounters Encounter Location Date Provider Diagnosis [facility] [address] [place] [address] 02/25/2024 Sil Perez Achilles tendinitis of left lower extremity M76.62 ; Pain of left heel M79.672 and Calcaneal spur of left foot M77.32 Assessments Encounter Date Diagnosis (ICD Code) Assessment Notes Treatment Notes Treatment Clinical Notes Section Notes 02/25/2024 Achilles tendinitis of left lower extremity (ICD-10 - M76.62) 02/25/2024 Pain of left heel (ICD-10 - M79.672) 02/25/2024 Calcaneal spur of left foot (ICD-10 - M77.32) Plan Of Treatment Next Appt Details Follow Up: 2 Months, Reason: Progress Notes * Zayra GERONIMODOB:1950 (73 yo F)Acc No.[id number]:02/25/2024 Progress Note Patient:?Geronimo Zayra Provider:?Sil Perez DPM :1950???Age:73 Y???Sex:Female D ate:02/25/2024 Address:[address] [place] [address] Pcp:Spenser Romero Subjective: * Chief Complaints: * ???Pcp- 11/15 Heel pain * HPI: ???Heel pain:?Nature:?aching stiffness swelling tenderness throbbing.?Location:?Back of heel, LEFT.?Duration:?a year or more.?Onset/Cause:?gradual.?Course:?improved?with Medrol dose pack, but has returned after completion of medication.?Aggrevated:?standing, walking, walking first thing in the morning/after rest.?Treatments:?rest change in shoes stretching medication ( Medrol) physical therapy-just started.?Misc:?Translation provided by friend in room.? * ROS:?General/Constitutional:?Nausea?denies, denies, denies.?Vomiting?denies, denies, denies.?Hunger Thirst?denies, denies, denies.?Loss appetite?denies, denies, denies.?Chills?denies, denies, denies.?Fatigue?denies, denies, denies.?Fever?denies, denies, denies.?Night Sweats?denies, denies, denies.?Unexplained weight loss?denies, denies, denies.?Unexplained weight gain?denies, denies, denies.?HEENTM:?Dentures?denies, denies, denies.?Dizziness?denies, denies, denies.?Glasses/contacts?admits, admits, admits.?Retinopathy?denies, denies, denies.?Blurred/double vision?denies, denies, denies.?TMJ?denies, denies, denies.?Discharge/drainage?denies, denies, denies.?Implants?denies, denies, denies.?Sore throat?denies, denies, denies.?Dental implants?denies, denies, denies.?Hard of hearing ?denies, denies, denies.?Difficulty chewing/swallowing/speaking denies, denies, denies.?Nose bleeds?denies, denies, denies.?Sore mouth?denies, denies, denies.?Respiratory:?On Oxygen?denies, denies, denies.?Pneumonia/pleurisy?denies, denies, denies.?Bronchitis?denies, denies, denies.?Emphysema?denies, denies, denies.?Coughing?denies, denies, denies.?Cough blood?denies, denies, denies.?Shortness of breath?denies, denies, denies.?Wheezing?denies, denies, denies.?Cardiovascular:?Pacemaker?denies, denies, denies.?MVP?denies, denies, denies.?WPW?denies, denies, denies.?CHF?denies, denies, denies.?Heart attack?denies, denies, denies.?Septal defect?denies, denies, denies.?Rapid beat denies, denies, denies.?Chest pain ?denies, denies, denies.?Atrial Fib.?denies, denies, denies.?Murmur/Palpitations?denies, denies, denies.?Gastrointestinal:?Hemorrhoids?denies, denies, denies.?Stomach/Abdominal pain?denies, denies, denies.?Dark blood stool?denies, denies, denies.?Irritable bowel ?denies, denies, denies.?Constipation?denies, denies, denies.?Diarrhea?denies, denies, denies.?Hematology:?Swelling?denies, admits, denies.?Clots?denies, denies, denies.?Varicose Veins?denies, denies, denies.?Bruising?denies, denies, denies.?Bleeding problem?denies, denies, denies.?Genitourinary:?Blood urine?denies, denies, denies.?Frequent/Painfu/urination/bladder control?denies, denies, denies.?Kidney stones?denies, denies, denies.?Infection (UTI)?denies, denies, denies.?Nephropathy?denies, denies, denies. sex trans dis (STD)?denies, denies, denies.?Prostate?denies, denies, denies.?Musculoskeletal:?Hammertoes?denies, denies, denies.?Bunions?denies, denies, denies.?Back Pain?denies, denies, denies.?Muscle Cramps/ Resting?denies, denies, denies.?Muscle cramps / walking?denies, denies, denies.?Generalized aches and pains?denies, denies, denies.?Weakness?denies, denies, denies.?Integ.:?Goodwin?denies, denies, denies.?Scars?denies, denies, denies.?Corns/calluses?denies, denies, denies.?Ingrown nails?denies, denies, denies.?Painful nails?denies, denies, denies.?Open Sores?denies, denies, denies.?Rashes?denies, denies, denies.?Neurologic:?Difficulty sleeping?denies, denies, denies.?Brain disorder?denies, denies, denies.?Numbness?denies, denies, denies.?Balance trouble?denies, denies, denies.?Confusion?denies, denies, denies.?Fainting/blackouts?denies, denies, denies.?Tingling?denies, denies, denies.?Tremors?denies, denies, denies.? * Medical History:? * Surgical [...] Verified] Objective: * Vitals:?Ht: 5 ft 1in, Wt:155 , BMI:29.28, Shoe size:9, BP:145/70 mm Hg. * Examination: ???General Examination: ?GENERAL [...] distal, B/L.?HAIR GROWTH/TEXTURE/ELASTICITY/TURGOR:?normal, B/L.?PIGMENTATION:?normal, B/L.?EDEMA:?absent, B/L.?Dermatologic: ?SKIN FINDINGS:?Taping present left ankle.?Orthopedic: ?MUSCLE STRENGTH:?5/5 all groups in a symmetrical fashion , B/L.?GAIT ABNORMALITY:?antalgic.?FOOT MORPHOLOGY:? Decreased Ankle joint dorsiflexion ROM, knee extended.?Heel Pain: ?INSPECTION:? Pain on palpation to Posterior Superior Aspect Calcaneus,Pain on palpation to Achilles tendon/bursa with inflammation and swelling present,Prominent posterior and posterior/superior heel present, LEFT foot,Neg [place].? Assessment: * Assessment: 1.?Pain of left heel [...] other tx options for the patients condition, Given recent successful results to treatment, the patient wishes to continue with the present plan for their condition.?P.R.I.C.E.:?The patient was counseled on the use of P.R.I.C.E. and NSAIDS (if well tolerated) to aid in the recovery from their painful condition.?Physical Therapy:?Continue Physical therapy.?Stretching Exercises:?Stretching and deep tissue massage exercises for the patients injury/diagnosis were discussed and demonstrated, Handouts were also given.? * Follow Up:?2 Months * Images: * Sign off status: Completed true * Provider:?Sil Perez DPM Date:?01/2024 Generated for Brandi canas/Joel/Jeannieitting on:?12/23/2024 05:35 PM EST History and Physical Notes * HPI (History of Present Illness) Category Sub-Category Detail Notes Category Not es Heel pain Duration: a year or more Nature: aching stiffness swe lling tenderness throbbing Location: Back of heel, LEFT Onset/Cause: gradual Aggravated: standing, walking, w alking first thing in the morning/after rest Course: improved with Medrol dose pack, but has returned after completion of medication Treatments: rest change in shoes stretching medication ( Medrol) physical therapy-just started Misc: Translation provided by friend in room Examination Category Sub-Category Detail Notes Category Not es Neurological SENSORY: Neurological exa m reveals intact sensorium, pain sensation normal, vibration sensation intact, pinprick sensation is normal in the lower extremities, Pt denies, anesthesia, burning, paresthesia, tingling, B/L DEEP TENDON REFLEXES: Achilles, 2/4, B/L , Deferred on symptomatic extremity due to discomfort Dermatologic SKIN FINDINGS: Taping present left ankle Orthopedic GAIT ABNORMALITY: antalgic FOOT MORPHOLOGY: Decreased [...] and t tita Vascular DP PULSES (B): 3, B/L PT PULSES (B): 3/4, B/L CAPILLARY [...] and posterior/superior heel present, LEFT foot, Neg [place]
--- OUTSIDE RECORDS SUMMARY | 2024-12-23 17:36 | XMS_ITS | Data Portability ---
Author Organization [place] - [facility], Allergy Address [address] [address] Assessment No assessment recorded. Plan of Treatment Reminders Order Date Submit Date Provider Last Modified By Organization Details Last Modified Time Details Appointments Establish ed 30 2024 10:00A M KIARA Heart MD Not available Not available Not available Lab None recorded. Referral None recorded. Procedures None recorded. Surgeries None recorded. Imaging None recorded. Medication Orders None recorded. Patient TargetsNo targets recorded. Patient InstructionsNo instructions recorded. Reason for Referral None Reported. 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; Note: Date Diagnosed : 3 2:06 PM (D37.05) [facility] Available [facility] 03:16[facility]00 Respirato ry finding 067079268 Active 2022 Feeling of foreign body in throat; Note: Date Diagnosed : 05/20/2023 12:33 PM (R09.89) Not Available [facility] 4 03:16:00 Cardiovas cular finding 686890262 Active 2022 Feeling of foreign body in throat; Note: Date Diagnosed : 05/20/2023 12:33 PM (R09.89) Not Available [facility] 4 03:16:00 Dysphonia 52809171 Active 2022 Hoarsenes s; Note: Date Diagnosed : 05/20/2023 12:34 PM (R49.0) Not Available [facility] 4 03:16:00 Pain in throat 702892953 Active 2022 Pain in throat; Note: Date Diagnosed : 05/20/2023 12:33 PM (J31.2) Not Available [facility] 4 03:16:00 Gastroeso phageal reflux disease without esophagit is 353559618 Active 2022 Gastro-es ophageal reflux disease without esophagit is; Note: Date Diagnosed : 05/20/2023 12:33 PM (K21.9) Not Available [facility] 4 03:15:59 Chronic tonsillit is 01979263 Active 2023 Chronic tonsillit is; Note: Date Diagnosed : 03/05/2024 12:05 PM (J35.01) Not Available [facility] 4 03:15:59 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 11:00:44 Problem Notes None recorded. Procedures Surgical History Date Name Laterality Status Provider Name and Address Organization Details Recorded Time 09/08/2024 FFL_RE completed KIARA MAE MD [address] [place] [address], [phone], [facility] 09/08/2024 11:08:16 Imaging Results None recorded. Procedure Notes None recorded. Medical Equipment None Reported. Allergies Allergen ID Allergen Name Allergen Category Reaction Reaction Severity Criticality Documentation Date Start Date Code Code System Note Provider Name and Address Organization Details Recorded Time 079524 Product containin g penicilli n and antibioti c (product) medicatio n other Not available Not available 04/06/2024 69290 05 SNOMED React ion: Unkno wn; Not Available [facility] 4 01:17:56 383342 codeine medicatio n other Not available Not available 04/06/2024 2670 RxNorm React ion: Unkno wn; Not Available [facility] 01:17:56 Medications Name Sig Start Date Stop Date Status Note LastModified by Organization Details LastModified Time nifedipine ER 30 mg tablet,ext ended release 24 hr TAKE 1 TABLET BY MOUTH DAILY active Not Available Not Available No t Available senna 8.6 mg tablet active Medicatio n ID: [id number] Br and Name: sherri Gustafson d Method: E-Prescri bed Subs Allowed: subs OK Specia l Instructi on: TAKE 1 TABLET BY MOUTH 2 TIMES A DAY NEEDED FOR CONSTIPAT ION FOR 30 DAYS Medi cationGen ericName: senna Not Available Not Available Not Available prednisone 20 mg tablet TAKE 2 TABLETS BY MOUTH DAILY FOR 5 DAYS active Not Available Not Available No t Available nifedipine ER 30 mg tablet,ext ended release TAKE 1 TABLET BY MOUTH DAILY active Not Available Not Available No t Available amlodipine 5 mg tablet TAKE 1 TABLET BY MOUTH DAILY active Not Available Not Available No t Available omeprazole 40 mg capsule,de layed release Take 1 capsule once a day 2022 active Medicatio n ID: [id number] Du ration Value: 30 Brand Name: omeprazol e Send Method: E-Prescri bed Subs Allowed: subs OK Specia l Instructi on: TAKE ONE CAPSULE BY MOUTH ONCE A DAY 30 mins BEFORE MEALS Med icationGe nericName : omeprazol e Not Available Not Available Not Available tramadol 50 mg tablet TAKE 1 TABLET BY MOUTH EVERY 6 HOURS NEEDED FOR PAIN active Not Available Not Available No t Available omeprazole 20 mg capsule,de layed release TAKE 1 CAPSULE BY MOUTH DAILY active Not Available Not Available No t Available hydrochlor othiazide 25 mg tablet TAKE 1 TABLET BY MOUTH DAILY active Not Available Not Available No t Available polyethyle ne glycol 3350 17 gram/dose oral powder DISSOLVE 17 GRAMS IN LIQUID AND DRINK BY MOUTH DAILY NEEDED FOR CONSTIPAT ION FOR 30 DAYS active Not Available Not Available No t Available methylpred nisolone 4 mg tablets in a dose pack DIRECTED FOR 6 DAYS active Not Available Not Available No t Available irbesartan 300 mg tablet TAKE 1 TABLET BY MOUTH DAILY active Not Available Not Available No t Available naproxen 500 mg tablet TAKE 1 TABLET BY MOUTH EVERY 8 TO 12 HOURS NEEDED FOR PAIN active Not Available Not Available No t Available cyclobenza marilou 5 mg tablet TAKE 1 TABLET BY MOUTH THREE TIMES DAILY NEEDED FOR MUSCLE SPASM active Not Available Not Available No t Available rosuvastat in 10 mg tablet TAKE 1 TABLET BY MOUTH DAILY active Not Available Not Available No t Available Gas Relief Extra Strength 125 mg chewable tablet CHEW AND SWALLOW 1 TABLET BY MOUTH THREE TIMES DAILY NEEDED FOR ABDOMINAL PAIN active Not Available Not Available No t Available Vitals None Recorded Social History None recorded. Functional Status None recorded. Mental Status None recorded. Family History Nothing Reported. Medical History No medical history recorded. Gynecological HistoryNo gynecological history recorded. Obstetrics History GPAL:G 0 P 0 0 0 0 Past Encounters Encounter ID Performer Location Encounter Start Date Encounter Closed Date Diagnosis/Indication Diagnosis SNOMED-CT Code Diagnosis ICD10 Code Diagnosis Note [id number] KIARA MAE MD [facility] [address] [address] 09/08/2024 10:37:30 09/08/2024 11:07:30 Chronic tonsillitis 92604709 J35.01 Likely explains PET uptake. No tumors or masses on exam today and symptoms seem to correlate with tonsil stones. We will continue observatio n. I asked her to call if her symptoms worsen. 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 see above Health Concerns Section Related Observation LastModified by Organization Detai ls LastModified Time None Recorded Concern Status LastModified by Organization Details LastModified Time None Recorded Advance Directives Directive None Recorded Payers Encounter Date Sequence Insurance Name Policy Number Policy He[place] Covered Member ID Heaton Member ID Guarantor Name 09/08/2024 1 [facility] (MEDICARE REPLACEMENT/A DVANTAGE - HMO) [facility] Zayra Rodas [id number] Zayra Rodas Notes Date Note Type Note Provider Name and Address Organization Details Recorded Time 09/08/2024 text/html Hx of tonsillar asymmetry. Had a PET that showed uptake on both tonsils 04/2023. Had a prior CT with contrast 04/15 which showed concern for an ulcerated lesion of the left tonsil. She endorses tonsil stones which come and go. reports her throat has been inflamed for the last week and she has had tonsil stones extrude during this time. Prior to this her throat was feeling better. She has some soreness which comes and goes in sync with when her tonsil stones bother her. She does not smoke. KIARA MAE MD [address] [place] [address], [place], [address], [place] - [facility] 09/08/2024 11:09:13 OBGyn Episode No OBEpisode recorded.
--- OUTSIDE RECORDS SUMMARY | 2024-12-23 17:36 | XMS_ITS | Clinical Summary ---
Author Organization [employer] Address [address] [facility] [address] [place] [address] Care Team Providers Care Swine Genetics Researcher Name Role Phone Unavailable Primary Care Provider Unavailabl e Allergies Active Allergy Reactions Criticality Noted Date Comments Atorvastatin 11/29/2010 Other Reaction(s): myalgia, unspecified: Intolerance Codeine Swelling 03/22/2024 Hydrochlorothiazide 11/29/2010 Other Reaction(s): dizzy Lisinopril 11/29/2010 Other Reaction(s): unspecified: intolerance Metoprolol 03/22/2024 Other Reaction(s): leg swelling Penicillin G Rash Low 03/22/2024 Penicillin V Hives 11/29/2010 Pravastatin 03/22/2024 Other Reaction(s): joint pain Valsartan 11/29/2010 Other Reaction(s): unspecified: Intolerance Verapamil 11/29/2010 Other Reaction(s): headache & weakness Medications irbesartan (Avapro) 300 MG tablet TAKE 1 TABLET BY MOUTH DAILY Oral for 90 Days Active omeprazole (PriLOSEC) [address] capsule TAKE 1 CAPSULE BY MOUTH EVERY DAY 30 MINUTES BEFORE MEALS 3 Active polyethylene glycol, PEG, 3350 (Glycolax) 17 GM/SCOOP powder DISSOLVE 17 GRAMS IN LIQUID AND DRINK BY MOUTH DAILY NEEDED FOR CONSTIPATION FOR 30 DAYS 3 Active amLODIPine (Norvasc) 5 MG tablet Take 1 tablet by mouth Once per day. 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 Periodontal disease 03/22/2024 Dental calculus 03/22/2024 Localized gingival recession 03/22/2024 Missing teeth, acquired 03/22/2024 Chronic tonsillitis 03/05/2024 Overview (09/22/2024): Chronic tonsillitis; Note: Date Diagnosed: 03/05/2024 12:05 PM (J35.01) Neoplasm of uncertain behavior of pharynx 2022 Overview (09/22/2024): Neoplasm of uncertain behavior of pharynx; Note: Date Diagnosed: 11/18/2023 2:06 PM (D37.05) Bilateral temporomandibular joint pain Overview (09/22/2024): Arthralgia of bilateral temporomandibular joint; Note: Date Diagnosed: 07/01/2023 2:16 PM (M26.623) Dysphonia 05/20/2023 Overview (09/22/2024): Hoarseness; Note: Date Diagnosed: 05/20/2023 12:34 PM (R49.0) Gastroesophageal reflux disease without esophagi tis 05/20/2023 Overview (09/22/2024): Gastro-esophageal reflux disease without esophagitis; Note: Date Diagnosed: 05/20/2023 12:33 PM (K21.9) Pain in throat 05/20/2023 Overview (09/22/2024): Pain in throat; Note: Date Diagnosed: 05/20/2023 12:33 PM (J31.2) Endometrial hyperplasia 09/23/2012 Hyperlipidemia 09/23/2012 IgA nephropathy 09/23/2012 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 Osteopenia 09/23/2012 Benign hypertension 06/04/2012 Eczema 06/04/2012 Encounters Date Type Department Care Team Description 12/03/2024 10:00 AM EST Office Visit [facility] [address] [place] [address] Aniya, Jaci Localized gingival recession (Primary Dx); Dental calculus; Abfraction; Periodontal disease; Missing teeth, acquired; Sensitivity of root structure of tooth 10/08/2024 11:00 AM EST Office Visit [facility] [address] [place] [address] Stevenson Nassar DDS 10/07/2024 Telephone [facility] [address] [place] [address] Hazel Mancera DDS ongoing pain 09/22/2024 11:30 AM EDT Office Visit [facility] [address] [place] [address] Hazel Mancera DDS Dental caries (Primary Dx); Abfraction from Last 3 Months Social History Tobacco Use Types Packs/Day Years Used Date Smoking Tobacco: Never Smokeless Tobacco: Never Tobacco Cessation:Counseling Given: Not Answered Alcohol Use Standard Drinks/Week Comments Never 0 (1 standard drink = 0.6 oz pur e alcohol) Comments Unknown Sex and Gender Information Value Date Recorded Sex Assigned at Female 09/23/2022 10:15 AM EDT Legal Sex Female 10:15 AM EDT Gender Identity Female 04/17/2023 12:06 PM EDT Sexual Orientation Straight 04/17/2023 12 :06 PM EDT Last Filed Vital Signs Vital Sign Reading Time Taken Comments Blood Pressure 132/76 12/03/2024 10:01 AM EST Pulse 72 05/05/2024 8:34 AM EDT Temperature - - Respiratory Rate - - Oxygen Saturation - - Inhaled Oxygen Concentration - - Weight - - Height - - Body Mass Index - - Plan of Treatment Upcoming Encounters Date Type Department Care Team (Late st Contact Info) Description 12/30/2024 9:00 AM EST Office Visit [facility] [address] [place] [address] Jake Iverson DDS [address] [place] [address] 06/03/2025 1:00 PM EDT Office Visit [facility] [address] [place] [address] Jaci Burt [address] [place] [address] Health Maintenance Due Date Last Done Comments CT Colonography 1949 Colonoscopy 1949 Colorectal Cancer Screening 1949 Depression Screening 1949 FIT DNA/Cologuard 1949 FIT 1949 FOBT 1949 Lipid Panel 1949 SDOH Screening 1949 Sigmoidoscopy 1949 Alcohol/Substance Use Screening 1961 Hepatitis C Screening 1967 Zoster Vaccines (1 of 2) 1999 RSV Patients and Patients Aged 60 years or older (1 - 1-dose 75+ series) 2024 COVID-19 Vaccine ( - season) 2024 Influenza Vaccine (#1) 2024 09/01/1998 Dental Oral Exam 06/03/2025 12/03/2024, , 01/19/2019, Additional history exists Dental Prophylaxis 06/03/2025 12/03/2024, 0 03/22/2024, 09/08/2019, Additional history exists Tobacco Screening 12/03/2025 12/03/2024 Dental X-Ray: Bitewings 12/04/2025 12/03/19, 09/22/2024, 03/22/2024, Additional history exists Dental X-Ray: Full Mouth 03/23/2027 024, 01/19/2019, 04/19/2016 DTaP/Tdap/Td Vaccines (3 - Td or Tdap) 09/17/2033 09/17/2023, 08/13/2010, 11/01/1998 Pneumococcal Vaccine: 50+ Years Completed 03/24/2023, 08/13/2010 HIB Vaccines Aged Out No longer eligi ble based on patient's age to complete this topic HPV Vaccines Aged Out No longer eligi ble based on patient's age to complete this topic Hepatitis A Vaccines Aged Out No long er eligible based on patient's age to complete this topic Hepatitis B Vaccines Aged Out No long er eligible based on patient's age to complete this topic IPV Vaccines Aged Out No longer eligi ble based on patient's age to complete this topic Meningococcal Vaccine Aged Out No ermelinda leela eligible based on patient's age to complete this topic RSV under 20 months Aged Out No longe r eligible based on patient's age to complete this topic Rotavirus Vaccines Aged Out No longer eligible based on patient's age to complete this topic Procedures Procedure Name Priority Date/Time Associated Diagnosis Comments PERIODIC ORAL EVALUATION - ESTABLISHED PATIENT Routine 12/03/2024 10:00 AM EST INTRAORAL - PERIAPICAL EACH ADDITIONAL RADIOGRAPHIC IMAGE Routine 12/03/2024 10:00 AM EST ORAL HYGIENE INSTRUCTIONS Routine 2024 10:00 AM EST PROPHYLAXIS - ADULT Routine 12/03/2024 1 0:00 AM EST INTRAORAL - PERIAPICAL EACH ADDITIONAL RADIOGRAPHIC IMAGE Routine 12/03/2024 10:00 AM EST INTRAORAL - PERIAPICAL FIRST RADIOGRAPHIC IMAGE Routine 12/03/2024 10:00 AM EST BITEWINGS - 4 RADIOGRAPHIC IMAGES Routine 12/03/2024 10:00 AM EST ADJUNCTIVE GENERAL SERVICES - PROFESSIONAL VISITS - CASE PRESENTATION, SUBSEQUENT TO DETAILED AND EXTENSIVE TREATMENT PLANNING Routine 10/08/2024 11:00 AM EST 28 EXTRACTION, ERUPTED TOOTH OR EXPOSED ROOT (ELEVATION AND/OR FORCEPS REMOVAL) Routine 10/08/2024 11:00 AM EST BITEWING - SINGLE RADIOGRAPHIC IMAGE Routine 09/22/2024 11:30 AM EDT Dental caries Abfraction ADJUNCTIVE GENERAL SERVICES - PROFESSIONAL VISITS - CASE PRESENTATION, SUBSEQUENT TO DETAILED AND EXTENSIVE TREATMENT PLANNING Routine 09/22/2024 11:30 AM EDT Dental caries Abfraction INTRAORAL - PERIAPICAL FIRST RADIOGRAPHIC IMAGE Routine 09/22/2024 11:30 AM EDT Dental caries Abfraction ADJUNCTIVE GENERAL SERVICES - UNCLASSIFIED TREATMENT - PALLIATIVE TREATMENT OF DENTAL PAIN - PER VISIT Routine 09/22/2024 11:30 AM EDT Dental caries Abfraction DIAGNOSTIC - DIAGNOSTIC IMAGING - INTRAORAL - COMPREHENSIVE SERIES OF RADIOGRAPHIC IMAGES Routine 03/22/2024 10:00 AM EDT Periodontal disease Dental calculus Localized gingival recession Missing teeth, acquired from Last 3 Months or Most Recently Relevant to Health Maintenance Insurance [facility]
--- OUTSIDE RECORDS SUMMARY | 2024-12-23 17:36 | XMS_ITS | Encounter Summary ---
Author Organization [employer] Address [address] [address] [place] [address] Care Team Providers Care Package Maker Name Role Phone Unavailable Primary Care Provider Unavailabl e Reason for Visit * Reason Onset Date Comments ongoing pain 10/07/2024 Encounter Details Date Type Department Care Team (Late st Contact Info) Description 10/07/2024 Telephone [facility] [address] [place] [address] Hazel Mancera DDS [address] [place] [address] ongoing pain Social History Tobacco Use Types Packs/Day Years [...] PM EDT documented as of this encounter Miscellaneous Notes * Telephone Encounter - Stevenson Nassar DDS - 10/07/2024 2:17 PM EST Ricardo Angeles, Please schedule her an appointment for extraction at 11am or 2pm tomorrow . Thank you. Dr. Nassar * Telephone Encounter - Lynda Arciniega - 10/07/2024 1:25 PM EST Patient caleld in to report that from her visit last on 09/22 she has felt no relief even with thescripted medication given to patient. She currently has an appt on 10/15 to extract tooth. She would like to know if something else can bee sent to pharmacy or if she should be coming back in. Patient was told she can always call in tomorrow for another emergency visit but she rather report to provider first and go from there documented in this encounter Plan of Treatment Upcoming Encounters Date Type Department Care Team (Late st Contact Info) Description 12/30/2024 9:00 AM EST Office Visit [facility] [address] [place] [address] Jake Iverson DDS [address] [place] [address] 06/03/2025 1:00 PM EDT Office Visit [facility] [address] [place] [address] Jaci Kwan [address] [place] [address] documented as of this encounter Visit Diagnoses Not on filedocumented in this encounter
== END 2024-12-23 15:48 | disposition home or self-care (01) ==
PROVIDERS: Physician Assistant Medical; Emergency Provider Emergency Medicine; PCP Internal Medicine
DX: S39.012A Strain of muscle, fascia and tendon of lower back, initial encounter (principal); X58.XXXA Exposure to other specified factors, initial encounter; M54.50 Low back pain, unspecified; I10 Essential (primary) hypertension; E78.00 Pure hypercholesterolemia, unspecified; Y93.9 Activity, unspecified; Y92.039 Unspecified place in apartment as the place of occurrence of the external cause; Y99.9 Unspecified external cause status
CPT/HCPCS: 72100; 81003; 99283

== ENCOUNTER → 2024-12-23 13:38 | Outpatient (BNV) | payer OTHER, SELFPAY | PROVIDERS: Emergency Provider Emergency Medicine; PCP Internal Medicine; Visit Provider Radiology Diagnostic Radiology | DX: M47.895 Other spondylosis, thoracolumbar region (principal); I70.0 Atherosclerosis of aorta | CPT/HCPCS: 72100 ==

== ENCOUNTER 2025-05-03 22:46 | Emergency (ER) | payer OTHER, SELFPAY ==
--- NOTE | 2025-05-03 | ECG_ITS ---
Test Reason : CHEST PAIN Blood Pressure : */* mmHG Vent. Rate : 54 BPM Atrial Rate : 54 BPM P-R Int : 140 ms QRS Dur : 86 ms QT Int : 420 ms P-R-T Axes : 47 -8 28 degrees QTcB Int : 398 ms Sinus bradycardia Otherwise normal ECG When compared with ECG of 04-Dec-2019 18:05, No significant change was found Referred By: Generic ED Physician Electronically Signed By: TRENT GARCIA MD
--- NOTE | ~2025-05-03 | XR_ITS ---
CLINICAL HISTORY: cough 2 view chest x-ray. Comparison: None Findings: No consolidation, pneumothorax, or effusion. Heart size is at the upper limits of normal. Multilevel degenerative endplate changes are present at the thoracic spine. Impression: 1. No acute cardiopulmonary process. No focal pulmonary consolidation. This document has been electronically signed by: Chris Aquino MD on 05/03/2025 23:57:59
[2025-05-03 22:55] VITALS: BP 130/61; BP 139/74; PULSE 70; PULSE 82; RESP 18; TEMP 37.3; O2SAT 93; O2SAT 94; BMI 35.8
[2025-05-03 23:07] VITALS: BP 130/61; PULSE 70; RESP 18; TEMP 37.3; O2SAT 93
[2025-05-03 23:53] LABS: Basophils Percent Auto 0.4 % (0-2); Eosinophils Absolute Auto 0.1 X10*3/uL (0.0-0.4); Eosinophils Percent Auto 0.9 % (0-4); Hematocrit 34.7 % (37.0-47.0); Hemoglobin 11.9 g/dl (12.0-16.0); Imm Gran Abs Auto 0.01 X10*3/uL (0.00-0.03); Imm Gran Pct Auto 0.2 % (0.0-0.4); Lymphocytes Absolute Auto 1.3 X10*3/uL (1.2-4.9); Lymphocytes Percent Auto 22.4 % (20-40); MANUAL DIFF FLAG NO; Mean Corpuscular HGB Conc 34.3 g/dl (31.0-35.0); Mean Corpuscular Hemoglobin 30.9 pg (27.0-33.0); Mean Corpuscular Volume 90.1 fL (80.0-98.0); Mean Platelet Volume 10.8 fL (9.4-12.3); Monocytes Absolute Auto 0.8 X10*3/uL (0.1-1.2); Monocytes Percent Auto 14.9 % (2-11); Neutrophils Absolute Auto 3.4 x10*3/uL (2.0-8.3); Neutrophils Percent Auto 61.2 % (45-73); Platelet Count 202 X10*3/uL (160-400); Red Blood Count 3.85 X10*6/uL (4.20-5.50); Red Cell Distribution Width 13.2 % (11.0-16.0); White Blood Count 5.6 X10*3/uL (4.8-10.8)
[2025-05-04 00:08] LABS: Alanine Aminotransferase 15 U/L (0-31); Albumin Level 4.1 g/dL (3.5-5.0); Alkaline Phosphatase 120 U/L (39-117); Anion Gap 12 (12-20); Aspartate Amino Transferase 25 U/L (5-31); Bilirubin Total 0.3 mg/dL (0.0-1.0); Blood Urea Nitrogen 17 mg/dL (9-16); Carbon Dioxide 26 mmol/L (22-29); Chloride 104 mmol/L (96-108); Creatinine Clr Calc Pharmacy 38.5; Estimated Glomerular Filt Rate 49; Glucose Random 118 mg/dL (60-115); Potassium 4.5 mmol/L (3.3-5.1); Sodium 137 mmol/L (135-145); Total Protein 7.3 g/dL (6.5-8.0)
[2025-05-04 00:14] LABS: Troponin-I High Sensitivity 4.4 ng/L (<3.5-17.0)
[2025-05-04 00:32] LABS: Influenza A PCR NEGATIVE (Negative); Influenza B PCR NEGATIVE (Negative); Resp Syncy Virus RNA Qual PCR NEGATIVE (Negative); SARS COV2 PCR INHOUSE NEGATIVE (Negative)
[2025-05-04 01:30] VITALS: PULSE 64; RESP 18; O2SAT 94
[2025-05-04] MEDS: Albuterol/Iprat 2.5/0.5MG 3 ML AMPUL.NEB INHALE (01:30)
[2025-05-04] MEDS: methylPREDNISolone Sod Succ 125 MG/2 ML VIAL IVPUSH (01:31)
--- NOTE | 2025-05-04 01:35 | ED.GENADULT ---
HPI - General Adult General Chief complaint: General Medical Stated complaint: chest tightness since friday Time Seen by Provider: 05/03/25 23:33 Source: patient Limitations: language barrier History of Present Illness ED Provider: Kia Spears PA-C HPI narrative: 75-year-old female with a history of hypertension, hyperlipidemia, obesity, sleep apnea, GERD, depression, who presents with cough and cold symptoms times 5 days. Associated nasal congestion, subjective fevers, chills, generalized myalgias, cough and wheezing. Patient states her chest feels tight. Denies sick contacts with similar symptoms, history of asthma or COPD, patient has a remote history of tobacco use from 30 years ago. Related Data Previous Rx's ?Medication ?Instructions ?Recorded cholecalciferol (vitamin D3) 25 25 mcg PO DAILY #90 tabs 12/07/20 mcg (1,000 unit) tablet CPAP 6 cm humidified AIR MASKAIR #1 ea 04/20/21 FIT N20 small hydrocortisone 2.5 % topical cream [address] BID-QID PRN hemorrhoids 03/26/22 with perineal applicator #30 grams (Proctosol HC) lidocaine 5 % topical patch 1 patch topical DAILY PRN pain #30 03/11/23 (Lidoderm) ea SHOWER CHAIR #1 ea 03/24/23 WALKER WITH SEAT #1 03/24/23 sennosides 8.6 mg-docusate sodium 1 tab-cap PO BID PRN constipation 03/24/23 50 mg capsule (Senna Plus) 30 days #60 caps polyethylene glycol 3350 17 17 g PO DAILY PRN constipation 30 10/30/23 gram/dose oral powder (Miralax) days #510 grams BP Cuff #1 ea 03/17/24 naproxen 500 mg tablet 500 mg PO Q8-12H PRN pain (scale 05/04/24 score 4-6) #20 tabs omeprazole 20 mg capsule,delayed 20 mg PO DAILY 90 days #90 caps 09/24/24 release simethicone 125 mg chewable tablet 125 mg PO TID PRN for abdominal 09/25/24 (Gas Relief Extra Strength) pain 30 days #90 tabs irbesartan 300 mg tablet 300 mg PO DAILY 90 days #90 tabs 11/11/24 amlodipine 5 mg tablet 5 mg PO DAILY #90 tabs 11/25/24 rosuvastatin 5 mg tablet 5 mg PO DAILY #90 tabs 12/10/24 baclofen 5 mg tablet 5 mg PO TID PRN muscle pain #10 12/23/24 tabs lidocaine 5 % topical patch 1 patch topical DAILY #15 ea 12/23/24 (Lidoderm) albuterol sulfate 90 mcg/actuation 2 puff inhalation Q4-6H PRN 05/04/25 aerosol inhaler shortness of breath or wheezing #6.7 grams azithromycin 250 mg tablet 250 mg PO DAILY 4 days #4 tabs 05/04/25 prednisone 20 mg tablet 40 mg (2 x 20 mg) PO DAILY #8 tabs 05/04/25 Allergies Allergy/AdvReac Type Severity Reaction Status Date / Time atorvastatin Allergy Unknown myalgia Verified 05/03/25 23:02 codeine Allergy Unknown SWELLING Verified 05/03/25 23:02 penicillin V Allergy Unknown rash Verified 05/03/25 23:02 nifedipine AdvReac Intermediate palpitation Verified 05/03/25 23:02 s pravastatin AdvReac Intermediate joint pain Verified 05/03/25 23:02 hydrochlorothiazide AdvReac Mild Swelling Verified 05/03/25 23:02 metoprolol AdvReac leg Verified 05/03/25 23:02 swelling Review of Systems Constitutional: Constitutional: Reports chills, Reports fatigue, Reports fever(s) and Reports malaise ENT: Reports nasal congestion and Denies sore throat Cardiovascular: Cardiovascular: Reports chest pain and Reports dyspnea Respiratory: Respiratory: Reports cough, Reports dyspnea and Reports wheezing Gastrointestinal: Gastrointestinal: Denies abdominal pain, Denies nausea and Denies vomiting Endocrine: Endocrine: Reports fatigue Allergic/Immunologic: Allergic/Immunologic: Reports wheezing PMFSH Past Medical History Attestation statement: The following information was validated with the patient. Medical History Benign essential hypertension JANN on CPAP Left leg swelling Conjunctivitis Radicular pain Low back pain Otitis media of left ear LUQ abdominal pain Vitamin D deficiency Obesity (BMI 30-39.9) Obstructive sleep apnea IgA nephropathy History of colon polyps Diverticulosis Chronic constipation Venous (peripheral) insufficiency Coreas's cyst of knee Pure hypercholesterolemia Hypovitaminosis D Surgical History History of esophagogastroduodenoscopy (EGD) History of dilatation and curettage H/O tubal ligation History of loop electrical excision procedure (LEEP) History of colonoscopy Family History Family History Father Alzheimers disease Mother Kidney failure Social History Social History Housing: Apartment Are you a primary home visit field care manager to a significant other at home: No Alcohol intake: never Patient Tobacco Use Status: Never used Tobacco Smoked in Last 30 Days: No e-Cigarette/Vaping Use: Never Used Second Hand Smoke Exposure: No Use of substances other than those prescribed or required for medical reasons: No Advance Directives: No Advance Directives Information Provided: Yes Do you have a plan to hurt others: No Plan service: No Current occupational status: disabled Cognitive needs: No Hearing needs: No Vision needs: Yes Physical Exam ED Vital Signs: Vital Signs - 24 hr 05/03/25 22:55 05/03/25 23:07 05/04/25 01:30 Temperature 99.2 F 99.2 F Pulse Rate 70 70 64 Respiratory Rate 18 18 18 Blood Pressure 130/61 130/61 Pulse Oximetry 93 93 Oxygen Delivery Method Room Air Room Air 05/04/25 02:25 05/04/25 02:38 Temperature 98.4 F Pulse Rate 97 90 Respiratory Rate 20 20 Blood Pressure 134/60 Pulse Oximetry 95 Oxygen Delivery Method Room Air BMI result Body Mass Index 35.8 Const Other: Alert well-appearing Orientation/consciousness: patient oriented x3 Resp Other: Nonlabored respirations, expiratory wheezes noted posterior de los santos, active bronchospasm cough Cardio Other: Normal peripheral perfusion Skin Other: Warm dry no rash Neuro General: patient oriented x3, gait normal, no focal motor deficits and CN's II-XI intact bilaterally Psych Other: Cooperative Course Reevaluation(s) Reevaluation #1: Ambulated the patient after her 2nd updraft, her oxygen is maintained at 96%. Time: 03:11 Medications Administered Discontinued Medications Generic Name Dose Route Start Last Admin Trade Name Freq PRN Reason Stop Dose Admin Albuterol Sulfate 2.5 mg 05/04/25 02:35 05/04/25 02:38 Albuterol Sulfate (0.083%) 2.5 Mg/3 Ml Vial.Neb INHALE 05/04/25 02:36 2.5 mg ONCE ONE Administration Albuterol/Ipratropium 3 ml 05/04/25 01:25 05/04/25 01:30 Albuterol/Iprat 2.5/0.5mg 3 Ml Ampul.Neb INHALE 05/04/25 01:26 3 ml ONCE ONE Administration Methylprednisolone Sodium Succinate 125 mg 05/04/25 01:14 05/04/25 01:31 Methylprednisolone Sod Succ 125 Mg/2 Ml Vial IVPUSH 05/04/25 01:15 125 mg ONCE ONE Administration Medical Decision Making Medical Decision Making MDM Narrative: 75-year-old female with a history of hypertension, hyperlipidemia, obesity, sleep apnea, GERD, depression, who presents with cough and cold symptoms times 5 days. Associated nasal congestion, subjective fevers, chills, generalized myalgias, cough and wheezing. Patient states her chest feels tight. Denies sick contacts with similar symptoms, history of asthma or COPD, patient has a remote history of tobacco use from 30 years ago. Problem: Age History: Per patient I have considered the following differential diagnoses: Reactive airway disease, bronchitis, pneumonia, viral syndrome, seasonal allergies , ACS Plan: Patient here with infectious symptoms, likely viral, screening labs including viral panel and chest x-ray were obtained from triage, no pneumonia, viral panel negative, likely yet another respiratory virus that has been circulating within the community. Her airway is reactive, we will be giving an updraft and steroid. Patient states she has had fevers at home, we will treat for bronchitis, we will send with antibiotics. ACS was considered, the patient states her chest feels tight, she does have risk factors for coronary artery disease, EKG and troponin obtained, we will obtain a delta. I do not think this is ACS. I have independently reviewed the following tests: Labs: No leukocytosis, not anemic, no electrolyte abnormality, troponin 4.4, delta troponin, viral panel neg EKG: Sinus bradycardia, rate of 54, no ischemic changes no ectopy Chest x-ray:Findings: No consolidation, pneumothorax, or effusion. Heart size is at the upper limits of normal. Multilevel degenerative endplate changes are present at the thoracic spine. Impression: 1. No acute cardiopulmonary process. No focal pulmonary consolidation. Lab Data 05/03/25 23:47 05/03/25 23:47 Labs: Lab Results 05/03/25 05/03/25 05/04/25 Range/Units 23:47 23:48 02:30 WBC 5.6 (4.8-10.8) X10*3/uL RBC 3.85 L (4.20-5.50) X10*6/uL Hgb 11.9 L (12.0-16.0) g/dl Hct 34.7 L (37.0-47.0) % MCV 90.1 (80.0-98.0) fL MCH 30.9 (27.0-33.0) pg MCHC 34.3 (31.0-35.0) g/dl RDW 13.2 (11.0-16.0) % Plt Count 202 D (160-400) X10*3/uL MPV 10.8 (9.4-12.3) fL Immature Gran % (Auto) 0.2 (0.0-0.4) % Neut % (Auto) 61.2 (45-73) % Lymph % (Auto) 22.4 (20-40) % Custer % (Auto) 14.9 H (2-11) % Eos % (Auto) 0.9 (0-4) % Baso % (Auto) 0.4 (0-2) % Lymph # (Auto) 1.3 (1.2-4.9) X10*3/uL [place] # (Auto) 0.8 (0.1-1.2) X10*3/uL Eos # (Auto) 0.1 (0.0-0.4) X10*3/uL Baso # (Auto) 0.0 (0.0-0.2) X10*3/uL Abs Immat Gran (auto) 0.01 (0.00-0.03) X10*3/uL Absolute Neuts (auto) 3.4 (2.0-8.3) x10*3/uL Absolute Nucleated RBC 0.000 (0.0-0.012) X10*3/uL Nucleated RBC % (auto) 0.0 (0.0-0.2) /100WBC Sodium 137 (135-145) mmol/L Potassium 4.5 (3.3-5.1) mmol/L Chloride 104 (96-108) mmol/L Carbon Dioxide 26 (22-29) mmol/L Anion Gap 12 (12-20) BUN 17 H (9-16) mg/dL Creatinine 1.09 (0.5-1.4) mg/dL Estim Creat Clear Calc 38.5 Estimated GFR 49 Random Glucose 118 H (60-115) mg/dL Calcium 9.0 (8.4-10.2) mg/dL Total Bilirubin 0.3 (0.0-1.0) mg/dL AST 25 (5-31) U/L ALT 15 (0-31) U/L Alkaline Phosphatase 120 H (39-117) U/L Troponin I High Sens 4.4 4.9 (<3.5-17.0) ng/L Total Protein 7.3 (6.5-8.0) g/dL Albumin 4.1 (3.5-5.0) g/dL Influenza Type A (PCR) NEGATIVE (Negative) Influenza Type B (PCR) NEGATIVE (Negative) RSV RNA Qual (PCR) NEGATIVE (Negative) SARS-CoV-2 RNA (RT-PCR) NEGATIVE (Negative) Discharge Plan Discharge Clinical Impression: Bronchitis Patient Disposition: Home, Self-Care Instructions: How to Use a Metered-Dose Inhaler (ED), Acute Bronchitis (ED) Additional Instructions: All of your screening labs were normal, you were screened for influenza RSV and COVID, the viral panel was negative. Both cardiac enzymes were normal for you. The chest x-ray is clear there was no pneumonia. There were also no concerning changes on the EKG. You are being treated for bronchitis. See home care instructions. Use the albuterol inhaler as needed for your cough and wheezing. Take the steroid as directed. Take the azithromycin as directed. Follow up with your primary care provider as needed. Prescriptions: New prednisone 20 mg tablet 40 mg PO DAILY Qty: 8 0RF azithromycin 250 mg tablet 250 mg PO DAILY 4 Days Qty: 4 0RF Rx Instructions: start on day 2 of therapy albuterol sulfate 90 mcg/actuation HFA aerosol inhaler 2 puff inhalation Q4-6H PRN (Reason: shortness of breath or wheezing) Qty: 6.7 0RF No Action cholecalciferol (vitamin D3) 25 mcg (1,000 unit) tablet 25 mcg PO DAILY Qty: 90 1RF hydrocortisone [Proctosol HC] 2.5 % cream with perineal applicator [address] BID-QID PRN (Reason: hemorrhoids) Qty: 30 0RF (DME) BP Cuff See Rx Instructions .Route .MEDSUPPLY Qty: 1 0RF Rx Instructions: As directed omeprazole 20 mg capsule,delayed release(DR/EC) 20 mg PO DAILY 90 Days Qty: 90 0RF simethicone [Gas Relief Extra Strength] 125 mg tablet,chewable 125 mg PO TID PRN (Reason: for abdominal pain) 30 Days Qty: 90 3RF irbesartan 300 mg tablet 300 mg PO DAILY 90 Days Qty: 90 2RF amlodipine 5 mg tablet 5 mg PO DAILY Qty: 90 2RF lidocaine [Lidoderm] 5 % adhesive patch,medicated 1 patch topical DAILY MDD remove after 12 hours PRN (Reason: pain) Qty: 30 0RF Rx Instructions: leave on most painful area for up to 12 hrs naproxen 500 mg tablet 500 mg PO Q8-12H PRN (Reason: pain (scale score 4-6)) Qty: 20 0RF lidocaine [Lidoderm] 5 % adhesive patch,medicated 1 patch topical DAILY Qty: 15 0RF Rx Instructions: leave on most painful area for up to 12 hrs baclofen 5 mg tablet 5 mg PO TID PRN (Reason: muscle pain) Qty: 10 0RF (DME) CPAP 6 cm humidified AIR MASKAIR FIT N20 small See Rx Instructions .Route .MEDSUPPLY Qty: 1 0RF Rx Instructions: As directed Senna Plus 8.6-50 mg capsule 1 tab-cap PO BID PRN (Reason: constipation) 30 Days Qty: 60 3RF (DME) WALKER WITH SEAT See Rx Instructions .Route .MEDSUPPLY Qty: 1 0RF Rx Instructions: As directed (DME) SHOWER CHAIR See Rx Instructions .Route .MEDSUPPLY Qty: 1 0RF Rx Instructions: As directed polyethylene glycol 3350 [Miralax] 17 gram/dose powder 17 g PO DAILY PRN (Reason: constipation) 30 Days Qty: 510 3RF rosuvastatin 5 mg tablet 5 mg PO DAILY Qty: 90 3RF Print Language: Kyrgyz
[2025-05-04 02:25] VITALS: BP 134/60; PULSE 97; RESP 20; TEMP 36.9; O2SAT 95
[2025-05-04 02:38] VITALS: PULSE 90; RESP 20; O2SAT 94
[2025-05-04] MEDS: Albuterol Sulfate (0.083%) 2.5 MG/3 ML VIAL.NEB INHALE (02:38)
[2025-05-04 03:03] LABS: Troponin-I High Sensitivity 4.9 ng/L (<3.5-17.0)
--- NOTE | 2025-05-04 03:09 | PC.NURSE ---
walking pulse ox completed. patient o2 did not drop below 96%.
[2025-05-04] MEDS: Azithromycin 500 MG TABLET PO (03:24)
[2025-05-04 03:31] VITALS: BP 134/60; PULSE 97; RESP 20; TEMP 36.9; O2SAT 95
== END 2025-05-04 03:34 | disposition home or self-care (01) ==
PROVIDERS: Physician Assistant Medical; Emergency Provider Emergency Medicine; PCP Internal Medicine
DX: J40 Bronchitis, not specified as acute or chronic (principal); R05.9 Cough, unspecified; R50.9 Fever, unspecified; Z03.818 Encounter for observation for suspected exposure to other biological agents ruled out; I10 Essential (primary) hypertension; E78.5 Hyperlipidemia, unspecified; K21.9 Gastro-esophageal reflux disease without esophagitis; Z79.899 Other long term (current) drug therapy; Z79.02 Long term (current) use of antithrombotics/antiplatelets
CPT/HCPCS: 0241U; 36415; 71046; 80053; 84484; 85025; 93005; 94640; 96374; 99284; 99285; J2919

== ENCOUNTER → 2025-05-03 23:30 | Outpatient (BNV) | payer OTHER, SELFPAY | PROVIDERS: Emergency Provider Emergency Medicine; PCP Internal Medicine; Visit Provider Internal Medicine Cardiovascular Disease | DX: R00.1 Bradycardia, unspecified (principal) | CPT/HCPCS: 93010 ==

== ENCOUNTER → 2025-05-03 23:34 | Outpatient (BNV) | payer OTHER, SELFPAY | PROVIDERS: Visit Provider Radiology Diagnostic Radiology | DX: R05.9 Cough, unspecified (principal) | CPT/HCPCS: 71046 ==

== ENCOUNTER 2025-05-19 12:58 | Outpatient (AMB) | payer OTHER, SELFPAY ==
--- NOTE | 2025-05-19 13:11 | MHC.PC.OV ---
Vital Signs 05/19/25 13:14 Height 4 ft 10 in Weight 157 lb 2 oz BMI 32.8 BP 110/72 Blood Pressure Location Lt brachial Position Sitting Pulse 57 Pulse Source Pulse Oximeter Temp 97.3 F Temp Source Temporal Artery Scan Pulse Oximetry (%) 98 Oxygen Delivery Method Room Air Intake Visit Reasons: 3 Month follow up/ rescheduled Intake Note: Patient is here to follow up on HTN, JANN, Hypercholesterolemia. School Lunch Monitor Required: Yes School Lunch Monitor Language: Research Project Manager Name: Belem (granddaughter on phon) Information Interpreted: non-clinical & clinical (pt decline ground worker service prefer granddaughter to translate on phone) Practicing Urologist: Not Required per policy Accompanied by: Self / Same As Patient Allergies atorvastatin Allergy (Unknown, Verified 05/19/25 13:22) myalgia codeine Allergy (Unknown, Verified 05/19/25 13:22) SWELLING penicillin V Allergy (Unknown, Verified 05/19/25 13:22) rash nifedipine Adverse Reaction (Intermediate, Verified 05/19/25 13:22) palpitations pravastatin Adverse Reaction (Intermediate, Verified 05/19/25 13:22) joint pain hydrochlorothiazide Adverse Reaction (Mild, Verified 05/19/25 13:22) Swelling metoprolol Adverse Reaction (Verified 05/19/25 13:22) leg swelling Medication List - Last Reconciled 05/19/25 by Sejal Sams PA-C albuterol sulfate 90 mcg/actuation 2 puffs inhalation Q4-6H PRN amlodipine 5 mg PO DAILY baclofen 5 mg PO TID PRN [BP Cuff As directed] cholecalciferol (vitamin D3) 25 mcg PO DAILY [CPAP 6 cm humidified AIR MASKAIR FIT N20 small As directed] hydrocortisone 2.5% (Proctosol HC) 1 appl SC BID-QID PRN irbesartan 300 mg PO DAILY 90 days lidocaine 5% (Lidoderm) 1 patch topical DAILY lidocaine 5% (Lidoderm) 1 patch topical DAILY PRN MDD remove after 12 hours naproxen 500 mg PO Q8-12H PRN omeprazole 20 mg PO DAILY 90 days polyethylene glycol 3350 (Miralax) 17 grams PO DAILY PRN 30 days rosuvastatin 5 mg PO DAILY sennosides-docusate sodium 8.6-50 mg (Senna Plus) 1 tab-cap PO BID PRN 30 days [SHOWER CHAIR As directed] simethicone (Gas Relief Extra Strength) 125 mg PO TID PRN 30 days [WALKER WITH SEAT As directed] Tobacco use date assessed: 05/19/25 Fall risk assessment: No Falls in past year Last assessed Fall Risk: 05/19/25 Dental Screening Dental Screen Date: 12/10/24 HPI 3 Month follow up/ rescheduled HPI Details 74-year-old obese female with hypertension, hypercholesterolemia, obstructive sleep apnea and right knee pain last seen 11/2024 coming in for follow up. 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 Presenting with chronic phlegm production and intermittent cough. Persistent phlegm in the throat has been a concern, with no associated fever or significant coughing. The cough is intermittent and does not disrupt sleep, with the patient having used Mucinex previously without recent use. A recent chest X-ray was normal, and her lungs are clear upon auscultation. The patient also reports intermittent foot pain, which has decreased in severity. [facility] Medical History Benign essential hypertension JANN on CPAP Left leg swelling Conjunctivitis Radicular pain Low back pain Otitis media of left ear LUQ abdominal pain Vitamin D deficiency Obesity (BMI 30-39.9) Obstructive sleep apnea IgA nephropathy History of colon polyps Diverticulosis Chronic constipation Venous (peripheral) insufficiency Coreas's cyst of knee Pure hypercholesterolemia Hypovitaminosis D Surgical History History of esophagogastroduodenoscopy (EGD) History of dilatation and curettage H/O tubal ligation History of loop electrical excision procedure (LEEP) History of colonoscopy Family History Father Alzheimers disease Mother Kidney failure Social History Housing: Apartment Are you a primary critical care technician to a significant other at home: No Alcohol intake: never Patient Tobacco Use Status: Never used Tobacco e-Cigarette/Vaping Use: Never Used Second Hand Smoke Exposure: No service: No Current occupational status: disabled Cognitive needs: No Hearing needs: No Vision needs: Yes Questionnaire PHQ-9 Over the last 2 weeks, how often have you been bothered by any of the following problems? 1. Little interest or pleasure in doing things: not at all 2. Feeling down, depressed, or hopeless: not at all 3. Trouble falling or staying asleep, or sleeping too much: several days 4. Feeling tired or having little energy: not at all 5. Poor appetite or overeating: not at all 6. Feeling bad about yourself - or that you are a failure or have let yourself or your family down: not at all 7. Trouble concentrating on things, such as reading the newspaper or watching television: not at all 8. Moving or speaking so slowly that other people could have noticed. Or the opposite - being so fidgety or restless that you have been moving around a lot more than usual: not at all 9. Thoughts that you would be better off or of hurting yourself in some way: not at all Total score: 1 Depression Screening Interpretation: Positive Depression Screening Done: Yes Source: Developed by Drs. Bon Garcia, Mimi Nicholson, Rick Bruno and colleagues, with an educational abbey from [employer]. Thrive Questionnaire Date Thrive assessed: 12/10/24 I am a: Patient What is your living situation today?: I have a steady place to live Within the past 12 months, did the food you bought not last and you didn't have the money to get more?: Never true Within the past 12 months, did you worry whether your food would run out before you got money to buy more?: Never true Do you have trouble paying for medicines?: No Do you have trouble getting transportation to medical appointments?: No Do you have trouble paying your heating and electricity bill?: No Do you have trouble taking care of your child, family member or friend?: No Do you have trouble with day-to-day activities such as bathing, preparing meals, shopping, managing finances, etc.?: No Are you currently unemployed and looking for a job?: No Are you interested in more education?: No Please select the resources that you would like help with: None Currently or been in a relationship where the following occur: No concerns reported THRIVE Score: 0 AUDIT C Alcohol Use Questionnaire (AUDIT-C) 1. How often do you have a drink containing alcohol?: Never Total Score: 0 SANDRA-7 AMB Questionnaire SANDRA-7 Date SANDRA - 7 assessed: 05/19/25 Feeling nervous, anxious, or on edge: 0 = Not at all Not being able to stop or control worryin = Several days Worrying too much about different things: 1 = Several days Trouble relaxin = Several days Being so restless that it is hard to sit still: 1 = Several days Becoming easily annoyed or irritable: 0 = Not at all Feeling afraid as if something awful might happen: 0 = Not at all Total SANDRA-7 score (0-4 normal; 5-9 mild; 10-14 moderate; 15-21 severe): 4 Source: Developed by Drs. Bon Garcia, Mimi Nicholson, Rick Bruno and colleagues, with an educational abbey from [employer]. Review of Systems Const Denies body aches, Denies chills, Denies fever(s), Denies headache(s) and Denies poor appetite Eyes Reports no additional complaints ENT Denies dysphagia, Denies dizziness, Denies headache(s) and Denies odynophagia Card Denies chest pain, Denies syncope, Denies edema, Denies irregular heart rhythm, Denies lightheadedness and Denies dyspnea Resp Reports cough and Denies dyspnea GI Denies abdominal pain, Reports constipation, Denies dysphagia, Denies diarrhea, Denies nausea, Denies odynophagia and Denies vomiting Reports no additional complaints Musc Reports no additional complaints and Denies abnormal gait Skin/Breast Reports system reviewed and no additional complaints, except as documented Neuro Denies abnormal gait, Denies dizziness, Denies syncope and Denies headache(s) Psych Reports no additional complaints Physical exam (Primary Care) Vital Signs: Last Vital Signs Temp 97.3 F 05/19/25 13:14 Pulse 57 05/19/25 13:14 BP 110/72 05/19/25 13:14 Pulse Ox 98 05/19/25 13:14 Oxygen Delivery Method Room Air 05/19/25 13:14 BMI result Body Mass Index 32.8 Tobacco/Smoking Status: Tobacco use Status Tobacco use date assessed 12/10/24 12/10/24 11:42 Patient Tobacco Use Status Never used Tobacco 05/03/25 23:07 e-Cigarette/Vaping Use Never Used 12/10/24 11:33 Depression Screening Interpretation: Positive Thrive Assessment: Date of Thrive Assessment Date Thrive assessed 12/10/24 12/10/24 11:33 Currently or been in a relationship where the following occur: No concerns reported Const General: cooperative, healthy appearing, comfortable and no acute distress Orientation/consciousness: patient oriented x3 HENMT Head: Yes normocephalic Ears: hearing grossly normal bilaterally General nose exam: Normal external nose present Eyes General: appearance normal, both eyes and all related structures Conjunctivae: conjunctivae normal Neck Neck: Yes full ROM and Yes no lymphadenopathy Resp Effort & Inspection: normal respiratory effort Auscultation: clear to auscultation bilaterally, no crackles, no rales, no rhonchi and no wheezes Cardio Rate: regular rate Rhythm: regular rhythm Skin General skin exam: no rashes or lesions noted Neuro General: patient oriented x3 Gait exam (Neuro): Normal gait present Extrem General: Yes normal to inspection, Yes full ROM and No edema Psych Affect: normal affect Attitude: cooperative Insight: Good insight present (Psych) Judgement: Good judgement present (Psych) Coding Level of Care Code Est Pt Level 3 (22278) Diagnoses Obesity (BMI 30.0-34.9) E66.9 Primary hypertension I10 Hypertension type: primary hypertension GERD (gastroesophageal reflux disease) K21.9 Impaired fasting blood sugar R73.01 Pure hypercholesterolemia E78.00 Foot pain M79.673 Cough R05.9 Assessment & Plan Assessment & Plan (1) Obesity (BMI 30.0-34.9): Code(s): E66.9 - Obesity, unspecified Category: Medical Plan: Healthy diet and regular exercise is encouraged. (2) HTN (hypertension): Code(s): I10 - Essential (primary) hypertension Category: Medical Qualifiers: Hypertension type: primary hypertension Qualified Code(s): I10 - Essential (primary) hypertension Plan: Continue on current blood pressure medication. Avoid salt intake and encourage healthy diet and regular exercise. (3) GERD (gastroesophageal reflux disease): Code(s): K21.9 - Gastro-esophageal reflux disease without esophagitis Category: Medical Plan: Avoid trigger foods such as citrus, tomato products, soda, caffeine, spicy foods and other foods that may be irritating to your stomach. Avoid laying flat 3-4 hours after eating and elevate the head of the bed 30 degrees to prevent acid from moving into the esophagus. (4) Impaired fasting blood sugar: Code(s): R73.01 - Impaired fasting glucose Category: Medical Plan: Decrease the amount of carbohydrates such as pasta, bread, rice, and potatoes and limit the amount of sweets. Although fruits are generally healthy they should be eaten in moderation as they are still high in sugar. A1c 5.5% on last labs. (5) Pure hypercholesterolemia: Code(s): E78.00 - Pure hypercholesterolemia, unspecified Category: Medical Plan: Avoid foods that are high in cholesterol such as red meat, fried foods, eggs and baked goods. Triglyceride goal of less than 150 and LDL goal of less than 130. Reminded about blood work. (6) Foot pain: Code(s): M79.673 - Pain in unspecified foot Category: Medical Plan: denies any foot pain at this time but would like a uric acid level drawn, labs ordered. (7) Cough: Code(s): R05.9 - Cough, unspecified Category: Medical Plan: Patient complaining of mild intermittent cough throughout the day. The cough is to clear her throat due to excessive phlegm production. She denies any coughing fits, fevers, fatigue or other symptoms. Recommend Mucinex for phlegm production and reviewed red flag symptoms and when to present for re-evaluation. Low suspicious for pneumonia today as the patient is not having consitent cough. Plan The patient will be prescribed Mucinex to manage chronic phlegm production, with instructions to monitor symptoms and report back if there is no improvement within a week. If a persistent cough or fever develops, the patient should contact the clinic immediately. Pending blood work for cholesterol management should be completed at the earliest convenience. A follow-up appointment is scheduled in three months for further evaluation and management. This note was constructed using voice recognition software. While every effort has been made to ensure accuracy and rails developer, still areas may have been included sometimes these areas may affect the content or meeting of the given symptoms. Total time spent caring for the patient today was 20 minutes. This includes time spent before the visit reviewing the chart, time spent during the visit, and time spent after the visit and documentation. Orders: Orders Uric Acid Today M79.673 - Pain in unspecified foot, R05.9 - Cough, unspecified Medications: New guaifenesin ER (Mucinex) 1,200 mg PO BID 20 tabs 0RF
[2025-05-19 13:14] VITALS: BP 110/72; PULSE 57; TEMP 36.3; O2SAT 98; BMI 32.8
--- OUTSIDE RECORDS SUMMARY | 2025-05-19 15:27 | XMS_ITS | Patient Health Record ---
Author Organization [facility] Address [address] [place] [address] Care Team Providers Care Helmet Coverer Name Role Phone Spenser Romero Primary Care Provider Sil Rios Unavailable [phone] Allergies Allergen (clinical drug ingredient) Drug/Non Drug [...] nikolai 4mg as directed orally a s directed; Duration: 6 days 12/12/2023 Active Medrol nikolai 4mg as directed orally a s directed; Duration: 6 days 06/15/2024 Active amLODIPine Besylate 5 MG TAKE 1 TABLET B Y MOUTH TWICE DAILY Oral; Duration: 90 Days Active Irbesartan 300 MG TAKE 1 TABLET BY MOLINA TH DAILY Oral; Duration: 90 Days Active Pain Reliever Extra Strength 500 MG TAKE 1 TABLET EVERY 6 HRS NEEDED FOR PAIN OR FEVER Oral; Duration: 3 Days Active Senna 8.6 MG TAKE 1 TABLET BY MOLINA TH 2 TIMES A DAY NEEDED FOR CONSTIPATION FOR 30 DAYS Oral; Duration: 30 Days Active Physical Therapy . . . 2-3x/week; Duration: 3-4 weeks Active Cyclobenzaprine HCl 5 MG Oral; Duration: 5 Days Active hydroCHLOROthiazide 25 MG TAKE 1 TABLET BY MOUTH DAILY Oral; Duration: 90 Days Active Meloxicam 15 MG TAKE 1 TABLET BY MOLINA TH DAILY Oral; Duration: 30 Days Active Omeprazole 20 MG TAKE 1 CAPSULE BY MOUTH DAILY Oral; Duration: 90 Days Active Social History Tobacco Use: [...] 06/15/2024 Encounters Encounter Location Date Provider Diagnosis [facility] [address] [place] [address] 06/15/2024 Sil Perez Achilles tendinitis of left lower extremity M76.62 ; Pain of left heel M79.672 and Calcaneal spur of left foot M77.32 Assessments Encounter Date Diagnosis (ICD Code) Assessment Notes Treatment Notes Treatment Clinical Notes Section Notes 06/15/2024 Pain of left heel (ICD-10 - [...] Insured Coverage Start Date Coverage End Date [facility] [address] [address] [place] [id number] [facility] [place] [facility] Zayra Londono Self - patient is [...]
== END 2025-05-19 13:40 | disposition home or self-care (01) ==
LOC: HO.HMCH 12:58
PROVIDERS: PCP Internal Medicine
DX: I10 Essential (primary) hypertension (principal); E66.9 Obesity, unspecified; Z68.32 Body mass index [BMI] 32.0-32.9, adult; K21.9 Gastro-esophageal reflux disease without esophagitis; R73.01 Impaired fasting glucose; E78.00 Pure hypercholesterolemia, unspecified; M79.672 Pain in left foot; R05.9 Cough, unspecified

== ENCOUNTER → 2025-05-19 12:58 | Outpatient (BNVA) | payer OTHER, SELFPAY | PROVIDERS: PCP Internal Medicine | DX: E66.9 Obesity, unspecified (principal); Z68.32 Body mass index [BMI] 32.0-32.9, adult; I10 Essential (primary) hypertension; K21.9 Gastro-esophageal reflux disease without esophagitis; R73.01 Impaired fasting glucose; E78.00 Pure hypercholesterolemia, unspecified; R05.9 Cough, unspecified; M79.673 Pain in unspecified foot; Z71.3 Dietary counseling and surveillance | CPT/HCPCS: 99212 ==

== ENCOUNTER 2025-06-09 10:57 | Outpatient (AMB) | payer OTHER, SELFPAY ==
--- NOTE | 2025-06-09 11:13 | A.OFFVIS_ITS ---
Vital Signs 06/09/25 11:14 Height 4 ft 10 in Weight 156 lb BMI 32.6 BP 142/70 H Blood Pressure Location Lt brachial Position Sitting Pulse 48 L Pulse Oximetry (%) 99 Oxygen Delivery Method Room Air Intake Visit Reasons: bloating gerd Intake Note: Patient yearly follow up for bloating and GERD. Patient cc: chronic LLQ pain, and constipation on and off. Denies any other GI issues. Onshore Diver Required: Yes Onshore Diver Name: [facility] interpeter Accompanied by: Self / Same As Patient Allergies atorvastatin Allergy (Unknown, Verified 11/15/25 12:41) myalgia codeine Allergy (Unknown, Verified 11/15/25 12:41) SWELLING penicillin V Allergy (Unknown, Verified 11/15/25 12:41) rash nifedipine Adverse Reaction (Intermediate, Verified 11/15/25 12:41) palpitations pravastatin Adverse Reaction (Intermediate, Verified 11/15/25 12:41) joint pain hydrochlorothiazide Adverse Reaction (Mild, Verified 11/15/25 12:41) Swelling metoprolol Adverse Reaction (Verified 11/15/25 12:41) leg swelling Medication List - Last Reconciled 06/09/25 by Marlon Caballero MD albuterol sulfate 90 mcg/actuation 2 puffs inhalation Q4-6H PRN amlodipine 5 mg PO DAILY baclofen 5 mg PO TID PRN [BP Cuff As directed] cholecalciferol (vitamin D3) 25 mcg PO DAILY [CPAP 6 cm humidified AIR MASKAIR FIT N20 small As directed] guaifenesin ER (Mucinex) 1,200 mg PO BID hydrocortisone 2.5% (Proctosol HC) 1 appl NC BID-QID PRN irbesartan 300 mg PO DAILY 90 days lidocaine 5% (Lidoderm) 1 patch topical DAILY lidocaine 5% (Lidoderm) 1 patch topical DAILY PRN MDD remove after 12 hours naproxen 500 mg PO Q8-12H PRN omeprazole 20 mg PO DAILY 90 days polyethylene glycol 3350 (Miralax) 17 grams PO DAILY PRN 30 days rosuvastatin 5 mg PO DAILY sennosides-docusate sodium 8.6-50 mg (Senna Plus) 1 tab-cap PO BID PRN 30 days [SHOWER CHAIR As directed] simethicone (Gas Relief Extra Strength) 125 mg PO TID PRN 30 days [WALKER WITH SEAT As directed] HPI HPI bloating gerd: Details: GI CLINIC VISIT FOR THIS 75-YEAR-OLD [place]-SPEAKING FEMALE FOR FU OF LEFT UPPER QUADRANT PAIN. Pt was last seen in 04/2025 TODAY'S VISIT: Telephone [employer], Chapo # [id number] Patient reports chronic LLQ pain, and constipation on and off. Can be 10/10 in intensity at times LLQ pain for the past week - pain goes away and then comes back Notes pain even if she does not eat anything. Has a BM 1-2 times a day - sometimes has to strain Denies nausea, vomiting, fevers or chills or having pain every day. PAST VISITS: Patient follow up for dysphagia. Complains of feeling gassy all the time Has a BM 1- 3 times a day and denies abdominal pain Intermittent LLQ pain - 5-6/10 in intensity and lasts 1/2 hour or a little longer. Does not feel pain is related to gas or from not having a BM Has a BM 2-3 times a day. Can get constipated when she eats bread. Feels like pressure and not related to eating. Abdominal pain improves if she has a BM. Continues to have intermittent upper abd pain - two times a week Has a BM 2-3 times a day - rarely has hard stools or straining. Noted abd pain after taking the amlodipine and was changed yesterday Tonsils are enlarged and has seen [address] scan and examination of the throat. Dose of Omeprazole was increased to 40 mg daily for the past 3 weeks. Has a FU appt in 2 weeks with ENT in [place]. Pt had additional imaging studies at [facility] - unsure of the name of the test - found something in the throat EGD and bx results were reviewed. Got over a COVID infection 3 weeks ago Continues to have intermittent pain in her side and none today. Constipation is way better. Denies urinary symptoms ? PAST VISIT: Pt's Hannah FREIRE translated for the patient. Continues to have LUQ pain. Has 3-4 soft BMs a day. Has noted foul smelling stools since the past few weeks. Her PCP called to let her know she had blood in stool on stool tests (Of note - pt had a colonoscopy 2 yrs ago). ?? ? Complains of nausea, bloating LUQ pain (with radiation to the back) and dizziness. ?? ? Unintentional weight loss of 6 lbs in 2 weeks. ? ? Denies any change in her diet. ? ? Abdominal pain is constant and no change in pain after eating. ?? Has a BM 1-2 times a day with intermittent straining without blood in the stools. ?? Stools are sometimes stinky ? ? Denies change in pain with BM. ? ? Takes Senna prn 2-3 times a week ? ? Has been taking more fruits and fibre. Patient denies symptoms of dysphagia, nausea, vomiting, change in appetite or weight. ? Patient denies major cardiac or pulmonary problems, loud snoring or sleep apnea ? Pt has sleep apnea and has not started using the CPAP machine yet since it has not been delivered yet. ? Denies problems with anesthesia in the past. ? Denies being on chronic anticoagulation, aspirin or NSAIDs. ? Patient denies known family history of colon polyps, colon cancer or other GI malignancies.? Abd pain is better - gets it occasionally - rare. ? Constipation is better - has a BM twice a day. ? Colonoscopy results were reviewed with the patient - repeat colon advised in 5 yrs. ? Denies any problems after the procedure. ? Abd CT scan results were discussed - showed diverticulosis. ? Sometimes the pain paralyzes me and I do not have it today. ? Abd pain comes and goes - can last for a few days. ? Notes intermittent constipation. ? Intermittent LUQ pain for the past few months ? It just hurts - sometimes hurts to touch ? Feels worse after taking medications for her kidneys. ? Denies radiation of pain to the back. ? Denies recent change in bowel habits, constipation, diarrhea, black stools or rectal bleeding. ? Denies association of fever, chills or sweating with the?pa IMAGING STUDIES: 05/20/[address] SCAN AT [facility] SHOWED; Moderate FDG uptake at bilateral palatine tonsils with slightly asymmetric left- sided hypertrophy. No focal concerning lesion no cervical lymphadenopathy. No definite evidence of malignancy. 02/2023 UGI SHOWED:Small sliding-type hiatal hernia with mild spontaneous gastroesophageal reflux. Esophageal dysmotility with delayed emptying and tertiary contractions distally. 05/2021 ABD US SHOWED:Echogenic liver probably representing fatty infiltration. Small bilateral renal cysts. Limited visualization of the tail the pancreas. 04/28/[address] SCAN SHOWED:? Diverticulosis of the colon. No evidence of diverticulitis. ? Fatty infiltration of the head of the pancreas. ? Probable small right renal cysts. Question small uterine fibroid. ENDOSCOPIC STUDIES: 06/2022 EGD SHOWED: ESOPHAGUS: Tortuous esophagus with increased tertiary contractions without? stricture or ring.? GE junction at 36 cms.? No esophagitis or Gore's. STOMACH:? gastritis DUODENUM:? normal - ? biopsies were obtained to check for celiac sprue No etiology found for abdominal pain BIOPSIES SHOWED: A.? Small bowel, biopsy:? Small bowel mucosa within normal limits; preserved villous architecture no increased intraepithelial lymphocytes seen. B.? Stomach, antrum, biopsy:? Gastric antral mucosa with mild chronic inactive gastritis; negative for Helicobacter pylori, intestinal metaplasia and dysplasia. C.? Stomach, body, biopsy:? Gastric body mucosa within normal limits; negative for Helicobacter pylori, intestinal metaplasia and dysplasia. 06/20/20 COLONOSCOPY SHOWED:? One 7-8 mm adenomatous polyp was removed, two diminutive hyperplastic rectal polyps were biopsied. ? Moderate diverticulosis seen in the entire colon ? Moderate hemorrhoids on retroflexed exam. ? Plan: Patient has an appointment on 07/03/20 in the GI Clinic with Marlon Caballero M.D.-. ? Repeat Colonoscopy interval based on path results in 5 years if ? polyps are adenomatous - needs GA with intubation and an adult colonoscope for future colonoscopies. ?BIOPSIES SHOWED: ? A. Colon, transverse polyp, polypectomy: Fragments of tubular adenoma. ? B. Rectum, polyp, polypectomy: Fragments of hyperplastic polyp. ? 12/07/09 SCREENING COLONOSCOPY WAS PERFORMED BY DR. VERAS AND SHOWED EXTERNAL HEMORRHOIDS AND NO POLYPS. [facility] Medical History (Updated 11/15/25 @ 13:04 by Spenser Romero MD) Breast cancer screening Age-related osteoporosis without current pathological fracture Obesity (BMI 30.0-34.9) Benign essential hypertension JANN on CPAP Left leg swelling Conjunctivitis Radicular pain Low back pain Otitis media of left ear LUQ abdominal pain Vitamin D deficiency Obesity (BMI 30-39.9) Obstructive sleep apnea IgA nephropathy History of colon polyps Diverticulosis Chronic constipation Venous (peripheral) insufficiency Coreas's cyst of knee Pure hypercholesterolemia Hypovitaminosis D Surgical History History of esophagogastroduodenoscopy (EGD) History of dilatation and curettage H/O tubal ligation History of loop electrical excision procedure (LEEP) History of colonoscopy Family History Father Alzheimers disease Mother Kidney failure Social History Housing: Apartment Are you a primary childcare worker to a significant other at home: No Alcohol intake: never Patient Tobacco Use Status: Never used Tobacco Tobacco use type: Cigarette e-Cigarette/Vaping Use: Never Used Second Hand Smoke Exposure: No service: No Current occupational status: disabled Cognitive needs: No Hearing needs: No Vision needs: Yes Physical Exam Vital Signs: Last Vital Signs Pulse 48 L 06/09/25 11:14 BP 142/70 H 06/09/25 11:14 Pulse Ox 99 06/09/25 11:14 Oxygen Delivery Method Room Air 06/09/25 11:14 BMI result Body Mass Index 32.6 Const General: healthy appearing and no acute distress Nutritional Appearance: obese Orientation/consciousness: patient oriented x3 Limitations: language barrier HEENT Head: Yes normal to inspection Ears: hearing grossly normal bilaterally Mouth: Normal oral and palatal mucosa present Eyes Sclerae: sclerae normal Pupils: Equal, round and reactive pupils present Neck Neck: Yes normal visual inspection Chest Chest palpation & inspection: normal inspection of the chest Resp Effort & Inspection: normal respiratory effort Auscultation: clear to auscultation bilaterally Cardio Palpation: normal PMI Rate: regular rate Rhythm: regular rhythm Heart sounds: S1 normal heart sound present, S2 normal heart sound present and no murmurs GI Palpation (GI): Soft to palpation, Tenderness to palpation present (GI) (in left flank) and No hepatosplenomegaly present Auscultation: normal bowel sounds Rectal Exam - Female: deferred Skin General skin exam: no rashes or lesions noted Neuro General: patient oriented x3, gait normal and moves all extremities Cranial nerves: Yes Equal, round and reactive pupils present Psych Appearance: grossly normal Mental Status: mental status grossly normal Assessment & Plan Assessment & Plan (1) Dysphagia: Code(s): R13.10 - Dysphagia, unspecified Category: Medical (2) GERD (gastroesophageal reflux disease): Code(s): K21.9 - Gastro-esophageal reflux disease without esophagitis Category: Medical (3) Esophageal dysmotility: Code(s): K22.4 - Dyskinesia of esophagus Category: Medical (4) Bloating symptom: Code(s): R14.0 - Abdominal distension (gaseous) Category: Medical (5) Abdominal pain, acute, left lower quadrant: Code(s): R10.32 - Left lower quadrant pain Category: Medical Plan 75 year old Cypriot-speaking female followed in GI for left-sided abdominal pain. Abdominal CT scan showed fatty infiltration of the head of the pancreas and diverticulosis of the colon. No evidence of diverticulitis. 06/20/20 A 7-8 mm tubular adenoma was removed during colonoscopy - repeat colon advised in 5 years. Patient was advised to continue senna with docusate for constipation. Stool pancreatic elastase to rule out pancreatic insufficiency. Complains of nausea, bloating LUQ pain (with radiation to the back) and dizziness. Unintentional weight loss of 6 lbs in 2 weeks - wt has been stable over the past 4 months. 06/2022 EGD was performed and results as noted above 07/2022 Pt complained of pain in the left lumbar area - ?? Musculoskeletal versus renal. Patient was advised to have a urine test which was negative 07/10/23 Pt advised to take Miralax once a day to see if abdominal pain is related to constipation and improves with Miralax 05/06/24 Complains of feeling gassy all the time Has a BM 1- 3 times a day and denies abdominal pain Pt advised to take Simethicone for gas 06/09/25 Patient reports chronic LLQ pain, and constipation on and off. Can be 10/10 in intensity at times LLQ pain for the past week - pain goes away and then comes back Notes pain even if she does not eat anything. Pt advised to schedule an Abd CT scan and a colonoscopy FU in 3 weeks Orders: Orders Complete Blood Count Auto Diff 06/09/25 R10.32 - Left lower quadrant pain UA CC w/rflx Micro + Cult 06/09/25 R10.32 - Left lower quadrant pain CT abdomen pelvis w IV con 06/09/25 R10.32 - Left lower quadrant pain C Reactive Protein 06/09/25 R10.32 - Left lower quadrant pain Comprehensive Met. Panel 06/09/25 R10.32 - Left lower quadrant pain Medications: Discontinued rosuvastatin Discontinued Reason: Patient no longer taking 5 mg PO DAILY 90 tabs 3RF Coding Level of Care Code Est Pt Level 4 (38254) Diagnoses Dysphagia R13.10 GERD (gastroesophageal reflux disease) K21.9 Esophageal dysmotility K22.4 Bloating symptom R14.0 Abdominal pain, acute, left lower quadrant R10.32 Time Spent (min) 20
[2025-06-09 11:14] VITALS: BP 142/70; PULSE 48; O2SAT 99; BMI 32.6
--- OUTSIDE RECORDS SUMMARY | 2025-06-09 11:46 | XMS_ITS ---
Author Name Head CATH LABORATORY TECHNICIAN,LEADITE HEATER,FN P,LEADITE HEATERJaci Address [address] [place] [address] Phone [phone] [facility] [facility] Care Team Providers Care Showroom Sales Consultant Name Role Phone Jaci Head Unavailable [phone] Po, Lorenver Unavailable [phone] [facility] Unavailable [phone] Reason for Referral Not Available Allergies, adverse [...] 1 TAB LET BY MOUTH DAILY 2023-07-08 2025-03-29 Meloxicam 15 mg Tab TAKE 1 TABLET BY MOLINA TH DAILY 2023-07-08 No Data Available Irbesartan 300 mg Tab TAKE 1 TABLET BY M OUTH DAILY 2023-01-20 No Data Available NIFEdipine ER Osmotic Releas e 30 mg Tab ER 24hr TAKE 1 TABLET BY MOUTH DAILY 2023-09-17 2025-03-29 Cyclobenzaprine 5 mg Tab TAKE 1 TABLET B Y MOUTH THREE TIMES DAILY NEEDED FOR MUSCLE SPASM 2023-09-17 No Data Available Polyethylene Glycol 3350 17 GM/SCOOP Powder DISSOLVE 17 GRAMS IN LIQUID AND DRINK BY MOUTH DAILY NEEDED FOR CONSTIPATION FOR 30 DAYS 2023-10-30 No Data Available Vitamin D3 50 MCG (1999 [place]) Cap 1 capsules PO QD 11-28 No Data Available methylPREDNISolone 4 mg Tab Therapy Pack FOLLOW PACKAGE DIRECTIONS 2023-12-12 2025-03-29 amLODIPine Besylate 5 mg Tab TAKE 1 [...] mg Tab TAKE 2 TABLETS BY M OUTH DAILY FOR 5 DAYS 2024-05-04 2025-03-29 Azithromycin 250 mg Tab TAKE 2 TABLETS B Y MOUTH FOR 1 DAY THEN TAKE 1 TABLET BY MOUTH DAILY UNTIL GONE 2024-10-08 No Data Available Acetaminophen Extra Strength 500 mg Tab TAKE 1 TABLET BY MOUTH EVERY 8 HOURS NEEDED 2024-10-08 No Data Available Gas Relief Extra Strength 12 5 mg Tab Chewable No Data Available 2024-09-25 No Data Available Baclofen 5 mg Tab TAKE 1 TABLET BY MOLINA TH THREE TIMES DAILY NEEDED FOR MUSCLE PAIN 2024-12-23 No Data Available Tylenol 325 mg Tab 2 tabs every 8 hours as needed 2025-03-29 No Data Available Problem List Problem Status Onset Date Resolved Date Synopsis Obesity due to excess calories Active 2023-11-03 N/A BMI: 30.42Lifest yle interventions and continue f/u care with PCP. GERD (gastroesophageal reflux disease) Active 2023-11-03 N/A Rx: OmeprazoleLi festyle interventions and continue f/u care with PCP Other problems related to medical facilities and other health care Active 2025-03-29 N/A HYPERTE NSION CONTINGENCY PLANLast updated: 03/29/2025Member to call for the following symptoms: BP >180/100 / Chest pain / HeadachePlanned intervention: Assess for signs of end organ damage (headache, vision changes, chest pain)/ Simulation Developer on proper BP monitoring technique and reassess/ Increase current medication dose:/ Encourage low sodium diet/ Discuss breathing exercises/ Encourage medication adherence Essential hypertension Active 2023-11-03 N/A Rx : Amlodipine, IrbesartanNo longer on HCTZ or Nifedipine Monitors BP at home daily - usually on higher side of normal per patient. 138*84 - (11/28/23)Continue taking medication, low salt diet, exercise as tolerable, monitor BP routinely, and continue f/u care with PCP. Sacroiliitis; Sciatica Active 2023-11-03 N/A Rx : Tylenol PRN 03/29/25: Has taken Tramadol, Naproxen, Flexeril in the past, not currently takingEncouraged use of heating pad and ice packs as well as positioning for comfortContinue f/u care and monitoring with PCP CKD stage 3a, GFR 45-59 ml/min Active 2025-03-29 N/A 03/31/24 eGFR 58Av oid nephrotoxic agents Recurrent major depressive disorder, in partial remission Active 2025-03-29 N/A No medications in eclined when asked if she would like referral for talk therapyHas supportive children, she is coping Encounters Encounters Type Facility Date of Service Diagnosis/Co mplaint No Data Available [facility] Sacroiliitis, not elsewhere classifiedSciatica, unspecified sideOther obesity due to excess caloriesBody mass index (bmi) 30.0-30.9, adultEssential (primary) hypertensionGastro-esophageal reflux disease without esophagitis No Data Available [facility]2023 No Data Available [facility]20[place] No Data Available [facility] No Data Available [facility] No Data Available [facility] No Data Available [facility]20[place] No Data Available [facility]20[place] No Data Available [facility]20[place] No Data Available [facility] Estab. patient 20-29min; 1 stable chronic or 2 minor; add add modifier 95 for video, modifier 93 for phone [facility] 03[place]29/2025 Hypertensive chronic kidney disease w stg 1-4/unsp chr kdnyChronic kidney disease, stage 3aSacroiliitis, not elsewhere classifiedSciatica, unspecified sideOther obesity due to excess caloriesBody mass index (bmi) 30.0-30.9, adultGastro-esophageal reflux disease without esophagitisOther problems related to medical facilities and other health care Estab. patient 20-29min; 1 stable chronic or 2 minor; add add modifier 95 for video, modifier 93 for phone [facility] 03/29/20[place] Estab. patient 20-29min; 1 stable chronic or 2 minor; add add modifier 95 for video, modifier 93 for phone [facility] 03[place] Estab. patient 20-29min; 1 stable chronic or 2 minor; add add modifier 95 for video, modifier 93 for phone [facility] 03/29/20[place] Estab. patient 20-29min; 1 stable chronic or 2 minor; add add modifier 95 for video, modifier 93 for phone [facility] 03/29/20[place] Estab. patient 20-29min; 1 stable chronic or 2 minor; add add modifier 95 for video, modifier 93 for phone [facility] 03/29/20[place] Estab. patient 20-29min; 1 stable chronic or 2 minor; add add modifier 95 for video, modifier 93 for phone [facility] 03/29/20[place] Estab. patient 20-29min; 1 stable chronic or 2 minor; add add modifier 95 for video, modifier 93 for phone [facility] 03/29/2025 Vital Signs Date of Collection Vitals 2023-11-28 08:14:09 Height - 154.94 cmWe ight - 73.03 kgBody Mass Index (BMI) - 30.42 kg/m2BP Diastolic - 84.0 mm[Hg]BP Systolic - 138.0 mm[Hg]Pain Scale - 0.0 {score} 2025-03-29 10:24:36 Height - 154.94 cmWe ight - 70.31 kgBody Mass Index (BMI) - 29.29 kg/m2BP Diastolic - 69.0 mm[Hg]BP Systolic - 120.0 mm[Hg] Social History Social History Social History Observation Description Effec tive Time Current Smoking Status Never smoker 2025-05-24 7 Sex Female History of Procedures Procedures Service Procedure code Service date Servicing provider Phone# No Data Available 18702 2023-11-28 No Data Available No Data Available [...] Available Advance care planning discussed and documented advance care plan or surrogate decision-maker was documented in the medical record. (1123F) 1123F 2023-11-28 No Data Available No Data Availa ble SBP 130-139 (3075F) 3075F 2023-11-28 No Data Availabl e No Data Available DBP 80-89 (3079F) 3079F 2023-11-28 No Data Available No Data Available Functional Status Assessed (1170F) 1170F 2023-11-28 No Data Available No Data Avail able Estab. patient 20-29min; 1 stable chronic or 2 minor; add add modifier 95 for video, modifier 93 for phone 99923 2025-03-29 No Data Available No Data Availa ble Medication List Documented (1159F) 1159F 2025-03-29 No Data Available No Data Kalani ilable Medication Review by prescribing provider or pharmacist documented (1160F) 1160F 2025-03-29 No Data Available No Data Kalani ilable Functional Status Assessed (1170F) 1170F 2025-03-29 No Data Available No Data Avail able Advance Care Directive Advance care planning discussion documented in the medical record (1158F) 1158F 2025-03-29 No Data Available No Data Availa ble Advance care planning discussed and documented advance care plan or surrogate decision-maker was documented in the medical record. (1123F) 1123F 2025-03-29 No Data Available No Data Availa ble SBP < 130 (3074F) 3074F 2025-03-29 No Data Available No Data Available DBP <80 (3078F) 3078F 2025-03-29 No Data Available No Data Available Functional Status Functional Category Effective Dates ROLL INSPECTOR assists with cooking, cl eaning, laundry, showering and dressing. Pt reports using assistive device of: shower chair 2023-11-28 Denies use of cane or walker 2023-11-28 Denies falls in the 6 months 2025-03-29 Mental Status Status Date AOx3 2023-11-28 Denies forgetfulness and confusion 11-28 Assessments Date of Service Assessments 2023-11-28 08:14:09 Sacroiliitis; Sciati caObesity due to excess caloriesEssential hypertensionGERD (gastroesophageal reflux disease) 2025-03-29 10:24:36 Sacroiliitis; Sciati caObesity due to excess caloriesEssential hypertensionGERD (gastroesophageal reflux disease)Other problems related to medical facilities and other health careCKD stage 3a, GFR 45-59 ml/min Plan of Care Date of Service Plans [...] modifier 95Advance care planning discussed and documented advance care plan or surrogate decision-maker was documented in the medical record. (1123F)Advance care planning discussed and documented in the medical record beneficiary/patient did not wish to or was unable to provide an advance care plan or name a surrogate decision-maker. (1124F)Continue to see PCP. Follow-up with [facility] as needed for any acute or disease [...] interventions and continue f/u care with PCP. 2025-03-29 10:24:36 Functional Status As sessed (1170F)Advance Care Directive Advance care planning discussion documented in the medical record (1158F)Advance care planning discussed and documented advance care plan or surrogate decision-maker was documented in the medical record. (1123F)Estab. patient 20-29min; 1 stable chronic or 2 minor; add add modifier 95 for video, modifier 93 for phoneMedication List Documented (1159F)Medication Review by prescribing provider or pharmacist documented (1160F)Pain Assessment - NO pain present (1126F)SBP < 130 (3074F)DBP <80 (3078F)Continue to see PCP. Follow-up with [facility] as needed for any acute or disease education needs that may arise.Rx: Tylenol PRN 03/29/25: Has taken Tramadol, Naproxen, Flexeril in the past, not currently takingEncouraged use of heating pad and ice packs as well as positioning for comfortContinue f/u care and monitoring with PCPBMI: 30.42Lifestyle interventions and continue f/u care with PCP.Rx: Amlodipine, IrbesartanNo longer on HCTZ or Nifedipine Monitors BP at home daily - usually on higher side of normal per patient. 138*84 - (11/28/23)Continue taking medication, low salt diet, exercise as tolerable, monitor BP routinely, and continue f/u care with PCP.Rx: OmeprazoleLifestyle interventions and continue f/u care with PCPHYPERTENSION CONTINGENCY PLANLast updated: 03/29/2025Member to call for the following symptoms: BP >180/100 / Chest pain / HeadachePlanned intervention: Assess for signs of end organ damage (headache, vision changes, chest pain)/ Simulation Developer on proper BP monitoring technique and reassess/ Increase current medication dose:/ Encourage low sodium diet/ Discuss breathing exercises/ Encourage medication adherence5/8/24 eGFR 58Avoid nephrotoxic agents Goals Date Goal 2023-11-28 Remember to1. Contin [...] follow up care. Health Concerns Date Concern 2025-03-29 Visit completed franki kearns audio. Member was not receiving SMS for Zoom or Doximity to get on video. VGB scheduled. Patient/Guardian agreed to visit via telehealth. Today, patient has chief complaint of: follow up care and comprehensive review.Reviewed Allergies, Medications, Active Medical conditions, past medical/surgical history, Social history. 2025-03-29 Advance Care Plannin g - See Legal 2025-03-29 Most recent hospital stay(s) or ER visit(s) and precipitating factors: 2025-03-29 Open HEDIS Measure r alexander: Advance Care PlanningControlling High Blood Pressure < 140/90 2025-03-29 ECCA completed with member and ORLIN nitro man
--- OUTSIDE RECORDS SUMMARY | 2025-06-09 11:47 | XMS_ITS | Encounter Summary ---
Author Organization [employer] Address [address] [place] [address] [address] [place] [address] Care Team Providers Care Flue Cleaner Name Role Phone Unavailable Primary Care Provider Unavailabl e Reason for Visit * Reason Onset Date Comments rs cancelled appt 12/29/2024 Encounter Details Date Type Department Care Team ([facility] st Contact Info) Description 12/29/2024 Telephone [facility] ADULT DENTAL [address] [place] [address] Jake Iverson DDS [address] [place] [address] rs cancelled appt Social History Tobacco Use Types Packs/Day Years [...] encounter Miscellaneous Notes * Telephone Encounter - Lynda Arciniega - 12/29/2024 9:35 AM EST Patient called in to cancel appt for 12/30 due to illness. Unable to rs appt due to no availabilityon provider schedule. Please reach out to patient rescheduling when schedule opens up. documented in this encounter Plan of Treatment Not on file documented as of this encounter Visit Diagnoses Not on filedocumented in this encounter
--- OUTSIDE RECORDS SUMMARY | 2025-06-09 11:47 | XMS_ITS | Data Portability ---
Author Organization [place] - [facility], Allergy Address [address] [address] Care Team Providers Care Television Production Technician Name Role Phone CALEB LEIVA Primary Care Provider Assessment No assessment recorded. Plan of Treatment [...] Name and Address Organization Details Recorded Time Respirato ry finding 147998254 Active 2022 Feeling of foreign body in throat; Note: Date Diagnosed : 05/20/2023 12:33 PM (R09.89) Not Available [facility] 4 03:16:00 Cardiovas cular finding 231986222 Active 2022 Feeling of foreign body in throat; Note: Date Diagnosed : 05/20/2023 12:33 PM (R09.89) Not Available [facility] 4 03:16:00 Dysphonia 27285554 Active 2022 Hoarsenes s; Note: Date Diagnosed : 05/20/2023 12:34 PM (R49.0) Not Available [facility] 4 03:16:00 Pain in throat 611965058 Active 2022 Pain in throat; Note: Date Diagnosed : 05/20/2023 12:33 PM (J31.2) Not Available [facility] 4 03:16:00 Gastroeso phageal reflux disease without esophagit is 436349690 Active 2022 Gastro-es ophageal reflux disease without esophagit is; Note: Date Diagnosed : 05/20/2023 12:33 PM (K21.9) Not Available [facility] 4 03:15:59 Bilateral temporoma ndibular joint pain [id number] 751025 Active 2022 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; Note: Date Diagnosed : 07/01/2023 2:16 PM (M26.623) Not Available [facility] 4 03:16:00 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 Procedures Surgical History Date Name Laterality Status Provider Name and Address Organization Details Recorded Time 09/08/2024 FFL_RE completed KIARA MAE MD [address] [place] [address], [phone], [facility] 09/08/2024 11:08:16 Imaging Results None recorded. Procedure Notes None recorded. Medical Equipment None Reported. Allergies Allergen ID Allergen Name Allergen Category Reaction Reaction Severity Criticality Documentation Date Start Date Code Code System Note Provider Name and Address Organization Details Recorded Time 126894 Product containin g penicilli n (product) medicatio n other Not available Not available 04/06/2024 26544 8005 SNOMED React ion: Unkno wn; Not Available [facility] 4 01:17:56 677939 codeine medicatio n other Not available Not available 04/06/2024 2670 RxNorm React ion: Unkno wn; Not Available [facility] 4 01:17:56 Medications Name Sig Start Date Stop Date Status Note LastModified by Organization Details LastModified Time nifedipine ER 30 mg tablet,ext ended release 24 hr TAKE 1 TABLET BY MOUTH DAILY active Not Available Not Available No t Available senna 8.6 mg tablet active Medicatio n ID: [id number] Br and Name: senna Sen d Method: E-Prescri bed Subs Allowed: subs [...] a day 2022 active Medicatio n ID: [id number] Du ration Value: 30 Brand Name: omeprazol [...] SNOMED-CT Code Diagnosis ICD10 Code Diagnosis Note [id number] KIARA MAE MD [facility] [address] [address] 09/08/2024 10:37:30 09/08/2024 11:07:30 Chronic tonsillitis 66820588 J35.01 Likely explains PET uptake. No tumors or masses on exam today and symptoms seem to correlate with tonsil stones. We will continue observatio n. I asked her to call if her symptoms worsen. 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 .8 see above Health Concerns Section Related Observation LastModified by Organization Detai ls LastModified Time None Recorded Concern Status LastModified by Organization Details LastModified Time None Recorded Advance Directives Directive None Recorded Payers Insurance Date Sequence Insurance Name Policy Number Policy Heaton Covered Member ID Heaton Member ID Guarantor Name 03/09/2025 1 [facility] (MEDICARE REPLAC[facility]/A DVANTAGE - HMO) [facility] [place] Zayra Rodas [id number] Zayra Rodas Notes Date Note Type Note [...] She does not smoke. KIARA MAE MD [address] [place] [address], [place], [address], [place] - [facility] 09/08/2024 11:09:13 OBGyn Episode No OBEpisode recorded.
--- OUTSIDE RECORDS SUMMARY | 2025-06-09 11:47 | XMS_ITS | Patient Health Record ---
Author Organization [facility] Address [address] [facility] [place] [address] Care Team Providers Care Spinner Tender Name Role Phone Spenser Romero Primary Care Provider Sil Rios Unavailable [phone] Allergies Allergen (clinical drug ingredient) Drug/Non Drug [...] Notes Start Date End Date Status Medrol nkiolai 4mg as directed orally a s directed; [...] 06/15/2024 Encounters Encounter Location Date Provider Diagnosis [facility] [address] [place] [address] 06/15/2024 Sil Perez Achilles tendinitis of left [...] Insured Coverage Start Date Coverage End Date [facility] [address] [place] [address] [id number] [facility] [place] 0 Zayra Londono Self - patient is [...]
== END 2025-06-09 12:44 | disposition home or self-care (01) ==
LOC: HO.HGI 10:58
PROVIDERS: PCP Internal Medicine; Visit Provider Internal Medicine Gastroenterology
DX: R13.10 Dysphagia, unspecified (principal); K21.9 Gastro-esophageal reflux disease without esophagitis; K22.4 Dyskinesia of esophagus; R14.0 Abdominal distension (gaseous); R10.32 Left lower quadrant pain
CPT/HCPCS: 99499

== ENCOUNTER 2025-06-09 10:57 | Outpatient (REF) | payer OTHER, SELFPAY ==
[2025-06-09 13:05] LABS: MANUAL DIFF FLAG NO
[2025-06-09 13:59] LABS: Hematocrit 38.4 % (37.0-47.0); Hemoglobin 12.3 g/dl (12.0-16.0); Imm Gran Abs Auto 0.02 X10*3/uL (0.00-0.03); Imm Gran Pct Auto 0.2 % (0.0-0.4); Lymphocytes Absolute Auto 2.4 X10*3/uL (1.2-4.9); Mean Corpuscular HGB Conc 32.0 g/dl (31.0-35.0); Mean Corpuscular Hemoglobin 30.3 pg (27.0-33.0); Mean Corpuscular Volume 94.6 fL (80.0-98.0); NRBC Abs Auto 0.000 X10*3/uL (0.0-0.012); NRBC Pct Auto 0.0 /100WBC (0.0-0.2); Platelet Count 304 X10*3/uL (160-400); Red Blood Count 4.06 X10*6/uL (4.20-5.50); White Blood Count 8.3 X10*3/uL (4.8-10.8)
[2025-06-09 14:12] LABS: Appearance Urine Clear; Glucose Urine UA Negative (Negative); PH 5.5 (5.0-9.0); Specific Gravity - Urine 1.015 (1.005-1.025)
[2025-06-09 14:31] LABS: Alanine Aminotransferase 18 U/L (0-31); Albumin Level 4.3 g/dL (3.5-5.0); Alkaline Phosphatase 127 U/L (39-117); Anion Gap 13 (12-20); Aspartate Amino Transferase 29 U/L (5-31); Blood Urea Nitrogen 28 mg/dL (9-16); Calcium 9.9 mg/dL (8.4-10.2); Carbon Dioxide 25 mmol/L (22-29); Chloride 107 mmol/L (96-108); Cholesterol 225 mg/dL (<200); Estimated Glomerular Filt Rate 49; HDL Cholesterol 47 mg/dL (>40); Potassium 4.9 mmol/L (3.3-5.1); Sodium 140 mmol/L (135-145); Total Protein 7.6 g/dL (6.5-8.0); Triglycerides 140 mg/dL (<150); Uric Acid 6.7 mg/dL (2.4-5.7)
== END 2025-06-09 10:58 | disposition home or self-care (01) ==
LOC: HO.LAB 10:57
PROVIDERS: PCP Internal Medicine; Visit Provider Internal Medicine Gastroenterology
DX: K21.9 Gastro-esophageal reflux disease without esophagitis (principal); K22.4 Dyskinesia of esophagus; R13.10 Dysphagia, unspecified; R14.0 Abdominal distension (gaseous); R10.32 Left lower quadrant pain; G89.29 Other chronic pain; K59.00 Constipation, unspecified; E78.00 Pure hypercholesterolemia, unspecified; R42 Dizziness and giddiness; R05.9 Cough, unspecified; R11.0 Nausea; M79.673 Pain in unspecified foot; Z79.899 Other long term (current) drug therapy
CPT/HCPCS: 36415; 80053; 80061; 81003; 84550; 85025; 86140

== ENCOUNTER 2025-06-24 11:54 | Outpatient (REF) | payer OTHER, SELFPAY ==
--- NOTE | ~2025-06-24 | CT_ITS ---
EXAMINATION: CT ABDOMEN AND PELVIS WITH CONTRAST CLINICAL INFORMATION: Left lower quadrant pain COMPARISON: April 28, 2020 TECHNIQUE: Multidetector volumetric images were obtained from the superior aspect of the liver through the pubic symphysis following administration 85 mL of Omnipaque 350 intravenous contrast. Sagittal and coronal reformatted images were obtained on the technologist's workstation. Oral contrast: No This CT examination was performed using dose optimization techniques as appropriate, variously including the following: *Automated exposure control *Adjustment of mA and/or kV according to patient size (this includes techniques or standardized protocols for targeted exams where dose is matched to indication/reason for exam; i.e. extremities or head) *Use of iterative reconstruction technique DLP: 325 mGY*cm FINDINGS: LUNG BASES: The visualized lung bases are unremarkable. LIVER, GALLBLADDER, AND BILIARY TREE: The liver is normal in size, shape, and attenuation. No focal hepatic lesion or biliary ductal dilatation is present. The gallbladder is unremarkable with no evidence of radiopaque gallstones, gallbladder wall thickening, or obvious pericholecystic inflammatory changes. PANCREAS: There is fatty infiltration in the head and uncinate process. SPLEEN: Unremarkable. ADRENAL GLANDS: Unremarkable. KIDNEYS AND URETERS: There are multiple low attenuating lesions are small in size and likely represent benign simple cyst. BLADDER: Unremarkable. GASTROINTESTINAL TRACT: Pseudodiverticula are present in the right colon, descending and sigmoid colon. There is no adjacent inflammatory change or wall thickening. The appendix is within normal limits. ABDOMINAL WALL: No significant hernia is appreciated. LYMPH NODES: Normal. VASCULAR: Moderate aortic calcifications are present. PELVIC VISCERA: Small subserosal leiomyoma is noted on the deep surface of the left uterine body. OSSEOUS STRUCTURES: Mild degenerative disc disease is evident. There is moderate facet osteoarthritis at L4-5 and L5-S1. CT/CT abdomen pelvis w IV con IMPRESSION: No findings to explain patient's left lower quadrant pain. Diverticulosis without acute infection. Subserosal uterine leiomyoma. Fleischner guidelines were followed. Electronically signed by: Roberth Ruiz MD 06/24/2025 02:42 PM EDT
--- OUTSIDE RECORDS SUMMARY | 2025-06-24 11:57 | XMS_ITS | Patient Health Record ---
Author Organization [facility] Address [address] [place] [address] Care Team Providers Care Skin Care Instructor Name Role Phone Spenser Romero Primary Care Provider Sil Rios Unavailable [phone] Allergies Allergen (clinical drug ingredient) Drug/Non Drug [...] Are you an other tobacco user? No Plan Of Treatment Pending Test Test Name Order Date X ray : Foot, left 3V 09/09/2023 Insurance Providers Payer Name Payer Address Payer Phone Subscriber Number Group Number Insured Name Patient Relationship to Insured Coverage Start Date Coverage End Date [facility] [address] [place] [id number] [facility] 0 Zayra Londono Self - patient is [...]
--- OUTSIDE RECORDS SUMMARY | 2025-06-24 11:57 | XMS_ITS | Encounter Summary ---
Author Organization [employer] Address [address] [place] [address] [address] [place] [address] Care Team Providers Care Credit Union Teller Name Role Phone Jeanne Sandhu OD Primary Care Provider Encounter Details Date Type Department Care Team (Latest Contact Info) Description 03/01/2019 Abstract [facility] CONVERSIONS Dental, Provider, DDS Social History Tobacco Use Types Packs/Day Years Used Date Smoking Tobacco: Never Assessed Comments Unknown Sex and Gender Information Value Date Recorded Sex Assigned at Female 09/23/2022 10:15 AM EDT Legal Sex Female 10:15 AM EDT Gender Identity Female 04/17/2023 12:06 PM EDT Sexual Orientation Straight 04/17/2023 12 :06 PM EDT documented as of this encounter Plan of Treatment Not on file documented as of this encounter Visit Diagnoses Not on filedocumented in this encounter Care Teams Credit Union Teller Relationship Specialty Start Date End Date Jeanne Sandhu OD [address] [place] [address] PCP - General Optometry 08/15/17 11/30/23 documented as of this encounter
--- OUTSIDE RECORDS SUMMARY | 2025-06-24 11:57 | XMS_ITS ---
Author Name Head RECREATION LEADER,PATIENT RELATIONS LIAISON,FN P,ENTERPRISE RECORDS ANALYSTJaci Address [address] [place] [address] Phone [phone] [facility] Care Team Providers Care Co Founder And Cto Name Role Phone Jaci Head Unavailable [phone] Po, Lorenver Unavailable [phone] [facility] Unavailable [phone] Reason for Referral Not Available Allergies, adverse [...] organ damage (headache, vision changes, chest pain)/ Youth Court Judge on proper BP monitoring technique and reassess/ [...] of Service Diagnosis/Co mplaint No Data Available [facility] 11/28/2023 Sacroiliitis, not elsewhere classifiedSciatica, unspecified sideOther obesity due to excess caloriesBody mass index (bmi) 30.0-30.9, adultEssential (primary) hypertensionGastro-esophageal reflux disease without esophagitis No Data Available [facility] 11[place]/2023 No Data Available [facility]/2023 No Data Available [facility]/2023 No Data Available [facility] 11/[place]/2023 No Data Available [facility]/2023 No Data Available [facility] 11/[place]/2023 No Data Available [facility] 11/[place]/2023 No Data Available [facility] 11/[place]/2023 No Data Available [facility]/2023 Estab. patient 20-29min; 1 stable chronic or 2 minor; add add modifier 95 for video, modifier 93 for phone [facility] 03/29/2025 Hypertensive chronic kidney disease w stg 1-4/unsp chr kdnyChronic kidney disease, stage 3aSacroiliitis, not elsewhere classifiedSciatica, unspecified sideOther obesity due to excess caloriesBody mass index (bmi) 30.0-30.9, adultGastro-esophageal reflux disease without esophagitisOther problems related to medical facilities and other health care Estab. patient 20-29min; 1 stable chronic or 2 minor; add add modifier 95 for video, modifier 93 for phone [facility] [place] 03/29/[facility] Estab. patient 20-29min; 1 stable chronic or 2 minor; add add modifier 95 for video, modifier 93 for phone [facility] [place] [facility] Estab. patient 20-29min; 1 stable chronic or 2 minor; add add modifier 95 for video, modifier 93 for phone [facility]29[place] Estab. patient 20-29min; 1 stable chronic or 2 minor; add add modifier 95 for video, modifier 93 for phone [facility] 03/29/[facility]25 Estab. patient 20-29min; 1 stable chronic or 2 minor; add add modifier 95 for video, modifier 93 for phone [facility] [place] 03/29/[facility] Estab. patient 20-29min; 1 stable chronic or 2 minor; add add modifier 95 for video, modifier 93 for phone [facility] 03/[place]/[facility]25 Estab. patient 20-29min; 1 stable chronic or 2 minor; add add modifier 95 for video, modifier 93 for phone [facility] 03/29/2025 Vital Signs [...] tive Time Current Smoking Status Never smoker 1 Sex Female History of Procedures Procedures Service Procedure code Service date Servicing provider Phone# No Data Available [id number] 2023-11-28 No Data Available No Data Available [...] 95 for video, modifier 93 for phone [id number] 2025-03-29 No Data Available No Data Availa [...] Available Functional Status Functional Category Effective Dates ROCKBOARD LATHER assists with cooking, cl eaning, laundry, showering [...] organ damage (headache, vision changes, chest pain)/ Youth Court Judge on proper BP monitoring technique and reassess/ [...] Concerns Date Concern 2025-03-29 Visit completed franki kerans audio. Member was not receiving SMS for [...] 2025-03-29 ECCA completed with member and ORLIN staff interpreter
[2025-06-24] MEDS: iohexoL 350 MG/ML 100 ML INFUS..BTL IV (14:21)
[2025-06-24] MEDS: Barium Sulfate Oral (Berry) 450 ML ORAL.SUSP 900 ML PO (14:21)
== END 2025-06-24 11:55 | disposition home or self-care (01) ==
LOC: HO.CT 11:54
PROVIDERS: PCP Internal Medicine; Visit Provider Internal Medicine Gastroenterology
DX: R10.32 Left lower quadrant pain (principal)
CPT/HCPCS: 74177; Q9967

== ENCOUNTER → 2025-06-24 11:56 | Outpatient (BNV) | payer OTHER, SELFPAY | PROVIDERS: PCP Internal Medicine; Visit Provider Radiology Diagnostic Radiology | DX: K57.30 Diverticulosis of large intestine without perforation or abscess without bleeding (principal) | CPT/HCPCS: 74177 ==

== ENCOUNTER 2025-07-08 15:25 | Emergency (ER) | payer OTHER, SELFPAY ==
--- NOTE | ~2025-07-08 | XR_ITS ---
EXAMINATION: XR KNEE 4 OR MORE VIEWS LEFT HISTORY: anterior atraumatic knee pain COMPARISON: Comparison is made with the prior examination dated 06/23/2024. FINDINGS: Four views of the left knee are submitted. The bones are osteopenic. There is no fracture or dislocation. Again seen is severe osteoarthritis of the patellofemoral compartment with joint space narrowing and osteophyte formation. Milder changes are noted involving the medial and lateral compartments. The soft tissues are unremarkable. There is no joint effusion. XR/XR knee LT 4V IMPRESSION: Osteopenia. Osteoarthritis of the left knee as described. Electronically signed by: Bon Liu MD 07/08/2025 04:27 PM EDT
[2025-07-08 15:36] VITALS: BP 152/86; PULSE 63; O2SAT 98; BMI 30.9
[2025-07-08 15:40] VITALS: BP 153/66; PULSE 61; RESP 14; TEMP 36.1; O2SAT 95
--- NOTE | 2025-07-08 16:03 | ED_ITS ---
HPI - Extremity Injury (Lower) General Chief Complaint: Extremity Injury, Lower Stated Complaint: l leg pain Time Seen by Provider: 07/08/25 15:59 History of Present Illness ED Provider: Elia Cheney MD HPI Narrative: 75-year-old female with left knee pain atraumatic going on for a few days perhaps some mild anterior swelling no fever or chills. No history of arthritis. Denies any constitutional symptoms felt some cramping in the toes few days ago no swelling or history of DVT or PE. Related Data Previous Rx's ?Medication ?Instructions ?Recorded cholecalciferol (vitamin D3) 25 25 mcg PO DAILY #90 ta bs 12/07/20 mcg (1,000 unit) tablet CPAP 6 cm humidified AIR MASKAIR #1 ea 04/20/21 FIT N20 small hydrocortisone 2.5 % topical cream 1 appl TN BID-QID P RN hemorrhoids 03/26/22 with perineal applicator #30 grams (Proctosol HC) lidocaine 5 % topical patch 1 patch topical DAILY PRN pain #30 03/11/23 (Lidoderm) ea SHOWER CHAIR #1 ea 03/24/23 WALKER WITH SEAT #1 ea 03/24/23 sennosides 8.6 mg-docusate sodium 1 tab-cap PO BID PRN constipation 03/24/23 50 mg capsule (Senna Plus) 30 days #60 caps polyethylene glycol 3350 17 17 g PO DAILY PRN constipa tion 30 10/30/23 gram/dose oral powder (Miralax) days #510 grams BP Cuff #1 ea 03/17/24 naproxen 500 mg tablet 500 mg PO Q8-12H PRN pain (s yolie 05/04/24 score 4-6) #20 tabs omeprazole 20 mg capsule,delayed 20 mg PO DAILY 90 day s #90 caps 09/24/24 release simethicone 125 mg chewable tablet 125 mg PO TID PRN f or abdominal 09/25/24 (Gas Relief Extra Strength) pain 30 days #90 tabs irbesartan 300 mg tablet 300 mg PO DAILY 90 days #90 tabs 11/11/24 baclofen 5 mg tablet 5 mg PO TID PRN muscle pain #10 12/23/24 tabs lidocaine 5 % topical patch 1 patch topical DAILY #15 ea 01/30/25 (Lidoderm) albuterol sulfate 90 mcg/actuation 2 puff inhalation Q 4-6H PRN 05/04/25 aerosol inhaler shortness of breath or wheez ing #6.7 grams guaifenesin 1,200 mg tablet, 1,200 mg PO BID #20 tabs 05/19/25 extended release 12 hr (Mucinex) amlodipine 5 mg tablet 5 mg PO DAILY #90 tabs 05/31 rosuvastatin 10 mg tablet 10 mg PO DAILY #90 tabs 05/24 07/18 meloxicam 7.5 mg tablet 7.5 mg PO DAILY 10 days #10 tabs 07/08/25 Allergies Allergy/AdvReac Type Severity Reaction Status Date / Time atorvastatin Allergy Unknown myalgia Verified 07/08/25 15:40 codeine Allergy Unknown SWELLING Verified 07/08/25 15:40 penicillin V Allergy Unknown rash Verified 07/08/25 15:40 nifedipine AdvReac Intermediate palpitation Verified 07/08/25 15:40 s pravastatin AdvReac Intermediate joint pain Verified 07/08/25 15:40 hydrochlorothiazide AdvReac Mild Swelling Verified 07/08/25 15:40 metoprolol AdvReac leg Verified 07/08/25 15:40 swelling PMFSH Past Medical History Medical History Benign essential hypertension JANN on CPAP Left leg swelling Conjunctivitis Radicular pain Low back pain Otitis media of left ear LUQ abdominal pain Vitamin D deficiency Obesity (BMI 30-39.9) Obstructive sleep apnea IgA nephropathy History of colon polyps Diverticulosis Chronic constipation Venous (peripheral) insufficiency Coreas's cyst of knee Pure hypercholesterolemia Hypovitaminosis D Surgical History History of esophagogastroduodenoscopy (EGD) History of dilatation and curettage H/O tubal ligation History of loop electrical excision procedure (LEEP) History of colonoscopy Family History Family History Father Alzheimers disease Mother Kidney failure Social History Social History Housing: Apartment Are you a primary cardiac care unit nurse to a significant other at home: No Alcohol intake: never Patient Tobacco Use Status: Never used Tobacco e-Cigarette/Vaping Use: Never Used Second Hand Smoke Exposure: No Advance Directives: No Advance Directives Information Provided: No service: No Current occupational status: disabled Cognitive needs: No Hearing needs: No Vision needs: Yes Physical Exam Exam: Exam: GENERAL: Well appearing. No apparent distress. Alert. HEAD/NECK: No visual trauma. EYES: Normal to inspection. No conjunctival erythema. No discharge. ENMT: Hearing grossly normal. External nose normal. RESPIRATORY: Respiratory effort normal. CARDIOVASCULAR: Additional details (Grossly well perfused). SKIN: No jaundice. NEUROLOGICAL: Alert. Moving all extremities x4. Additional details (No gross motor deficits. Normal tone. ). PSYCHIATRIC: Alert. Appearance appropriate for situation. MSK: Left knee mild swelling certainly no erythema or warmth over the knee. Limited range of motion and severe tenderness with palpation particularly anterior and anteromedially. No bruising or bony deformity. Femur nontender hip full range of motion. Tib-fib and calf normal. Well-perfused extremity Vital Signs: Vital Signs: Last Vital Signs Temp 97.0 F 07/08/25 15:40 Pulse 61 07/08/25 15:40 Resp 14 07/08/25 15:40 BP 153/66 H 07/08/25 15:40 Pulse Ox 95 07/08/25 15:40 O2 Del Method Room Air 07/08/25 15:40 BMI result Body Mass Index 30.9 Medications Administered Discontinued Medications Generic Name Dose Route Start Last Admin Trade Name Freq PRN Reason Stop Dose Admin Acetaminophen 975 mg 07/08/25 16:01 07/08/25 17:04 Acetaminophen 325 Mg Tablet PO 07/08/25 16:02 975 mg ONCE ONE Administration Ketorolac Tromethamine 10 mg 07/08/25 16:01 07/08/25 17:04 Ketorolac Tromethamine 15 Mg/Ml Vial IM 07/08/25 16:02 10 mg ONCE ONE Administration Morphine Sulfate 15 mg 07/08/25 16:01 07/08/25 17:04 Morphine Sulfate Immed Release 15 Mg Tablet PO 07/08/25 16:02 15 mg ONCE ONE Administration Medical Decision Making Medical Decision Making [facility] Narrative: Medical Decision Makin-year-old female with atraumatic left knee pain x-ray clear of fracture there is however significant osteoarthritis. Ultrasound excludes DVT there is however signs of bursal fluid/inflammatory thickening. No joint thickening or clinical suggestion of septic arthritis cane and Roger wrap for comfort close follow up with Orthopedics DC with cane, meloxicam orthopedic follow up Preliminary Favored Differential Diagnosis: Bursitis, arthritis, sprain, fracture among additional considered etiologies Testing Interpreted Independently: Musculoskeletal ultrasound with bursal inflammation no joint effusion Radiology or Lab testing Results Reviewed:X-ray without acute bony injury or actionable findings Consults: Not Applicable Independent Historians/External Chart Reviews: Not Applicable Social Determinants of Health Impacting MDM/Planning: Not Applicable Procedures Procedure Narrative Procedure Narrative: EMERGENCY ULTRASOUND INTERPRETATION- Limited Musculoskeletal [This study was ordered, performed, and interpreted by myself. The study reveals: Impression: Inflamed bursa with fluid. No joint effusion [Indication: Knee pain Joint Localization for fluid (anechoic): No knee effusion, visible inflamed bursa tender with fluid Bone: Irregular bony surfaces suggestive of arthritis Performed by: Elia Cheney MD Images were stored ] EMERGENCY ULTRASOUND INTERPRETATION-Limited Point of Care Venous (DVT) [This study was ordered, performed, and interpreted by myself. The study reveals: Impression: NO EVIDENCE OF DVT. I RECOMMENDED TO THE PATIENT REPEAT ULTRASOUND IN ONE WEEK IF SYMPTOMS PERSIST.] [Indication: Laterality: LEFT Common Femoral: -Full Compressibility: YES -Clot Seen: NO Superficial Femoral: -Full Compressibility: YES -Clot Seen: NO Popliteal: -Full Compressibility: YES -Clot Seen: NO Other: Performed by: Elia Cheney MD Images were stored CPT: 03823] Discharge Plan Discharge Clinical Impression: Osteoarthritis, Bursitis Patient Disposition: Home, Self-Care Instructions: Knee Bursitis (ED) Additional Instructions: DISCHARGE DIAGNOSES: Knee pain likely bursitis and osteoarthritis HISTORY OF PRESENTATION: ?Knee pain without trauma direct injury EMERGENCY DEPARTMENT COURSE,TESTS, TREATMENTS: While in the ED today you had an x-ray ruling out any fracture, you had ultrasound ruling out any fluid within the joint or a DVT but you did have inflammation of the bursa lubricating part of the joint above the kneecap DISCHARGE MEDICATIONS: ?Meloxicam FOLLOW-UP: ?Call your primary or general physician soon as possible to discuss your symptoms, your ED visit and to discuss follow up plans Call orthopedics for follow up INSTRUCTIONS ?& RETURN PRECAUTIONS: If any symptoms change first call your primary physician, if it is after-hours your primary doctors office should have a provider client application support specialist you can speak with. If the symptoms are severe or very concerning to you then call 911 or return to the ED. Elia Cheney MD Emergency Physician [facility] Prescriptions: New meloxicam 7.5 mg tablet 7.5 mg PO DAILY 10 Days Qty: 10 0RF No Action cholecalciferol (vitamin D3) 25 mcg (1,000 unit) tablet 25 mcg PO DAILY Qty: 90 1RF hydrocortisone [Proctosol HC] 2.5 % cream with perineal applicator 1 appl TN BID-QID PRN (Reason: hemorrhoids) Qty: 30 0RF (DME) BP Cuff See Rx Instructions .Route .MEDSUPPLY Qty: 1 0RF Rx Instructions: As directed omeprazole 20 mg capsule,delayed release(DR/EC) 20 mg PO DAILY 90 Days Qty: 90 0RF simethicone [Gas Relief Extra Strength] 125 mg tablet,chewable 125 mg PO TID PRN (Reason: for abdominal pain) 30 Days Qty: 90 3RF irbesartan 300 mg tablet 300 mg PO DAILY 90 Days Qty: 90 2RF amlodipine 5 mg tablet 5 mg PO DAILY Qty: 90 2RF rosuvastatin 10 mg tablet 10 mg PO DAILY Qty: 90 0RF lidocaine [Lidoderm] 5 % adhesive patch,medicated 1 patch topical DAILY MDD remove after 12 hours PRN (Reason: pain) Qty: 30 0RF Rx Instructions: leave on most painful area for up to 12 hrs albuterol sulfate 90 mcg/actuation HFA aerosol inhaler 2 puff inhalation Q4-6H PRN (Reason: shortness of breath or wheezing) Qty: 6.7 0RF naproxen 500 mg tablet 500 mg PO Q8-12H PRN (Reason: pain (scale score 4-6)) Qty: 20 0RF lidocaine [Lidoderm] 5 % adhesive patch,medicated 1 patch topical DAILY Qty: 15 0RF Rx Instructions: leave on most painful area for up to 12 hrs baclofen 5 mg tablet 5 mg PO TID PRN (Reason: muscle pain) Qty: 10 0RF (DME) CPAP 6 cm humidified AIR MASKAIR FIT N20 small See Rx Instructions .Route .MEDSUPPLY Qty: 1 0RF Rx Instructions: As directed Senna Plus 8.6-50 mg capsule 1 tab-cap PO BID PRN (Reason: constipation) 30 Days Qty: 60 3RF (DME) WALKER WITH SEAT See Rx Instructions .Route .MEDSUPPLY Qty: 1 0RF Rx Instructions: As directed (DME) SHOWER CHAIR See Rx Instructions .Route .MEDSUPPLY Qty: 1 0RF Rx Instructions: As directed guaifenesin [Mucinex] 1,200 mg tablet extended release 12hr 1,200 mg PO BID Qty: 20 0RF polyethylene glycol 3350 [Miralax] 17 gram/dose powder 17 g PO DAILY PRN (Reason: constipation) 30 Days Qty: 510 3RF Print Language: Mongolian
--- OUTSIDE RECORDS SUMMARY | 2025-07-08 16:07 | XMS_ITS | Encounter Summary ---
Author Organization [employer] Address [address] [place] [address] [address] [place] [address] Care Team Providers Care Ob Tech Name Role Phone Jeanne Sandhu OD Primary Care Provider [phone] Encounter Details Date Type Department Care Team (Latest Contact Info) Description 03/01/2019 Abstract [facility] CONVERSIONS Dental, Provider, DDS Social [...] on filedocumented in this encounter Care Teams Ob Tech Relationship Specialty Start Date End Date Jeanne Sandhu OD [address] [place] [id number] PCP - General Optometry 08/15/17 11/30/23 documented as of this encounter
--- OUTSIDE RECORDS SUMMARY | 2025-07-08 16:07 | XMS_ITS ---
Author Name Head UTILITIES SERVICE INVESTIGATOR,DISPLAY MANAGER,FN P,MACHINE LOAD CLERKJaci Address [address] [place] [address] Phone [phone] [facility] Care Team Providers Care Circuits Engineer Name Role Phone Jaci Head Unavailable [phone] Po, Lorenver Unavailable [phone] [facility] Unavailable [phone] Reason for Referral Not Available Allergies, adverse [...] organ damage (headache, vision changes, chest pain)/ Market Research Specialist on proper BP monitoring technique and reassess/ [...] of Service Diagnosis/Co mplaint No Data Available [facility], ([place] 11/28/2023 Sacroiliitis, not elsewhere classifiedSciatica, unspecified sideOther obesity due to excess caloriesBody mass index (bmi) 30.0-30.9, adultEssential (primary) hypertensionGastro-esophageal reflux disease without esophagitis No Data Available [facility] 11[place]/2023 No Data Available [facility]/2023 No Data Available [facility]/2023 No Data Available [facility]/2023 No Data Available [facility]/2023 No Data Available [facility]/2023 No Data Available [facility] 11/[place]/2023 No Data Available [facility]/2023 No Data Available [facility]/2023 Estab. patient 20-29min; 1 stable chronic or 2 minor; add add modifier 95 for video, modifier 93 for phone [facility] 03/29/2025 Hypertensive chronic kidney disease w stg 1-4/unsp chr kdnyChronic kidney disease, stage 3aSacroiliitis, not elsewhere classifiedSciatica, unspecified sideOther obesity due to excess caloriesBody mass index (bmi) 30.0-30.9, adultGastro-esophageal reflux disease without esophagitisOther problems related to medical facilities and other health care Estab. patient 20-29min; 1 stable chronic or 2 minor; add add modifier 95 for video, modifier 93 for phone [facility] 03/29/2025 Estab. patient 20-29min; 1 stable chronic or 2 minor; add add modifier 95 for video, modifier 93 for phone [facility] 03/29/20[facility] Estab. patient 20-29min; 1 stable chronic or 2 minor; add add modifier 95 for video, modifier 93 for phone [facility] [place] 03/29/2025 Estab. patient 20-29min; 1 stable chronic or 2 minor; add add modifier 95 for video, modifier 93 for phone [facility] 03/29/2025 Estab. patient 20-29min; 1 stable chronic or 2 minor; add add modifier 95 for video, modifier 93 for phone [facility] 03/29/2025 Estab. patient 20-29min; 1 stable chronic or 2 minor; add add modifier 95 for video, modifier 93 for phone [facility] 03/29/2025 Estab. patient 20-29min; 1 stable chronic or 2 minor; add add modifier 95 for video, modifier 93 for phone [facility] 03/29/2025 Vital Signs Date [...] tive Time Current Smoking Status Never smoker 2025-06-24 5 Sex Female History of Procedures Procedures Service Procedure code Service date Servicing provider Phone# No Data Available [id number] 2023-11-28 No Data Available No Data Available [...] 95 for video, modifier 93 for phone [id number] 2025-03-29 No Data Available No Data Availa [...] Available Functional Status Functional Category Effective Dates CERAMIC MOLD DESIGNER assists with cooking, cl eaning, laundry, showering [...] organ damage (headache, vision changes, chest pain)/ Market Research Specialist on proper BP monitoring technique and reassess/ [...] 2025-03-29 ECCA completed with member and ORLIN site interpreter
[2025-07-08] MEDS: Morphine Sulfate Immed Release 15 MG TABLET PO (17:04)
[2025-07-08 18:28] VITALS: BP 153/66; PULSE 61; RESP 14; TEMP 36.1; O2SAT 95
== END 2025-07-08 18:29 | disposition home or self-care (01) ==
PROVIDERS: Emergency Provider Emergency Medicine; PCP Internal Medicine
DX: M17.12 Unilateral primary osteoarthritis, left knee (principal); R60.0 Localized edema; M70.52 Other bursitis of knee, left knee; M25.562 Pain in left knee; Z79.899 Other long term (current) drug therapy
CPT/HCPCS: 73564; 93971; 96372; 99283; 99284; J1885

== ENCOUNTER → 2025-07-08 16:01 | Outpatient (BNV) | payer OTHER, SELFPAY | PROVIDERS: Emergency Provider Emergency Medicine; PCP Internal Medicine; Visit Provider Radiology Diagnostic Radiology | DX: M17.12 Unilateral primary osteoarthritis, left knee (principal); M85.862 Other specified disorders of bone density and structure, left lower leg | CPT/HCPCS: 73564 ==

== ENCOUNTER 2025-07-11 16:56 | Outpatient (AMB) | payer OTHER, SELFPAY ==
[2025-07-11 16:58] VITALS: BP 134/80; PULSE 74; O2SAT 97; BMI 30.9
--- NOTE | 2025-07-11 16:58 | MHC.PC.OV ---
Vital Signs 07/11/25 16:58 Height 5 ft Weight 158 lb BMI 30.9 BP 134/80 Blood Pressure Location Lt brachial Position Sitting Pulse 74 Pulse Source Pulse Oximeter Pulse Oximetry (%) 97 Oxygen Delivery Method Room Air Intake Visit Reasons: [facility] 07/08 leg pain Allergies atorvastatin Allergy (Unknown, Verified 07/11/25 16:58) myalgia codeine Allergy (Unknown, Verified 07/11/25 16:58) SWELLING penicillin V Allergy (Unknown, Verified 07/11/25 16:58) rash nifedipine Adverse Reaction (Intermediate, Verified 07/11/25 16:58) palpitations pravastatin Adverse Reaction (Intermediate, Verified 07/11/25 16:58) joint pain hydrochlorothiazide Adverse Reaction (Mild, Verified 07/11/25 16:58) Swelling metoprolol Adverse Reaction (Verified 07/11/25 16:58) leg swelling Medication List - Last Reconciled 07/11/25 by Spenser Hoang Po, albuterol sulfate 90 mcg/actuation 2 puffs inhalation Q4-6H PRN amlodipine 5 mg PO DAILY baclofen 5 mg PO TID PRN [BP Cuff As directed] cholecalciferol (vitamin D3) 25 mcg PO DAILY [CPAP 6 cm humidified AIR MASKAIR FIT N20 small As directed] diclofenac sodium 1% (Voltaren Arthritis Pain) 4 grams topical QID guaifenesin ER (Mucinex) 1,200 mg PO BID hydrocortisone 2.5% (Proctosol HC) 1 appl MA BID-QID PRN irbesartan 300 mg PO DAILY 90 days [knee brace As directed] lidocaine 5% (Lidoderm) 1 patch topical DAILY omeprazole 20 mg PO DAILY 90 days polyethylene glycol 3350 (Miralax) 17 grams PO DAILY PRN 30 days rosuvastatin 10 mg PO DAILY sennosides-docusate sodium 8.6-50 mg (Senna Plus) 1 tab-cap PO BID PRN 30 days [SHOWER CHAIR As directed] simethicone (Gas Relief Extra Strength) 125 mg PO TID PRN 30 days [WALKER WITH SEAT As directed] Tobacco use date assessed: 05/19/25 Fall risk assessment: No Falls in past year Last assessed Fall Risk: 07/11/25 Dental Screening Dental Screen Date: 12/10/24 HPI [facility] 07/08 leg pain HPI Details Luis [id number] Turkmen interpret [facility] Medical History Benign essential hypertension JANN on CPAP Left leg swelling Conjunctivitis Radicular pain Low back pain Otitis media of left ear LUQ abdominal pain Vitamin D deficiency Obesity (BMI 30-39.9) Obstructive sleep apnea IgA nephropathy History of colon polyps Diverticulosis Chronic constipation Venous (peripheral) insufficiency Coreas's cyst of knee Pure hypercholesterolemia Hypovitaminosis D Surgical History History of esophagogastroduodenoscopy (EGD) History of dilatation and curettage H/O tubal ligation History of loop electrical excision procedure (LEEP) History of colonoscopy Family History Father Alzheimers disease Mother Kidney failure Social History Housing: Apartment Are you a primary intensive care specialist to a significant other at home: No Alcohol intake: never Patient Tobacco Use Status: Never used Tobacco Tobacco use type: Cigarette e-Cigarette/Vaping Use: Never Used Second Hand Smoke Exposure: No service: No Current occupational status: disabled Cognitive needs: No Hearing needs: No Vision needs: Yes Questionnaire PHQ-9 Over the last 2 weeks, how often have you been bothered by any of the following problems? 1. Little interest or pleasure in doing things: not at all 2. Feeling down, depressed, or hopeless: not at all 3. Trouble falling or staying asleep, or sleeping too much: several days 4. Feeling tired or having little energy: not at all 5. Poor appetite or overeating: not at all 6. Feeling bad about yourself - or that you are a failure or have let yourself or your family down: not at all 7. Trouble concentrating on things, such as reading the newspaper or watching television: not at all 8. Moving or speaking so slowly that other people could have noticed. Or the opposite - being so fidgety or restless that you have been moving around a lot more than usual: not at all 9. Thoughts that you would be better off or of hurting yourself in some way: not at all Total score: 1 Depression Screening Interpretation: Positive Depression Screening Done: Yes Source: Developed by Drs. Bon Garcia, Mimi Nicholson, Rick Bruno and colleagues, with an educational abbey from [employer]. Thrive Questionnaire Date Thrive assessed: 05/19/25 I am a: Patient What is your living situation today?: I have a steady place to live Within the past 12 months, did the food you bought not last and you didn't have the money to get more?: Never true Within the past 12 months, did you worry whether your food would run out before you got money to buy more?: Never true Do you have trouble paying for medicines?: No Do you have trouble getting transportation to medical appointments?: No Do you have trouble paying your heating and electricity bill?: No Do you have trouble taking care of your child, family member or friend?: No Do you have trouble with day-to-day activities such as bathing, preparing meals, shopping, managing finances, etc.?: No Are you currently unemployed and looking for a job?: No Are you interested in more education?: No Please select the resources that you would like help with: None Currently or been in a relationship where the following occur: No concerns reported THRIVE Score: 0 AUDIT C Alcohol Use Questionnaire (AUDIT-C) 1. How often do you have a drink containing alcohol?: Never Total Score: 0 SANDRA-7 AMB Questionnaire SANDAR-7 Date SANDRA - 7 assessed: 05/19/25 Source: Developed by Drs. Bon Garcia, Mimi Nicholson, Rick Bruno and colleagues, with an educational abbey from [employer]. Physical exam (Primary Care) Vital Signs: Last Vital Signs Pulse 74 07/11/25 16:58 BP 134/80 07/11/25 16:58 Pulse Ox 97 07/11/25 16:58 Oxygen Delivery Method Room Air 07/11/25 16:58 BMI result Body Mass Index 30.9 Tobacco/Smoking Status: Tobacco use Status Tobacco use date assessed 05/19/25 07/11/25 17:04 Patient Tobacco Use Status Never used Tobacco 07/11/25 17:04 Tobacco use type Cigarette 07/11/25 17:04 e-Cigarette/Vaping Use Never Used 07/11/25 17:04 PHQ-9: PHQ-9 Score PHQ-9: Total score 1 07/11/25 17:04 Depression Screening Interpretation: Positive Thrive Assessment: Date of Thrive Assessment Date Thrive assessed 05/19/25 07/11/25 17:04 Currently or been in a relationship where the following occur: No concerns reported Const General: alert; No acute distress Eyes Conjunctivae: conjunctivae normal Resp Auscultation: clear to auscultation bilaterally Cardio Rate: regular rate Rhythm: regular rhythm GI Inspection: Yes normal to inspection Extrem General: Yes normal to inspection and No edema Coding Level of Care Code Est Pt Level 4 (71561) Diagnoses Primary hypertension I10 Hypertension type: primary hypertension Pure hypercholesterolemia E78.00 Obesity (BMI 30-39.9) E66.9 GERD (gastroesophageal reflux disease) K21.9 Obstructive sleep apnea G47.33 Osteoarthritis of left knee M17.12 Assessment & Plan Assessment & Plan (1) HTN (hypertension): Code(s): I10 - Essential (primary) hypertension Category: Medical Qualifiers: Hypertension type: primary hypertension Qualified Code(s): I10 - Essential (primary) hypertension Plan: CONTINUE WITH BLOOD PRESSURE MEDICATION. DECREASE SALT INTAKE AND EXERCISE PATIENT ON AMLODIPINE 5 MG ONCE A DAY IRBESARTAN 300 MG ONCE A DAY (2) Pure hypercholesterolemia: Code(s): E78.00 - Pure hypercholesterolemia, unspecified Category: Medical Plan: AVOID FRIED FOODS, CHICKEN SKIN, EGGS, BUTTER MARGARINE, PASTRIES AND MEAT. BE IT PORK OR BEEF THEY HAVE A LOT OF CHOLESTEROL ON ROSUVASTATIN 10 MG ONCE A DAY (3) Obesity (BMI 30-39.9): Code(s): E66.9 - Obesity, unspecified Category: Medical Plan: Diet and exercise (4) GERD (gastroesophageal reflux disease): Code(s): K21.9 - Gastro-esophageal reflux disease without esophagitis Category: Medical Plan: Avoid the foods that causes that usually spicy foods, tomato products, juices, coffee, soda and foods that your sensitive to. After eating do not lie down, allow 3-4 hours before in lie down. And keep the head of bed above 30 degrees to avoid the acid from going up. (5) Obstructive sleep apnea: Comment: CPAP Code(s): G47.33 - Obstructive sleep apnea (adult) (pediatric) Category: Medical Plan: Continue to use the CPAP more than 4 hours a night and benefits from this (6) Osteoarthritis of left knee: Code(s): M17.12 - Unilateral primary osteoarthritis, left knee Category: Medical Plan: Patient has gone to the emergency room x-ray did show osteoarthritis of the left knee Plan History of Present Illness The patient is a 75-year-old female presenting for a follow-up visit for knee osteoarthritis and management of chronic conditions. The patient has a history of knee osteoarthritis, with recent exacerbation leading to an emergency room visit on July 08 due to severe left knee pain. An x-ray confirmed significant osteoarthritis, and the patient was prescribed meloxicam, which she discontinued due to gastrointestinal side effects. The pain is severe enough that she is considering an orthopedic consultation for further management. The patient also has a history of hypercholesterolemia, with recent blood work on June 09 showing an LDL cholesterol level of 150 mg/dL, which is elevated. She is currently on rosuvastatin 10 mg daily and has been advised to follow a low-cholesterol diet. The patient has obstructive sleep apnea and uses a CPAP machine regularly, which she finds beneficial. She has a history of osteopenia, with the last bone density scan in April 2022 showing stable results. The patient has a history of major depression and hypertension, managed with amlodipine and herbicectin. Recent imaging revealed diverticular disease and a uterine leiomyoma, both of which are being monitored. Additionally, there is moderate facet osteoarthritis from L5-S1 to L4-L5. Preventative care measures include a colonoscopy and mammogram, both of which are due. Health Maintenance - Colonoscopy due - Mammogram due - Low-cholesterol diet advised - Regular CPAP use for obstructive sleep apnea Social History Review of Systems - Musculoskeletal: Reports severe left knee pain, denies other joint pain. - Gastrointestinal: Reports abdominal discomfort and bloating, denies nausea or vomiting. Physical Exam Results - Labs: LDL cholesterol 150 mg/dL (elevated) on June 09. - Imaging: X-ray showed significant osteoarthritis of the left knee. - Imaging: CT scan showed diverticular disease and uterine leiomyoma. - Imaging: CT scan showed moderate facet osteoarthritis from L5-S1 to L4-L5. Plan The management plan for the patient's knee osteoarthritis includes considering an orthopedic consultation due to the severity of the pain, which has been confirmed by x-ray to be significant. Given the gastrointestinal side effects from meloxicam, alternative pain management strategies such as Voltaren gel and lidocaine patches have been discussed. For hypercholesterolemia, the patient is advised to continue rosuvastatin 10 mg daily and adhere to a low-cholesterol diet to manage her elevated LDL levels. Follow-up blood work for cholesterol is planned for August to assess the effectiveness of the current treatment regimen. The patient is encouraged to continue using her CPAP machine for obstructive sleep apnea, as it has been beneficial. Preventative care measures include scheduling a colonoscopy and mammogram, both of which are currently due. Patient was informed and verbally consented to the use of an ambient scribe for clinic note documentation during this visit. Discussion Notes During the consultation, I discussed the severity of the patient's knee osteoarthritis and the potential need for an orthopedic consultation. We reviewed the side effects of meloxicam and explored alternative pain management options, including Voltaren gel and lidocaine patches. I emphasized the importance of continuing rosuvastatin and adhering to a low-cholesterol diet to manage her hypercholesterolemia. We planned follow-up blood work for August to evaluate the treatment's effectiveness. I encouraged the patient to maintain regular use of her CPAP machine for obstructive sleep apnea. We also discussed the need for a colonoscopy and mammogram, both of which are due. Patient Instructions - Consider seeing an project management it specialist for knee pain. - Use Voltaren gel and lidocaine patches as needed for pain relief. - Continue taking rosuvastatin 10 mg daily and follow a low-cholesterol diet. - Schedule follow-up blood work for cholesterol in August. - Keep using the CPAP machine regularly. - Schedule a colonoscopy and mammogram. Orders: Orders Hemoglobin A1c 2 Months R73.01 - Impaired fasting glucose Thyroid Stimulating Hormone 2 Months R73.01 - Impaired fasting glucose Comprehensive Met. Panel 2 Months R73.01 - Impaired fasting glucose Complete Blood Count Auto Diff 2 Months R73.01 - Impaired fasting glucose Lipid Panel 2 Months E78.00 - Pure hypercholesterolemia, unspecified, R73.01 - Impaired fasting glucose Referrals Orthopedics Referral M17.12 - Unilateral primary osteoarthritis, left knee Medications: New diclofenac sodium 1% (Voltaren Arthritis Pain) apply to single knee, ankle, foot; for foot includes sole/toes/top of foot 4 grams topical QID 150 grams 3RF M17.12 - Unilateral primary osteoarthritis, left knee [knee brace] As directed 1 ea 0RF M17.12 - Unilateral primary osteoarthritis, left knee Refilled lidocaine 5% (Lidoderm) leave on most painful area for up to 12 hrs 1 patch topical DAILY 15 ea 0RF M17.12 - Unilateral primary osteoarthritis, left knee Discontinued naproxen Discontinued Reason: Patient Refused 500 mg PO Q8-12H PRN 20 tabs 0RF pain (scale score 4-6) meloxicam Discontinued Reason: Doctor's Order 7.5 mg PO DAILY 10 days 10 tabs 0RF
--- OUTSIDE RECORDS SUMMARY | 2025-07-11 16:59 | XMS_ITS ---
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 and reassess/ [...] of Service Diagnosis/Co mplaint No Data Available [facility]/28/2023 Sacroiliitis, not elsewhere classifiedSciatica, unspecified sideOther obesity due to excess caloriesBody mass index (bmi) 30.0-30.9, adultEssential (primary) hypertensionGastro-esophageal reflux disease without esophagitis No Data Available [facility]/2023 No Data Available [facility]/2023 No Data Available [facility]/2023 No Data Available [facility] 11[place]/2023 No Data Available [facility]/2023 No Data Available [facility] 11/[place]/2023 No Data Available [facility] 11/28/2023 No Data Available [facility] 11/[place]/2023 No Data Available [facility] 11/28/2023 Estab. patient 20-29min; 1 stable chronic or 2 minor; add add modifier 95 for video, modifier 93 for phone [facility] 03/29/2025 Hypertensive chronic kidney disease w stg 1-4/unsp chr kdnyChronic kidney disease, stage 3aSacroiliitis, not elsewhere classifiedSciatica, unspecified sideOther obesity due to excess caloriesBody mass index (bmi) 30.0-30.9, adultGastro-esophageal reflux disease without esophagitisOther problems related to medical facilities and other health care Estab. patient 20-29min; 1 stable chronic or 2 minor; add add modifier 95 for video, modifier 93 for phone [facility] [place] 03[place]29/[facility] Estab. patient 20-29min; 1 stable chronic or 2 minor; add add modifier 95 for video, modifier 93 for phone [facility] [place] 03/29/2025 Estab. patient 20-29min; 1 stable chronic or 2 minor; add add modifier 95 for video, modifier 93 for phone [facility] 03/29/20[place] Estab. patient 20-29min; 1 stable chronic or 2 minor; add add modifier 95 for video, modifier 93 for phone [facility] 03/29/2025 Estab. patient 20-29min; 1 stable chronic or 2 minor; add add modifier 95 for video, modifier 93 for phone [facility] 03/29/2025 Estab. patient 20-29min; 1 stable chronic or 2 minor; add add modifier 95 for video, modifier 93 for phone [facility] [place] 03/29/2025 Estab. patient 20-29min; 1 stable chronic or 2 minor; add add modifier 95 for video, modifier 93 for phone [facility] [place] 03/29/2025 Vital [...] Time Current Smoking Status Never smoker 2025-06-24 7 Sex Female History of Procedures Procedures Service Procedure code Service date Servicing provider Phone# No Data Available [id number] No Data Available No Data Available [...] 95 for video, modifier 93 for phone [id number] 2025-03-29 No Data Available No Data Availa [...] Available Functional Status Functional Category Effective Dates DECATIZER assists with cooking, cl eaning, laundry, showering [...] organ damage (headache, vision changes, chest pain)/ 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
--- OUTSIDE RECORDS SUMMARY | 2025-07-11 16:59 | XMS_ITS | Patient Health Record ---
Author Organization [facility] Address [address] [place] [address] Care Team Providers Care Family Services Coordinator Name Role Phone Spenser Romero Primary Care Provider Sil Rios Unavailable [phone] Allergies Allergen (clinical drug ingredient) Drug/Non Drug [...] Insured Coverage Start Date Coverage End Date [id number] [address] [place] [address] [id number] [facility] 0 Zayra Londono [...]
== END 2025-07-11 17:52 | disposition home or self-care (01) ==
LOC: HO.HMCH 16:57
PROVIDERS: PCP Internal Medicine; Visit Provider Internal Medicine
DX: I10 Essential (primary) hypertension (principal); E78.00 Pure hypercholesterolemia, unspecified; E66.9 Obesity, unspecified; Z68.30 Body mass index [BMI] 30.0-30.9, adult; K21.9 Gastro-esophageal reflux disease without esophagitis; G47.33 Obstructive sleep apnea (adult) (pediatric); M17.12 Unilateral primary osteoarthritis, left knee

== ENCOUNTER → 2025-07-11 16:56 | Outpatient (BNVA) | payer OTHER, SELFPAY | PROVIDERS: PCP Internal Medicine; Visit Provider Internal Medicine | DX: I10 Essential (primary) hypertension (principal); E78.00 Pure hypercholesterolemia, unspecified; E66.9 Obesity, unspecified; Z68.30 Body mass index [BMI] 30.0-30.9, adult; K21.9 Gastro-esophageal reflux disease without esophagitis; G47.33 Obstructive sleep apnea (adult) (pediatric); M17.12 Unilateral primary osteoarthritis, left knee | CPT/HCPCS: 99212 ==

== ENCOUNTER 2025-07-14 10:57 | Outpatient (AMB) | payer OTHER, SELFPAY ==
--- NOTE | 2025-07-14 11:10 | MHC.OFFVIS ---
Vital Signs 07/14/25 11:11 Height 5 ft Weight 158 lb BMI 30.9 BP 147/68 H Blood Pressure Location Lt brachial Position Sitting Pulse 63 Pulse Oximetry (%) 96 Oxygen Delivery Method Room Air Intake Visit Reasons: 6 wks f/u Intake Note: Patient follow up for Abdominal pain, acute, left lower quadrant, lab and UA results Patient cc: LLQ pain come and go, acid reflux, denies any other GI issues. Crime Scene Specialist Required: Yes Crime Scene Specialist Name: leodan [facility] Interpeter Accompanied by: Family/Other Allergies atorvastatin Allergy (Unknown, Verified 11/15/25 12:41) myalgia codeine Allergy (Unknown, Verified 11/15/25 12:41) SWELLING penicillin V Allergy (Unknown, Verified 11/15/25 12:41) rash nifedipine Adverse Reaction (Intermediate, Verified 11/15/25 12:41) palpitations pravastatin Adverse Reaction (Intermediate, Verified 11/15/25 12:41) joint pain hydrochlorothiazide Adverse Reaction (Mild, Verified 11/15/25 12:41) Swelling metoprolol Adverse Reaction (Verified 11/15/25 12:41) leg swelling Medication List - Last Reconciled 07/14/25 by Marlon Caballero MD albuterol sulfate 90 mcg/actuation 2 puffs inhalation Q4-6H PRN amlodipine 5 mg PO DAILY baclofen 5 mg PO TID PRN [BP Cuff As directed] cholecalciferol (vitamin D3) 25 mcg PO DAILY [CPAP 6 cm humidified AIR MASKAIR FIT N20 small As directed] diclofenac sodium 1% (Voltaren Arthritis Pain) 4 grams topical QID guaifenesin ER (Mucinex) 1,200 mg PO BID hydrocortisone 2.5% (Proctosol HC) 1 appl VT BID-QID PRN irbesartan 300 mg PO DAILY 90 days [knee brace As directed] lidocaine 5% (Lidoderm) 1 patch topical DAILY omeprazole 20 mg PO DAILY 90 days polyethylene glycol 3350 (Miralax) 17 grams PO DAILY PRN 30 days rosuvastatin 10 mg PO DAILY sennosides-docusate sodium 8.6-50 mg (Senna Plus) 1 tab-cap PO BID PRN 30 days [SHOWER CHAIR As directed] simethicone (Gas Relief Extra Strength) 125 mg PO TID PRN 30 days [WALKER WITH SEAT As directed] HPI HPI 6 wks f/u: Details: GI CLINIC VISIT FOR THIS 75-YEAR-OLD JORDANIAN-SPEAKING FEMALE FOR FU OF LEFT UPPER QUADRANT PAIN. TODAY'S VISIT: [facility] Behavioral Health ConsultantGalina Patient reports LLQ pain come and go, acid reflux, Complains of left knee pain due to brusitis Notes intermittent LLQ pain < once a week Intermittent diarrhea - stomach ache and nausea after taking medication for knee bursitis PAST VISITS: Can be 10/10 in intensity at times LLQ pain for the past week - pain goes away and then comes back Notes pain even if she does not eat anything. Has a BM 1-2 times a day - sometimes has to strain Denies nausea, vomiting, fevers or chills or having pain every day. Patient follow up for dysphagia. Complains of feeling gassy all the time Has a BM 1- 3 times a day and denies abdominal pain Intermittent LLQ pain - 5-6/10 in intensity and lasts 1/2 hour or a little longer. Does not feel pain is related to gas or from not having a BM Has a BM 2-3 times a day. Can get constipated when she eats bread. Feels like pressure and not related to eating. Abdominal pain improves if she has a BM. Continues to have intermittent upper abd pain - two times a week Has a BM 2-3 times a day - rarely has hard stools or straining. Noted abd pain after taking the amlodipine and was changed yesterday Tonsils are enlarged and has seen [address] scan and examination of the throat. Dose of Omeprazole was increased to 40 mg daily for the past 3 weeks. Has a FU appt in 2 weeks with ENT in [place]. Pt had additional imaging studies at [facility] - unsure of the name of the test - found something in the throat EGD and bx results were reviewed. Got over a COVID infection 3 weeks ago Continues to have intermittent pain in her side and none today. Constipation is way better. Denies urinary symptoms ? PAST VISIT: Pt's Hannah FREIRE translated for the patient. Continues to have LUQ pain. Has 3-4 soft BMs a day. Has noted foul smelling stools since the past few weeks. Her PCP called to let her know she had blood in stool on stool tests (Of note - pt had a colonoscopy 2 yrs ago). ?? ? Complains of nausea, bloating LUQ pain (with radiation to the back) and dizziness. ?? ? Unintentional weight loss of 6 lbs in 2 weeks. ? ? Denies any change in her diet. ? ? Abdominal pain is constant and no change in pain after eating. ?? Has a BM 1-2 times a day with intermittent straining without blood in the stools. ?? Stools are sometimes stinky ? ? Denies change in pain with BM. ? ? Takes Senna prn 2-3 times a week ? ? Has been taking more fruits and fibre. Patient denies symptoms of dysphagia, nausea, vomiting, change in appetite or weight. ? Patient denies major cardiac or pulmonary problems, loud snoring or sleep apnea ? Pt has sleep apnea and has not started using the CPAP machine yet since it has not been delivered yet. ? Denies problems with anesthesia in the past. ? Denies being on chronic anticoagulation, aspirin or NSAIDs. ? Patient denies known family history of colon polyps, colon cancer or other GI malignancies.? Abd pain is better - gets it occasionally - rare. ? Constipation is better - has a BM twice a day. ? Colonoscopy results were reviewed with the patient - repeat colon advised in 5 yrs. ? Denies any problems after the procedure. ? Abd CT scan results were discussed - showed diverticulosis. ? Sometimes the pain paralyzes me and I do not have it today. ? Abd pain comes and goes - can last for a few days. ? Notes intermittent constipation. ? Intermittent LUQ pain for the past few months ? It just hurts - sometimes hurts to touch ? Feels worse after taking medications for her kidneys. ? Denies radiation of pain to the back. ? Denies recent change in bowel habits, constipation, diarrhea, black stools or rectal bleeding. ? Denies association of fever, chills or sweating with the?pa IMAGING STUDIES: 05/20/[address] SCAN AT [facility] SHOWED; Moderate FDG uptake at bilateral palatine tonsils with slightly asymmetric left-sided hypertrophy. No focal concerning lesion no cervical lymphadenopathy. No definite evidence of malignancy. 02/2023 UGI SHOWED:Small sliding-type hiatal hernia with mild spontaneous gastroesophageal reflux. Esophageal dysmotility with delayed emptying and tertiary contractions distally. 05/2021 ABD US SHOWED:Echogenic liver probably representing fatty infiltration. Small bilateral renal cysts. Limited visualization of the tail the pancreas. 04/28/[address] SCAN SHOWED:? Diverticulosis of the colon. No evidence of diverticulitis. ? Fatty infiltration of the head of the pancreas. ? Probable small right renal cysts. Question small uterine fibroid. ENDOSCOPIC STUDIES: 06/2022 EGD SHOWED: ESOPHAGUS: Tortuous esophagus with increased tertiary contractions without? stricture or ring.? GE junction at 36 cms.? No esophagitis or Gore's. STOMACH:? gastritis DUODENUM:? normal - ? biopsies were obtained to check for celiac sprue No etiology found for abdominal pain BIOPSIES SHOWED: A.? Small bowel, biopsy:? Small bowel mucosa within normal limits; preserved villous architecture no increased intraepithelial lymphocytes seen. B.? Stomach, antrum, biopsy:? Gastric antral mucosa with mild chronic inactive gastritis; negative for Helicobacter pylori, intestinal metaplasia and dysplasia. C.? Stomach, body, biopsy:? Gastric body mucosa within normal limits; negative for Helicobacter pylori, intestinal metaplasia and dysplasia. 06/20/20 COLONOSCOPY SHOWED:? One 7-8 mm adenomatous polyp was removed, two diminutive hyperplastic rectal polyps were biopsied. ? Moderate diverticulosis seen in the entire colon ? Moderate hemorrhoids on retroflexed exam. ? Plan: Patient has an appointment on 07/03/20 in the GI Clinic with Marlon Caballero M.D.-. ? Repeat Colonoscopy interval based on path results in 5 years if ? polyps are adenomatous - needs GA with intubation and an adult colonoscope for future colonoscopies. ?BIOPSIES SHOWED: ? A. Colon, transverse polyp, polypectomy: Fragments of tubular adenoma. ? B. Rectum, polyp, polypectomy: Fragments of hyperplastic polyp. ? 12/07/09 SCREENING COLONOSCOPY WAS PERFORMED BY DR. VERAS AND SHOWED EXTERNAL HEMORRHOIDS AND [facility] Medical History (Updated 11/15/25 @ 13:04 by Spenser Romero MD) Breast cancer screening Age-related osteoporosis without current pathological fracture Obesity (BMI 30.0-34.9) Benign essential hypertension JANN on CPAP Left leg swelling Conjunctivitis Radicular pain Low back pain Otitis media of left ear LUQ abdominal pain Vitamin D deficiency Obesity (BMI 30-39.9) Obstructive sleep apnea IgA nephropathy History of colon polyps Diverticulosis Chronic constipation Venous (peripheral) insufficiency Coreas's cyst of knee Pure hypercholesterolemia Hypovitaminosis D Surgical History History of esophagogastroduodenoscopy (EGD) History of dilatation and curettage H/O tubal ligation History of loop electrical excision procedure (LEEP) History of colonoscopy Family History Father Alzheimers disease Mother Kidney failure Social History Housing: Apartment Are you a primary director of critical care to a significant other at home: No Alcohol intake: never Patient Tobacco Use Status: Never used Tobacco Tobacco use type: Cigarette e-Cigarette/Vaping Use: Never Used Second Hand Smoke Exposure: No service: No Current occupational status: disabled Cognitive needs: No Hearing needs: No Vision needs: Yes Review of Systems Const All systems reviewed & are unremarkable except as noted in HPI and below Physical Exam Vital Signs: Last Vital Signs Pulse 63 07/14/25 11:11 BP 147/68 H 07/14/25 11:11 Pulse Ox 96 07/14/25 11:11 Oxygen Delivery Method Room Air 07/14/25 11:11 BMI result Body Mass Index 30.9 Const General: healthy appearing and no acute distress Nutritional Appearance: obese Orientation/consciousness: patient oriented x3 Limitations: language barrier and ambulation with cane HEENT Head: Yes normal to inspection Ears: hearing grossly normal bilaterally Mouth: Normal oral and palatal mucosa present Eyes Sclerae: sclerae normal Pupils: Equal, round and reactive pupils present Neck Neck: Yes normal visual inspection Chest Chest palpation & inspection: normal inspection of the chest Resp Effort & Inspection: normal respiratory effort Auscultation: clear to auscultation bilaterally Cardio Palpation: normal PMI Rate: regular rate Rhythm: regular rhythm Heart sounds: S1 normal heart sound present, S2 normal heart sound present and no murmurs GI Palpation (GI): Soft to palpation, nontender and No hepatosplenomegaly present Auscultation: normal bowel sounds Rectal Exam - Female: deferred Skin General skin exam: no rashes or lesions noted Neuro General: patient oriented x3, gait normal and moves all extremities Cranial nerves: Yes Equal, round and reactive pupils present Extrem Left lower extremity: knee (wearing a left knee brace due to bursitis) Psych Appearance: grossly normal Mental Status: mental status grossly normal Assessment & Plan Assessment & Plan (1) Dysphagia: Code(s): R13.10 - Dysphagia, unspecified Category: Medical (2) GERD (gastroesophageal reflux disease): Code(s): K21.9 - Gastro-esophageal reflux disease without esophagitis Category: Medical (3) Bloating symptom: Code(s): R14.0 - Abdominal distension (gaseous) Category: Medical (4) Abdominal pain, acute, left lower quadrant: Code(s): R10.32 - Left lower quadrant pain Category: Medical (5) Tubular adenoma of colon: Code(s): D12.6 - Benign neoplasm of colon, unspecified Category: Medical Plan 75 year old Bengali-speaking female followed in GI for left-sided abdominal pain. Abdominal CT scan showed fatty infiltration of the head of the pancreas and diverticulosis of the colon. No evidence of diverticulitis. 06/20/20 A 7-8 mm tubular adenoma was removed during colonoscopy - repeat colon advised in 5 years. Patient was advised to continue senna with docusate for constipation. Stool pancreatic elastase to rule out pancreatic insufficiency. Complains of nausea, bloating LUQ pain (with radiation to the back) and dizziness. Unintentional weight loss of 6 lbs in 2 weeks - wt has been stable over the past 4 months. 06/2022 EGD was performed and results as noted above 07/2022 Pt complained of pain in the left lumbar area - ?? Musculoskeletal versus renal. Patient was advised to have a urine test which was negative 07/10/23 Pt advised to take Miralax once a day to see if abdominal pain is related to constipation and improves with Miralax 05/06/24 Complains of feeling gassy all the time Has a BM 1- 3 times a day and denies abdominal pain Pt advised to take Simethicone for gas 06/09/25 Patient reports chronic LLQ pain, and constipation on and off. Can be 10/10 in intensity at times LLQ pain for the past week - pain goes away and then comes back Notes pain even if she does not eat anything. Pt advised to schedule an Abd CT scan 06/24/[address] SCAN SHOWED: GASTROINTESTINAL TRACT: Pseudodiverticula are present in the right colon, descending and sigmoid colon. There is no adjacent inflammatory change or wall thickening. The appendix is within normal limits. 07/14/25 Pt advised to schedule a colonoscopy FU in 6 months Coding Level of Care Code Est Pt Level 4 (08806) Diagnoses Dysphagia R13.10 GERD (gastroesophageal reflux disease) K21.9 Bloating symptom R14.0 Abdominal pain, acute, left lower quadrant R10.32 Tubular adenoma of colon D12.6 Time Spent (min) 20
[2025-07-14 11:11] VITALS: BP 147/68; PULSE 63; O2SAT 96; BMI 30.9
--- OUTSIDE RECORDS SUMMARY | 2025-07-14 12:31 | XMS_ITS | Encounter Summary ---
Author Organization [employer] Address [address] [place] [address] [address] [place] [address] Care Team Providers Care Seed Service Advisor Name Role Phone Jeanne Sandhu OD Primary Care Provider [phone] Encounter Details Date Type Department Care Team (Latest Contact Info) Description 03/01/2019 Abstract [facility] CONVERSIONS Dental, Provider, DDS Social History Tobacco [...] on filedocumented in this encounter Care Teams Seed Service Advisor Relationship Specialty Start Date End Date Jeanne Sandhu OD [address] [place] [id number] PCP - General Optometry 08/15/17 11/30/23 documented as of this encounter
--- OUTSIDE RECORDS SUMMARY | 2025-07-14 12:31 | XMS_ITS | Patient Health Record ---
Author Organization [facility] Address [address] [facility] [facility] [place] [address] Care Team Providers Care Lehr Stripper Name Role Phone Spenser Romero Primary Care Provider Sil Rios Unavailable [phone] Allergies Allergen (clinical drug ingredient) Drug/Non Drug [...] Insured Coverage Start Date Coverage End Date [facility] [address] [address] [place] [address] [id number] [facility] Zayra Londono Self - patient is [...]
--- OUTSIDE RECORDS SUMMARY | 2025-07-14 12:31 | XMS_ITS ---
Author Name Head ALL AROUND GEAR MACHINE OPERATOR,DTP OPERATOR,FN P,DATABASE MODELERJaci Address [address] [place] [id number] Phone [phone] [facility] [facility] Care Team Providers Care Head Sampler Name Role Phone Jaci Head Unavailable [phone] Po, Lorenver Unavailable [phone] [facility] Unavailable Reason for Referral Not Available Allergies, [...] organ damage (headache, vision changes, chest pain)/ Plant Maintenance Engineer on proper BP monitoring technique and reassess/ [...] of Service Diagnosis/Co mplaint No Data Available [facility] [place] 11/28/2023 Sacroiliitis, not elsewhere classifiedSciatica, unspecified sideOther obesity due to excess caloriesBody mass index (bmi) 30.0-30.9, adultEssential (primary) hypertensionGastro-esophageal reflux disease without esophagitis No Data Available [facility] [place] 11/28/2023 No Data Available [facility] [place]/2023 No Data Available [facility] [place]/2023 No Data Available [facility] [place] 11/28/2023 No Data Available [facility] [place] 11/[place]/2023 No Data Available [facility] [place] 11/[place]/2023 No Data Available [facility] [place] 11/28/2023 No Data Available [facility] [place]/2023 No Data Available [facility] [place] 11/28/2023 Estab. patient 20-29min; 1 stable chronic or 2 minor; add add modifier 95 for video, modifier 93 for phone [facility] [place] 03/29/2025 Hypertensive chronic kidney disease w stg 1-4/unsp chr kdnyChronic kidney disease, stage 3aSacroiliitis, not elsewhere classifiedSciatica, unspecified sideOther obesity due to excess caloriesBody mass index (bmi) 30.0-30.9, adultGastro-esophageal reflux disease without esophagitisOther problems related to medical facilities and other health care Estab. patient 20-29min; 1 stable chronic or 2 minor; add add modifier 95 for video, modifier 93 for phone [facility]25 Estab. patient 20-29min; 1 stable chronic or 2 minor; add add modifier 95 for video, modifier 93 for phone [facility] 03/29/2025 Estab. patient 20-29min; 1 stable chronic or 2 minor; add add modifier 95 for video, modifier 93 for phone [facility] [place] 03/29/2025 Estab. patient 20-29min; 1 stable chronic or 2 minor; add add modifier 95 for video, modifier 93 for phone [facility] [place] 03/29/2025 Estab. patient 20-29min; 1 stable chronic or 2 minor; add add modifier 95 for video, modifier 93 for phone [facility] [place] 03/29/2025 Estab. patient 20-29min; 1 stable chronic or 2 minor; add add modifier 95 for video, modifier 93 for phone [facility] [place] 03/29/2025 Estab. patient 20-29min; 1 stable chronic or 2 minor; add add modifier 95 for video, modifier 93 for phone [facility] 03/29/2025 Vital Signs Date [...] tive Time Current Smoking Status Never smoker 2025-06-25 1 Sex Female History of Procedures Procedures Service Procedure code Service date Servicing provider Phone# No Data Available [id number] 2023-11-28 No Data Available No Data Available [...] 95 for video, modifier 93 for phone [id number] 2025-03-29 No Data Available No Data Availa [...] Available Functional Status Functional Category Effective Dates FOOD SERVICES COORDINATOR assists with cooking, cl eaning, laundry, showering [...] organ damage (headache, vision changes, chest pain)/ Plant Maintenance Engineer on proper BP monitoring technique and reassess/ [...] 2025-03-29 ECCA completed with member and ORLIN can closing machine tender
== END 2025-07-14 11:54 | disposition home or self-care (01) ==
LOC: HO.HGI 10:58
PROVIDERS: PCP Internal Medicine; Visit Provider Internal Medicine Gastroenterology
DX: R13.10 Dysphagia, unspecified (principal); K21.9 Gastro-esophageal reflux disease without esophagitis; R14.0 Abdominal distension (gaseous); R10.32 Left lower quadrant pain; D12.6 Benign neoplasm of colon, unspecified
CPT/HCPCS: 99499

== ENCOUNTER 2025-07-19 08:17 | Outpatient (REF) | payer OTHER, SELFPAY ==
--- NOTE | ~2025-07-19 | XR_ITS ---
EXAMINATION: XR KNEE 3 VIEWS RIGHT, XR KNEE 1 VIEW LEFT HISTORY: M25.569 - Pain in unspecified knee COMPARISON: Comparison is made with the prior examinations dated 07/08/2025 at 06/24/2024. FINDINGS: Standing AP views of both knees and additional lateral view of the right knee and sunrise patellar views of the bilateral knees are submitted. Osseous mineralization is normal. There is no fracture or dislocation. There is moderate to severe osteoarthritis of the medial and patellofemoral compartments of the right knee. There is severe osteoarthritis of the patellofemoral compartment of the left knee and mild degenerative change of the medial and lateral compartments. There are vascular calcifications. XR/XR knee RT 3V IMPRESSION: Osteoarthritis of the bilateral knees as described. Electronically signed by: Bon Liu MD 07/19/2025 09:14 AM EDT
--- NOTE | ~2025-07-19 | XR_ITS ---
EXAMINATION: XR KNEE 3 VIEWS RIGHT, XR KNEE 1 VIEW LEFT HISTORY: M25.569 - Pain in unspecified knee COMPARISON: Comparison is made with the prior examinations dated 07/08/2025 at 06/24/2024. FINDINGS: Standing AP views of both knees and additional lateral view of the right knee and sunrise patellar views of the bilateral knees are submitted. Osseous mineralization is normal. There is no fracture or dislocation. There is moderate to severe osteoarthritis of the medial and patellofemoral compartments of the right knee. There is severe osteoarthritis of the patellofemoral compartment of the left knee and mild degenerative change of the medial and lateral compartments. There are vascular calcifications. XR/XR knee LT 1V IMPRESSION: Osteoarthritis of the bilateral knees as described. Electronically signed by: Bon Liu MD 07/19/2025 09:14 AM EDT
--- OUTSIDE RECORDS SUMMARY | 2025-07-21 08:50 | XMS_ITS | Encounter Summary ---
Author Organization [employer] Address [address] [place] [address] [address] [place] [address] Care Team Providers Care It Risk And Assurance Manager Name Role Phone Unavailable Primary Care Provider Unavailabl e Reason for Visit * Reason Onset Date Comments rs cancelled appt 12/29/2024 Encounter Details Date Type Department Care Team ([facility] st Contact Info) Description 12/29/2024 Telephone [facility] ADULT DENTAL [address] [place] [address] Jake Iverson DDS [address] [place] [address] rs cancelled appt Social History Tobacco Use [...]
--- OUTSIDE RECORDS SUMMARY | 2025-07-21 08:50 | XMS_ITS | Encounter Summary ---
Author Organization [employer] Address [address] [place] [address] [address] [place] [address] Care Team Providers Care Flavoring Machine Operator Name Role Phone Jeanne Sandhu OD Primary Care Provider [phone] Encounter Details Date Type Department Care Team (Latest Contact Info) Description 03/01/2019 Abstract [facility] CONVERSIONS Dental, Provider, DDS Social History [...] on filedocumented in this encounter Care Teams Flavoring Machine Operator Relationship Specialty Start Date End Date Jeanne Sandhu OD [address] [place] [address] PCP - General Optometry 08/15/17 11/30/23 documented as of this encounter
--- OUTSIDE RECORDS SUMMARY | 2025-07-21 08:50 | XMS_ITS | Encounter Summary ---
Author Organization [employer] Address [address] [facility] 7t [place] [address] Care Team Providers Care Hand Touch Up Painter Name Role Phone Unavailable Primary Care Provider Unavailabl e Reason for Visit * Reason Onset Date Comments ongoing pain 10/07/2024 Encounter Details Date Type Department Care Team ([facility] st Contact Info) Description 10/07/2024 Telephone [facility] ADULT DENTAL [address] [place] [address] Hazel Mancera DDS [address] [place] [address] ongoing pain Social History Tobacco Use Types [...]
--- OUTSIDE RECORDS SUMMARY | 2025-07-21 08:50 | XMS_ITS | Patient Health Record ---
Author Organization [facility] Address [address] [facility] [place] [address] Care Team Providers Care Trailhead Maintenance Worker Name Role Phone Spenser Romero Primary Care Provider Sil Rios Unavailable [phone] Allergies Allergen (clinical drug ingredient) Drug/Non Drug [...] Insured Coverage Start Date Coverage End Date [facility] [address] [place] [id number] [facility] 0 Zayra Londono [...]
--- OUTSIDE RECORDS SUMMARY | 2025-07-21 08:50 | XMS_ITS ---
Author Name Head DEVELOPER ARCHITECT,JORDAN MAN,FN P,STREET ENGINEERJaci Address [address] [place] [address] Phone [phone] [facility] Care Team Providers Care Aluminum Welder Name Role Phone Jaci Head Unavailable [phone] Po, Lorenver Unavailable [phone] [facility] Unavailable [phone] Reason for Referral Not Available Allergies, adverse [...] organ damage (headache, vision changes, chest pain)/ Plumber Apprentice on proper BP monitoring technique and reassess/ [...] Diagnosis/Co mplaint No Data Available [facility]2023 Sacroiliitis, not elsewhere classifiedSciatica, unspecified sideOther obesity due to excess caloriesBody mass index (bmi) 30.0-30.9, adultEssential (primary) hypertensionGastro-esophageal reflux disease without esophagitis No Data Available [facility] [place] 11/28/2023 No Data Available [facility] [place] 11/28/2023 No Data Available [facility] [place] 11/28/2023 No Data Available [facility] [place] 11/28/2023 No Data Available [facility] [place] 11/28/2023 No Data Available [facility] [place] 11/28/2023 No Data Available [facility] [place] 11/28/2023 No Data Available [facility] [place] 11/28/2023 No Data Available [facility] [place] 11/28/2023 Estab. patient 20-29min; 1 stable chronic or 2 minor; add add modifier 95 for video, modifier 93 for phone [facility] [place] 03/29/2025 Hypertensive chronic kidney disease w stg 1-4/unsp chr kdnyChronic kidney disease, stage 3aSacroiliitis, not elsewhere classifiedSciatica, unspecified sideOther obesity due to excess caloriesBody mass index (bmi) 30.0-30.9, adultGastro-esophageal reflux disease without esophagitisOther problems related to medical facilities and other health care Estab. patient 20-29min; 1 stable chronic or 2 minor; add add modifier 95 for video, modifier 93 for phone [facility] [place] 03/29/2025 Estab. patient 20-29min; 1 stable chronic or 2 minor; add add modifier 95 for video, modifier 93 for phone [facility] [place] 03/29/2025 Estab. patient 20-29min; 1 stable chronic or 2 minor; add add modifier 95 for video, modifier 93 for phone [facility] [place] 03/29/2025 Estab. patient 20-29min; 1 stable chronic or 2 minor; add add modifier 95 for video, modifier 93 for phone [facility] [place] 03/29/2025 Estab. patient 20-29min; 1 stable chronic or 2 minor; add add modifier 95 for video, modifier 93 for phone [facility] [place] 03/29/2025 Estab. patient 20-29min; 1 stable chronic or 2 minor; add add modifier 95 for video, modifier 93 for phone [facility] [place] 03/29/2025 Estab. patient 20-29min; 1 stable chronic or 2 minor; add add modifier 95 for video, modifier 93 for phone [facility] [place] 03/29/2025 Vital [...] Time Current Smoking Status Never smoker 2025-06-25 7 Sex Female History of Procedures Procedures Service Procedure code Service date Servicing provider Phone# No Data Available [id number] 2023-11-28 No Data Available No Data Available [...] 95 for video, modifier 93 for phone [id number] 2025-03-29 No Data Available No Data Availa [...] Available Functional Status Functional Category Effective Dates PROMOTIONS ASSOCIATE assists with cooking, cl eaning, laundry, showering [...] organ damage (headache, vision changes, chest pain)/ Plumber Apprentice on proper BP monitoring technique and reassess/ [...] 2025-03-29 ECCA completed with member and ORLIN cdl company driver
--- OUTSIDE RECORDS SUMMARY | 2025-07-21 08:51 | XMS_ITS | Clinical Summary ---
Author Organization [employer] Address [address] [place] [address] [address] [place] [address] Care Team Providers Care Livestock Commission Agent Name Role Phone Unavailable Primary Care Provider [...] Description 06/03/2025 1:00 PM EDT Office Visit [facility] ADULT D[facility] [address] [place], [place] [phone] Jaci Kwan Localized gingival recession (Primary Dx); [...] Maintenance Insurance DENTAL - [facility] SCO
== END 2025-07-19 08:18 | disposition home or self-care (01) ==
LOC: HO.HOSX 08:17
PROVIDERS: Visit Provider Physician Assistant
DX: M17.0 Bilateral primary osteoarthritis of knee (principal); E11.9 Type 2 diabetes mellitus without complications
CPT/HCPCS: 20610; 73560; 73562; 99212; J1010; J2003

== ENCOUNTER 2025-07-19 08:41 | Outpatient (AMB) | payer OTHER, SELFPAY ==
--- NOTE | 2025-07-19 08:45 | A.OFFVIS_ITS ---
Vital Signs 07/19/25 08:54 Height 5 ft Weight 158 lb BMI 30.9 Intake Visit Reasons: B/L knee injection (40) / last inj 06/24/24 Intake Note: Zayra is a 75 year old female who presents today for a repeat injection for her left knee, last injection was for bilateral knees 06/24/24. Patient states that the last injections gave her relief until this point and would like to repeat. Allergies atorvastatin Allergy (Unknown, Verified 07/19/25 08:58) myalgia codeine Allergy (Unknown, Verified 07/19/25 08:58) SWELLING penicillin V Allergy (Unknown, Verified 07/19/25 08:58) rash nifedipine Adverse Reaction (Intermediate, Verified 07/19/25 08:58) palpitations pravastatin Adverse Reaction (Intermediate, Verified 07/19/25 08:58) joint pain hydrochlorothiazide Adverse Reaction (Mild, Verified 07/19/25 08:58) Swelling metoprolol Adverse Reaction (Verified 07/19/25 08:58) leg swelling HPI HPI B/L knee injection (40) / last inj 06/24/24: Details: Ms. Londono is a 75-year-old female who presents to the office today for chronic bilateral knee pain due to osteoarthritis. She last received bilateral knee cortisone injections on 06/24/2024 which gave her great relief and lasted up until recently. She is looking to repeat cortisone injections while in the office today. [facility] Medical History Benign essential hypertension JANN on CPAP Left leg swelling Conjunctivitis Radicular pain Low back pain Otitis media of left ear LUQ abdominal pain Vitamin D deficiency Obesity (BMI 30-39.9) Obstructive sleep apnea IgA nephropathy History of colon polyps Diverticulosis Chronic constipation Venous (peripheral) insufficiency Coreas's cyst of knee Pure hypercholesterolemia Hypovitaminosis D Surgical History History of esophagogastroduodenoscopy (EGD) History of dilatation and curettage H/O tubal ligation History of loop electrical excision procedure (LEEP) History of colonoscopy Family History Father Alzheimers disease Mother Kidney failure Social History Housing: Apartment Are you a primary special needs caregiver to a significant other at home: No Alcohol intake: never Patient Tobacco Use Status: Never used Tobacco Tobacco use type: Cigarette e-Cigarette/Vaping Use: Never Used Second Hand Smoke Exposure: No service: No Current occupational status: disabled Cognitive needs: No Hearing needs: No Vision needs: Yes Review of Systems Const All systems reviewed & are unremarkable except as noted in HPI and below Physical Exam Vital Signs: BMI result Body Mass Index 30.9 Const General: cooperative, healthy appearing and no acute distress Orientation/consciousness: patient oriented x3 Resp Effort & Inspection: normal respiratory effort and able to speak in complete sentences Cardio Rate: regular rate Peripheral pulses: Peripheral pulses 2+ throughout GI Palpation (GI): Soft to palpation Skin General skin exam: no rashes or lesions noted Lesions: no lesions Rashes: no rashes Neuro General: patient oriented x3 Extrem Other: Bilateral knees: Normal to inspection. No ecchymosis, erythema, or joint effusion. No tenderness to palpation along the medial or lateral joint lines. Full knee extension and flexion. Crepitus felt with ROM. NVI.? Office Procedures AMB Joint Injection/Aspiration Joint Injection/Aspiration Primary Site: right knee Secondary Site: left knee Prep: site was prepped using aseptic technique, ethochloride spray was applied and injection warnings given Injected: 40 mg of, DepoMedrol, with 8 mL of (8% plain lido) and in the joint Approach Used: anterolateral Procedure: The patient tolerated the procedure well, but had some pain with the injection and there was some relief with the local anesthesia Coding 87873 - Bilateral Large Joint Procedure code (CPT) selection complete Assessment & Plan Assessment & Plan (1) Osteoarthritis of right knee: Code(s): M17.11 - Unilateral primary osteoarthritis, right knee Category: Medical (2) Osteoarthritis of left knee: Code(s): M17.12 - Unilateral primary osteoarthritis, left knee Category: Medical Plan The patient was offered a cortisone injection in bilateral knees with 40 mg of DepoMedrol. The patient was explained the risks, benefits, and alternatives to receiving this injection. After receiving consent for the injection, the patient had the procedure done while in the office today. The patient tolerated the procedure well with no complications. Due to the patient?s history of diabetes, they were instructed to monitor their blood glucose level. The patient was informed that they could see a rise in their numbers and if the numbers became too high, they were instructed to call their PCP. The patient was also informed that they could have facial flushing as a side effect of the injection, but this will pass. Follow-up will be PRN, or sooner if needed X-rays were obtained while in the office today of both knees and reviewed by me, Hannah Bhardwaj PA-C, and revealed progression of osteoarthritis bilaterally. Orders: Orders XR knee LT 1V Today M25.569 - Pain in unspecified knee XR knee RT 3V Today M25.569 - Pain in unspecified knee Coding Level of Care Code Est Pt Level 4 (72264) Diagnoses Osteoarthritis of right knee M17.11 Osteoarthritis of left knee M17.12 CPT Codes Coding - 64157 - Bilateral Large Joint: 94703 - Bilateral Large Joint ([id number])
[2025-07-19 08:54] VITALS: BMI 30.9
--- OUTSIDE RECORDS SUMMARY | 2025-07-19 08:55 | XMS_ITS | Encounter Summary ---
Author Organization [employer] Address [address] [place] [address] 7 [place] [address] Care Team Providers Care Paper Processing Machine Helper Name Role Phone Unavailable Primary Care Provider Unavailabl e Reason for Visit * Reason Onset Date Comments rs cancelled appt 12/29/2024 Encounter Details Date Type Department Care Team ([facility] st Contact Info) Description 12/29/2024 Telephone [facility] ADULT DENTAL [address] [place] [address] Jake Iverson DDS [address] [place] [address] rs cancelled appt Social History Tobacco Use [...]
--- OUTSIDE RECORDS SUMMARY | 2025-07-19 08:55 | XMS_ITS | Clinical Summary ---
Author Organization [email or web address] Address [address] [place] [address] [address] [place] [address] Care Team Providers Care Cordwood Cutter Name Role Phone Unavailable Primary Care Provider Unavailabl e Allergies Active Allergy Reactions Criticality Noted Date Comments Atorvastatin 11/29/2010 Other Reaction(s): myalgia, unspecified: Intolerance Codeine Swelling,Other 03/22/2024 codeine Hydrochlorothiazide 11/29/2010 Other Reaction(s): dizzy Lisinopril 11/29/2010 Other Reaction(s): unspecified: intolerance Metoprolol 03/22/2024 Other Reaction(s): leg swelling Penicillin G Rash Low 03/22/2024 Penicillin V Hives 11/29/2010 Penicillins Other 02/09/2025 Product containing penicillin (product) Pravastatin 03/22/2024 Other Reaction(s): joint pain Valsartan 11/29/2010 Other Reaction(s): unspecified: Intolerance Verapamil 11/29/2010 Other Reaction(s): headache & weakness Medications irbesartan (Avapro) 300 MG tablet TAKE 1 TABLET BY MOUTH DAILY Oral for 90 Days Active omeprazole (PriLOSEC) [address] capsule 3 Active polyethylene glycol, PEG, 3350 (Glycolax) 17 GM/SCOOP powder DISSOLVE 17 GRAMS IN LIQUID AND DRINK BY MOUTH DAILY NEEDED FOR CONSTIPATION FOR 30 DAYS 3 Active amLODIPine (Norvasc) 5 MG tablet Take 1 tablet by mouth Once per day. 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 Periodontal disease 03/22/2024 Dental calculus [...] Note: Date Diagnosed: 05/20/2023 12:33 PM (J31.2) Other specified symptoms and signs involving the circulatory and respiratory systems 05/20/2023 Overview (02/09/2025): Feeling of foreign body in throat; Note: Date Diagnosed: 05/20/2023 12:33 PM (R09.89) Feeling of foreign body in throat; Note: Date Diagnosed: 05/20/2023 12:33 PM (R09.89) Endometrial hyperplasia 09/23/2012 Hyperlipidemia 09/23/2012 IgA nephropathy 09/23/2012 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 Osteopenia 09/23/2012 Benign hypertension 06/04/2012 Eczema 06/04/2012 Encounters Date Type Department Care Team Description 06/03/2025 1:00 PM EDT Office Visit [facility] ADULT DENTAL [address] [place], [place] [id number] Jaci Kwan Localized gingival recession (Primary Dx); Abfraction; Periodontal disease; Dental plaque; Sensitivity of root structure of tooth from Last 3 Months Social History Tobacco [...] Sign Reading Time Taken Comments Blood Pressure 144/82 06/03/2025 1:00 PM EDT regla vated, asymptomatic Pulse 72 05/05/2024 8:34 AM EDT Temperature - - Respiratory Rate - - Oxygen Saturation - - Inhaled Oxygen Concentration - - Weight - - Height - - Body Mass Index - - Plan of Treatment Health Maintenance Due Date Last Done Comments Depression Screening 1949 Lipid Panel 1949 SDOH Screening 1949 Alcohol/Substance Use Screening 1961 Hepatitis C Screening 1967 Zoster Vaccines (1 of 2) 1999 RSV Patients and Patients Aged 60 years or older (1 - 1-dose 75+ series) 2024 COVID-19 Vaccine ( season) 2024 Influenza Vaccine (#1) 2025 09/01/1998 Dental X-Ray: Bitewings 12/04/2025 12/03/19, 09/22/2024, 03/22/2024, Additional history exists Dental Oral Exam 12/05/2025 06/03/2025, 08/2025, 03/22/2024, Additional history exists Dental Prophylaxis 12/05/2025 06/03/2025, 0 12/03/2024, 03/22/2024, Additional history exists Tobacco Screening 06/03/2026 06/03/2025 Dental X-Ray: Full Mouth 03/23/2027 024, 01/19/2019, [...] patient's age to complete this topic Meningococcal B Vaccine Aged Out No l onger eligible based on patient's age to complete [...] Procedure Name Priority Date/Time Associated Diagnosis Comments ADJUST PARTIAL DENTURE - MANDIBULAR Routine 06/03/2025 1:00 PM EDT PERIODIC ORAL EVALUATION - ESTABLISHED PATIENT Routine 06/03/2025 1:00 PM EDT 27 INTRAORAL - PERIAPICAL FIRST RADIOGRAPHIC IMAGE Routine 06/03/2025 1:00 PM EDT Localized gingival recession Abfraction Periodontal disease Dental plaque ORAL HYGIENE INSTRUCTIONS Routine 06/03/2025 1:00 PM EDT Abfraction Periodontal disease Dental plaque PROPHYLAXIS - ADULT Routine 06/03/2025 1 :00 PM EDT Periodontal disease Dental plaque BITEWINGS - 4 RADIOGRAPHIC IMAGES Routine 12/03/2024 10:00 AM EST INTRAORAL - COMPLETE SERIES OF RADIOGRAPHIC IMAGES Routine 03/22/2024 10:00 AM EDT Periodontal disease Dental calculus Localized gingival recession Missing teeth, acquired from Last 3 Months or Most Recently Relevant to Health Maintenance Insurance DENTAL - [facility] S[facility]
--- OUTSIDE RECORDS SUMMARY | 2025-07-19 08:55 | XMS_ITS | Encounter Summary ---
Author Organization [employer] Address [address] 7t [place] [address] Care Team Providers Care Express Manager Name Role Phone Unavailable Primary Care Provider Unavailabl e Reason for Visit * Reason Onset Date Comments ongoing pain 10/07/2024 Encounter Details Date Type Department Care Team ([facility] st Contact Info) Description 10/07/2024 Telephone [facility] ADULT DENTAL [address] [place] [address] Hazel Mancera DDS [address] [place] [address] ongoing pain Social History Tobacco Use Types [...]
--- OUTSIDE RECORDS SUMMARY | 2025-07-19 08:55 | XMS_ITS | Encounter Summary ---
Author Organization [employer] Address [address] [place] [address] 7t [place] [address] Care Team Providers Care Equipment Hire Manager Name Role Phone Jeanne Sandhu OD Primary Care Provider [phone] Encounter Details Date Type Department Care Team (Latest Contact Info) Description 03/01/2019 Abstract [facility] CONVERSIONS Dental, Provider, DDS Social History [...] on filedocumented in this encounter Care Teams Equipment Hire Manager Relationship Specialty Start Date End Date Jeanne Sandhu OD [address] [place] [id number] PCP - General Optometry 08/15/17 11/30/23 documented as of this encounter
--- OUTSIDE RECORDS SUMMARY | 2025-07-19 08:55 | XMS_ITS | Patient Health Record ---
Author Organization [facility] Address [address] [facility] [place] [address] Care Team Providers Care Tool Drawing Checker Name Role Phone Spenser Romero Primary Care Provider Sil Rios Unavailable [phone] Allergies Allergen (clinical drug ingredient) Drug/Non Drug [...] Coverage Start Date Coverage End Date [facility] [address] [place] [id number] [facility] [place] Zayra Londono Self - patient is [...]
--- OUTSIDE RECORDS SUMMARY | 2025-07-19 08:55 | XMS_ITS ---
Author Name Head CONE TRUCKER,RAILWAY SWITCHMAN,FN P,APPRENTICE ELECTRICIANJaci Address [address] [place] [address] Phone [phone] [facility] [employer] [facility] Care Team Providers Care Executive Vice President And Chief Operating Officer Name Role Phone Jaci Head Unavailable [phone] Po, Lorenver Unavailable [phone] [facility] Unavailable [phone] Reason for Referral Not Available Allergies, adverse [...] organ damage (headache, vision changes, chest pain)/ Metal Technician on proper BP monitoring technique and reassess/ [...] Diagnosis/Co mplaint No Data Available [facility] 11/28/2023 Sacroiliitis, not elsewhere classifiedSciatica, unspecified sideOther obesity due to excess caloriesBody mass index (bmi) 30.0-30.9, adultEssential (primary) hypertensionGastro-esophageal reflux disease without esophagitis No Data Available [facility] 11/28/2023 No Data Available [facility] 11/28/2023 No Data Available [facility] 11/28/2023 No Data Available [facility] 11/28/2023 No Data Available [facility] 11/28/2023 No Data Available [facility] 11/28/2023 No Data Available [facility] 11/28/2023 No Data Available [facility] 11/28/2023 No Data Available [facility] 11/28/2023 Estab. patient 20-29min; 1 stable chronic or 2 minor; add add modifier 95 for video, modifier 93 for phone [facility] 03/29/2025 Hypertensive chronic kidney disease w stg 1-4/unsp chr kdnyChronic kidney disease, stage 3aSacroiliitis, not elsewhere classifiedSciatica, unspecified sideOther obesity due to excess caloriesBody mass index (bmi) 30.0-30.9, adultGastro-esophageal reflux disease without esophagitisOther problems related to medical facilities and other health care Estab. patient 20-29min; 1 stable chronic or 2 minor; add add modifier 95 for video, modifier 93 for phone [facility] [place] 03/29/2025 Estab. patient 20-29min; 1 stable chronic or 2 minor; add add modifier 95 for video, modifier 93 for phone [facility] [place] 03/29/2025 Estab. patient 20-29min; 1 stable chronic or 2 minor; add add modifier 95 for video, modifier 93 for phone [facility] [place] 03/29/2025 Estab. patient 20-29min; 1 stable chronic or 2 minor; add add modifier 95 for video, modifier 93 for phone [facility] [place] 03/29/2025 Estab. patient 20-29min; 1 stable chronic or 2 minor; add add modifier 95 for video, modifier 93 for phone [facility] [place] 03/29/2025 Estab. patient 20-29min; 1 stable chronic or 2 minor; add add modifier 95 for video, modifier 93 for phone [facility] [place] 03/29/2025 Estab. patient 20-29min; 1 stable chronic or 2 minor; add add modifier 95 for video, modifier 93 for phone [facility] [place] 03/29/2025 Vital Signs Date [...] Time Current Smoking Status Never smoker 2025-06-25 5 Sex Female History of Procedures Procedures Service Procedure code Service date Servicing provider Phone# No Data Available [id number] 2023-11-28 No Data Available No Data Available [...] 95 for video, modifier 93 for phone [id number] 2025-03-29 No Data Available No Data Availa [...] Available Functional Status Functional Category Effective Dates LAND USE PLANNER assists with cooking, cl eaning, laundry, showering [...] organ damage (headache, vision changes, chest pain)/ Metal Technician on proper BP monitoring technique and reassess/ [...] 2025-03-29 ECCA completed with member and ORLIN bmw sales consultant
== END 2025-07-19 09:11 | disposition home or self-care (01) ==
LOC: HO.HOS 08:42
PROVIDERS: PCP Internal Medicine; Visit Provider Physician Assistant
DX: M17.0 Bilateral primary osteoarthritis of knee (principal)
CPT/HCPCS: 20610; 99214

== ENCOUNTER → 2025-07-19 08:43 | Outpatient (BNV) | payer OTHER, SELFPAY | PROVIDERS: Visit Provider Radiology Diagnostic Radiology | DX: M17.0 Bilateral primary osteoarthritis of knee (principal) | CPT/HCPCS: 73560; 73562 ==

== ENCOUNTER 2025-08-26 00:48 | Emergency (ER) | payer OTHER, SELFPAY ==
[2025-08-26] VITALS (9 sets, daily range): BP systolic 132–158; BP diastolic 53–88; PULSE 52–75; RESP 12–20; TEMP 36.3–37.1; O2SAT 96–100; BMI 28.6
--- NOTE | 2025-08-26 | ECG_ITS ---
Test Reason : WEAKNESS Blood Pressure : */* mmHG Vent. Rate : 54 BPM Atrial Rate : 54 BPM P-R Int : 160 ms QRS Dur : 88 ms QT Int : 442 ms P-R-T Axes : 55 -2 34 degrees QTcB Int : 419 ms Sinus bradycardia Otherwise normal ECG When compared with ECG of 03-May-2025 23:30, No significant change was found Referred By: Misael Sarkar Electronically Signed By: TING TOLEDO
--- NOTE | ~2025-08-26 | XR_ITS ---
EXAMINATION: XR SHOULDER, RIGHT CLINICAL INFORMATION: nontraumatic pain COMPARISON: December 04, 2019 TECHNIQUE: AP external rotation, Grashey, scapular Y, and axillary views of the right shoulder. FINDINGS: Degenerative changes in the acromioclavicular joint and the greater tuberosity of the humerus. No soft tissue calcification. No lytic or blastic lesions. No acute fracture or dislocation. Multilevel spondylosis, thoracic spine. Calcified plaque thoracic aorta. XR/XR shoulder RT min 2V IMPRESSION: Degenerative changes, right shoulder, similar since prior exam. Electronically signed by: Cal Trujillo MD 08/26/2025 10:35 AM EDT
--- NOTE | ~2025-08-26 | CT_ITS ---
CLINICAL HISTORY: RUE BLE Weak; Sx resolved spontaneously; ? TIA CT angiography head and neck with contrast. 3D Postprocessing. Comparison: None provided Findings: Aortic arch and cervical great vessels are patent with no aneurysm, dissection, hemodynamically significant stenoses, or occlusion. Intracranial arteries are patent. No aneurysm, dissection, hemodynamically significant stenoses, or occlusion. No abnormal intracranial enhancement. The visualized thyroid gland is unremarkable. No cervical mass or fluid collection. Lung apices clear. No acute fracture. IMPRESSION: Patent head and neck CTA. This document has been electronically signed by: Bulmaro Diaz MD on 08/26/2025 07:06:43
--- NOTE | ~2025-08-26 | MR_ITS ---
EXAMINATION: MR BRAIN WITHOUT IV CONTRAST HISTORY: difficulty walking, please eval for post circ CVA TECHNIQUE: Sagittal T1, and axial T1, FLAIR, T2, gradient echo, and diffusion weighted MR images of the brain were obtained. COMPARISON: Comparison is made with the prior examination dated 01/01/2020. FINDINGS: The pituitary is normal in size. The cerebellar tonsils are normally located. There is scattered periventricular subcortical white matter hyperintensities on the FLAIR and T2-weighted images which are nonspecific, but often seen in the setting of small vessel ischemic disease. There is no mass effect or midline shift. The ventricular system is normal in size and configuration. No intra or extra-axial fluid collections are identified. There are no foci of restricted diffusion. Normal vascular flow voids are noted in the basilar and carotid arteries. The visualized paranasal sinuses are clear. MR/MR head/brain wo con IMPRESSION: No acute intracranial abnormality. No evidence of an acute infarct. Electronically signed by: Bon Liu MD 08/26/2025 12:52 PM EDT
--- NOTE | 2025-08-26 01:29 | PC.NURSE ---
pt ambulating to the bathroom with daughter, gait even and steady
[2025-08-26 01:45] LABS: MANUAL DIFF FLAG NO
[2025-08-26 01:47] LABS: Hematocrit 36.0 % (37.0-47.0); Hemoglobin 12.1 g/dl (12.0-16.0); Imm Gran Abs Auto 0.04 X10*3/uL (0.00-0.03); Imm Gran Pct Auto 0.4 % (0.0-0.4); Lymphocytes Absolute Auto 2.4 X10*3/uL (1.2-4.9); Mean Corpuscular HGB Conc 33.6 g/dl (31.0-35.0); Mean Corpuscular Hemoglobin 30.6 pg (27.0-33.0); Mean Corpuscular Volume 90.9 fL (80.0-98.0); NRBC Abs Auto 0.000 X10*3/uL (0.0-0.012); NRBC Pct Auto 0.0 /100WBC (0.0-0.2); Platelet Count 309 X10*3/uL (160-400); Red Blood Count 3.96 X10*6/uL (4.20-5.50); White Blood Count 11.2 X10*3/uL (4.8-10.8)
[2025-08-26 01:47] LABS: Appearance Urine Clear; Glucose Urine UA Negative (Negative); PH 7.0 (5.0-9.0); Specific Gravity - Urine 1.010 (1.005-1.025)
--- OUTSIDE RECORDS SUMMARY | 2025-08-26 01:58 | XMS_ITS ---
Author Name May Felton NP Address [address] [place] [address] Phone [phone] [facility] Care Team Providers Care Optician Apprentice Name Role Phone May Felton Unavailable [phone] Po, Lorenver Unavailable [phone] [facility] Unavailable Reason for Referral Not Available Allergies, [...] No Data Available Vitamin D3 50 MCG (2000 UT) Cap 1 capsules PO QD 11-28 [...] 2025-03-29 N/A HYPERTE NSION CONTINGENCY PLANLast updated: 03/29/2025[facility] the following symptoms: BP >180/100 / Chest pain / HeadachePlanned intervention: Assess for signs of end organ damage (headache, vision changes, chest pain)/ Shirt Creaser on proper BP monitoring technique and reassess/ [...] of Service Diagnosis/Co mplaint No Data Available [facility], [place] 11/28/2023 Sacroiliitis, not elsewhere classifiedSciatica, unspecified sideOther obesity due to excess caloriesBody mass index (bmi) 30.0-30.9, adultEssential (primary) hypertensionGastro-esophageal reflux disease without esophagitis No Data Available [facility] 11/28/2023 No Data Available [facility] 11/28/2023 No Data Available [facility] 11/28/2023 No Data Available [facility] 11/28/2023 No Data Available [facility] 11/28/2023 No Data Available [facility] 11/28/2023 No Data Available [facility] 11/28/2023 No Data Available [facility] 11/28/2023 No Data Available [facility] 11/28/2023 Estab. patient 20-29min; 1 stable chronic or 2 minor; add add modifier 95 for video, modifier 93 for phone [facility] 03/29/2025 Hypertensive chronic kidney disease w stg 1-4/unsp chr kdnyChronic kidney disease, stage 3aSacroiliitis, not elsewhere classifiedSciatica, unspecified sideOther obesity due to excess caloriesBody mass index (bmi) 30.0-30.9, adultGastro-esophageal reflux disease without esophagitisOther problems related to medical facilities and other health care Estab. patient 20-29min; 1 stable chronic or 2 minor; add add modifier 95 for video, modifier 93 for phone [facility] 03/29/2025 Estab. patient 20-29min; 1 stable chronic or 2 minor; add add modifier 95 for video, modifier 93 for phone [facility] [place] 03/29/2025 Estab. patient 20-29min; 1 stable chronic or 2 minor; add add modifier 95 for video, modifier 93 for phone [facility] [place] 03/29/2025 Estab. patient 20-29min; 1 stable chronic or 2 minor; add add modifier 95 for video, modifier 93 for phone [facility] [place] 03/29/2025 Estab. patient 20-29min; 1 stable chronic or 2 minor; add add modifier 95 for video, modifier 93 for phone [facility] [place] 03/29/2025 Estab. patient 20-29min; 1 stable chronic or 2 minor; add add modifier 95 for video, modifier 93 for phone [facility] [place] 03/29/2025 Estab. patient 20-29min; 1 stable chronic or 2 minor; add add modifier 95 for video, modifier 93 for phone [facility] [place] 03/29/2025 Vital Signs Date [...] tive Time Current Smoking Status Never smoker 3 Sex Female History of Procedures Procedures Service Procedure code Service date Servicing provider Phone# No Data Available [id number] 2023-11-28 No Data Available No Data Available [...] 95 for video, modifier 93 for phone [id number] 2025-03-29 No Data Available No Data Availa [...] Available Functional Status Functional Category Effective Dates LEAD SOFTWARE TEST ENGINEER assists with cooking, cl eaning, laundry, showering [...] organ damage (headache, vision changes, chest pain)/ Shirt Creaser on proper BP monitoring technique and reassess/ Increase current medication dose:/ Encourage low sodium diet/ Discuss breathing exercises/ Encourage medication adherence03/31/24 eGFR 58Avoid nephrotoxic agents Goals Date Goal [...] 2025-03-29 ECCA completed with member and ORLIN japanese interpreter
--- OUTSIDE RECORDS SUMMARY | 2025-08-26 01:58 | XMS_ITS | Clinical Summary ---
Author Organization [employer] Address [address] [place] [address] [address] [place] [address] Care Team Providers Care Rn Liaison Name Role Phone Unavailable Primary Care Provider [...] 1:00 PM EDT Office Visit [facility] ADULT D[facility] [address] [place], [place] [phone] Jaci Kwan Localized gingival recession (Primary Dx); [...] 75+ series) 2024 COVID-19 Vaccine ( season) 2025 Influenza Vaccine (#1) 2025 09/01/1998 Dental X-Ray: [...] Relevant to Health Maintenance Insurance DENTAL - [facility] SCO
--- OUTSIDE RECORDS SUMMARY | 2025-08-26 01:58 | XMS_ITS | Encounter Summary ---
Author Organization [employer] Address [address] [place] [address] [address] [place] [address] Care Team Providers Care Die Maker Trim Name Role Phone Jeanne Sandhu OD Primary Care Provider [phone] Encounter Details Date Type Department Care Team (Latest Contact Info) Description 03/01/2019 Abstract [facility] CONVERSIONS Dental, Provider, DDS Social History [...] on filedocumented in this encounter Care Teams Die Maker Trim Relationship Specialty Start Date End Date Jeanne Sandhu OD [address] [place] [id number] PCP - General Optometry 08/15/17 11/30/23 documented as of this encounter
--- OUTSIDE RECORDS SUMMARY | 2025-08-26 01:58 | XMS_ITS | Encounter Summary ---
Author Organization [employer] Address [address] [facility] [address] [place] [address] Care Team Providers Care Senior Ui Web Developer Name Role Phone Unavailable Primary Care Provider Unavailabl e Reason for Visit * Reason Onset Date Comments ongoing pain 10/07/2024 Encounter Details Date Type Department Care Team ([facility] st Contact Info) Description 10/07/2024 Telephone [facility] ADULT DENTAL [address] [place] [address] Hazel Mancera DDS [address] [place] [address] ongoing pain Social History Tobacco Use Types [...]
--- OUTSIDE RECORDS SUMMARY | 2025-08-26 01:58 | XMS_ITS | Encounter Summary ---
Author Organization [employer] Address [address] [place] [address] [address] [place] [address] Care Team Providers Care Scissors Sharpener Name Role Phone Unavailable Primary Care Provider Unavailabl e Reason for Visit * Reason Onset Date Comments rs cancelled appt 12/29/2024 Encounter Details Date Type Department Care Team ([facility] st Contact Info) Description 12/29/2024 Telephone [facility] ADULT [facility]ENTAL [address] [place] [address] Jake Iverson DDS [address] [place] [address] rs cancelled appt Social History Tobacco Use [...]
--- OUTSIDE RECORDS SUMMARY | 2025-08-26 01:58 | XMS_ITS | Patient Health Record ---
Author Organization [facility] Address [address] [facility] [place] [address] Care Team Providers Care Sandblast Carver Name Role Phone Spenser Romero Primary Care Provider Sil Rios Unavailable [phone] Allergies Allergen (clinical drug ingredient) Drug/Non Drug [...] Insured Coverage Start Date Coverage End Date [facility] [address] [address] [place] [id number] [facility] 0 Zayra Londono Self - patient [...]
[2025-08-26 02:04] LABS: Alanine Aminotransferase 20 U/L (0-31); Albumin Level 4.4 g/dL (3.5-5.0); Alkaline Phosphatase 137 U/L (39-117); Anion Gap 11 (12-20); Aspartate Amino Transferase 28 U/L (5-31); Blood Urea Nitrogen 29 mg/dL (9-16); Calcium 9.9 mg/dL (8.4-10.2); Carbon Dioxide 30 mmol/L (22-29); Chloride 104 mmol/L (96-108); Creatinine Clr Calc Pharmacy 49.9; Estimated Glomerular Filt Rate 59; Potassium 4.1 mmol/L (3.3-5.1); Sodium 141 mmol/L (135-145); Total Protein 8.1 g/dL (6.5-8.0)
[2025-08-26 02:09] LABS: COVID-19 Test Negative (Negative); IDNOW Serial# 152EDE1D; IDNOW Serial# 16C4AD1C; Influenza B2 Negative (Negative)
[2025-08-26 02:11] LABS: INTERNATIONAL NORM RATIO 1.0 (0.9-1.1); Prothrombin Time 11.4 SEC (10.9-12.4)
--- NOTE | 2025-08-26 03:27 | ED_ITS ---
HPI - General Adult General Chief complaint: General Medical Stated complaint: Arm pain Time Seen by Provider: 08/26/25 03:26 Source: patient Mode of arrival: ambulatory Limitations: language barrier ([employer] services utilized) History of Present Illness ED Provider: Saeid DEL CASTILLO HPI narrative: The patient is a 75-year-old female with history of hypertension, depression, GERD, obesity, JANN, PVD, hyperlipidemia, and previous episode of Palumbo's palsy, presenting to the ED for evaluation of multiple complaints. Patient reports she was feeling well throughout the day, went to [facility] this evening, at around 21:00 the patient was dropped off at home. Patient reports after getting out of the [employer] van she experienced severe difficulty controlling her bilateral lower extremities, reporting she could only take small steps, , patient states she felt she could not control her legs but also describes feeling weak. The patient denies fall to the ground or head strike, denies associated symptoms at time of weakness sensation. The patient was able to ambulate into her residence and reports she then began making a cup of coffee. While making a cup of coffee she developed sudden onset severe pain in the right neck radiating into the right wrist. Patient reports when the pain occurred it was too painful to lift her arm, which she describes as weakness. The patient reports when these symptoms occurred she remembered she had not taken her dose of amlodipine, checked her blood sugar and noted the systolic blood pressure was 187. The patient took 2 doses of 5 mg at amlodipine and activated EMS. The patient denies any fall to the ground this evening, denies any recent fall or other blunt trauma, denies anticoagulation. The patient denies any acute associated headache, vision change, other focal neurological deficit, chest pain, shortness of breath, abdominal pain, nausea, vomiting, diaphoresis, vertiginous symptoms, near-syncope, or syncope. Patient reports weakness symptoms of the bilateral lower extremity and right upper extremity fully resolved by time of arrival in the ED, however in the ED she reports persistent pain with active and passive range of motion of the right upper extremity. The patient denies any recent trauma to the right upper extremity. Related Data Previous Rx's ?Medication ?Instructions ?Recorded cholecalciferol (vitamin D3) 25 25 mcg PO DAILY #90 ta bs 12/07/20 mcg (1,000 unit) tablet CPAP 6 cm humidified AIR MASKAIR #1 ea 04/20/21 FIT N20 small hydrocortisone 2.5 % topical cream 1 appl [place] BID-QID P RN hemorrhoids 03/26/22 with perineal applicator #30 grams (Proctosol HC) SHOWER CHAIR #1 ea 03/24/23 WALKER WITH SEAT #1 ea 03/24/23 sennosides 8.6 mg-docusate sodium 1 tab-cap PO BID PRN constipation 03/24/23 50 mg capsule (Senna Plus) 30 days #60 caps polyethylene glycol 3350 17 17 g PO DAILY PRN constipa tion 30 10/30/23 gram/dose oral powder (Miralax) days #510 grams BP Cuff #1 ea 03/17/24 omeprazole 20 mg capsule,delayed 20 mg PO DAILY 90 day s #90 caps 09/24/24 release simethicone 125 mg chewable tablet 125 mg PO TID PRN f or abdominal 09/25/24 (Gas Relief Extra Strength) pain 30 days #90 tabs irbesartan 300 mg tablet 300 mg PO DAILY 90 days #90 tabs 11/11/24 baclofen 5 mg tablet 5 mg PO TID PRN muscle pain #10 12/23/24 tabs albuterol sulfate 90 mcg/actuation 2 puff inhalation Q 4-6H PRN 05/04/25 aerosol inhaler shortness of breath or wheez ing #6.7 grams guaifenesin 1,200 mg tablet, 1,200 mg PO BID #20 tabs 05/19/25 extended release 12 hr (Mucinex) amlodipine 5 mg tablet 5 mg PO DAILY #90 tabs 05/31 rosuvastatin 10 mg tablet 10 mg PO DAILY #90 tabs 05/24 07/18 diclofenac sodium 1 % topical gel 4 g topical QID #150 grams 07/11/25 (Voltaren Arthritis Pain) knee brace #1 ea 07/11/25 lidocaine 5 % topical patch 1 patch topical DAILY #15 ea 07/13/25 (Lidoderm) acetaminophen 500 mg capsule 1,000 mg (2 x 500 mg) PO Q8H PRN 08/26/25 fever or pain #14 caps ibuprofen 400 mg tablet 400 mg PO Q6H PRN pain #14 t abs 08/26/25 Allergies Allergy/AdvReac Type Severity Reaction Status Date / Time atorvastatin Allergy Unknown myalgia Verified 08/26/25 00:57 codeine Allergy Unknown SWELLING Verified 08/26/25 00:57 penicillin V Allergy Unknown rash Verified 08/26/25 00:57 nifedipine AdvReac Intermediate palpitation Verified 08/26/25 00:57 s pravastatin AdvReac Intermediate joint pain Verified 08/26/25 00:57 hydrochlorothiazide AdvReac Mild Swelling Verified 08/26/25 00:57 metoprolol AdvReac leg Verified 08/26/25 00:57 swelling Review of Systems 2 Review of Systems: Yes all other systems are reviewed and are negative [facility] Past Medical History Medical History Benign essential hypertension JANN on CPAP Left leg swelling Conjunctivitis Radicular pain Low back pain Otitis media of left ear LUQ abdominal pain Vitamin D deficiency Obesity (BMI 30-39.9) Obstructive sleep apnea IgA nephropathy History of colon polyps Diverticulosis Chronic constipation Venous (peripheral) insufficiency Coreas's cyst of knee Pure hypercholesterolemia Hypovitaminosis D Surgical History History of esophagogastroduodenoscopy (EGD) History of dilatation and curettage H/O tubal ligation History of loop electrical excision procedure (LEEP) History of colonoscopy Family History Family History Father Alzheimers disease Mother Kidney failure Social History Social History Housing: Apartment Are you a primary healthcare associate to a significant other at home: No Alcohol intake: never Patient Tobacco Use Status: Never used Tobacco Tobacco use type: Cigarette Smoked in Last 30 Days: No e-Cigarette/Vaping Use: Never Used Second Hand Smoke Exposure: No Use of substances other than those prescribed or required for medical reasons: No Advance Directives: No Advance Directives Information Provided: Yes service: No Current occupational status: disabled Cognitive needs: No Hearing needs: No Vision needs: Yes Physical Exam ED Vital Signs: Vital Signs - 24 hr 08/26/25 00:51 08/26/25 03:34 08/26/25 05:38 Temperature 97.8 F Pulse Rate 72 68 73 Respiratory Rate 18 20 16 Blood Pressure 158/73 H 134/66 139/53 L Pulse Oximetry 97 96 100 Oxygen Delivery Method Room Air Room Air Room Air 08/26/25 08:00 08/26/25 09:54 08/26/25 11:55 Temperature 98.2 F 98.7 F 97.3 F Pulse Rate 65 59 52 Respiratory Rate 18 12 Blood Pressure 140/65 H 132/69 134/73 Pulse Oximetry 97 97 96 Oxygen Delivery Method Room Air Room Air Room Air BMI result Body Mass Index 28.6 CONSTITUTIONAL: The patient appears non-toxic, well nourished and in no acute distress. Vital signs as documented. HEAD: Atraumatic, normocephalic. EYES: EOMs intact, pupils equal and appropriately reactive, conjunctiva clear, no exudate. ENT: Nares patent, no discharge. Airway patent, no audible stridor, visible mucosa is pink and moist without noted lesions. NECK: Trachea is midline, no obvious masses or gross abnormalities. CHEST: Symmetric movement, normal appearance. LUNGS: LS present and CTAB, no w/r/r. Non-labored work of breathing. CARDIAC: Regular Rhythm, S1/S2 appreciated, no murmurs, rubs or gallops. ABDOMEN: Abdomen soft and non-tender x4 quadrants, no palpable masses or organomegaly. : Deferred. EXTREMITIES: Patient reports painful but not impaired range of motion of the right upper extremity with active and passive range of motion, no bony tenderness, crepitus, or step-off, no deformity. Distal CSM intact, 2+ radial pulse bilaterally. Normal tone, moves all other extremities spontaneously without reported pain. No obvious acute injury or deformity noted. NEURO: Alert and oriented x3, CN II-XII intact. Cerebellar Functioning intact. No sensory or motor deficits. Speech clear and appropriate. PSYCH: normal affect, appropriate eye contact, fluid speech, with appropriate response to questioning. No reported suicidality or homicidality. SKIN: Warm, dry, color appropriate, normal turgor. No rashes noted. NIH Stroke Scale Time: 04:04 Level of Consciousness: Alert Level of Consciousness Questions: Answers both questions correctly Level of Consciousness Commands: Performs both tasks correctly Best Gaze: Normal Visual: No visual loss Facial Palsy: Normal Motor Arm (Right): No drift Motor Arm (Left): No drift Motor Leg (Right): No drift Motor Leg (Left): No drift Limb Ataxia: Absent Sensory: Normal Best Language: No aphasia Dysarthia: Normal Extinction and Inattention: No abnormality Score: 0 Course Course Course Narrative: The patient was signed out to me by the overnight physician pharmacy technician assistant. The patient is a 75-year-old woman who had presented to the emergency room many hours prior to my involvement. She had apparently developed abrupt difficulty walking after getting off a bus taking your home from [facility] last night. Despite the difficulty walking she was able to get herself into her apartment. She tried to make herself some coffee and then seemed to experience right arm pain that was so significant that she could not really use the right arm well enough to make coffee. She checked her blood pressure and it was quite elevated. She realized that she had not taken her usual antihypertensives. She took her amlodipine and then called an ambulance and she was brought to the hospital. There was no clear neurological deficit on her exam aside from right arm weakness that seemed to be more related to pain than actual weakness. The patient was signed out to me pending the results of a CT angiogram of the head and neck in case the patient's episode of difficulty walking might has been a stroke phenomenon. The CT angiogram of the head and neck was unremarkable. I have added on troponins which are negative. Her EKG is nonischemic. Clinically I did not appreciate any neurological deficit. When I examined her she complained of pain in her right arm. She indicates that the pain goes from her right neck down to her right wrist. It seems to center around her right shoulder. She seemed to have right shoulder tenderness. We obtained an MRI to ensure that the patient's episode of difficulty walking might not have been the result of some kind of posterior circulation stroke. An x-ray of the right shoulder shows some degenerative changes but no severe changes from previous. Overall I think the patient has emergency room workup is negative. I do not see an indication for further testing or for hospitalization. The patient will be given a sling for her right arm pain and should follow up with her PCP. Medications Administered Discontinued Medications Generic Name Dose Route Start Last Admin Trade Name Freq PRN Reason Stop Dose Admin Acetaminophen 975 mg 08/26/25 08:40 08/26/25 09:11 Acetaminophen 325 Mg Tablet PO 08/26/25 08:41 975 mg ONCE ONE Administration Sodium Chloride 1,000 mls @ 999 mls/hr 08/26/25 04:30 08/26/25 06:36 Ns IV 08/26/25 05:30 Infused .Q1H1M YUE Infusion Ibuprofen 400 mg 08/26/25 08:40 08/26/25 09:10 Ibuprofen 400 Mg Tablet PO 08/26/25 08:41 400 mg ONCE ONE Administration Iohexol 100 ml 08/26/25 06:25 08/26/25 06:26 Iohexol 350 Mg/Ml 100 Ml Infus..Btl IV 08/26/25 06:26 70 ml ONCE ONE Administration Morphine Sulfate 4 mg 08/26/25 04:25 08/26/25 04:46 Morphine Sulfate 4 Mg/Ml Cartridge IVPUSH 08/26/25 04:26 4 mg ONCE ONE Administration Protocol Medical Decision Making Medical Decision Making MDM Narrative: 4:12 AM 08/26/2025 (Williams DEL CASTILLO): The patient is a 75-year-old female with history of hypertension, depression, GERD, obesity, JANN, PVD, hyperlipidemia, and previous episode of Palumbo's palsy, presenting to the ED for evaluation of multiple complaints. Patient reports she was feeling well throughout the day, went to [facility] this evening, at around 21:00 the patient was dropped off at home. Patient reports after getting out of the [employer] van she experienced severe difficulty controlling her bilateral lower extremities, reporting she could only take small steps, , patient states she felt she could not control her legs but also describes feeling weak. The patient denies fall to the ground or head strike, denies associated symptoms at time of weakness sensation. The patient was able to ambulate into her residence and reports she then began making a cup of coffee. While making a cup of coffee she developed sudden onset severe pain in the right neck radiating into the right wrist. Patient reports when the pain occurred it was too painful to lift her arm, which she describes as weakness. The patient reports when these symptoms occurred she remembered she had not taken her dose of amlodipine, checked her blood sugar and noted the systolic blood pressure was 187. The patient took 2 doses of 5 mg at amlodipine and activated EMS. The patient denies any fall to the ground this evening, denies any recent fall or other blunt trauma, denies anticoagulation. The patient denies any acute associated headache, vision change, other focal neurological deficit, chest pain, shortness of breath, abdominal pain, nausea, vomiting, diaphoresis, vertiginous symptoms, near-syncope, or syncope. Patient reports weakness symptoms of the bilateral lower extremity and right upper extremity fully resolved by time of arrival in the ED, however in the ED she reports persistent pain with active and passive range of motion of the right upper extremity. The patient denies any recent trauma to the right upper extremity. On examination the patient is alert and oriented, cranial nerves intact, there is no lower extremity weakness, impaired family therapist strength, or upper extremity drift. Right upper extremity demonstrates normal coloring, without pallor, pain out of proportion, or coolness to touch. 2+ radial pulses noted bilaterally. Patient grimaces with active or passive range of motion of the right upper extremity, no bony tenderness, crepitus, or deformity. No limited range of motion. No sensory deficits. NIH stroke scale at time of this provider's assessment is 0. The patient's laboratory evaluation shows mildly elevated WBC at 11.2, no significant anemia, no significant electrolyte abnormality. The patient's BUN is mildly elevated at 29, per chart review this is near the patient's baseline over the last few years. Patient's INR is normal at 1.0, urinalysis shows no evidence of acute infection, no hematuria. The patient's viral swabs are negative for influenza and COVID. At this time the patient will be sent for CTA head and neck to evaluate for obstructive pathology. If no evidence of acute obstructive pathology the patient will likely still require admission for observation and evaluation of possible TIA. Patient is requesting pain management for her right upper extremity, is unable to localize a specific area of pain. Patient will be treated with morphine while awaiting CT imaging results. Admission/Observation Consideration of admission/observation: Escalation of care including admission/observation considered Lab Data MDM Lab Attestation statement: I reviewed the patient's lab results. 08/26/25 01:40 08/26/25 01:40 Labs: Lab Results 08/26/25 08/26/25 08/26/25 Range/Units 01:36 01:40 08:52 WBC 11.2 H (4.8-10.8) X10*3/uL RBC 3.96 L (4.20-5.50) X10*6/uL Hgb 12.1 (12.0-16.0) g/dl Hct 36.0 L (37.0-47.0) % MCV 90.9 (80.0-98.0) fL MCH 30.6 (27.0-33.0) pg MCHC 33.6 (31.0-35.0) g/dl RDW 13.3 (11.0-16.0) % Plt Count 309 (160-400) X10*3/uL MPV 10.5 (9.4-12.3) fL Immature Gran % (Auto) 0.4 (0.0-0.4) % Neut % (Auto) 65.6 (45-73) % Lymph % (Auto) 21.2 (20-40) % [place] % (Auto) 10.3 (2-11) % Eos % (Auto) 1.9 (0-4) % Baso % (Auto) 0.6 (0-2) % Lymph # (Auto) 2.4 (1.2-4.9) X10*3/uL [place] # (Auto) 1.2 (0.1-1.2) X10*3/uL Eos # (Auto) 0.2 (0.0-0.4) X10*3/uL Baso # (Auto) 0.1 (0.0-0.2) X10*3/uL Abs Immat Gran (auto) 0.04 H (0.00-0.03) X10*3/uL Absolute Neuts (auto) 7.4 (2.0-8.3) x10*3/uL Absolute Nucleated RBC 0.000 (0.0-0.012) X10*3/uL Nucleated RBC % (auto) 0.0 (0.0-0.2) /100WBC PT 11.4 (10.9-12.4) SEC INR 1.0 (0.9-1.1) Sodium 141 (135-145) mmol/L Potassium 4.1 (3.3-5.1) mmol/L Chloride 104 (96-108) mmol/L Carbon Dioxide 30 H (22-29) mmol/L Anion Gap 11 L (12-20) BUN 29 H (9-16) mg/dL Creatinine 0.92 (0.5-1.4) mg/dL Estim Creat Clear Calc 49.9 Estimated GFR 59 Random Glucose 96 (60-115) mg/dL Calcium 9.9 (8.4-10.2) mg/dL Total Bilirubin 0.2 (0.0-1.0) mg/dL AST 28 (5-31) U/L ALT 20 (0-31) U/L Alkaline Phosphatase 137 H (39-117) U/L Troponin I High Sens 2.7 3.1 (<3.5-17.0) ng/L NT-Pro-B Natriuret Pep 254.6 (<300) pg/mL Total Protein 8.1 H (6.5-8.0) g/dL Albumin 4.4 (3.5-5.0) g/dL Urine Color Yellow Urine Appearance Clear Urine pH 7.0 (5.0-9.0) Ur Specific [place] 1.010 (1.005-1.025) Urine Protein Negative (Neg-Trace) mg/dL Urine Glucose (UA) Negative (Negative) mg/dL Urine Ketones Negative (Negative) mg/dL Urine Blood Negative (Negative) Urine Nitrite Negative (Negative) Ur Leukocyte Esterase Negative (Negative) Urine RBC 0-2 (0-2) /HPF Urine WBC 0-5 (0-5) /HPF Ur Squamous Epith Cells 0-2 (0-2) /HPF Urine Bacteria None Seen (None Seen) Hyaline Casts 0-2 (0-2) /LPF COVID-19 ([facility]) Negative (Negative) COVID-19 Clin Com See Note Influenza Type A ([facility]) Negative (Negative) Influenza Type B ([facility]) Negative (Negative) Influenza A & B Note See Note Discharge Plan Discharge Clinical Impression: Right arm pain, Difficulty walking, Arthritis of right shoulder Patient Disposition: Home, Self-Care Additional Instructions: Your testing today seems very reassuring. There was no sign of a stroke. There was no sign of a heart attack. I believe you have some arthritis in your right shoulder which may be causing your right arm pain. You may wear the sling provided as needed for comfort. I have sent a prescription for acetaminophen and ibuprofen to your pharmacy which you may use as needed for pain. Please contact your regular doctor's office today for a follow up appointment next week. Return to the emergency room if significantly worse. Prescriptions: New acetaminophen 500 mg capsule 1,000 mg PO Q8H PRN (Reason: fever or pain) Qty: 14 0RF ibuprofen 400 mg tablet 400 mg PO Q6H PRN (Reason: pain) Qty: 14 0RF No Action cholecalciferol (vitamin D3) 25 mcg (1,000 unit) tablet 25 mcg PO DAILY Qty: 90 1RF hydrocortisone [Proctosol HC] 2.5 % cream with perineal applicator 1 appl [place] BID-QID PRN (Reason: hemorrhoids) Qty: 30 0RF (DME) BP Cuff See Rx Instructions .Route .MEDSUPPLY Qty: 1 0RF Rx Instructions: As directed omeprazole 20 mg capsule,delayed release(DR/EC) 20 mg PO DAILY 90 Days Qty: 90 0RF simethicone [Gas Relief Extra Strength] 125 mg tablet,chewable 125 mg PO TID PRN (Reason: for abdominal pain) 30 Days Qty: 90 3RF irbesartan 300 mg tablet 300 mg PO DAILY 90 Days Qty: 90 2RF amlodipine 5 mg tablet 5 mg PO DAILY Qty: 90 2RF rosuvastatin 10 mg tablet 10 mg PO DAILY Qty: 90 0RF lidocaine [Lidoderm] 5 % adhesive patch,medicated 1 patch topical DAILY Qty: 15 0RF Rx Instructions: leave on most painful area for up to 12 hrs albuterol sulfate 90 mcg/actuation HFA aerosol inhaler 2 puff inhalation Q4-6H PRN (Reason: shortness of breath or wheezing) Qty: 6.7 0RF baclofen 5 mg tablet 5 mg PO TID PRN (Reason: muscle pain) Qty: 10 0RF (DME) CPAP 6 cm humidified AIR MASKAIR FIT N20 small See Rx Instructions .Route .MEDSUPPLY Qty: 1 0RF Rx Instructions: As directed Senna Plus 8.6-50 mg capsule 1 tab-cap PO BID PRN (Reason: constipation) 30 Days Qty: 60 3RF (DME) WALKER WITH SEAT See Rx Instructions .Route .MEDSUPPLY Qty: 1 0RF Rx Instructions: As directed (DME) SHOWER CHAIR See Rx Instructions .Route .MEDSUPPLY Qty: 1 0RF Rx Instructions: As directed guaifenesin [Mucinex] 1,200 mg tablet extended release 12hr 1,200 mg PO BID Qty: 20 0RF polyethylene glycol 3350 [Miralax] 17 gram/dose powder 17 g PO DAILY PRN (Reason: constipation) 30 Days Qty: 510 3RF diclofenac sodium [Voltaren Arthritis Pain] 1 % gel 4 g topical QID Qty: 150 3RF Rx Instructions: apply to single knee, ankle, foot; for foot includes sole/toes/top of foot (DME) knee brace See Rx Instructions .Route .MEDSUPPLY Qty: 1 0RF Rx Instructions: As directed Referrals: Spenser Romero MD [Primary Care Provider, Internal Medicine] Print Language: Greek
[2025-08-26] MEDS: iohexoL 350 MG/ML 100 ML INFUS..BTL IV (06:26)
[2025-08-26 06:43] LABS: Troponin-I High Sensitivity 2.7 ng/L (<3.5-17.0)
--- NOTE | 2025-08-26 07:32 | PC.NURSE ---
Assumed care of pt approx 0700, resting in stretcher with no apparent s/s of distress. Resp even/unlabored. Dtr at bedside. Pt reports reduction in right arm pain to 7/10. Pending CT results..
[2025-08-26 09:19] LABS: Troponin-I High Sensitivity 3.1 ng/L (<3.5-17.0)
[2025-08-26 10:01] LABS: NT Pro B Type Natriuretic Pept 254.6 pg/mL (<300)
--- NOTE | 2025-08-26 10:48 | PC.NURSE ---
MRI screening form completed with advertising inserter. Form faxed to MRI and awaiting approx time..
== END 2025-08-26 14:24 | disposition home or self-care (01) ==
PROVIDERS: Emergency Medicine; Emergency Provider Emergency Medicine; PCP Internal Medicine
DX: M79.601 Pain in right arm (principal); R26.2 Difficulty in walking, not elsewhere classified; M19.011 Primary osteoarthritis, right shoulder; R00.1 Bradycardia, unspecified; R11.0 Nausea; Z11.52 Encounter for screening for COVID-19; Z79.899 Other long term (current) drug therapy
CPT/HCPCS: 36415; 70496; 70498; 70551; 73030; 80053; 81001; 83880; 84484; 85025; 85610; 87502; 87635; 93005; 96361; 96374; 99285; J2270; Q9967

== ENCOUNTER → 2025-08-26 04:09 | Outpatient (BNV) | payer OTHER, SELFPAY | PROVIDERS: Emergency Provider Emergency Medicine; PCP Internal Medicine; Visit Provider Specialist | DX: R53.1 Weakness (principal); R26.2 Difficulty in walking, not elsewhere classified; M19.011 Primary osteoarthritis, right shoulder | CPT/HCPCS: 70551 ==

== ENCOUNTER → 2025-08-26 14:03 | Outpatient (BNV) | payer OTHER, SELFPAY | PROVIDERS: Emergency Provider Emergency Medicine; PCP Internal Medicine; Visit Provider Internal Medicine | DX: R00.1 Bradycardia, unspecified (principal) | CPT/HCPCS: 93010 ==

== ENCOUNTER 2025-09-15 11:57 | Outpatient (AMB) | payer OTHER, SELFPAY ==
--- NOTE | 2025-09-15 13:03 | MHC.PC.OV ---
Vital Signs 09/15/25 13:04 Height 5 ft Weight 159 lb BMI 31.0 BP 132/90 H Blood Pressure Location Lt brachial Position Sitting Pulse 65 Pulse Source Pulse Oximeter Pulse Oximetry (%) 99 Oxygen Delivery Method Room Air Intake Visit Reasons: 3 mnth f/u Human Resources Benefits Manager Required: Yes Accompanied by: Self / Same As Patient Allergies atorvastatin Allergy (Unknown, Verified 09/15/25 13:04) myalgia codeine Allergy (Unknown, Verified 09/15/25 13:04) SWELLING penicillin V Allergy (Unknown, Verified 09/15/25 13:04) rash nifedipine Adverse Reaction (Intermediate, Verified 09/15/25 13:04) palpitations pravastatin Adverse Reaction (Intermediate, Verified 09/15/25 13:04) joint pain hydrochlorothiazide Adverse Reaction (Mild, Verified 09/15/25 13:04) Swelling metoprolol Adverse Reaction (Verified 09/15/25 13:04) leg swelling Medication List - Last Reconciled 09/15/25 by Spenser Romero, acetaminophen 1,000 mg (2 x 500 mg) PO Q8H PRN albuterol sulfate 90 mcg/actuation 2 puffs inhalation Q4-6H PRN amlodipine 5 mg PO DAILY baclofen 5 mg PO TID PRN [BP Cuff As directed] cholecalciferol (vitamin D3) 25 mcg PO DAILY [CPAP 6 cm humidified AIR MASKAIR FIT N20 small As directed] diclofenac sodium 1% (Voltaren Arthritis Pain) 4 grams topical QID guaifenesin ER (Mucinex) 1,200 mg PO BID hydrocortisone 2.5% (Proctosol HC) 1 appl DC BID-QID PRN ibuprofen 400 mg PO Q6H PRN irbesartan 300 mg PO DAILY 90 days [knee brace As directed] lidocaine 5% (Lidoderm) 1 patch topical DAILY omeprazole 20 mg PO DAILY 90 days polyethylene glycol 3350 (Miralax) 17 grams PO DAILY PRN 30 days rosuvastatin 10 mg PO DAILY sennosides-docusate sodium 8.6-50 mg (Senna Plus) 1 tab-cap PO BID PRN 30 days [SHOWER CHAIR As directed] simethicone (Gas Relief Extra Strength) 125 mg PO TID PRN 30 days tramadol 50 mg PO BEDTIME [WALKER WITH SEAT As directed] Tobacco use date assessed: 09/15/25 Fall risk assessment: No Falls in past year Last assessed Fall Risk: 09/15/25 Dental Screening Dental Screen Date: 09/15/25 Did you have a dental visit in the last 12 months?: Yes Did you have a dental problem in the last 6 months where you did not have access to dental care?: No Was dental information given to patient?: Patient has dentist HPI 3 mnth f/u HPI Details grandaugter interpret ER visit, blood pressure high, states forgot to take med. PFSH Medical History Benign essential hypertension JANN on CPAP Left leg swelling Conjunctivitis Radicular pain Low back pain Otitis media of left ear LUQ abdominal pain Vitamin D deficiency Obesity (BMI 30-39.9) Obstructive sleep apnea IgA nephropathy History of colon polyps Diverticulosis Chronic constipation Venous (peripheral) insufficiency Coreas's cyst of knee Pure hypercholesterolemia Hypovitaminosis D Surgical History History of esophagogastroduodenoscopy (EGD) History of dilatation and curettage H/O tubal ligation History of loop electrical excision procedure (LEEP) History of colonoscopy Family History Father Alzheimers disease Mother Kidney failure Social History Housing: Apartment Are you a primary client care manager to a significant other at home: No Alcohol intake: never Patient Tobacco Use Status: Never used Tobacco Tobacco use type: Cigarette e-Cigarette/Vaping Use: Never Used Second Hand Smoke Exposure: No service: No Current occupational status: disabled Cognitive needs: No Hearing needs: No Vision needs: Yes Questionnaire Thrive Questionnaire Date Thrive assessed: 05/19/25 I am a: Patient What is your living situation today?: I have a steady place to live Within the past 12 months, did the food you bought not last and you didn't have the money to get more?: Never true Within the past 12 months, did you worry whether your food would run out before you got money to buy more?: Never true Do you have trouble paying for medicines?: No Do you have trouble getting transportation to medical appointments?: No Do you have trouble paying your heating and electricity bill?: No Do you have trouble taking care of your child, family member or friend?: No Do you have trouble with day-to-day activities such as bathing, preparing meals, shopping, managing finances, etc.?: No Are you currently unemployed and looking for a job?: No Are you interested in more education?: No Please select the resources that you would like help with: None Currently or been in a relationship where the following occur: No concerns reported THRIVE Score: 0 AUDIT C Alcohol Use Questionnaire (AUDIT-C) 1. How often do you have a drink containing alcohol?: Never 3. How often do you have six or more drinks on one occasion?: Never Total Score: 0 SANDRA-7 AMB Questionnaire SANDRA-7 Date SANDRA - 7 assessed: 05/19/25 Source: Developed by Drs. Bon Garcia, Mimi Nicholson, Rick Bruno and colleagues, with an educational abbey from [employer]. Physical exam (Primary Care) Vital Signs: Last Vital Signs Pulse 65 09/15/25 13:04 BP 132/90 H 09/15/25 13:04 Pulse Ox 99 09/15/25 13:04 Oxygen Delivery Method Room Air 09/15/25 13:04 BMI result Body Mass Index 31.0 Tobacco/Smoking Status: Tobacco use Status Tobacco use date assessed 09/15/25 09/15/25 13:05 Patient Tobacco Use Status Never used Tobacco 09/15/25 13:05 Tobacco use type Cigarette 09/15/25 13:05 e-Cigarette/Vaping Use Never Used 09/15/25 13:05 Thrive Assessment: Date of Thrive Assessment Date Thrive assessed 05/19/25 09/15/25 13:05 Currently or been in a relationship where the following occur: No concerns reported Const General: alert; No acute distress Eyes Conjunctivae: conjunctivae normal Resp Auscultation: clear to auscultation bilaterally Cardio Rate: regular rate Rhythm: regular rhythm GI Inspection: Yes normal to inspection Extrem General: Yes normal to inspection and No edema Coding Level of Care Code Est Pt Level 4 (62328) Complex EM visit Add On G2211 Diagnoses Primary hypertension I10 Hypertension type: primary hypertension Pure hypercholesterolemia E78.00 Impaired fasting blood sugar R73.01 Primary osteoarthritis, right shoulder M19.011 Obesity (BMI 30-39.9) E66.9 GERD (gastroesophageal reflux disease) K21.9 Assessment & Plan Assessment & Plan (1) HTN (hypertension): Code(s): I10 - Essential (primary) hypertension Category: Medical Qualifiers: Hypertension type: primary hypertension Qualified Code(s): I10 - Essential (primary) hypertension Plan: Continue with blood pressure medication. Decrease salt intake and exercise on amlodipine 5 mg once a day irbesartan 300 mg once a day (2) Pure hypercholesterolemia: Code(s): E78.00 - Pure hypercholesterolemia, unspecified Category: Medical Plan: Avoid fried foods, chicken skin, eggs, butter margarine, pastries and meat. Be it pork or beef they have a lot of cholesterol LDL goal of less than 130 on rosuvastatin 10 mg once a day (3) Impaired fasting blood sugar: Code(s): R73.01 - Impaired fasting glucose Category: Medical Plan: Decrease the amount of carbohydrate intake, pasta, bread, rice and potatoes are all sugar and that is aside from all the sweet stuff, remember that fruits are good but they are Sweet also. (4) Primary osteoarthritis, right shoulder: Code(s): M19.011 - Primary osteoarthritis, right shoulder Category: Medical Plan: Keep active pain control (5) Obesity (BMI 30-39.9): Code(s): E66.9 - Obesity, unspecified Category: Medical (6) GERD (gastroesophageal reflux disease): Code(s): K21.9 - Gastro-esophageal reflux disease without esophagitis Category: Medical Plan History of Present Illness The patient is a 75-year-old female presenting for a follow-up visit. She has a history of obesity, hypercholesterolemia, obstructive sleep apnea, impaired glucose tolerance, and hypertension. Her last colonoscopy was performed in 2019, and she is due for another screening. In August, she visited the emergency room due to right arm pain and was diagnosed with arthritis of the right shoulder. She experienced sudden onset of severe pain in the right neck radiating to the right wrist, accompanied by weakness. The patient has osteoarthritis in both knees, more severe on the left side, and recently received knee injections under orthopedic care. She reports stiffness and pain in the knees, which affects her mobility. A CT scan revealed fatty infiltration of the pancreas and diverticular disease, while blood work showed mild leukocytosis but no anemia. Her cholesterol levels were high, necessitating a repeat blood test. Health Maintenance - Colonoscopy due for screening - Blood test for cholesterol monitoring Social History Review of Systems - Musculoskeletal: Reports right arm pain, stiffness, and pain in both knees. - Neurological: Reports weakness with sudden onset of severe pain in the right neck radiating to the right wrist. Physical Exam Results - Imaging: CT scan showing fatty infiltration of the pancreas and diverticular disease. - Labs: Blood work showing mild leukocytosis, no anemia. - Imaging: Shoulder x-ray showing arthritis. - Imaging: Brain MRI showing negative results. - Imaging: Neck CT showing negative results. Plan Patient was informed and verbally consented to the use of an ambient scribe for clinic note documentation during this visit. 1. Obesity The patient is advised to maintain an active lifestyle to manage obesity. 2. Hypercholesterolemia The patient is on rosuvastatin 10 mg once a day to manage cholesterol levels, aiming for an LDL cholesterol level of less than 130 mg/dL. A repeat blood test for cholesterol monitoring is planned. 3. Hypertension The patient is on amlodipine 5 mg and irbesartan 300 mg once a day for blood pressure management. She is reminded of the importance of medication adherence to prevent spikes in blood pressure, which could lead to complications such as stroke. 4. Arthritis Of The Right Shoulder The patient has been diagnosed with arthritis of the right shoulder, confirmed by x-ray. Pain management strategies are discussed, including the potential use of stronger medications if necessary. 5. Osteoarthritis Of Both Knees The patient has severe osteoarthritis in both knees, more pronounced on the left side. She has received knee injections, but reports limited relief. Pain management options are discussed, with caution advised regarding kidney health. Discussion Notes During the visit, we discussed the management of the patient's hypertension, emphasizing the importance of medication adherence to prevent complications such as stroke. We also reviewed her cholesterol management plan, including the use of rosuvastatin and the need for repeat blood testing. For her arthritis, we explored pain management options, including the potential use of stronger medications if necessary, while considering the impact on kidney health. Patient Instructions - Take blood pressure medications regularly to prevent spikes. - Continue rosuvastatin as prescribed and follow up with repeat cholesterol testing. - Maintain an active lifestyle to help manage obesity. - Follow up with orthopedic care for knee pain management. Medications: New tramadol 50 mg PO BEDTIME 7 tabs 0RF M17.11 - Unilateral primary osteoarthritis, right knee
[2025-09-15 13:04] VITALS: BP 132/90; PULSE 65; O2SAT 99; BMI 31.0
--- OUTSIDE RECORDS SUMMARY | 2025-09-15 15:11 | XMS_ITS | Data Portability ---
Author Organization [place] - [facility], Allergy Address [address] [address] Care Team Providers Care Food And Nutrition Services Supervisor Name Role Phone CALEB LEIVA Primary Care Provider Assessment No assessment recorded. Plan of Treatment Reminders Order Date Submit Date Provider Last Modified By Organization Details Last Modified Time Details Appointments Establish ed 30 2025 09:00A M KIARA Heart MD Not available Not [...] Organization Details Recorded Time Respirato ry finding [id number] Active 2022 Feeling of foreign body in throat; Note: Date Diagnosed : 05/20/2023 12:33 PM (R09.89) Not Available [facility] 4 03:16:00 Cardiovas cular finding 010376791 Active 2022 Feeling of foreign body in throat; Note: Date Diagnosed : 05/20/2023 12:33 PM (R09.89) Not Available [facility] 4 03:16:00 Dysphonia 14187062 Active 2022 Hoarsenes s; Note: Date Diagnosed : 05/20/2023 12:34 PM (R49.0) Not Available [facility] 4 03:16:00 Pain in throat 776268451 Active 2022 Pain in throat; Note: Date Diagnosed : 05/20/2023 12:33 PM (J31.2) Not Available [facility] 4 03:16:00 Gastroeso phageal reflux disease without esophagit is 864419454 Active 2022 Gastro-es ophageal reflux disease without esophagit is; Note: Date Diagnosed : 05/20/2023 12:33 PM (K21.9) Not Available [facility] 4 03:15:59 Bilateral temporoma ndibular joint pain [id number] 878045 Active 2022 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; Note: Date Diagnosed : 07/01/2023 2:16 PM (M26.623) Not Available [facility] 4 03:16:00 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 Procedures Surgical History Date Name Laterality Status Provider Name and Address Organization Details Recorded Time 09/08/2024 FFL_RE completed KIARA MAE MD [address] [place] [address], [phone], [facility] 09/08/2024 11:08:16 Imaging Results None recorded. Procedure Notes None recorded. Medical Equipment None Reported. Allergies Allergen ID Allergen Name Allergen Category Reaction Reaction Severity Criticality Documentation Date Start Date Code Code System Note Provider Name and Address Organization Details Recorded Time 713557 Product containin g penicilli n (product) medicatio n other Not available Not available 04/06/2024 79673 8001 SNOMED React ion: Unkno wn; Not Available [facility] 4 01:17:56 724128 codeine medicatio n other Not available Not available 04/06/2024 2670 RxNorm React ion: Unkno wn; Not Available [facility] 4 01:17:56 Medications Name Sig Start Date Stop Date Status Note LastModified by Organization Details LastModified Time nifedipine ER 30 mg tablet,ext ended release 24 hr TAKE 1 TABLET BY MOUTH DAILY active Not Available Not Available No t Available senna 8.6 mg tablet active Medicatio n ID: [id number] Br and Name: senna Sen d Method: [...] a day 2022 active Medicatio n ID: [id number] Du ration Value: 30 Brand Name: omeprazol [...] Diagnosis SNOMED-CT Code Diagnosis ICD10 Code Diagnosis IMO Codes Diagnosis Note [id number] KIARA MAE MD [facility] [address] [address] 09/08/2024 10:37:30 09/08/2024 11:07:30 Chronic tonsillitis [id number] J35.01 Likely explains PET uptake. No tumors or masses on exam today and symptoms seem to correlate with tonsil stones. We will continue observatio n. I asked her to call if her symptoms worsen. Amygdalolith [id number] J35 .8 see above Health Concerns Section Related Observation LastModified by Organization Detai ls LastModified Time None Recorded Concern Status LastModified by Organization Details LastModified Time None Recorded Advance Directives Directive None Recorded Payers Insurance Date Sequence Insurance Name Policy Number Policy Heaton Covered Member ID Heaton Member ID Guarantor Name 08/23/2025 1 [facility] (MEDICARE REPLACEMENT/A DVANTAGE - HMO) [employer] Zayra Rodas [id number] Zayra Rodas Notes Date Note Type Note Provider Name and Address Organization Details Recorded Time 09/08/2024 text/html ROS as noted in the HPI Hx of tonsillar asymmetry. Had a PET [...] She does not smoke. KIARA MAE MD [address] [place] [address], [phone], [place] - [facility] 09/08/2024 11:09:13 OBGyn Episode No OBEpisode recorded.
--- OUTSIDE RECORDS SUMMARY | 2025-09-15 15:11 | XMS_ITS | Encounter Summary ---
Author Organization [employer] Address [address] [place] [address] [address] [place] [address] Care Team Providers Care Metal Tile Lather Name Role Phone Unavailable Primary Care Provider Unavailabl e Reason for Visit * Reason Onset Date Comments rs cancelled appt 12/29/2024 Encounter Details Date Type Department Care Team ([facility] st Contact Info) Description 12/29/2024 Telephone [facility] ADULT DENTAL [address] [place] [address] Jake Iverson DDS [address] [place] [address] rs cancelled appt Social History Tobacco Use [...]
--- OUTSIDE RECORDS SUMMARY | 2025-09-15 15:11 | XMS_ITS | Encounter Summary ---
Author Organization [employer] Address [address] [place] [address] [address] [place] [address] Care Team Providers Care Electrical Instrument Technician Name Role Phone Jeanne Sandhu OD Primary Care Provider Encounter Details Date Type Department Care Team (Latest Contact Info) Description 03/01/2019 Abstract [facility] Dental, Provider, DDS Social History [...] on filedocumented in this encounter Care Teams Electrical Instrument Technician Relationship Specialty Start Date End Date Jeanne Sandhu OD [address] [place] [phone] PCP - General Optometry 08/15/17 11/30/23 documented as of this encounter
--- OUTSIDE RECORDS SUMMARY | 2025-09-15 15:11 | XMS_ITS | Clinical Summary ---
Author Organization [employer] Address [address] [place] [address] [address] [place] [address] Care Team Providers Care Nutrition Associate Name Role Phone Unavailable Primary Care Provider [...] Osteopenia 09/23/2012 Benign hypertension 06/04/2012 Eczema 06/04/2012 Social History Tobacco Use Types Packs/Day Years [...] - 1-dose 75+ series) 2024 COVID-19 Vaccine (2023- season) 2025 Influenza Vaccine (#1) 2025 09/01/1998 [...] Associated Diagnosis Comments PROPHYLAXIS - ADULT Routine 06/03/2025 1 :00 PM EDT Periodontal disease Dental plaque PERIODIC ORAL EVALUATION - ESTABLISHED PATIENT Routine 06/03/2025 1:00 PM EDT BITEWINGS - 4 RADIOGRAPHIC IMAGES Routine 12/03/2024 10:00 AM EST INTRAORAL - COMPLETE SERIES OF RADIOGRAPHIC IMAGES Routine 03/22/2024 10:00 AM EDT Periodontal disease Dental calculus Localized gingival recession Missing teeth, acquired from Last 3 Months or Most Recently Relevant to Health Maintenance Insurance DENTAL - [employer] [facility]
--- OUTSIDE RECORDS SUMMARY | 2025-09-15 15:11 | XMS_ITS | Encounter Summary ---
Author Organization [employer] Address [address] [facility] [address] [place] [address] Care Team Providers Care Automation Controls Engineer Name Role Phone Unavailable Primary Care Provider Unavailabl e Reason for Visit * Reason Onset Date Comments ongoing pain 10/07/2024 Encounter Details Date Type Department Care Team ([facility] st Contact Info) Description 10/07/2024 Telephone [facility] ADULT DENTAL [address] [place] [address] Hazel Mancera DDS [address] [place] [address] ongoing pain Social History Tobacco Use Types [...]
== END 2025-09-15 14:23 | disposition home or self-care (01) ==
LOC: HO.HMCH 11:57
PROVIDERS: PCP Internal Medicine; Visit Provider Internal Medicine
DX: I10 Essential (primary) hypertension (principal); E78.00 Pure hypercholesterolemia, unspecified; Z68.31 Body mass index [BMI] 31.0-31.9, adult; E66.9 Obesity, unspecified; R73.01 Impaired fasting glucose; M19.011 Primary osteoarthritis, right shoulder; K21.9 Gastro-esophageal reflux disease without esophagitis

== ENCOUNTER → 2025-09-15 11:57 | Outpatient (BNVA) | payer OTHER, SELFPAY | PROVIDERS: PCP Internal Medicine; Visit Provider Internal Medicine | DX: I10 Essential (primary) hypertension (principal); E78.00 Pure hypercholesterolemia, unspecified; R73.01 Impaired fasting glucose; M19.011 Primary osteoarthritis, right shoulder; K21.9 Gastro-esophageal reflux disease without esophagitis; E66.9 Obesity, unspecified | CPT/HCPCS: 99212 ==

== ENCOUNTER 2025-10-07 12:43 | Emergency (ER) | payer OTHER, SELFPAY ==
[2025-10-07 12:53] VITALS: BP 137/70; BP 138/51; PULSE 87; PULSE 90; RESP 18; TEMP 37.8; O2SAT 94; O2SAT 96; BMI 31.9
--- NOTE | 2025-10-07 13:00 | ED_ITS ---
HPI - General Adult General Chief complaint: General Medical Stated complaint: Nausea Vomiting Time Seen by Provider: 10/07/25 12:52 Source: patient and EMS Mode of arrival: EMS Limitations: no limitations History of Present Illness ED Provider: ABUNDIO Archer HPI narrative: Chief Complaint: ?Nausea and vomiting.? History of Present Illness: 69-year-old female with a complex past medical history?including osteoarthritis, atypical nevi, obesity, bloating, facial paralysis, dysarthria, hypertension, brief reaction (unspecified), major depression, sciatica, GERD, tonsillitis, prior guaiac-positive stools, obstructive sleep apnea, and hyperlipidemia?arrived via ambulance for evaluation of three days of persistent nausea and vomiting. She endorses associated cough, diffuse body aches/pains, episodic fevers, and absence of bowel movement for the past two days. Yesterday she experienced severe substernal chest pain without radiation. She reports normal urine output (?peeing well?). Multiple sick contacts at home w/ similar symptoms. No additional history obtained during the encounter. Related Data Previous Rx's ?Medication ?Instructions ?Recorded cholecalciferol (vitamin D3) 25 25 mcg PO DAILY #90 ta bs 12/07/20 mcg (1,000 unit) tablet CPAP 6 cm humidified AIR MASKAIR #1 ea 04/20/21 FIT N20 small hydrocortisone 2.5 % topical cream 1 appl SD BID-QID P RN hemorrhoids 03/26/22 with perineal applicator #30 grams (Proctosol HC) SHOWER CHAIR #1 ea 03/24/23 WALKER WITH SEAT #1 ea 03/24/23 sennosides 8.6 mg-docusate sodium 1 tab-cap PO BID PRN constipation 03/24/23 50 mg capsule (Senna Plus) 30 days #60 caps polyethylene glycol 3350 17 17 g PO DAILY PRN constipa tion 30 10/30/23 gram/dose oral powder (Miralax) days #510 grams BP Cuff #1 ea 03/17/24 omeprazole 20 mg capsule,delayed 20 mg PO DAILY 90 day s #90 caps 09/24/24 release simethicone 125 mg chewable tablet 125 mg PO TID PRN f or abdominal 09/25/24 (Gas Relief Extra Strength) pain 30 days #90 tabs baclofen 5 mg tablet 5 mg PO TID PRN muscle pain #10 12/23/24 tabs albuterol sulfate 90 mcg/actuation 2 puff inhalation Q 4-6H PRN 05/04/25 aerosol inhaler shortness of breath or wheez ing #6.7 grams guaifenesin 1,200 mg tablet, 1,200 mg PO BID #20 tabs 05/19/25 extended release 12 hr (Mucinex) amlodipine 5 mg tablet 5 mg PO DAILY #90 tabs 05/31 rosuvastatin 10 mg tablet 10 mg PO DAILY #90 tabs 05/24 07/18 diclofenac sodium 1 % topical gel 4 g topical QID #150 grams 07/11/25 (Voltaren Arthritis Pain) knee brace #1 ea 07/11/25 lidocaine 5 % topical patch 1 patch topical DAILY #15 ea 07/13/25 (Lidoderm) acetaminophen 500 mg capsule 1,000 mg (2 x 500 mg) PO Q8H PRN 08/26/25 fever or pain #14 caps ibuprofen 400 mg tablet 400 mg PO Q6H PRN pain #14 t abs 08/26/25 irbesartan 300 mg tablet 300 mg PO DAILY 90 days #90 tabs 09/04/25 tramadol 50 mg tablet 50 mg PO BEDTIME #7 tabs acetaminophen 325 mg tablet 650 mg (2 x 325 mg) PO Q6H PRN 10/07/25 (Tylenol) fever or pain #30 tabs docusate sodium 100 mg capsule 100 mg PO BID #20 caps 10/07/25 (Colace) polyethylene glycol 3350 17 17 g PO BID PRN constipati on #238 10/07/25 gram/dose oral powder (Miralax) grams sennosides 8.6 mg tablet (senna) 8.6 mg PO BEDTIME #14 tabs 10/07/25 Allergies Allergy/AdvReac Type Severity Reaction Status Date / Time atorvastatin Allergy Unknown myalgia Verified 10/07/25 12:59 codeine Allergy Unknown SWELLING Verified 10/07/25 12:59 penicillin V Allergy Unknown rash Verified 10/07/25 12:59 nifedipine AdvReac Intermediate palpitation Verified 10/07/25 12:59 s pravastatin AdvReac Intermediate joint pain Verified 10/07/25 12:59 hydrochlorothiazide AdvReac Mild Swelling Verified 10/07/25 12:59 metoprolol AdvReac leg Verified 10/07/25 12:59 swelling Review of Systems 2 Review of Systems: Yes all other systems are reviewed and are negative [facility] Past Medical History Attestation statement: The following information was validated with the patient. Source: old records reviewed and nursing notes reviewed Medical History Benign essential hypertension JANN on CPAP Left leg swelling Conjunctivitis Radicular pain Low back pain Otitis media of left ear LUQ abdominal pain Vitamin D deficiency Obesity (BMI 30-39.9) Obstructive sleep apnea IgA nephropathy History of colon polyps Diverticulosis Chronic constipation Venous (peripheral) insufficiency Coreas's cyst of knee Pure hypercholesterolemia Hypovitaminosis D Surgical History History of esophagogastroduodenoscopy (EGD) History of dilatation and curettage H/O tubal ligation History of loop electrical excision procedure (LEEP) History of colonoscopy Family History Family History Father Alzheimers disease Mother Kidney failure Social History Social History Housing: Apartment Are you a primary respiratory care technician to a significant other at home: No Alcohol intake: never Patient Tobacco Use Status: Never used Tobacco Tobacco use type: Cigarette e-Cigarette/Vaping Use: Never Used Second Hand Smoke Exposure: No Advance Directives: No Advance Directives Information Provided: Yes service: No Current occupational status: disabled Cognitive needs: No Hearing needs: No Vision needs: Yes Physical Exam ED Exam Exam: Appearance: Alert.? Oriented X3.? No acute distress.? Head: Normocephalic, atraumatic, no step-offs or deformities Eyes: Pupils equal, round and reactive to light.? ENT: Pharynx normal.? Neck: Normal inspection.? Neck supple.? CVS: Normal heart rate and rhythm.? Pulses normal.? Respiratory: No respiratory distress.? Breath sounds normal.? Abdomen: Soft and nontender.? Skin: Skin warm and dry.? Normal skin color.? Normal skin turgor.? Extremities: No lower extremity edema.? No calf ttp. 5/5 strength to bilateral upper and lower extremities Back: No midline tenderness, no C-spine tenderness, full range of motion, no CVA tenderness bilaterally Neuro: Oriented X 3.? No motor deficit.? No sensory deficit. CN 2-12 intact Vital Signs: Vital Signs - 24 hr 10/07/25 12:53 10/07/25 13:24 Temperature 100.0 F Pulse Rate 87 87 Respiratory Rate 18 16 Blood Pressure 138/51 L 129/56 L Pulse Oximetry 96 96 Oxygen Delivery Method Room Air Room Air BMI result Body Mass Index 31.9 vss- low grade fever Course Reevaluation(s) Reevaluation #1: CBC unremarkable. When normocytic anemia noted. Appears to be around patient's baseline. Feel chemistry with no acute findings eating intervention. Slight bump in BUN and creatinine will educate on p.o. hydration. Troponin negative x2 with nonischemic EKG. Influenza positive. Time: 16:18 Medications Administered Discontinued Medications Generic Name Dose Route Start Last Admin Trade Name Freq PRN Reason Stop Dose Admin Acetaminophen 975 mg 10/07/25 15:24 10/07/25 15:28 Acetaminophen 325 Mg Tablet PO 10/07/25 15:25 975 mg ONCE ONE Administration Medical Decision Making Medical Decision Making MDM Narrative: 69-year-old female with multiple medical comorbidities presenting with 3 days of nausea, vomiting, cough, fevers, diffuse myalgias, and recent substernal chest pain. Initial plan includes diagnostic evaluation with laboratory studies, urinalysis, and viral testing. Awaiting physical examination and test results to further guide management. Problem #1: Nausea and Vomiting Assessment: Acute onset (3 days) with associated fevers, cough, and body aches. Differential Diagnosis: * Viral gastroenteritis * Systemic infection (e.g., influenza, COVID-19) * Medication side effect * Metabolic disturbance (e.g., electrolyte abnormality) * Gastroesophageal reflux disease * Obstructive process (e.g., bowel obstruction) * Other causes (e.g., pancreatitis, cholecystitis) Plan: * Order comprehensive laboratory panel (CBC, CMP) and serum studies. * Monitor fluid status; consider IV fluids as needed. * Reassess following lab/diagnostic results. Problem #2: Substernal Chest Pain (yesterday, resolved) Assessment: Reported severe substernal, non-radiating chest pain yesterday; etiology undetermined. Differential Diagnosis: * Acute coronary syndrome * Gastroesophageal reflux disease * Musculoskeletal pain * Pulmonary process (e.g., pneumonia, pulmonary embolism) * Anxiety-related pain * Other causes (e.g., pericarditis) Plan: * Monitor for recurrence of pain or new cardiopulmonary symptoms. * Further management pending results. Problem #3: Constipation (No bowel movement x2 days) Assessment: Likely secondary to decreased oral intake and vomiting. Differential Diagnosis: * Decreased oral intake * Medication effect (e.g., opioids) * Electrolyte disturbance * Obstructive process * Underlying gastrointestinal disorder Plan: * Assess need for bowel regimen after initial evaluation and hydration. Problem #4: Multiple Comorbid Conditions (HTN, JANN, Hyperlipidemia, etc.) Assessment: Chronic conditions previously diagnosed; not the primary focus of this visit. Differential Diagnosis Differential Diagnoses: The differential diagnosis associated with the presentation includes * Viral gastroenteritis * Systemic infection (e.g., influenza, COVID-19) * Medication side effect * Metabolic disturbance (e.g., electrolyte abnormality) * Gastroesophageal reflux disease * Obstructive process (e.g., bowel obstruction) * Other causes (e.g., pancreatitis, cholecystitis) Admission/Observation Consideration of admission/observation: Escalation of care including admission/observation considered Lab Data MDM Lab Attestation statement: I reviewed the patient's lab results. 10/07/25 13:22 10/07/25 13:22 Labs: Lab Results 10/07/25 10/07/25 10/07/25 Range/Units 13:21 13:22 14:51 WBC 6.1 (4.8-10.8) X10*3/uL RBC 3.65 L (4.20-5.50) X10*6/uL Hgb 11.0 L (12.0-16.0) g/dl Hct 33.3 L (37.0-47.0) % MCV 91.2 (80.0-98.0) fL MCH 30.1 (27.0-33.0) pg MCHC 33.0 (31.0-35.0) g/dl RDW 13.8 (11.0-16.0) % Plt Count 232 (160-400) X10*3/uL MPV 11.1 (9.4-12.3) fL Immature Gran % (Auto) 0.5 H (0.0-0.4) % Neut % (Auto) 76.3 H (45-73) % Lymph % (Auto) 3.9 L (20-40) % Woodruff % (Auto) 18.3 H (2-11) % Eos % (Auto) 0.2 (0-4) % Baso % (Auto) 0.8 (0-2) % Lymph # (Auto) 0.2 L (1.2-4.9) X10*3/uL Woodruff # (Auto) 1.1 (0.1-1.2) X10*3/uL Eos # (Auto) 0.0 (0.0-0.4) X10*3/uL Baso # (Auto) 0.1 (0.0-0.2) X10*3/uL Abs Immat Gran (auto) 0.03 (0.00-0.03) X10*3/uL Absolute Neuts (auto) 4.6 (2.0-8.3) x10*3/uL Absolute Nucleated RBC 0.000 (0.0-0.012) X10*3/uL Nucleated RBC % (auto) 0.0 (0.0-0.2) /100WBC Sodium 136 (135-145) mmol/L Potassium 4.8 (3.3-5.1) mmol/L Chloride 108 (96-108) mmol/L Carbon Dioxide 21 L (22-29) mmol/L Anion Gap 12 (12-20) BUN 21 H (9-16) mg/dL Creatinine 1.10 (0.5-1.4) mg/dL Estim Creat Clear Calc 39.0 Estimated GFR 48 Random Glucose 117 H (60-115) mg/dL Calcium 9.2 D (8.4-10.2) mg/dL Magnesium 2.0 (1.6-2.6) mg/dL Total Bilirubin 0.2 (0.0-1.0) mg/dL AST 40 H (5-31) U/L ALT 16 (0-31) U/L Alkaline Phosphatase 117 (39-117) U/L Troponin I High Sens 6.1 D 7.1 (<3.5-17.0) ng/L Total Protein 7.7 (6.5-8.0) g/dL Albumin 3.8 (3.5-5.0) g/dL Lipase 17 (8-78) U/L COVID-19 ([facility]) Negative (Negative) COVID-19 Clin Com See Note Influenza Type A ([facility]) Positive A (Negative) Influenza Type B ([facility]RE) Negative (Negative) Influenza A & B Note See Note Critical Care Time Critical Care Time Critical Care Time: No Discharge Plan Discharge Clinical Impression: Influenza A, Constipation Patient Disposition: Home, Self-Care Instructions: Influenza (ED), Acute Abdominal Pain (ED) Additional Instructions: Take your medications as prescribed. If you were prescribed antibiotics today, it is important that you take your medication to their entirety, do not skip any doses, do not finish them early. Follow-up with your primary care provider this week. Return to the emergency department with new or worsening symptoms. Such as fevers, chills, chest pain, shortness of breath, nausea, vomiting, dizziness, headache, vision changes, lethargy In case of emergency call 911 Prescriptions: New acetaminophen [Tylenol] 325 mg tablet 650 mg PO Q6H PRN (Reason: fever or pain) Qty: 30 0RF docusate sodium [Colace] 100 mg capsule 100 mg PO BID Qty: 20 0RF polyethylene glycol 3350 [Miralax] 17 gram/dose powder 17 g PO BID PRN (Reason: constipation) Qty: 238 0RF sennosides [senna] 8.6 mg tablet 8.6 mg PO BEDTIME Qty: 14 0RF No Action cholecalciferol (vitamin D3) 25 mcg (1,000 unit) tablet 25 mcg PO DAILY Qty: 90 1RF hydrocortisone [Proctosol HC] 2.5 % cream with perineal applicator 1 appl SD BID-QID PRN (Reason: hemorrhoids) Qty: 30 0RF (DME) BP Cuff See Rx Instructions .Route .MEDSUPPLY Qty: 1 0RF Rx Instructions: As directed omeprazole 20 mg capsule,delayed release(DR/EC) 20 mg PO DAILY 90 Days Qty: 90 0RF simethicone [Gas Relief Extra Strength] 125 mg tablet,chewable 125 mg PO TID PRN (Reason: for abdominal pain) 30 Days Qty: 90 3RF amlodipine 5 mg tablet 5 mg PO DAILY Qty: 90 2RF rosuvastatin 10 mg tablet 10 mg PO DAILY Qty: 90 0RF lidocaine [Lidoderm] 5 % adhesive patch,medicated 1 patch topical DAILY Qty: 15 0RF Rx Instructions: leave on most painful area for up to 12 hrs irbesartan 300 mg tablet 300 mg PO DAILY 90 Days Qty: 90 2RF albuterol sulfate 90 mcg/actuation HFA aerosol inhaler 2 puff inhalation Q4-6H PRN (Reason: shortness of breath or wheezing) Qty: 6.7 0RF acetaminophen 500 mg capsule 1,000 mg PO Q8H PRN (Reason: fever or pain) Qty: 14 0RF ibuprofen 400 mg tablet 400 mg PO Q6H PRN (Reason: pain) Qty: 14 0RF baclofen 5 mg tablet 5 mg PO TID PRN (Reason: muscle pain) Qty: 10 0RF (DME) CPAP 6 cm humidified AIR MASKAIR FIT N20 small See Rx Instructions .Route .MEDSUPPLY Qty: 1 0RF Rx Instructions: As directed Senna Plus 8.6-50 mg capsule 1 tab-cap PO BID PRN (Reason: constipation) 30 Days Qty: 60 3RF (DME) WALKER WITH SEAT See Rx Instructions .Route .MEDSUPPLY Qty: 1 0RF Rx Instructions: As directed (DME) SHOWER CHAIR See Rx Instructions .Route .MEDSUPPLY Qty: 1 0RF Rx Instructions: As directed guaifenesin [Mucinex] 1,200 mg tablet extended release 12hr 1,200 mg PO BID Qty: 20 0RF tramadol 50 mg tablet 50 mg PO BEDTIME Qty: 7 0RF polyethylene glycol 3350 [Miralax] 17 gram/dose powder 17 g PO DAILY PRN (Reason: constipation) 30 Days Qty: 510 3RF diclofenac sodium [Voltaren Arthritis Pain] 1 % gel 4 g topical QID Qty: 150 3RF Rx Instructions: apply to single knee, ankle, foot; for foot includes sole/toes/top of foot (DME) knee brace See Rx Instructions .Route .MEDSUPPLY Qty: 1 0RF Rx Instructions: As directed Referrals: Nick,Spenser Hoang MD [Primary Care Provider, Internal Medicine] Stand Alone Forms: Work/School Release Print Language: Urdu
[2025-10-07 13:24] VITALS: BP 129/56; PULSE 87; RESP 16; O2SAT 96
[2025-10-07 13:26] LABS: MANUAL DIFF FLAG NO
[2025-10-07 13:29] LABS: Hematocrit 33.3 % (37.0-47.0); Hemoglobin 11.0 g/dl (12.0-16.0); Imm Gran Abs Auto 0.03 X10*3/uL (0.00-0.03); Imm Gran Pct Auto 0.5 % (0.0-0.4); Lymphocytes Absolute Auto 0.2 X10*3/uL (1.2-4.9); Mean Corpuscular HGB Conc 33.0 g/dl (31.0-35.0); Mean Corpuscular Hemoglobin 30.1 pg (27.0-33.0); Mean Corpuscular Volume 91.2 fL (80.0-98.0); NRBC Abs Auto 0.000 X10*3/uL (0.0-0.012); NRBC Pct Auto 0.0 /100WBC (0.0-0.2); Platelet Count 232 X10*3/uL (160-400); Red Blood Count 3.65 X10*6/uL (4.20-5.50); White Blood Count 6.1 X10*3/uL (4.8-10.8)
[2025-10-07 13:53] LABS: COVID-19 Test Negative (Negative); IDNOW Serial# 55D5AD1C; IDNOW Serial# 58CA691E; Influenza B2 Negative (Negative)
[2025-10-07 13:54] LABS: Alanine Aminotransferase 16 U/L (0-31); Albumin Level 3.8 g/dL (3.5-5.0); Alkaline Phosphatase 117 U/L (39-117); Anion Gap 12 (12-20); Aspartate Amino Transferase 40 U/L (5-31); Blood Urea Nitrogen 21 mg/dL (9-16); Calcium 9.2 mg/dL (8.4-10.2); Carbon Dioxide 21 mmol/L (22-29); Chloride 108 mmol/L (96-108); Creatinine Clr Calc Pharmacy 39.0; Estimated Glomerular Filt Rate 48; Lipase 17 U/L (8-78); Magnesium 2.0 mg/dL (1.6-2.6); Potassium 4.8 mmol/L (3.3-5.1); Sodium 136 mmol/L (135-145); Total Protein 7.7 g/dL (6.5-8.0)
--- NOTE | 2025-10-07 13:55 | ECG_ITS ---
Test Reason : sob Blood Pressure : */* mmHG Vent. Rate : 87 BPM Atrial Rate : 87 BPM P-R Int : 146 ms QRS Dur : 80 ms QT Int : 346 ms P-R-T Axes : 62 -4 25 degrees QTcB Int : 416 ms Sinus rhythm with Premature supraventricular complexes Cannot rule out Anterior infarct , age undetermined Abnormal ECG When compared with ECG of 26-Aug-2025 14:03, Premature supraventricular complexes are now Present Vent. rate has increased by 33 bpm Referred By: Hansel Archer Electronically Signed By: TRENT GARCIA MD
[2025-10-07 14:26] LABS: Troponin-I High Sensitivity 6.1 ng/L (<3.5-17.0)
[2025-10-07 15:18] LABS: Troponin-I High Sensitivity 7.1 ng/L (<3.5-17.0)
[2025-10-07 16:21] VITALS: BP 117/54; PULSE 86; RESP 18; TEMP 37.9; O2SAT 93
--- OUTSIDE RECORDS SUMMARY | 2025-10-07 19:20 | XMS_ITS ---
Author Name May Felton NP Address [address] [place] [address] Phone [phone] Organization [facility] Care Team Providers Care Grinder Machine Setter Name Role Phone May Felton Unavailable [phone] Po, Lorenver Unavailable [phone] [facility] Unavailable [phone] Reason for Referral Not Available Allergies, adverse [...] 2025-03-29 N/A HYPERTE NSION CONTINGENCY PLANLast updated: 03/29/2025[facility] the following symptoms: BP >180/100 / Chest pain / HeadachePlanned intervention: Assess for signs of end organ damage (headache, vision changes, chest pain)/ Template Reproduction Technician on proper BP monitoring technique and [...] of Service Diagnosis/Co mplaint No Data Available [facility], ([place]) 11/28/2023 Sacroiliitis, not elsewhere classifiedSciatica, unspecified sideOther obesity due to excess caloriesBody mass index (bmi) 30.0-30.9, adultEssential (primary) hypertensionGastro-esophageal reflux disease without esophagitis No Data Available [facility] ([place] 11/28/[address] [facility] 11/28/[address] [facility] [place] 11/28/[address] [facility], ([place]) 11/28/[address] [facility] [facility] [facility] [facility] [facility] [place]/2023 Estab. patient 20-29min; 1 stable chronic or 2 minor; add add modifier 95 for video, modifier [address] [facility] [place] 03/29/2025 Hypertensive chronic kidney disease w stg 1-4/unsp chr kdnyChronic kidney disease, stage 3aSacroiliitis, not elsewhere classifiedSciatica, unspecified sideOther obesity due to excess caloriesBody mass index (bmi) 30.0-30.9, adultGastro-esophageal reflux disease without esophagitisOther problems related to medical facilities and other health care Estab. patient 20-29min; 1 stable chronic or 2 minor; add add modifier 95 for video, modifier 93 for phone [facility] [place] 03/29/2025 Estab. patient 20-29min; 1 stable chronic or 2 minor; add add modifier 95 for video, modifier 93 for phone [facility] 03/29/2025 Estab. patient 20-29min; 1 stable chronic or 2 minor; add add modifier 95 for video, modifier [address] [facility] [place] 03/29/2025 Estab. patient 20-29min; 1 stable chronic or 2 minor; add add modifier 95 for video, modifier [address] [facility] [place] 03/29/2025 Estab. patient 20-29min; 1 stable chronic or 2 minor; add add modifier 95 for video, modifier 93 for phone [facility] [place] 03/29/2025 Estab. patient 20-29min; 1 stable chronic or 2 minor; add add modifier 95 for video, modifier 93 for phone [facility] 03/29/2025 Estab. patient 20-29min; 1 stable chronic or 2 minor; add add modifier 95 for video, modifier 93 for phone [facility] [place] 03/29/2025 Vital Signs Date [...] tive Time Current Smoking Status Never smoker 2025-09-24 4 Sex Female History of Procedures Procedures Service Procedure code Service date Servicing provider Phone# No Data Available [id number] 2023-11-28 No Data Available No Data Available [...] 95 for video, modifier 93 for phone [id number] 2025-03-29 No Data Available No Data Availa [...] Available Functional Status Functional Category Effective Dates [employer] assists with cooking, cl eaning, laundry, showering [...] organ damage (headache, vision changes, chest pain)/ Template Reproduction Technician on proper BP monitoring technique and [...] 2025-03-29 [employer] completed with member and ORLIN parts interpreter
--- OUTSIDE RECORDS SUMMARY | 2025-10-07 19:21 | XMS_ITS | Encounter Summary ---
Author Organization [employer] Address [address] [place] [address] Care Team Providers Care Gut Sorter Name Role Phone Unavailable Primary Care Provider Unavailabl e Reason for Visit * Reason Onset Date Comments ongoing pain 10/07/2024 Encounter Details Date Type Department Care Team ([facility] st Contact Info) Description 10/07/2024 Telephone [facility] ADULT DENTAL [address] [place] [address] Hazel Mancera DDS [address] [place] [address] ongoing pain Social History Tobacco Use Types [...]
--- OUTSIDE RECORDS SUMMARY | 2025-10-07 19:21 | XMS_ITS | Patient Health Record ---
Author Organization [facility] Address [address] [place] [address] Care Team Providers Care Customer Success Advocate Name Role Phone Spenser Romero Primary Care Provider Sil Rios Unavailable [phone] Allergies Allergen (clinical drug ingredient) Drug/Non Drug [...] Insured Coverage Start Date Coverage End Date [facility] [address] [place] [id number] [facility] [place] Zayra Londono Self - patient is [...]
--- OUTSIDE RECORDS SUMMARY | 2025-10-07 19:21 | XMS_ITS | Encounter Summary ---
Author Organization [employer] Address [address] [place] [address] [address] [place] [address] Care Team Providers Care Chairman Emeritus Name Role Phone Unavailable Primary Care Provider Unavailabl e Reason for Visit * Reason Onset Date Comments rs cancelled appt 12/29/2024 Encounter Details Date Type Department Care Team ([facility] st Contact Info) Description 12/29/2024 Telephone [facility] ADULT DENTAL [address] [place] [address] Jake Iverson DDS [address] [place] [address] rs cancelled appt Social History Tobacco Use [...]
--- OUTSIDE RECORDS SUMMARY | 2025-10-07 19:21 | XMS_ITS | Data Portability ---
Author Organization [place] [facility], Allergy Address [address] [address] Care Team Providers Care Machine Room Engineer Name Role Phone CALEB LEIVA Primary Care Provider [phone] Assessment No assessment recorded. Plan of Treatment [...] Organization Details Recorded Time Respirato ry finding [id number] Active 2022 Feeling of foreign body in throat; Note: Date Diagnosed : 05/20/2023 12:33 PM (R09.89) Not Available [facility] 4 03:16:00 Cardiovas cular finding 610195573 Active 2022 Feeling of foreign body in throat; Note: Date Diagnosed : 05/20/2023 12:33 PM (R09.89) Not Available [facility] 4 03:16:00 Dysphonia 18650621 Active 2022 Hoarsenes s; Note: Date Diagnosed : 05/20/2023 12:34 PM (R49.0) Not Available [facility] 4 03:16:00 Pain in throat 484809517 Active 2022 Pain in throat; Note: Date Diagnosed : 05/20/2023 12:33 PM (J31.2) Not Available [facility] 4 03:16:00 Gastroeso phageal reflux disease without esophagit is 907207727 Active 2022 Gastro-es ophageal reflux disease without esophagit is; Note: Date Diagnosed : 05/20/2023 12:33 PM (K21.9) Not Available [facility] 4 03:15:59 Bilateral temporoma ndibular joint pain [id number] 884828 Active 2022 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; Note: Date Diagnosed : 07/01/2023 2:16 PM (M26.623) Not Available [facility] 4 03:16:00 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 Procedures Surgical History Date Name Laterality Status Provider Name and Address Organization Details Recorded Time 09/08/2024 FFL_RE completed KIARA MAE MD [address] [place] [address], [phone], [facility] 09/08/2024 11:08:16 Imaging Results None recorded. Procedure Notes None recorded. Medical Equipment None Reported. Allergies Allergen ID Allergen Name Allergen Category Reaction Reaction Severity Criticality Documentation Date Start Date Code Code System Note Provider Name and Address Organization Details Recorded Time 758195 Product containin g penicilli n (product) medicatio n other Not available Not available 04/06/2024 29315 8001 SNOMED React ion: Unkno wn; Not Available [facility] 4 01:17:56 830704 codeine medicatio n other Not available Not available 04/06/2024 2670 RxNorm React ion: Unkno wn; Not Available [facility] 4 01:17:56 Medications Name Sig Start Date Stop Date Status Note LastModified by Organization Details LastModified Time nifedipine ER 30 mg tablet,ext ended release 24 hr TAKE 1 TABLET BY MOUTH DAILY active Not Available Not Available No t Available senna 8.6 mg tablet active Medicatio n ID: [id number] Br and Name: senna Sen d Method: [...] a day 2022 active Medicatio n ID: [id number] Du ration Value: 30 Brand Name: omeprazol [...] ICD10 Code Diagnosis IMO Codes Diagnosis Note [id number] KIARA MAE MD [facility] [address] [phone] 09/08/2024 10:37:30 09/08/2024 11:07:30 Chronic tonsillitis [id number] J35.01 Likely explains PET uptake. No tumors or masses on exam today and symptoms seem to correlate with tonsil stones. We will continue observatio n. I asked her to call if her symptoms worsen. Amygdalolith [id number] J35 .8 see above Health Concerns Section Related Observation LastModified by Organization Detai ls LastModified Time None Recorded Concern Status LastModified by Organization Details LastModified Time None Recorded Advance Directives Directive None Recorded Payers Insurance Date Sequence Insurance Name Policy Number Policy Heaton Covered Member ID Heaton Member ID Guarantor Name 08/23/2025 1 [facility] (MEDICARE REPLACEMENT/A DVANTAGE - HMO) [id number] Zayra Rodas [id number] Zayra Rodas Notes Date Note Type Note [...] She does not smoke. KIARA MAE MD [address] [place] [address], [id number], [place] - [facility] 09/08/2024 11:09:13 OBGyn Episode No OBEpisode recorded.
--- OUTSIDE RECORDS SUMMARY | 2025-10-07 19:21 | XMS_ITS | Encounter Summary ---
Author Organization [employer] Address [address] [place] [address] [address] [place] [address] Care Team Providers Care Associate Data Scientist Name Role Phone Jeanne Sandhu OD Primary Care Provider [phone] Encounter Details Date Type Department Care Team (Latest Contact Info) Description 03/01/2019 Abstract [facility] CONVERSIONS Dental, Provider, DDS Social History Tobacco [...] on filedocumented in this encounter Care Teams Associate Data Scientist Relationship Specialty Start Date End Date Jeanne Sandhu OD [address] [place] [id number] PCP - General Optometry 08/15/17 11/30/23 documented as of this encounter
--- OUTSIDE RECORDS SUMMARY | 2025-10-07 19:22 | XMS_ITS | Clinical Summary ---
Author Organization [employer] Address [address] [place] [address] [address] [place] [address] Care Team Providers Care Oncology Research Rn Name Role Phone Unavailable Primary Care Provider [...] - 1-dose 75+ series) 2024 COVID-19 Vaccine (2024- season) 2025 Influenza Vaccine (#1) 2025 09/01/1998 Dental X-Ray: Bitewings 12/04/2025 12/03/19 25, 09/22/2024, 03/22/2024, Additional history exists Dental Oral [...]
== END 2025-10-07 16:41 | disposition home or self-care (01) ==
PROVIDERS: Physician Assistant; Emergency Provider Emergency Medicine; PCP Internal Medicine
DX: J10.1 Influenza due to other identified influenza virus with other respiratory manifestations (principal); K59.00 Constipation, unspecified; R06.02 Shortness of breath; I10 Essential (primary) hypertension; R11.2 Nausea with vomiting, unspecified
CPT/HCPCS: 36415; 80053; 83690; 83735; 84484; 85025; 87502; 87635; 93005; 99284

== ENCOUNTER → 2025-10-07 13:55 | Outpatient (BNV) | payer OTHER, SELFPAY | PROVIDERS: Emergency Provider Emergency Medicine; PCP Internal Medicine; Visit Provider Internal Medicine Cardiovascular Disease | DX: I49.1 Atrial premature depolarization (principal) | CPT/HCPCS: 93010 ==

== ENCOUNTER 2025-10-25 09:14 | Outpatient (AMB) | payer OTHER, SELFPAY ==
--- NOTE | 2025-10-25 09:32 | A.OFFVIS_ITS ---
Vital Signs 10/25/25 09:46 Height 5 ft Weight 163 lb BMI 31.8 Intake Visit Reasons: OV-Osteoarthritis of left knee Intake Note: Zayra is a 75 year old female who presents today for a follow up of her left knee pain, last injection 07/19/25. Patient reports her last injection didn't give her relief. She is wondering if we can try for gel injections. She has been taking Tylenol and Ibuprofen for 3 + months with no relief. Patient has tried at home exercies for 3 + months with no relief. She has notices that her leg becomes stiff and it unable to bend. Allergies atorvastatin Allergy (Unknown, Verified 10/25/25 09:44) myalgia codeine Allergy (Unknown, Verified 10/25/25 09:44) SWELLING penicillin V Allergy (Unknown, Verified 10/25/25 09:44) rash nifedipine Adverse Reaction (Intermediate, Verified 10/25/25 09:44) palpitations pravastatin Adverse Reaction (Intermediate, Verified 10/25/25 09:44) joint pain hydrochlorothiazide Adverse Reaction (Mild, Verified 10/25/25 09:44) Swelling metoprolol Adverse Reaction (Verified 10/25/25 09:44) leg swelling HPI HPI OV-Osteoarthritis of left knee: Details: Ms. Londono is a 75-year-old female who presents to the office today for follow up of chronic left knee pain due to osteoarthritis. The patient was last seen in our office on 07/19/2025 where a cortisone injection injection was administered. She reports that this did not give her any relief. Patient is unable to take oral anti-inflammatories due to a history of CKD. The patient reports that she has 70% kidney function. Patient would like to move forward with gel injections at this time. [facility] Medical History Benign essential hypertension JANN on CPAP Left leg swelling Conjunctivitis Radicular pain Low back pain Otitis media of left ear LUQ abdominal pain Vitamin D deficiency Obesity (BMI 30-39.9) Obstructive sleep apnea IgA nephropathy History of colon polyps Diverticulosis Chronic constipation Venous (peripheral) insufficiency Coreas's cyst of knee Pure hypercholesterolemia Hypovitaminosis D Surgical History History of esophagogastroduodenoscopy (EGD) History of dilatation and curettage H/O tubal ligation History of loop electrical excision procedure (LEEP) History of colonoscopy Family History Father Alzheimers disease Mother Kidney failure Social History Housing: Apartment Are you a primary foster care case manager to a significant other at home: No Alcohol intake: never Patient Tobacco Use Status: Never used Tobacco Tobacco use type: Cigarette e-Cigarette/Vaping Use: Never Used Second Hand Smoke Exposure: No service: No Current occupational status: disabled Cognitive needs: No Hearing needs: No Vision needs: Yes Review of Systems Const All systems reviewed & are unremarkable except as noted in HPI and below Physical Exam Vital Signs: BMI result Body Mass Index 31.8 Const General: cooperative, healthy appearing and no acute distress Orientation/consciousness: patient oriented x3 Resp Effort & Inspection: normal respiratory effort and able to speak in complete sentences Cardio Rate: regular rate Peripheral pulses: Peripheral pulses 2+ throughout GI Palpation (GI): Soft to palpation Skin General skin exam: no rashes or lesions noted Lesions: no lesions Rashes: no rashes Neuro General: patient oriented x3 Extrem Other: Bilateral knees: Normal to inspection. No ecchymosis, erythema, or joint effusion. No tenderness to palpation along the medial or lateral joint lines. Full knee extension and flexion. Crepitus felt with ROM. NVI.? Assessment & Plan Assessment & Plan (1) Osteoarthritis of left knee: Code(s): M17.12 - Unilateral primary osteoarthritis, left knee Category: Medical Plan Ms. Londono is a 75-year-old female who presents to the office today for follow up of chronic left knee pain due to osteoarthritis. The patient was last seen in our office on 07/19/2025 where a cortisone injection injection was administered. She reports that this did not give her any relief. Patient is unable to take oral anti-inflammatories due to a history of CKD. The patient reports that she has 70% kidney function. Patient would like to move forward with gel injections at this time. While in the office today, I discussed the role of gel injections as the patient has tried and failed cortisone injections and is unable to take anti- inflammatories due to CKD. She has taken Tylenol in the past which has also has not given her any relief. She would like to defer repeat cortisone injection at this time. We will petition the insurance company for coverage of gel injections. I have also recommended a topical pain cream in which we will send to [facility] pharmacy. She will follow up after the gel injection approval is obtained, sooner if needed. Coding Level of Care Code Est Pt Level 3 (34664) Diagnoses Osteoarthritis of left knee M17.12
[2025-10-25 09:46] VITALS: BMI 31.8
--- OUTSIDE RECORDS SUMMARY | 2025-10-25 09:46 | XMS_ITS | Clinical Summary ---
Author Organization [employer] Address [address] [place] [address] [address] [place] [address] Care Team Providers Care Stranding Supervisor Name Role Phone Unavailable Primary Care Provider [...]
--- OUTSIDE RECORDS SUMMARY | 2025-10-25 09:46 | XMS_ITS | Encounter Summary ---
Author Organization [employer] Address [address] [place] [address] 7 [place] [address] Care Team Providers Care Supervisor Bottle Machines Name Role Phone Unavailable Primary Care Provider Unavailabl e Reason for Visit * Reason Onset Date Comments rs cancelled appt 12/29/2024 Encounter Details Date Type Department Care Team ([facility] st Contact Info) Description 12/29/2024 Telephone [facility] [address] [place] [address] Jake Iverson DDS [address] [place] [address] rs cancelled appt Social History Tobacco Use [...]
--- OUTSIDE RECORDS SUMMARY | 2025-10-25 09:46 | XMS_ITS | Encounter Summary ---
Author Organization [employer] Address [address] [facility] 7t [place] [address] Care Team Providers Care Groover Operator Name Role Phone Unavailable Primary Care Provider Unavailabl e Reason for Visit * Reason Onset Date Comments ongoing pain 10/07/2024 Encounter Details Date Type Department Care Team ([facility] st Contact Info) Description 10/07/2024 Telephone [facility] ADULT DENTAL [address] [place] [address] Hazel Mancera DDS [address] [place] [address] ongoing pain Social History Tobacco Use Types [...]
--- OUTSIDE RECORDS SUMMARY | 2025-10-25 09:46 | XMS_ITS | Encounter Summary ---
Author Organization [employer] Address [address] [place] [address] [address] [place] [address] Care Team Providers Care Retail Helper Name Role Phone Jeanne Sandhu OD Primary Care Provider [phone] Encounter Details Date Type Department Care Team (Latest Contact Info) Description 03/01/2019 Abstract [facility] CONVERSIONS Dental, Provider, DDS Social [...] on filedocumented in this encounter Care Teams Retail Helper Relationship Specialty Start Date End Date Jeanne Sandhu OD [address] [place] [address] PCP - General Optometry 08/15/17 11/30/23 documented as of this encounter
== END 2025-10-25 10:06 | disposition home or self-care (01) ==
LOC: HO.HOS 09:15
PROVIDERS: Visit Provider Physician Assistant
DX: M17.12 Unilateral primary osteoarthritis, left knee (principal)
CPT/HCPCS: 99213

== ENCOUNTER → 2025-10-25 09:14 | Outpatient (BNVA) | payer OTHER, SELFPAY | PROVIDERS: Visit Provider Physician Assistant | DX: M17.12 Unilateral primary osteoarthritis, left knee (principal) | CPT/HCPCS: 99212 ==

== ENCOUNTER 2025-11-03 10:20 | Outpatient (AMB) | payer OTHER, SELFPAY ==
--- NOTE | 2025-11-03 10:27 | A.OFFVIS_ITS ---
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 Patient was referred by . At today's visit patient's granddaughter states that for the past two years she has had left knee pain that radiates up into the left hip/lower back. She reports that she did have a fall 3 years ago and ever since then she has had pain. Patient's granddaughter reports that she is booked with next week for an injection in the left knee and she has not tried physical therapy or at home exercises. Patient added that for the past six months she has noticed that her left leg is getting stuck , no falls or injury's. Corporate Counsel Required: Yes Corporate Counsel Services: Corporate Counsel Offered & Declined Corporate Counsel Name: Mery- Granddaughter Allergies atorvastatin Allergy (Unknown, Verified 10/25/25 09:44) myalgia codeine Allergy (Unknown, Verified 10/25/25 09:44) SWELLING penicillin V Allergy (Unknown, Verified 10/25/25 09:44) rash nifedipine Adverse Reaction (Intermediate, Verified 10/25/25 09:44) palpitations pravastatin Adverse Reaction (Intermediate, Verified 10/25/25 09:44) joint pain hydrochlorothiazide Adverse Reaction (Mild, Verified 10/25/25 09:44) Swelling metoprolol Adverse Reaction (Verified 10/25/25 09:44) leg swelling Medication List - Last Reconciled 11/03/25 by Fabiola Crawford MD acetaminophen 1,000 mg (2 x 500 mg) PO Q8H PRN acetaminophen (Tylenol) 650 mg (2 x 325 mg) PO Q6H PRN albuterol sulfate 90 mcg/actuation 2 puffs inhalation Q4-6H PRN amlodipine 5 mg PO DAILY baclofen 5 mg PO TID PRN [BP Cuff As directed] cholecalciferol (vitamin D3) 25 mcg PO DAILY [CPAP 6 cm humidified AIR MASKAIR FIT N20 small As directed] diclofenac sodium 1% (Voltaren Arthritis Pain) 4 grams topical QID docusate sodium (Colace) 100 mg PO BID guaifenesin ER (Mucinex) 1,200 mg PO BID hydrocortisone 2.5% (Proctosol HC) 1 appl TN BID-QID PRN ibuprofen 400 mg PO Q6H PRN irbesartan 300 mg PO DAILY 90 days [knee brace As directed] lidocaine 5% (Lidoderm) 1 patch topical DAILY omeprazole 20 mg PO DAILY 90 days polyethylene glycol 3350 (Miralax) 17 grams PO BID PRN polyethylene glycol 3350 (Miralax) 17 grams PO DAILY PRN 30 days rosuvastatin 10 mg PO DAILY sennosides (senna) 8.6 mg PO BEDTIME sennosides-docusate sodium 8.6-50 mg (Senna Plus) 1 tab-cap PO BID PRN 30 days [SHOWER CHAIR As directed] simethicone (Gas Relief Extra Strength) 125 mg PO TID PRN 30 days [WALKER WITH SEAT As directed] HPI Comments Details: Follows with Hannah DEL CASTILLO for left knee pain, injections. Reviewed last note from PCP Dr. Romero. Previous lumbar x-rays shows lumbar spondylosis. She points to left knee as source of pain, and that it goes up proximally. She denies actual back pain. She denies pain coming proximally down to knee. She did get have sciatica 2 years ago, had gone to ER and received shot there, been better since. Denies sciatica today. [facility] Medical History Benign essential hypertension JANN on CPAP Left leg swelling Conjunctivitis Radicular pain Low back pain Otitis media of left ear LUQ abdominal pain Vitamin D deficiency Obesity (BMI 30-39.9) Obstructive sleep apnea IgA nephropathy History of colon polyps Diverticulosis Chronic constipation Venous (peripheral) insufficiency Coreas's cyst of knee Pure hypercholesterolemia Hypovitaminosis D Surgical History History of esophagogastroduodenoscopy (EGD) History of dilatation and curettage H/O tubal ligation History of loop electrical excision procedure (LEEP) History of colonoscopy Family History Father Alzheimers disease Mother Kidney failure Social History Housing: Apartment Are you a primary primary care md to a significant other at home: No Alcohol intake: never Patient Tobacco Use Status: Never used Tobacco Tobacco use type: Cigarette e-Cigarette/Vaping Use: Never Used Second Hand Smoke Exposure: No service: No Current occupational status: disabled Cognitive needs: No Hearing needs: No Vision needs: Yes Review of Systems Const All systems reviewed & are unremarkable except as noted in HPI and below Physical Exam Exam Exam: Constitutional: Patient appears to be in no acute distress, well nourished and well developed. Patient was appropriately conversant and oriented. Good historian. MSK: No specific abnormalities found on inspection of the spine and all extremities. Mild tenderness over left SI joint. No tenderness over lumbar area. Lumbar ROM was full. Straight-leg raising test negative. FABERE test negative. Strength is 5/5 in all muscle groups tested. No increased tone noted. Neurological: Neurologic examination of the upper and lower extremities was nonfocal with intact sensation, muscle stretch reflexes and without focal motor deficits . Franks?s negative bilaterally. Babinski was down going bilaterally. Clonus was negative. Gait is non-antalgic without loss of balance. Results Reviewed Results Reviewed: Ordering Physician: Loretta Ferrara Date of Service: 12/23/24 Procedure(s): XR lumbar spine 2-3V Accession Number(s): [id number] cc: Spenser Romero MD; Loretta Ferrara~ EXAMINATION: XR LUMBOSACRAL SPINE CLINICAL INFORMATION: low back pain x2 weeks COMPARISON: March 11, 2023. TECHNIQUE: Three views of the lumbosacral spine. FINDINGS: Multilevel marginal osteophyte formation, endplate sclerosis and decreased intervertebral disc height involving the lower thoracic and lower lumbar spine. No acute cortical disruption or gross malalignment. Facet joint hypertrophy at L5-S1. No lytic or blastic lesions. Vascular calcifications likely involving the abdominal aorta. XR/XR lumbar spine 2-3V IMPRESSION: Multilevel thoracolumbar spondylosis without acute fracture or trauma-related listhesis. Atherosclerosis disease, aorta. Electronically signed by: Cal Trujillo MD 12/23/2024 03:20 PM [facility] I reviewed records from the following: Ortho PCP Assessment & Plan Assessment & Plan (1) Osteoarthritis of left knee: Code(s): M17.12 - Unilateral primary osteoarthritis, left knee Category: Medical Qualifiers: Osteoarthritis type: primary Qualified Code(s): M17.12 - Unilateral primary osteoarthritis, left knee (2) Sacroiliac joint pain: Code(s): M53.3 - Sacrococcygeal disorders, not elsewhere classified Category: Medical Plan Main issue of left knee OA, with point tenderness over left SI joint. No signs of lumbar radiculopathy or myelopathy. Continue follow up with orthopedics, and plan gel injections. We will refer patient for physical therapy for both left knee and SI joint. I can see patient for another follow up in 3 months after PT. Assessment and plan discussed with patient, and patient was agreeable. All questions were answered thoroughly. Fabiola Crawford MD, ATA Board Certified, [place] Board of Physical Medicine and Rehabilitation (ABPMR) Board Certified, [place] Board of Electrodiagnostic Medicine (ABEM) Orders: Orders PT Evaluation and Treatment Today M17.12 - Unilateral primary osteoarthritis, left knee, M53.3 - Sacrococcygeal disorders, not elsewhere classified Coding Level of Care Code New Pt Level 4 (66700) Diagnoses Primary osteoarthritis of left knee M17.12 Osteoarthritis type: primary Sacroiliac joint pain M53.3
== END 2025-11-03 10:59 | disposition home or self-care (01) ==
LOC: HO.HOS 10:22
PROVIDERS: Visit Provider Physical Medicine & Rehabilitation
DX: M17.12 Unilateral primary osteoarthritis, left knee (principal); M53.3 Sacrococcygeal disorders, not elsewhere classified
CPT/HCPCS: 99204

== ENCOUNTER 2025-11-03 13:00 | Outpatient (REF) | payer OTHER, SELFPAY ==
--- NOTE | ~2025-11-03 | MM_ITS ---
EXAMINATION: MM SCREENING DIGITAL BREAST TOMOSYNTHESIS, BILATERAL CLINICAL INFORMATION: Screening. Asymptomatic. COMPARISON: Comparison made to multiple prior, most recent October 27, 2024, and most remote March 28, 2015. TECHNIQUE: Digital breast tomosynthesis is performed in mediolateral oblique and craniocaudal views along with computer-aided detection (CAD). Synthesized 2D images are generated from the tomosynthesis. FINDINGS: BREAST COMPOSITION: There are scattered areas of fibroglandular density. BILATERAL BREASTS: No significant masses, suspicious calcifications or other abnormalities are seen in either breast. MM/MM tomosynthesis screening BI IMPRESSION: BILATERAL BREASTS: Negative, no mammographic evidence of malignancy. Normal interval follow-up is recommended in 12 months. ASSESSMENT: BI-RADS: Category 1: Negative RECOMMENDATION: Routine annual mammography screening. FOLLOW-UP: 1 year F/U This examination should not preclude the clinical evaluation of a suspicious palpable abnormality. This patient's information was entered into a reminder system with a target due date for their next mammogram. Electronically signed by: Mary Christiansen MD 11/03/2025 08:06 PM J LUIS
--- OUTSIDE RECORDS SUMMARY | 2025-11-03 19:32 | XMS_ITS ---
Author Name May Felton NP Address [address] [place] [address] Phone [phone] [facility] Care Team Providers Care Machinist Class B Name Role Phone May Felton Unavailable [phone] Po, Lorenver Unavailable [phone] [facility] Unavailable [phone] Reason for Referral Not Available Allergies, adverse [...] 2025-03-29 N/A HYPERTE NSION CONTINGENCY PLANLast updated: 03/29/2025[facility] to call for the following symptoms: BP >180/100 / Chest pain / HeadachePlanned intervention: Assess for signs of end organ damage (headache, vision changes, chest pain)/ Direct Care Specialist on proper BP monitoring technique and [...] of Service Diagnosis/Co mplaint No Data Available [facility]/2023 Sacroiliitis, not elsewhere classifiedSciatica, unspecified sideOther obesity due to excess caloriesBody mass index (bmi) 30.0-30.9, adultEssential (primary) hypertensionGastro-esophageal reflux disease without esophagitis No Data Available [facility] 11/28/2023 No Data Available [facility] 11/28/2023 No Data Available [facility] 11/28/2023 No Data Available [facility] 11/28/2023 No Data Available [facility]2023 No Data Available [facility]/2023 No Data Available [facility]/2023 No Data Available [facility] 11/[place]/2023 No Data Available [facility] 11/28/2023 Estab. patient 20-29min; 1 stable chronic or 2 minor; add add modifier 95 for video, modifier 93 for phone [facility] 03/29/2025 Hypertensive chronic kidney disease w stg 1-4/unsp chr kdnyChronic kidney disease, stage 3aSacroiliitis, not elsewhere classifiedSciatica, unspecified sideOther obesity due to excess caloriesBody mass index (bmi) 30.0-30.9, adultGastro-esophageal reflux disease without esophagitisOther problems related to medical facilities and other health care Estab. patient 20-29min; 1 stable chronic or 2 minor; add add modifier 95 for video, modifier 93 for phone [facility] Estab. patient 20-29min; 1 stable chronic or 2 minor; add add modifier 95 for video, modifier 93 for phone [facility] 03/29/2025 Estab. patient 20-29min; 1 stable chronic or 2 minor; add add modifier 95 for video, modifier 93 for phone [facility] [place] 03/29/[facility] Estab. patient 20-29min; 1 stable chronic or 2 minor; add add modifier 95 for video, modifier 93 for phone [facility] [place] 03/29/2025 Estab. patient 20-29min; 1 stable chronic or 2 minor; add add modifier 95 for video, modifier 93 for phone [facility] [place] 03/29/2025 Estab. patient 20-29min; 1 stable chronic or 2 minor; add add modifier 95 for video, modifier 93 for phone [facility] 03/29/2025 Estab. 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
--- OUTSIDE RECORDS SUMMARY | 2025-11-03 19:32 | XMS_ITS | Data Portability ---
Author Organization [place] - [facility], Allergy Address [address] [address] Care Team Providers Care Horse Race Timer Name Role Phone CALEB LEIVA Primary Care Provider [phone] Assessment No assessment recorded. Plan of Treatment [...] Organization Details Recorded Time Respirato ry finding [id number] Active 2022 Feeling of foreign body in throat; Note: Date Diagnosed : 05/20/2023 12:33 PM (R09.89) Not Available [facility] 4 03:16:[facility] Cardiovas cular finding 325270087 Active 2022 Feeling of foreign body in throat; Note: Date Diagnosed : 05/20/2023 12:33 PM (R09.89) Not Available [facility] 4 03:16:00 Dysphonia 60309707 Active 2022 Hoarsenes s; Note: Date Diagnosed : 05/20/2023 12:34 PM (R49.0) Not Available [facility] 4 03:16:00 Pain in throat 959610805 Active 2022 Pain in throat; Note: Date Diagnosed : 05/20/2023 12:33 PM (J31.2) Not Available [facility] 4 03:16:00 Gastroeso phageal reflux disease without esophagit is 288287808 Active 2022 Gastro-es ophageal reflux disease without esophagit is; Note: Date Diagnosed : 05/20/2023 12:33 PM (K21.9) Not Available [facility] 4 03:15:59 Bilateral temporoma ndibular joint pain [id number] 631951 Active 2022 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; Note: Date Diagnosed : 07/01/2023 2:16 PM (M26.623) Not Available [facility] 4 03:16:00 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 Procedures Surgical History Date Name Laterality Status Provider Name and Address Organization Details Recorded Time 09/08/2024 FFL_RE completed KIARA MAE MD [address] [place] [address], [phone], [facility] 09/08/2024 11:08:16 Imaging Results None recorded. Procedure Notes None recorded. Medical Equipment None Reported. Allergies Allergen ID Allergen Name Allergen Category Reaction Reaction Severity Criticality Documentation Date Start Date Code Code System Note Provider Name and Address Organization Details Recorded Time 312033 Product containin g penicilli n (product) medicatio n other Not available Not available 04/06/2024 75500 8001 SNOMED React ion: Unkno wn; Not Available [facility] 4 01:17:56 247433 codeine medicatio n other Not available Not available 04/06/2024 2670 RxNorm React ion: Unkno wn; Not Available [facility] 4 01:17:56 Medications Name Sig Start Date Stop Date Status Note LastModified by Organization Details LastModified Time nifedipine ER 30 mg tablet,ext ended release 24 hr TAKE 1 TABLET BY MOUTH DAILY active Not Available Not Available No t Available senna 8.6 mg tablet active Medicatio n ID: [id number] Br and Name: senna Sen d Method: [...] a day 2022 active Medicatio n ID: [id number] Du ration Value: 30 Brand Name: omeprazol [...] ICD10 Code Diagnosis IMO Codes Diagnosis Note [id number] KIARA MAE MD [facility] [address] [address] 09/08/2024 10:37:30 09/08/2024 11:07:30 Chronic tonsillitis 24469540 J35.01 Likely explains PET uptake. No tumors or masses on exam today and symptoms seem to correlate with tonsil stones. We will continue observatio n. I asked her to call if her symptoms worsen. 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 KIARA MAE MD [address] [place] [address], [phone], [place] - [facility] 09/08/2024 11:09:13 OBGyn Episode No OBEpisode recorded.
--- OUTSIDE RECORDS SUMMARY | 2025-11-03 19:32 | XMS_ITS | Patient Health Record ---
Author Organization [facility] Address [address] [facility] [place] [address] Care Team Providers Care Environmental Science Technician Name Role Phone Spenser Romero Primary Care Provider Sil Rios Unavailable [phone] Allergies Allergen (clinical drug ingredient) Drug/Non Drug [...] Insured Coverage Start Date Coverage End Date [facility] [address] [place] [id number] [facility] [place] 0 Zayra Londono Self [...]
== END 2025-11-03 13:01 | disposition home or self-care (01) ==
LOC: HO.MAMMO 13:00
PROVIDERS: PCP Internal Medicine; Visit Provider Internal Medicine
DX: Z12.31 Encounter for screening mammogram for malignant neoplasm of breast (principal); M17.12 Unilateral primary osteoarthritis, left knee; M53.3 Sacrococcygeal disorders, not elsewhere classified
CPT/HCPCS: 77063; 77067

== ENCOUNTER → 2025-11-03 13:30 | Outpatient (BNV) | payer OTHER, SELFPAY | PROVIDERS: PCP Internal Medicine; Visit Provider Radiology Body Imaging | DX: Z12.31 Encounter for screening mammogram for malignant neoplasm of breast (principal) | CPT/HCPCS: 77063; 77067 ==

== ENCOUNTER 2025-11-11 09:11 | Outpatient (AMB) | payer OTHER, SELFPAY ==
--- NOTE | 2025-11-11 09:24 | MHC.OFFVIS ---
Intake Visit Reasons: left knee Durolane Gel Injection Intake Note: Zayra is a 75 year old female who presents today for a Left Knee Durolane injection. Allergies atorvastatin Allergy (Unknown, Verified 11/11/25 09:26) myalgia codeine Allergy (Unknown, Verified 11/11/25 09:26) SWELLING penicillin V Allergy (Unknown, Verified 11/11/25 09:26) rash nifedipine Adverse Reaction (Intermediate, Verified 11/11/25 09:26) palpitations pravastatin Adverse Reaction (Intermediate, Verified 11/11/25 09:26) joint pain hydrochlorothiazide Adverse Reaction (Mild, Verified 11/11/25 09:26) Swelling metoprolol Adverse Reaction (Verified 11/11/25 09:26) leg swelling HPI HPI left knee Durolane Gel Injection: Details: Patient is a 75-year-old female who presents to the office today for left knee Durolane Gel Injection. [facility] Medical History Benign essential hypertension JANN on CPAP Left leg swelling Conjunctivitis Radicular pain Low back pain Otitis media of left ear LUQ abdominal pain Vitamin D deficiency Obesity (BMI 30-39.9) Obstructive sleep apnea IgA nephropathy History of colon polyps Diverticulosis Chronic constipation Venous (peripheral) insufficiency Coreas's cyst of knee Pure hypercholesterolemia Hypovitaminosis D Surgical History History of esophagogastroduodenoscopy (EGD) History of dilatation and curettage H/O tubal ligation History of loop electrical excision procedure (LEEP) History of colonoscopy Family History Father Alzheimers disease Mother Kidney failure Social History Housing: Apartment Are you a primary home care nurse to a significant other at home: No Alcohol intake: never Patient Tobacco Use Status: Never used Tobacco Tobacco use type: Cigarette e-Cigarette/Vaping Use: Never Used Second Hand Smoke Exposure: No service: No Current occupational status: disabled Cognitive needs: No Hearing needs: No Vision needs: Yes Review of Systems Const All systems reviewed & are unremarkable except as noted in HPI and below Physical Exam Const General: cooperative, healthy appearing and no acute distress Orientation/consciousness: patient oriented x3 Resp Effort & Inspection: normal respiratory effort and able to speak in complete sentences Cardio Rate: regular rate Peripheral pulses: Peripheral pulses 2+ throughout GI Palpation (GI): Soft to palpation Skin General skin exam: no rashes or lesions noted Lesions: no lesions Rashes: no rashes Neuro General: patient oriented x3 Extrem Other: Bilateral knees: Normal to inspection. No ecchymosis, erythema, or joint effusion. No tenderness to palpation along the medial or lateral joint lines. Full knee extension and flexion. Crepitus felt with ROM. NVI.? Psych Appearance: grossly normal Mental Status: mental status grossly normal Attitude: cooperative Office Procedures AMB Joint Injection/Aspiration Joint Injection/Aspiration Primary Site: Left Knee Prep: site was prepped using aseptic technique, ethochloride spray was applied and injection warnings given Injected: Durolane Approach Used: anterolateral Procedure: The patient tolerated the procedure well, but had some pain with the injection and there was some relief with the local anesthesia Coding 91148 - Large joint Procedure code (CPT) selection complete Assessment & Plan Assessment & Plan (1) Osteoarthritis of left knee: Code(s): M17.12 - Unilateral primary osteoarthritis, left knee Category: Medical Qualifiers: Osteoarthritis type: primary Qualified Code(s): M17.12 - Unilateral primary osteoarthritis, left knee Plan I reviewed with the patient that Durolane is a hyaluronic acid?based viscosupplement used to help improve joint lubrication and reduce pain in osteoarthritis. Potential benefits include decreased pain, improved mobility, and delayed need for more invasive interventions. Risks were discussed, including post-injection soreness, swelling, warmth, temporary increase in pain, allergic reaction, infection, bleeding, and the possibility of no clinical improvement. Rare complications such as pseudoseptic reaction were reviewed. Alternatives include continued conservative management (NSAIDs, activity modification, bracing, physical therapy, weight optimization), corticosteroid injections, other hyaluronic acid formulations, PRP or biologic treatments, and surgical options if symptoms progress. The patient verbalized understanding and elected to proceed. After receiving consent for the left knee injection, the patient had the procedure done while in the office today. The patient tolerated the procedure well with no complications. Coding Level of Care Code Procedure Only Diagnoses Primary osteoarthritis of left knee M17.12 Osteoarthritis type: primary CPT Codes Coding - 22627 Large joint: 85597 - Large joint ([id number])
--- OUTSIDE RECORDS SUMMARY | 2025-11-11 09:41 | XMS_ITS | Data Portability ---
Author Organization [place] - [facility], Allergy Address [address] [address] Care Team Providers Care Pickle Solution Maker Name Role Phone CALEB LEIVA Primary Care [...] Organization Details Recorded Time Respirato ry finding 700697742 Active 2022 Feeling of foreign body in throat; Note: Date Diagnosed : 05/20/2023 12:33 PM (R09.89) Not Available [facility] 4 03:16:00 Cardiovas cular finding 149196295 Active 2022 Feeling of foreign body in throat; Note: Date Diagnosed : 05/20/2023 12:33 PM (R09.89) Not Available [facility] 4 03:16:00 Dysphonia 74752253 Active 2022 Hoarsenes s; Note: Date Diagnosed : 05/20/2023 12:34 PM (R49.0) Not Available [facility] 4 03:16:00 Pain in throat 721171381 Active 2022 Pain in throat; Note: Date Diagnosed : 05/20/2023 12:33 PM (J31.2) Not Available [facility] 4 03:16:00 Gastroeso phageal reflux disease without esophagit is 151371866 Active 2022 Gastro-es ophageal reflux disease without esophagit is; Note: Date Diagnosed : 05/20/2023 12:33 PM (K21.9) Not Available [facility] 4 03:15:59 Bilateral temporoma ndibular joint pain 28341002385 134307 Active 2022 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; Note: Date Diagnosed : 07/01/2023 2:16 PM (M26.623) Not Available [facility] 4 03:16:00 Neoplasm of uncertain behavior of pharynx 86929149 Active 2022 Neoplasm of uncertain behavior of pharynx; Note: Date Diagnosed : 3 2:06 PM (D37.05) Not Available [facility] 4 03:16:00 Chronic tonsillit is 23904072 Active 2023 Chronic tonsillit is; Note: Date Diagnosed : 03/05/2024 12:05 PM (J35.01) Not Available [facility] 4 03:15:59 Amygdalol ith 7022098 Active 2023 KIARA MAE MD [address] [place] [address], [phone] , [facility] 11:00:44 Problem Notes None recorded. Procedures Surgical History Date Name Laterality Status Provider Name and Address Organization Details Recorded Time 09/08/2024 FFL_RE completed KIARA MAE MD [address] [place] [address], [phone], [facility] 09/08/2024 11:08:16 Imaging Results None recorded. Procedure Notes None recorded. Medical Equipment None Reported. Allergies Allergen ID Allergen Name Allergen Category Reaction Reaction Severity Criticality Documentation Date Start Date Code Code System Note Provider Name and Address Organization Details Recorded Time 904198 Product containin g penicilli n (product) medicatio n other Not available Not available 04/06/2024 15963 8001 SNOMED React ion: Unkno wn; Not Available [facility] 4 01:17:56 372441 codeine medicatio n other Not available Not available 04/06/2024 2670 RxNorm React ion: Unkno wn; Not Available [facility] 4 01:17:56 Medications Name Sig Start Date Stop Date Status Note LastModified by Organization Details LastModified Time nifedipine ER 30 mg tablet,ext ended release 24 hr TAKE 1 TABLET BY MOUTH DAILY active Not Available Not Available No t Available senna 8.6 mg tablet active Medicatio n ID: [id number] Br and Name: senna Sen d Method: [...] a day 2022 active Medicatio n ID: [id number] Du ration Value: 30 Brand Name: omeprazol [...] ICD10 Code Diagnosis IMO Codes Diagnosis Note [id number] KIARA MAE MD [facility] [address] [address] 09/08/2024 10:37:30 09/08/2024 11:07:30 Chronic tonsillitis 25680043 J35.01 Likely explains PET uptake. No tumors or masses on exam today and symptoms seem to correlate with tonsil stones. We will continue observatio n. I asked her to call if her symptoms worsen. Amygdalolith 5670511 J35 .8 see above Health Concerns Section Related Observation LastModified by Organization Detai ls LastModified Time None Recorded Concern Status LastModified by Organization Details LastModified Time None Recorded Advance Directives Directive None Recorded Payers Insurance Date Sequence Insurance Name Policy Number Policy Heaton Covered Member ID Heaton Member ID Guarantor Name 08/23/[address] [facility] (MEDICARE REPLACEMENT/A DVANTAGE - HMO) [employer] Zayra Rodas [id number] Zayra Rodas Notes Date Note Type Note [...] does not smoke. KIARA MAE MD [address] [place] [address], [phone], [place] - [facility] 09/08/2024 11:09:13 OBGyn Episode No OBEpisode recorded.
--- OUTSIDE RECORDS SUMMARY | 2025-11-11 09:41 | XMS_ITS | Encounter Summary ---
Author Organization [employer] Address [address] [place] [address] [address] [place] [address] Care Team Providers Care Singer And Unloader Name Role Phone Unavailable Primary Care Provider Unavailabl e Reason for Visit * Reason Onset Date Comments rs cancelled appt 12/29/2024 Encounter Details Date Type Department Care Team ([facility] st Contact Info) Description 12/29/2024 Telephone HH ADULT DENTAL [address] [place] [address] Jake Iverson DDS [address] [place] [address] rs cancelled appt Social History Tobacco Use [...]
--- OUTSIDE RECORDS SUMMARY | 2025-11-11 09:41 | XMS_ITS | Patient Health Record ---
Author Organization [facility] Address [address] [place] [address] Care Team Providers Care Dairy Cattle Farm Worker Name Role Phone Spenser Romero Primary Care Provider Sil Rios Unavailable [phone] Allergies Allergen (clinical drug ingredient) Drug/Non Drug [...] Insured Coverage Start Date Coverage End Date [facility] [address] [place] [id number] [facility] [place] 0 Zayra [...]
--- OUTSIDE RECORDS SUMMARY | 2025-11-11 09:41 | XMS_ITS ---
Author Name May Felton NP Address [address] [place] [address] Phone [phone] [facility] Care Team Providers Care Gum Cook Name Role Phone May Felton Unavailable [phone] Po, Lorenver Unavailable [phone] [facility] Unavailable [phone] Reason for Referral Not Available Allergies, adverse [...] 2025-03-29 N/A HYPERTE NSION CONTINGENCY PLANLast updated: 03/29/2025[facility] to call for the following symptoms: BP >180/100 / Chest pain / HeadachePlanned intervention: Assess for signs of end organ damage (headache, vision changes, chest pain)/ Dehydrogenation Converter Helper on proper BP monitoring technique and reassess/ [...] of Service Diagnosis/Co mplaint No Data Available [facility], ([place]/2023 Sacroiliitis, not elsewhere classifiedSciatica, unspecified sideOther obesity due to excess caloriesBody mass index (bmi) 30.0-30.9, adultEssential (primary) hypertensionGastro-esophageal reflux disease without esophagitis No Data Available [facility]/2023 No Data Available [facility]2023 No Data Available [facility]2023 No Data Available [facility]/20[place] No Data Available [facility] No Data Available [facility]20[place] No Data Available [facility]20[place] No Data Available [facility] 11/[place]2023 No Data Available [facility]/2023 Estab. patient 20-29min; 1 stable chronic or 2 minor; add add modifier 95 for video, modifier 93 for phone [facility] 03/29/2025 Hypertensive chronic kidney disease w stg 1-4/unsp chr kdnyChronic kidney disease, stage 3aSacroiliitis, not elsewhere classifiedSciatica, unspecified sideOther obesity due to excess caloriesBody mass index (bmi) 30.0-30.9, adultGastro-esophageal reflux disease without esophagitisOther problems related to medical facilities and other health care Estab. patient 20-29min; 1 stable chronic or 2 minor; add add modifier 95 for video, modifier 93 for phone [facility] 03/29/20[place] Estab. patient 20-29min; 1 stable chronic or 2 minor; add add modifier 95 for video, modifier 93 for phone [facility] 03/29/2025 Estab. patient 20-29min; 1 stable chronic or 2 minor; add add modifier 95 for video, modifier 93 for phone [facility] 03/[place] Estab. patient 20-29min; 1 stable chronic or 2 minor; add add modifier 95 for video, modifier 93 for phone [facility] 03/29/2025 Estab. patient 20-29min; 1 stable chronic or 2 minor; add add modifier 95 for video, modifier 93 for phone [facility] 03/29/2025 Estab. patient 20-29min; 1 stable chronic or 2 minor; add add modifier 95 for video, modifier 93 for phone [facility] 03/29/2025 Estab. patient 20-29min; 1 stable chronic or 2 minor; add add modifier 95 for video, modifier 93 for phone [facility] 03/29/2025 Vital Signs Date [...] Time Current Smoking Status Never smoker 2025-10-24 8 Sex Female History of Procedures Procedures Service Procedure code Service date Servicing provider Phone# No Data Available [id number] 2023-11-28 No Data Available No Data Available [...] 95 for video, modifier 93 for phone [id number] 2025-03-29 No Data Available No Data Availa [...] Available Functional Status Functional Category Effective Dates PICKING SUPERVISOR assists with cooking, cl eaning, laundry, showering [...] organ damage (headache, vision changes, chest pain)/ Dehydrogenation Converter Helper on proper BP monitoring technique and reassess/ [...] 2025-03-29 ECCA completed with member and ORLIN salary and wage administrator
--- OUTSIDE RECORDS SUMMARY | 2025-11-11 09:41 | XMS_ITS | Encounter Summary ---
Author Organization [employer] Address [address] [facility] 7t [place] [address] Care Team Providers Care Verification Specialist Name Role Phone Unavailable Primary Care Provider Unavailabl e Reason for Visit * Reason Onset Date Comments ongoing pain 10/07/2024 Encounter Details Date Type Department Care Team ([facility] st Contact Info) Description 10/07/2024 Telephone [facility] ADULT DENTAL [address] [place] [address] Hazel Mancera DDS [address] [place] [address] ongoing pain Social History Tobacco Use Types [...]
--- OUTSIDE RECORDS SUMMARY | 2025-11-11 09:41 | XMS_ITS | Clinical Summary ---
Author Organization [employer] Address [address] [place] [address] 7t [place] [address] Care Team Providers Care Lift Electrician Name Role Phone Unavailable Primary Care Provider [...]
--- OUTSIDE RECORDS SUMMARY | 2025-11-11 09:41 | XMS_ITS | Encounter Summary ---
Author Organization [employer] Address [address] [place] [address] 7t [place] [address] Care Team Providers Care Mail Distributor Name Role Phone Jeanne Sandhu OD Primary Care Provider [phone] Encounter Details Date Type Department Care Team (Latest Contact Info) Description 03/01/2019 Abstract [facility] CONVERSIONS Dental, Provider, DDS Social [...] on filedocumented in this encounter Care Teams Mail Distributor Relationship Specialty Start Date End Date Jeanne Sandhu OD [address] [place] [id number] PCP - General Optometry 08/15/17 11/30/23 documented as of this encounter
== END 2025-11-11 09:41 | disposition home or self-care (01) ==
LOC: HO.HOS 09:12
PROVIDERS: PCP Internal Medicine; Visit Provider Physician Assistant
DX: M17.12 Unilateral primary osteoarthritis, left knee (principal)
CPT/HCPCS: 20610

== ENCOUNTER → 2025-11-11 09:11 | Outpatient (BNVA) | payer OTHER, SELFPAY | PROVIDERS: PCP Internal Medicine; Visit Provider Physician Assistant | DX: M17.12 Unilateral primary osteoarthritis, left knee (principal) | CPT/HCPCS: 20610; J7318 ==

== ENCOUNTER 2025-11-15 10:28 | Outpatient (REF) | payer OTHER, SELFPAY ==
[2025-11-15 10:49] LABS: MANUAL DIFF FLAG NO
--- OUTSIDE RECORDS SUMMARY | 2025-11-15 11:43 | XMS_ITS | Encounter Summary ---
Author Organization [employer] Address [address] [place] [address] 7 [place] [address] Care Team Providers Care Systems Architecture Analyst Name Role Phone Unavailable Primary Care Provider Unavailabl e Reason for Visit * Reason Onset Date Comments rs cancelled appt 12/29/2024 Encounter Details Date Type Department Care Team ([facility] st Contact Info) Description 12/29/2024 Telephone [facility] [address] [place] [address] Jake Iverson DDS [address] [place] [address] rs cancelled appt Social History Tobacco Use [...]
--- OUTSIDE RECORDS SUMMARY | 2025-11-15 11:43 | XMS_ITS | Encounter Summary ---
Author Organization [employer] Address [address] [facility] 7t [place] [address] Care Team Providers Care Senior Marketing Analyst Name Role Phone Unavailable Primary Care Provider Unavailabl e Reason for Visit * Reason Onset Date Comments ongoing pain 10/07/2024 Encounter Details Date Type Department Care Team ([facility] st Contact Info) Description 10/07/2024 Telephone [facility] ADULT DENTAL [address] [place] [address] Hazel Mancera DDS [address] [place] [address] ongoing pain Social History Tobacco Use Types [...]
--- OUTSIDE RECORDS SUMMARY | 2025-11-15 11:43 | XMS_ITS | Data Portability ---
Author Organization [place] [facility], Allergy Address [address] [address] Care Team Providers Care Photovoltaic Panel Installer Name Role Phone CALEB LEIVA Primary Care [...] Organization Details Recorded Time Respirato ry finding 675230708 Active 2022 Feeling of foreign body in throat; Note: Date Diagnosed : 05/20/2023 12:33 PM (R09.89) Not Available [facility] 4 03:16:00 Cardiovas cular finding 356592409 Active 2022 Feeling of foreign body in throat; Note: Date Diagnosed : 05/20/2023 12:33 PM (R09.89) Not Available [facility] 4 03:16:00 Dysphonia 38067062 Active 2022 Hoarsenes s; Note: Date Diagnosed : 05/20/2023 12:34 PM (R49.0) Not Available 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; Note: Date Diagnosed : 07/01/2023 2:16 PM (M26.623) Not Available [facility] 4 03:16:00 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 Procedures Surgical History Date Name Laterality Status Provider Name and Address Organization Details Recorded Time 09/08/2024 FFL_RE completed KIARA MAE MD [address] [place] [address], [phone], [facility] 09/08/2024 11:08:16 Imaging Results None recorded. Procedure Notes None recorded. Medical Equipment None Reported. Allergies Allergen ID Allergen Name Allergen Category Reaction Reaction Severity Criticality Documentation Date Start Date Code Code System Note Provider Name and Address Organization Details Recorded Time 323671 Product containin g penicilli n (product) medicatio n other Not available Not available 04/06/2024 94559 8001 SNOMED React ion: Unkno wn; Not Available [facility] 4 01:17:56 687885 codeine medicatio n other Not available Not available 04/06/2024 2670 RxNorm React ion: Unkno wn; Not Available [facility] 4 01:17:56 Medications Name Sig Start Date Stop Date Status Note LastModified by Organization Details LastModified Time nifedipine ER 30 mg tablet,ext ended release 24 hr TAKE 1 TABLET BY MOUTH DAILY active Not Available Not Available No t Available senna 8.6 mg tablet active Medicatio n ID: [id number] Br and Name: senna Sen d Method: [...] a day 2022 active Medicatio n ID: [id number] Du ration Value: 30 Brand Name: omeprazol [...] ICD10 Code Diagnosis IMO Codes Diagnosis Note [id number] KIARA MAE MD [facility] [address] [address] 09/08/2024 10:37:30 09/08/2024 11:07:30 Chronic tonsillitis [id number] J35.01 Likely explains PET uptake. No tumors or masses on exam today and symptoms seem to correlate with tonsil stones. We will continue observatio n. I asked her to call if her symptoms worsen. Amygdalolith 2755808 J35 .8 see above Health Concerns Section Related Observation LastModified by Organization Detai ls LastModified Time None Recorded Concern Status LastModified by Organization Details LastModified Time None Recorded Advance Directives Directive None Recorded Payers Insurance Date Sequence Insurance Name Policy Number Policy Heaton Covered Member ID Heaton Member ID Guarantor Name 08/23/2025 1 [facility] (MEDICARE REPLACEMENT/A DVANTAGE - HMO) [employer] Zayra Rodas [id number] Zayra Rodas Notes Date Note Type Note [...] She does not smoke. KIARA MAE MD [address] [place] [address], [phone], [place] [facility] 09/08/2024 11:09:13 OBGyn Episode No OBEpisode recorded.
--- OUTSIDE RECORDS SUMMARY | 2025-11-15 11:43 | XMS_ITS | Clinical Summary ---
Author Organization [employer] Address [address] [place] [address] [address] [place] [address] Care Team Providers Care Logging Engineer Name Role Phone Unavailable Primary Care [...]
--- OUTSIDE RECORDS SUMMARY | 2025-11-15 11:43 | XMS_ITS | Patient Health Record ---
Author Organization [facility] Address [address] [facility] [place] [address] Care Team Providers Care Body Mechanic Name Role Phone Spenser Romero Primary Care Provider Sil Rios Unavailable [phone] Allergies Allergen (clinical drug ingredient) Drug/Non Drug [...] Insured Coverage Start Date Coverage End Date [facility] [address] [place] [address] [id number] [facility] 0 Zayra Londono [...]
--- OUTSIDE RECORDS SUMMARY | 2025-11-15 11:43 | XMS_ITS | Encounter Summary ---
Author Organization [employer] Address [address] [place] [address] [address] [place] [address] Care Team Providers Care Cook Chili Name Role Phone Jeanne Sandhu OD Primary Care Provider [phone] Encounter Details Date Type Department Care Team [...] on filedocumented in this encounter Care Teams Cook Chili Relationship Specialty Start Date End Date Jeanne Sandhu OD [address] [place] [address] PCP - General Optometry 08/15/17 11/30/23 documented as of this encounter
--- OUTSIDE RECORDS SUMMARY | 2025-11-15 11:43 | XMS_ITS ---
Author Name May Felton NP Address [address] [place] [address] Phone [phone] [facility] Care Team Providers Care Autism Specialist Name Role Phone May Felton Unavailable [phone] Po, Lorenver Unavailable [phone] [facility] Unavailable Reason for Referral Not Available Allergies, [...] N/A HYPERTE NSION CONTINGENCY PLANLast updated: 03/29/2025[facility] the following symptoms: BP >180/100 / Chest pain / HeadachePlanned intervention: Assess for signs of end organ damage (headache, vision changes, chest pain)/ 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 Under on proper BP monitoring technique and reassess/ [...] of Service Diagnosis/Co mplaint No Data Available [facility], ([place]/28/2023 Sacroiliitis, not elsewhere classifiedSciatica, unspecified sideOther obesity due to excess caloriesBody mass index (bmi) 30.0-30.9, adultEssential (primary) hypertensionGastro-esophageal reflux disease without esophagitis No Data Available [facility] 11/28/2023 No Data Available [facility] 11/[place]/2023 No Data Available [facility] 11/[place]/2023 No Data Available [facility] 11/[place]/2023 No Data Available [facility]/2023 No Data Available [facility]/2023 No Data Available [facility]/2023 No Data Available [facility] 11/[place]/2023 No Data Available [facility] 11/28/2023 Estab. patient 20-29min; 1 stable chronic or 2 minor; add add modifier 95 for video, modifier 93 for phone [facility] 03/29/2025 Hypertensive chronic kidney disease w stg 1-4/unsp chr kdnyChronic kidney disease, stage 3aSacroiliitis, not elsewhere classifiedSciatica, unspecified sideOther obesity due to excess caloriesBody mass index (bmi) 30.0-30.9, adultGastro-esophageal reflux disease without esophagitisOther problems related to medical facilities and other health care Estab. patient 20-29min; 1 stable chronic or 2 minor; add add modifier 95 for video, modifier 93 for phone [facility] [place] [facility] Estab. patient 20-29min; 1 stable chronic or 2 minor; add add modifier 95 for video, modifier 93 for phone [facility] [place] 03/29/2025 Estab. patient 20-29min; [...] 95 for video, modifier 93 for phone [facility] [place] 03/[place]/2025 Estab. patient 20-29min; 1 stable chronic or 2 minor; add add modifier 95 for video, modifier 93 for phone [facility] 03/29/2025 Estab. 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
[2025-11-15 11:56] LABS: Hematocrit 36.0 % (37.0-47.0); Hemoglobin 11.7 g/dl (12.0-16.0); Imm Gran Abs Auto 0.02 X10*3/uL (0.00-0.03); Imm Gran Pct Auto 0.3 % (0.0-0.4); Lymphocytes Absolute Auto 1.8 X10*3/uL (1.2-4.9); Mean Corpuscular HGB Conc 32.5 g/dl (31.0-35.0); Mean Corpuscular Hemoglobin 29.8 pg (27.0-33.0); Mean Corpuscular Volume 91.8 fL (80.0-98.0); NRBC Abs Auto 0.000 X10*3/uL (0.0-0.012); NRBC Pct Auto 0.0 /100WBC (0.0-0.2); Platelet Count 290 X10*3/uL (160-400); Red Blood Count 3.92 X10*6/uL (4.20-5.50); White Blood Count 6.7 X10*3/uL (4.8-10.8)
[2025-11-15 12:34] LABS: Alanine Aminotransferase 15 U/L (0-31); Albumin Level 4.1 g/dL (3.5-5.0); Alkaline Phosphatase 131 U/L (39-117); Anion Gap 12 (12-20); Aspartate Amino Transferase 23 U/L (5-31); Blood Urea Nitrogen 25 mg/dL (9-16); Calcium 10.0 mg/dL (8.4-10.2); Carbon Dioxide 25 mmol/L (22-29); Chloride 108 mmol/L (96-108); Cholesterol 196 mg/dL (<200); Estimated Glomerular Filt Rate 50; HDL Cholesterol 47 mg/dL (>40); Potassium 4.7 mmol/L (3.3-5.1); Sodium 140 mmol/L (135-145); Total Protein 7.5 g/dL (6.5-8.0); Triglycerides 88 mg/dL (<150)
[2025-11-15 12:53] LABS: Thyroid Stimulating Hormone 1.47 uIU/mL (0.32-4.0)
== END 2025-11-15 10:29 | disposition home or self-care (01) ==
LOC: HO.LAB 10:28
PROVIDERS: PCP Internal Medicine; Visit Provider Internal Medicine
DX: R73.01 Impaired fasting glucose (principal); E78.00 Pure hypercholesterolemia, unspecified; M17.12 Unilateral primary osteoarthritis, left knee; R51.9 Headache, unspecified; I10 Essential (primary) hypertension; K21.9 Gastro-esophageal reflux disease without esophagitis; G47.33 Obstructive sleep apnea (adult) (pediatric); E66.3 Overweight; L70.0 Acne vulgaris; R23.8 Other skin changes; D12.6 Benign neoplasm of colon, unspecified; D64.9 Anemia, unspecified; Z12.11 Encounter for screening for malignant neoplasm of colon; Z79.899 Other long term (current) drug therapy; Z99.89 Dependence on other enabling machines and devices
CPT/HCPCS: 36415; 80053; 80061; 83036; 84443; 85025; 99212

== ENCOUNTER 2025-11-15 12:12 | Outpatient (AMB) | payer OTHER, SELFPAY ==
--- NOTE | 2025-11-15 12:40 | A.OFFPC_ITS ---
Vital Signs 11/15/25 12:41 Height 5 ft Weight 152 lb 8 oz BMI 29.8 BP 120/60 Blood Pressure Location Lt brachial Position Sitting Pulse 52 Pulse Source Pulse Oximeter Temp 96.6 F L Temp Source Temporal Artery Scan Pulse Oximetry (%) 98 Oxygen Delivery Method Room Air Intake Visit Reasons: cholesterol , HTN , OS Intake Note: Patient is here to follow up on Cholesterol, HTN, OS. Cartography Teacher Required: Yes Cartography Teacher Language: Apparel Stock Checker Name: Hannah(grand-daughter) Information Interpreted: non-clinical & clinical (Pt decline translatoe service prefer grad-daughter to translate) Gradall Operator: Present Accompanied by: Grand Child Allergies atorvastatin Allergy (Unknown, Verified 11/15/25 12:41) myalgia codeine Allergy (Unknown, Verified 11/15/25 12:41) SWELLING penicillin V Allergy (Unknown, Verified 11/15/25 12:41) rash nifedipine Adverse Reaction (Intermediate, Verified 11/15/25 12:41) palpitations pravastatin Adverse Reaction (Intermediate, Verified 11/15/25 12:41) joint pain hydrochlorothiazide Adverse Reaction (Mild, Verified 11/15/25 12:41) Swelling metoprolol Adverse Reaction (Verified 11/15/25 12:41) leg swelling Medication List - Last Reconciled 11/15/25 by Spenser Romero, acetaminophen 1,000 mg (2 x 500 mg) PO Q8H PRN acetaminophen (Tylenol) 650 mg (2 x 325 mg) PO Q6H PRN albuterol sulfate 90 mcg/actuation 2 puffs inhalation Q4-6H PRN amlodipine 5 mg PO DAILY baclofen 5 mg PO TID PRN [BP Cuff As directed] cholecalciferol (vitamin D3) 25 mcg PO DAILY [CPAP 6 cm humidified AIR MASKAIR FIT N20 small As directed] diclofenac sodium 1% (Voltaren Arthritis Pain) 4 grams topical QID docusate sodium (Colace) 100 mg PO BID guaifenesin ER (Mucinex) 1,200 mg PO BID hydrocortisone 2.5% (Proctosol HC) 1 appl [place] BID-QID PRN ibuprofen 400 mg PO Q6H PRN irbesartan 300 mg PO DAILY 90 days [knee brace As directed] lidocaine 5% (Lidoderm) 1 patch topical DAILY omeprazole 20 mg PO DAILY 90 days polyethylene glycol 3350 (Miralax) 17 grams PO BID PRN rosuvastatin 10 mg PO DAILY sennosides (senna) 8.6 mg PO BEDTIME sennosides-docusate sodium 8.6-50 mg (Senna Plus) 1 tab-cap PO BID PRN 30 days [SHOWER CHAIR As directed] simethicone (Gas Relief Extra Strength) 125 mg PO TID PRN 30 days [WALKER WITH SEAT As directed] Tobacco use date assessed: 11/15/25 Fall risk assessment: No Falls in past year Last assessed Fall Risk: 11/15/25 Dental Screening Dental Screen Date: 09/15/25 HPI HPI Comments History of Present Illness Details History of Present Illness The patient is a 75-year-old obese female presenting for a follow-up visit for management of chronic conditions, with a last visit in August 2025. Her medical history includes hypercholesterolemia, obstructive sleep apnea managed with CPAP, impaired glucose tolerance, osteopenia with the last bone density scan in October 2024, depression, and hypertension. For left knee osteoarthritis, the patient was seen by orthopedics in October 2019 and was sent for physical therapy. She recently received a Durolane gel injection in the left knee, which is providing some temporary relief. The knee joint is noted to have significant deterioration, and the injection is considered a temporary measure before potential surgery. The patient had an emergency room visit on October 07 for nausea and vomiting, where she was diagnosed with influenza A and constipation. She continues to experience some nausea. She has experienced a 7-pound weight loss since her last visit, which may be related to the recent illness. She reports heartburn and is on omeprazole. Her diet includes 1-2 cups of coffee per day. Her last blood work in October 2023 showed mild anemia with a hemoglobin of 11.7, an improvement from 11.0 in September. Her electrolytes were normal, creatinine was 1.07, blood sugar was normal, and liver function was fine. Her LDL was 132, an improvement from a prior value of 150. A thyroid test is pending. Regarding health maintenance, her mammogram is up to date as of October 2025. Her colonoscopy is due, with the last one in 2019 showing a tubular adenoma. Her current medications include amlodipine 5 mg, an ARB 300 mg, and rosuvastatin 10 mg daily. She reports sometimes taking an extra dose of amlodipine at night for elevated blood pressure readings. Health Maintenance The patient is due for a colonoscopy for surveillance of a prior tubular adenoma. Follow-up will be arranged to ensure the colonoscopy is scheduled. A complete physical exam will also be scheduled. Social History - Diet: Drinks one to two cups of coffee daily. - She was advised to avoid foods that tr igger heartburn, such as spicy foods, tomato products, juices, soda, and coffee at night. - Sleep: Uses a CPAP machine for obstruc tive sleep apnea. - Hydration: Lab work suggests she may n ot be drinking enough water. - Exercise: Results - Labs (October 2023): - CBC: Hgb/Hct 11.7/36, indicating mild anemia. - Platelet and white blood cell counts w ere normal. - CMP: Electrolytes (sodium, potassium) were good. - Renal function was stable with a creat inine of 1.07, though BUN was slightly elevated. - Blood sugar and liver function were no rmal. - Lipid Panel: LDL was 132. - Thyroid studies: Pending. - Labs (October 07): - CBC: Hemoglobin was 11.0. - Other Diagnostics: - Bone Density Scan (October 2024): Rev ealed osteopenia. - Mammogram (October 2025): Results are up to date. - Colonoscopy (2019): Showed a tubular a denoma. [facility] Medical History (Updated 11/15/25 @ 13:04 by Spenser Romero MD) Breast cancer screening Age-related osteoporosis without current pathological fracture Obesity (BMI 30.0-34.9) Benign essential hypertension JANN on CPAP Left leg swelling Conjunctivitis Radicular pain Low back pain Otitis media of left ear LUQ abdominal pain Vitamin D deficiency Obesity (BMI 30-39.9) Obstructive sleep apnea IgA nephropathy History of colon polyps Diverticulosis Chronic constipation Venous (peripheral) insufficiency Coreas's cyst of knee Pure hypercholesterolemia Hypovitaminosis D Surgical History History of esophagogastroduodenoscopy (EGD) History of dilatation and curettage H/O tubal ligation History of loop electrical excision procedure (LEEP) History of colonoscopy Family History Father Alzheimers disease Mother Kidney failure Social History Housing: Apartment Are you a primary overnight caregiver to a significant other at home: No Alcohol intake: never Patient Tobacco Use Status: Never used Tobacco Tobacco use type: Cigarette e-Cigarette/Vaping Use: Never Used Second Hand Smoke Exposure: No service: No Current occupational status: disabled Cognitive needs: No Hearing needs: No Vision needs: Yes Questionnaire Thrive Questionnaire Date Thrive assessed: 05/19/25 I am a: Patient What is your living situation today?: I have a steady place to live Within the past 12 months, did the food you bought not last and you didn't have the money to get more?: Never true Within the past 12 months, did you worry whether your food would run out before you got money to buy more?: Never true Do you have trouble paying for medicines?: No Do you have trouble getting transportation to medical appointments?: No Do you have trouble paying your heating and electricity bill?: No Do you have trouble taking care of your child, family member or friend?: No Do you have trouble with day-to-day activities such as bathing, preparing meals, shopping, managing finances, etc.?: No Are you currently unemployed and looking for a job?: No Are you interested in more education?: No Currently or been in a relationship where the following occur: No concerns reported THRIVE Score: 0 SANDRA-7 AMB Questionnaire SANDRA-7 Date SANDRA - 7 assessed: 05/19/25 Source: Developed by Drs. Bon Garcia, Mimi Nicholson, Rick Bruno and colleagues, with an educational abbey from [employer]. Review of Systems Narrative Review of Systems - Constitutional: Reports a 7-pound weight loss. - Gastrointestinal: Reports ongoing nausea and heartburn. - She reports her bowel movements are currently good, following a period of constipation. - Musculoskeletal: Reports left knee pain, which has improved with a recent injection. - Skin: Reports a black dot on her back and a bump on her ear. - Cardiovascular: She reports her blood pressure feels higher at night. - Denies leg swelling. Physical exam (Primary Care) Vital Signs: Last Vital Signs Temp 96.6 F L 11/15/25 12:41 Pulse 52 11/15/25 12:41 BP 120/60 11/15/25 12:41 Pulse Ox 98 11/15/25 12:41 Oxygen Delivery Method Room Air 11/15/25 12:41 BMI result Body Mass Index 29.8 Tobacco/Smoking Status: Tobacco use Status Tobacco use date assessed 11/15/25 11/15/25 12:47 Patient Tobacco Use Status Never used Tobacco 11/15/25 12:47 Tobacco use type Cigarette 11/15/25 12:47 e-Cigarette/Vaping Use Never Used 11/15/25 12:47 Thrive Assessment: Date of Thrive Assessment Date Thrive assessed 05/19/25 11/15/25 12:47 Currently or been in a relationship where the following occur: No concerns reported Narrative Physical Exam - General: The patient is a 75-year-old obese female who appears to have lost weight. - Skin: Examination of the back reveals a black dot. - Head/Ear: A bump is noted on the ear. - Vitals: Blood pressure is noted to be good during the visit. Const General: alert; No acute distress Eyes Conjunctivae: conjunctivae normal Resp Auscultation: clear to auscultation bilaterally Cardio Rate: regular rate Rhythm: regular rhythm GI Inspection: Yes normal to inspection Extrem General: Yes normal to inspection and No edema Coding Level of Care Code Est Pt Level 4 (20786) Add On Problem Visit Only Diagnoses Primary hypertension I10 Hypertension type: primary hypertension Pure hypercholesterolemia E78.00 Impaired fasting blood sugar R73.01 GERD (gastroesophageal reflux disease) K21.9 Obstructive sleep apnea G47.33 Primary osteoarthritis of left knee M17.12 Osteoarthritis type: primary Overweight (BMI 25.0-29.9) E66.3 Colon cancer screening Z12.11 Open comedone L70.0 Fibrous papule of right ear R23.8 Tubular adenoma of colon D12.6 Assessment & Plan Assessment & Plan (1) HTN (hypertension): Code(s): I10 - Essential (primary) hypertension Category: Medical Qualifiers: Hypertension type: primary hypertension Qualified Code(s): I10 - Essential (primary) hypertension Plan: Continue with blood pressure medication. Decrease salt intake and exercise patient on amlodipine 5 mg once a day irbesartan 300 mg once a day (2) Pure hypercholesterolemia: Code(s): E78.00 - Pure hypercholesterolemia, unspecified Category: Medical Plan: Avoid fried foods, chicken skin, eggs, butter margarine, pastries and meat. Be it pork or beef they have a lot of cholesterol LDL goal of less than 130 and triglyceride of less than 150 on rosuvastatin 10 mg once a day (3) Impaired fasting blood sugar: Code(s): R73.01 - Impaired fasting glucose Category: Medical Plan: Decrease the amount of carbohydrate intake, pasta, bread, rice and potatoes are all sugar and that is aside from all the sweet stuff, remember that fruits are good but they are Sweet also. (4) GERD (gastroesophageal reflux disease): Code(s): K21.9 - Gastro-esophageal reflux disease without esophagitis Category: Medical Plan: Avoid the foods that causes that usually spicy foods, tomato products, juices, coffee, soda and foods that your sensitive to. After eating do not lie down, allow 3-4 hours before in lie down. And keep the head of bed above 30 degrees to avoid the acid from going up. (5) Obstructive sleep apnea: Comment: CPAP Code(s): G47.33 - Obstructive sleep apnea (adult) (pediatric) Category: Medical Plan: Continue to use the CPAP more than 4 hours a night and benefits from this (6) Osteoarthritis of left knee: Code(s): M17.12 - Unilateral primary osteoarthritis, left knee Category: Medical Qualifiers: Osteoarthritis type: primary Qualified Code(s): M17.12 - Unilateral primary osteoarthritis, left knee Plan: Patient follows up with orthopedics and had Durolane gel injection recently (7) Overweight (BMI 25.0-29.9): Code(s): E66.3 - Overweight Category: Medical Plan: Noted 7 lb weight loss (8) Colon cancer screening: Code(s): Z12.11 - Encounter for screening for malignant neoplasm of colon Category: Medical (9) Open comedone: Comment: back upper right Code(s): L70.0 - Acne vulgaris Category: Medical (10) Fibrous papule of right ear: Code(s): R23.8 - Other skin changes Category: Medical (11) Tubular adenoma of colon: Code(s): D12.6 - Benign neoplasm of colon, unspecified Category: Medical Plan Plan Patient was informed and verbally consented to the use of an ambient scribe for clinic note documentation during this visit. 1. Hypertension The patient reports elevated blood pressure at night and has been taking her amlodipine 5 mg dose twice a day as needed, though it was prescribed for once daily. She was counseled on the risks of self-adjusting medication without medical guidance. The plan is to formally increase the dose to amlodipine 5 mg twice a day. She will continue her ARB (irbesartan) 300 mg once daily. The [facility] be sent to [facility]. 2. Hypercholesterolemia The patient's LDL cholesterol has improved from 150 to 132, approaching the goal of less than 130. She will continue taking rosuvastatin 10 mg once a day. 3. Anemia The patient's mild anemia has improved, with hemoglobin rising from 11.0 to 11.7. The plan is to continue monitoring. 4. Gastroesophageal Reflux Disease The patient was counseled on lifestyle and dietary modifications for heartburn, including avoiding trigger foods like spicy items, tomato products, juices, soda, and coffee, especially at night. She was also advised to elevate the head of her bed with three or four pillows. A prescription was sent to help reduce acid production. 5. Left Knee Osteoarthritis The patient recently received a Durolane gel injection, which is a temporary measure for her knee pain before considering surgery. She is to continue following up with her orthopedist. 6. Obstructive Sleep Apnea The importance of using her CPAP for more than 4 hours a night was emphasized due to its impact on cardiac health. 7. Impaired Glucose Tolerance The plan for management includes diet and exercise. Her blood sugar is currently normal. 8. Skin Lesions The patient has a black dot on her back and a bump on her ear that require evaluation. A referral to dermatology will be placed for further assessment and possible removal. Discussion Notes I reviewed the patient's recent lab results with her, highlighting the improvements in her anemia and cholesterol levels. We discussed her hypertension management, and she reported taking amlodipine 5 mg twice a day at times due to elevated blood pressure at night. I counseled her on the dangers of adjusting medication doses without consulting a provider, including the risk of hypotension and falls, before agreeing to increase her prescription to amlodipine 5 mg twice daily. I provided counseling for her heartburn, including dietary advice and strategies like elevating her head at night, and I sent in a relevant prescription. We talked about her recent Durolane injection, and I explained that it is a temporary measure for her knee osteoarthritis. I informed her that I am placing a new referral to dermatology for the skin lesions on her back and ear. I confirmed that she is overdue for a colonoscopy and that my office would ensure she gets scheduled for the procedure. I also advised that she should schedule a complete physical exam and to contact me with any interval problems. Patient Instructions - Take your blood pressure medication, amlodipine 5 mg, twice a day as prescribed. - Do not change the dose of your medications on your own; please call the office first if you have concerns. - Continue taking your cholesterol medication, rosuvastatin 10 mg, once a day. - For heartburn, avoid spicy foods, tomato, juices, soda, and coffee at night. - Prop your head up with 3 or 4 pillows when you lie down. - Use your CPAP machine every night for at least 4 hours to protect your heart. - Drink more water throughout the day. - We have sent a referral for you to see a skin therapist (funnel coater) for the spot on your back and the bump on your ear. - Our office will help make sure you are scheduled for your overdue colonoscopy. - Please call to schedule a full physical exam. - If you have any problems or questions, please call our office. Orders: Referrals Dermatology Referral L70.0 - Acne vulgaris, R23.8 - Other skin changes Gastroenterology Referral D12.6 - Benign neoplasm of colon, unspecified Medications: Changed From amlodipine 5 mg PO DAILY 90 tabs 2RF I10 - Essential (primary) hy pertension To amlodipine 5 mg PO BID 180 tabs 2RF I10 - Essential (primary) hypertension Refilled guaifenesin ER (Mucinex) 1,200 mg PO BID 20 tabs 0RF omeprazole 20 mg PO DAILY 90 caps 0RF 90 days K21.9 - Gastro-esophageal reflux disease without esophagitis
[2025-11-15 12:41] VITALS: BP 120/60; PULSE 52; TEMP 35.9; O2SAT 98; BMI 29.8
== END 2025-11-15 13:10 | disposition home or self-care (01) ==
LOC: HO.HMCH 12:13
PROVIDERS: PCP Internal Medicine; Visit Provider Internal Medicine
DX: I10 Essential (primary) hypertension (principal); E78.00 Pure hypercholesterolemia, unspecified; R73.01 Impaired fasting glucose; K21.9 Gastro-esophageal reflux disease without esophagitis; G47.33 Obstructive sleep apnea (adult) (pediatric); M17.12 Unilateral primary osteoarthritis, left knee; E66.3 Overweight; Z12.11 Encounter for screening for malignant neoplasm of colon; L70.0 Acne vulgaris; R23.8 Other skin changes; D12.6 Benign neoplasm of colon, unspecified